=== PATIENT | male | born 1975 | race Caucasian/White ===

== ENCOUNTER 2019-03-17 20:02 | Inpatient (IN) | payer OTHER ==
[~2019-03-17] VITALS: Ht 175.3 cm; Wt 116.6 kg
[2019-03-17 20:02] VITALS: BP 116/61
--- NOTE | 2019-03-17 20:02 | NUR ---
PT TRACY ALS. TAKEN TO BED 9
--- NOTE | 2019-03-17 20:05 | NUR ---
PT BIBA FROM [facility] W/ ABNORMAL LABS. PT RESPONSIVE TO PAIN. PT APPEARS LETHARGIC AND DIAPHORETIC. PER [facility] PT WAS NOT RESPONSIVE HE USUALLY IS AT BASELINE. PT TRACHED, RR SET AT 16. O2 SAT 99%. RECTAL TEMP 99.1. VSS AT THIS TIME. MEDHX: RESPIRATORY FAILURE, TRACHIOSTOMY, GASTRONOMY, DYSPHAGIA, GI HEMMORHAGE, LT SUBDURAL HEMATOMA, DM, EPILEPSY, CRANIOTOMY.
[2019-03-17] MEDS ORDERED: NACL 0.9% 500 ML IV SCH (20:07)
--- NOTE | 2019-03-17 20:07 | NUR ---
RT AT BEDSIDE
[2019-03-17 20:10] VITALS: BP 106/56
--- NOTE | 2019-03-17 20:16 | NUR ---
Dr. Laureano examining patient.
--- NOTE | 2019-03-17 21:00 | NUR ---
GENOVEVA CHU AT BEDSIDE FOR US-GUIDED IV PLACEMENT
[2019-03-17 21:20] LABS: HEMATOCRIT 29.3 % (36-52); HEMOGLOBIN 9.7 g/dL (12.0-18.0); MEAN CORPUSCULAR HEMOGLOBIN 28 pg (27-31); MEAN CORPUSCULAR HGB CONC 33 g/dL (33-37); MEAN CORPUSCULAR VOLUME 86.3 fL (80-94); PLATELET COUNT (AUTO) 592 K/uL (140-450); RED CELL DISTRIBUTION WIDTH 15.7 % (11.6-13.7); WHITE BLOOD COUNT (AUTO) 23.5 K/uL (4.8-10.8)
--- NOTE | 2019-03-17 21:25 | NUR ---
PT POSITIONED COMFORTABLE IN BED, BED LOCKED AND IN LOW POSITION. VSS AT THIS TIME. PT APPEARS TO BE DIAPHORETIC. MD MADE AWARE. WILL CONTINUE TO MONITOR.
[2019-03-17 21:28] LABS: APPEARANCE,URINE SL CLOUDY (CLEAR); BILIRUBIN,URINE NEGATIVE (NEGATIVE); BLOOD, URINE NEGATIVE (NEGATIVE); COLOR,URINE YELLOW (YELLOW); LEUKOCYTE ESTERASE ,URINE NEGATIVE (NEGATIVE); NITRITE, URINE NEGATIVE (NEGATIVE); PH,URINE 5.5 (5.0-9.0); UGLUCOSE NEGATIVE (NEGATIVE)
[2019-03-17] MEDS ORDERED: PIPERACILLIN/TAZOBACTAM 3.375 GM in DEXTROSE 5% 50 ML IV ONE (21:35)
[2019-03-17] MEDS ORDERED: CLINDAMYCIN 900 MG in DEXTROSE 5% 100 ML IV ONE (21:35)
[2019-03-17 21:38] LABS: ANION GAP 13.6 (8-16); CARBON DIOXIDE 27.2 mmol/L (21-32); CREATININE 0.8 mg/dL (0.7-1.3); POTASSIUM 3.8 mmol/L (3.5-5.1)
[2019-03-17 21:41] LABS: PROTHROMBIN TIME 10.5 secs (10.8-13.4)
[2019-03-17 21:43] LABS: EOSINOPHILS % (MANUAL) 2 % (0-4); LYMPHOCYTES % (MANUAL) 7 % (20-46); MONOCYTES % (MANUAL) 6 % (5-12)
[2019-03-17 21:49] LABS: RBC,URINE NONE SEEN /HPF (0-5); WBC,URINE 0-5 /HPF (0-5)
[2019-03-17 21:50] LABS: URINE AMORPHOUS URATE 2+ /HPF (None Seen)
--- NOTE | 2019-03-17 21:52 | NUR ---
EMT AT BED SIDE GETTING EKG
[2019-03-17 21:57] LABS: TOTAL BILIRUBIN 0.6 mg/dL (0.0-1.0)
--- NOTE | 2019-03-17 21:58 | NUR ---
XRAY AT BEDSIDE
[2019-03-17] MEDS ORDERED: PIPERACILLIN/TAZOBACTAM 3.375 GM VIAL IV ONE (22:20)
--- NOTE | 2019-03-17 22:38 | NUR ---
PT RECEVING MEDICATIONS AT THIS TIME, ARM POSITIONED FOR IV. VSS. WILL CONTINUE TO MONITOR.
--- NOTE | 2019-03-17 22:50 | NUR ---
PT CALM AND RELAXED, VSS WILL CONTINUE TO MONITOR
[2019-03-17] MEDS ORDERED: ZOLPIDEM 5 MG TAB PO PRN (22:55)
[2019-03-17] MEDS ORDERED: ONDANSETRON 4 MG/2 ML VIAL IVP PRN (22:55)
[2019-03-17] MEDS ORDERED: POTASSIUM CHLORIDE 10 MEQ TABER PO PRN (22:55)
[2019-03-17] MEDS ORDERED: LORazepam 2 MG/ML VIAL IVP PRN (22:55)
[2019-03-17] MEDS ORDERED: SODIUM PHOSPHATE 118 ML ENEM RC PRN (22:55)
[2019-03-17] MEDS ORDERED: guaiFENesin DM 200/20 MG-10 ML 10 ML UDC PO PRN (22:55)
[2019-03-17] MEDS ORDERED: BISACODYL 10 MG SUPP RC PRN (22:55)
[2019-03-17] MEDS ORDERED: ALUMINUM HYD/MAG/SIMETHICONE 30 ML UDC PO PRN (22:55)
[2019-03-17] MEDS ORDERED: MAGNESIUM OXIDE 400 MG TAB PO PRN (22:55)
[2019-03-17] MEDS ORDERED: MORPHINE SULFATE 2 MG/ML SYR IVP PRN (22:55)
[2019-03-17] MEDS ORDERED: ACETAMINOPHEN 650 MG SUPP RC PRN (22:55)
[2019-03-17] MEDS ORDERED: VANCOMYCIN PER PHARMACY MC PRN (22:55)
[2019-03-17] MEDS ORDERED: ACETAMINOPHEN 325 MG TAB PO PRN (22:55)
[2019-03-17] MEDS ORDERED: HYDROcodone/APAP 5/325 MG 1 TAB TAB PO PRN ×2 (22:55)
[2019-03-17] MEDS ORDERED: DOCUSATE SODIUM 250 MG GELCAP PO PRN (22:55)
[2019-03-17] MEDS ORDERED: MAG SULF 2000 MG/WATER PREMIX 50 ML IV PRN (22:55)
[2019-03-17] MEDS ORDERED: NACL 0.9% 1,000 ML IV ONE (22:55)
[2019-03-17] MEDS ORDERED: diphenhydrAMINE 50 MG/ML VIAL IVP PRN (22:55)
[2019-03-17] MEDS ORDERED: cloNIDine 0.1 MG TAB PO PRN (22:55)
--- NOTE | 2019-03-17 23:05 | NUR ---
VENT CHANGES MADE PER ORDER BY DR. LINDSEY. TOLERATING WELL. NO RESPIRATORY DISTRESS NOTED. WILL CONTINUE TO MONITOR.
[2019-03-17] MEDS ORDERED: CLINDAMYCIN 900 MG/6 ML VIAL IV ONE (23:07)
--- NOTE | 2019-03-17 23:30 | NUR ---
PATIENT TRANSFERRED TO [facility] WITHOUT INCIDENT; BAGGED WITH 100% OXYGEN. VENT SETUP COMPLETE. VENT INTO CORRECT RED OUTLET. VENT ALARMS ON AND AUDIBLE. AIRWAY SECURE AND PATENT. AMBU BAG AT [facility].PATIENT PLACED ON CONT. PULSE OX MONITOR; PULSE OX FUNCTIONING PROPERLY WITH ALARMS ON AND AUDIBLE. NO RESPIRATORY DISTRESS NOTED AT THIS TIME. WILL CONTINUE TO MONITOR.
--- NOTE | 2019-03-17 23:35 | NUR ---
Patient will be admitted to care of DR MEJIA. Admited to TELE. Will go to room 122B. Belongings list completed. Report to MIKE LOPEZ.
[2019-03-17 23:45] VITALS: BP 93/46
--- NOTE | 2019-03-17 23:45 | NUR ---
REPORT RECEIVED FROM ED NURSE AT BEDSIDE. PT IN STABLE CONDITION. AAOX0. INTRODUCED SELF TO PT. BOARD UPDATED. FLACC 0. NO SOB ON TRACH TO VENT. AFEBRILE@97.2. PT IS BEDBOUND. PT HAS GTUBE. MRSA COLLECTED. VS STABLE. IV SITE L AC 20G RUNNING CLEOCIN@100ML/HR PATENT AND INTACT. R HAND 22G SL PATENT AND INTACT. SKIN WARM, DRY, AND NOT INTACT DUE TO BILATERAL SHOULDER CELLULITIS WOUNDS AND L FOOT DIABETIC FOOT ULCER. BED LOCKED IN LOW POSITION. CALL SINGH WITHIN REACH. SAFETY PRECAUTION IN PLACE. ALL NEEDS MET AT THIS TIME.
[2019-03-18] VITALS: BP 97/45
[2019-03-18] MEDS ORDERED: VANCOMYCIN 1,000 MG VIAL ONE ×2 (00:01→03:23)
[2019-03-18] MEDS ORDERED: LIP80 PO (00:37)
[2019-03-18] MEDS ORDERED: PHEN100C3 GT (00:37)
[2019-03-18] MEDS ORDERED: LACT1CAP59 GT (00:37)
[2019-03-18] MEDS ORDERED: INSU100S5 SQ (00:37)
[2019-03-18] MEDS ORDERED: LISI10TA11 GT (00:37)
[2019-03-18] MEDS ORDERED: ARGI4.5P3 GT (00:37)
[2019-03-18] MEDS ORDERED: GABA100C GT (00:37)
[2019-03-18] MEDS ORDERED: DOCU-300 GT (00:37)
[2019-03-18] MEDS ORDERED: HYDR100T79 GT (00:37)
[2019-03-18] MEDS ORDERED: AMOX-1000 PO (00:37)
[2019-03-18] MEDS ORDERED: DEXL30EC PO (00:37)
[2019-03-18] MEDS ORDERED: MULT-153 GT (00:37)
[2019-03-18] MEDS ORDERED: KEP500L GT (00:37)
[2019-03-18] MEDS ORDERED: LANTUS SUBQ (00:37)
[2019-03-18] MEDS ORDERED: ACET-2619 PO (00:37)
[2019-03-18] MEDS ORDERED: NA P135N RC (00:37)
--- NOTE | 2019-03-18 00:50 | NUR ---
PICTURES OF BILATERAL SHOULDER CELLULITIS WOUNDS TAKEN AND IN CHART.
[2019-03-18] MEDS: VANCOMYCIN 1,000 MG in DEXTROSE 5% 250 ML IV SCH ×4 (01:01→19:48)
--- NOTE | 2019-03-18 01:01 | NUR ---
CHAMP ISAACS AND RUNNING. PT TOLERATING WELL.
--- NOTE | 2019-03-18 03:30 | NUR ---
CHAMP ISAACS AND RUNNING. PT TOLERATING WELL.
[2019-03-18 04:00] VITALS: BP 100/50
[2019-03-18] MEDS ORDERED: cefTRIAXone 1,000 MG VIAL ONE (05:17)
--- NOTE | 2019-03-18 05:37 | NUR ---
TAWANDA ISAACS AND CHRISS. PT TOLERATING WELL. Addendum: 03/18/19 at 0547 by Honorio Valderrama RN ORAL CARE DONE.
--- NOTE | 2019-03-18 06:23 | NUR ---
REC' D PT ON CARESCAPE VENT SETTINGS AC 14 VT50 PEEP 5 FIO2 28% ALARMS ON AND AUDIBLE AND AMBU BAG IS AT HOB AND VENT IS PLUGGED INTO RED OUTLET, NO HHN NEEDED NO SOB SXN PT MODERATED AMT OF THICK BLOODY SECRETIONS, PT IS TRACH WITH SHILEY 7 XLT AND PT IS RESTING
--- NOTE | 2019-03-18 06:33 | NUR ---
PT OFF BIPAP PLACED ON 3LNC Addendum: 03/18/19 at 0641 by Marly Bee RT WRONG PT, THIS PT IS ON VENT
--- NOTE | 2019-03-18 06:40 | NUR ---
PT SLEEPING COMFORTABLY BUT AROUSABLE. PT IN STABLE CONDITION.
--- NOTE | 2019-03-18 07:20 | NUR ---
RECEIVED REPORT FROM NIGHT RN. PATIENT IS SLEEPING BUT EASILY AROUSABLE. PT IS FULL CODE, NKA. CAME [place] [facility] [place] PT HAS TWO IV LINES, LEFT AC 20G, RIGHT AC 20G WITH NORMAL SALINE INFUSING TO RIGHT LINE. PT HAS A G-TUBE, AAOX0, APHASIC. WILL CONTINUE WITH THE PLAN OF CARE FOR THE DAY.
[2019-03-18 08:00] VITALS: BP 95/53
--- NOTE | 2019-03-18 09:00 | NUR ---
OBTAINED AEROBIC SWAB OF WOUNDS TO LEFT FOOT, RIGHT AND LEFT SHOULDER WOUNDS. SENT OVER TO LAB
--- NOTE | 2019-03-18 09:18 | NUR ---
PATIENT HAS BEEN SCREENED AND CATEGORIZED HIGH NUTRITION RISK. PATIENT WILL BE SEEN WITHIN 1-2 DAYS OF ADMISSION. 03/18/19-03/19/[address]
--- NOTE | 2019-03-18 09:27 | NUR ---
BEGAN NEXT INFUSION OF VANCOMYCIN. PT SLEEPING IN BED, VISIBLE CHEST RISE AND FALL.
--- NOTE | 2019-03-18 11:44 | NUR ---
[facility] Celluloid Trimmer Assessment/Discharge Plan: Name: Payal Bonilla Home Relationship: sister in law Pre-Admission Living Arrangements: Other Other: sub-acute Prior ADL Total/Dependent Advance Directive No Tentative Discharge Plan Summary: Patient was admitted for shoulder abscess. Per Vanita from [facility] , patient is on a 7 day bed hold and is one of their chcf patients in their sub-acute unit. Vanita stated they patient does not have an Advance Directive and his sister in law Payal Bonilla is his health care decision maker. I called Payal, no answer, left message. Celluloid Trimmer and/or Petrophysical Engineer will follow up as needed. Signature: JOSHUA Mcmillan Date: Mar 18, 2019
[2019-03-18 12:00] VITALS: BP 152/73
[2019-03-18] MEDS ORDERED: MORPHINE SULFATE 4 MG/ML SYR IVP PRN (12:50)
[2019-03-18] MEDS ORDERED: SODIUM PHOSPHATE 118 ML ENEM RC PRN (12:55)
--- NOTE | 2019-03-18 13:00 | NUR ---
PATIENT IS EXTREMELY AGITATED WITH HIGH HR OF 140s. ADMINISTERED ATIVAN & MORPHINE.
[2019-03-18] MEDS: LORazepam 2 MG/ML VIAL IVP PRN ×3 (13:19→16:29)
--- NOTE | 2019-03-18 13:41 | NUR ---
PATIENT SKIN WARM TO TOUCH AND TEMP OF 104 TEMPORAL READING. ADMINISTERED TYLENOL SUPPOSITORY. WILL RE ASSESS TEMP
[2019-03-18] MEDS ORDERED: INSULIN LISPRO SLIDING SCALE 100 UNITS/ML VIAL SUBQ PRN (13:45)
[2019-03-18] MEDS ORDERED: DEXTROSE 50% 50 ML SYR IVP PRN (13:45)
[2019-03-18] MEDS: MEROPENEM 500 MG in NACL 0.9% 50 ML IV SCH ×2 (13:54→21:09)
--- NOTE | 2019-03-18 14:08 | NUR ---
03/18/19 RD INITIAL ASSESSMENT COMPLETED PLEASE REFER TO NUTRITION ASSESSMENT UNDER CARE ACTIVITY FOR ESTIMATED NUTRITIONAL NEEDS. 1. RECOMMEND GLUCERNA @ 80ML/HR WITH PROSOURCE DAILY. -THIS WILL PROVIDE 2364KCAL AND 130GM OF PROTEIN WHICH WILL MEET 100% OF ESTIMATEDS NEEDS 2. RECOMMED FWF OF 200ML Q6H 3. RD TO FOLLOW-UP 2-3 DAYS, HIGH RISK NICK JOVEL RD
--- NOTE | 2019-03-18 15:15 | NUR ---
TEMP CAME DOWN TO 102.2, UTILIZED COOLING MEASURES. PATIENT IS STILL EXTREMELY AGITATED AFTER X2 DOSES OF ATIVAN AND X1 MORPHINE.
--- NOTE | 2019-03-18 15:16 | NUR ---
DISCHARGE PLANNIN YRS OLD MALE AD[place] [facility] [place] DX OF RT SHOULDER ABSCESS. PT IS CHRONIC VENT DEPENDENT , REMAINS COMATOSE AT BASELINE, SEIZURE DM AND SEPSIS UNCLEAR ETIOLOGY. ADMINISTERED VANCO AND MEROPENEM IVPB FOR CELLULITIS, AND WBC 23.4 , RT PROTOCOL FOR VENT SETTING. SURGICAL CONSULT WITH DR HAYNES FOR SHOULDER ABSCESS ,DC PLAN TO GO BACK TO [facility] . CM TO FOLLOW Addendum: 03/19/19 at 1206 by Ana Tong CM DC PLANNING: I&D DONE ON R&L SHOULDER ABSCESS , WOUND CULTURE SENT TO LAB , CONTINUE IV VANCOMYCIN AND MEROPENEM , ABDOMINAL US FINDING FOR CHOLELITHIASIS NEW ORDER HIDA SCAN TO R/O ACUTE CHOLECYSTITIS. DC PLAN POSSIBLE SURGERY CM TO FOLLOW. Addendum: 03/24/19 at 1511 by Ana Tong CM DC PLANNING PATIENT HAS A DC ORDER GOING BACK [place] [facility] FA[place]ED ALL THE PAPER WORK , NO ISO NEEDED PT IS COLONIZED. SPOKE WITH SOLA AT [facility] ACCEPTED PT CAN GO TO ROOM 34 A . ARRANGED TRANSPORT WITH [facility] FILM SOUND ENGINEER TIME 5PM . NOTIFED CHELSEY MCKEON
[2019-03-18 16:00] VITALS: BP 127/67
--- NOTE | 2019-03-18 16:03 | NUR ---
PATIENTS TEMP DOWN TO 100. PATIENT IS RECEIVING SUCTIONING TO MOUTH Q20MIN FOR EXCESS SECRETIONS.
[2019-03-18] MEDS ORDERED: LORazepam 2 MG/ML VIAL IVP PRN (16:15)
--- NOTE | 2019-03-18 16:31 | NUR ---
ADMINISTERED ONE TIME DOSE OF ATIVAN 2MG PER DR MEJIA. WILL GIVE PATIENT 2L BOLUS NS PER ORDER.
[2019-03-18] MEDS: BLOOD GLUCOSE MONITORING 1 DEV DEV FS SCH ×2 (16:48→20:42)
--- NOTE | 2019-03-18 18:40 | NUR ---
OBTAINED TELEPHONE CONSENT FOR INCISION AND DRAINAGE PER DR HAYNES. PATIENT WILL BE HAVING PROCEDURE DONE TONIGHT. WILL ENDORSE TO INTERVENTIONAL PAIN PHYSICIAN TO OBTAIN CONSENT FOR CT ABD W/O CONTRAST AND HIDA SCAN.
[2019-03-18] MEDS: ALBUTEROL 0.083% 2.5 MG/3 ML NEBU INH PRN (18:58)
[2019-03-18] MEDS: IPRATROPIUM 0.02% 0.5 MG/2.5 ML NEBU INH PRN (18:58)
--- NOTE | 2019-03-18 19:05 | NUR ---
REPORT RECEIVED FROM AM NURSE AT BEDSIDE. PT IN STABLE CONDITION. AAOX0. INTRODUCED SELF TO PT. BOARD UPDATED. FLACC 0. NO SOB TRACH TO VENT. FEBRILE@99.5. PT IS BEDBOUND. PT HAS GTUBE. PT TO GO TO OR FOR I AND D OF BILATERAL SHOULDER ABSCESS@2129. IV SITE L AC WAS D/C BY PATIENT PULLING OUT THE IV LINE. R WRIST 22G CURRENT IV RUNNING NS@70ML/HR PATENT AND INTACT. SKIN WARM, MOIST, AND NOT INTACT DUE TO ABSCESSES OF THE BILATERAL SHOULDERS AND L DIABETIC FOOT ULCER. BED LOCKED IN LOW POSITION. CALL SINGH WITHIN REACH. SAFETY PRECAUTION IN PLACE. ALL NEEDS MET AT THIS TIME.
--- NOTE | 2019-03-18 19:20 | NUR ---
Received pt stable on vent support at documented settings, suctioned moderated amounts of thick white blood tinged secretions, prn hhn tx given, tolerated well, no resp distress or SOB noted at this time, Shiley 7 XLT trach secured/midline/patent, alarms set and audible, ambu bag at bedside, vent plugged into red outlet, cont pulse ox on, will cont to monitor.
--- NOTE | 2019-03-18 19:48 | NUR ---
CHAMP ISAACS AND RUNNING. PT TOLERATING WELL.
[2019-03-18 20:00] VITALS: BP 111/56
[2019-03-18] MEDS: levETIRAcetam 100 MG/ML ORASYR GT SCH ×2 (20:33→22:30)
[2019-03-18] MEDS: GABAPENTIN 100 MG CAP PO SCH ×2 (20:33→22:30)
[2019-03-18] MEDS: DOCUSATE 100 MG/10 ML UDC GT SCH ×2 (20:33→22:30)
[2019-03-18] MEDS: PHENYTOIN 100 MG/4 ML UDC GT SCH ×2 (20:34→22:30)
[2019-03-18] MEDS ORDERED: LISINOPRIL 10 MG TAB PO SCH (21:00)
[2019-03-18] MEDS ORDERED: DOCUSATE SODIUM 100 MG GT SCH (21:00)
--- NOTE | 2019-03-18 21:09 | NUR ---
JARVIS HUNG AND RUNNING. PT TOLERATING WELL. BS 126. NO INSULIN COVERAGE NEEDED.
--- NOTE | 2019-03-18 21:35 | NUR ---
PT LEFT FOR SURGERY I&D OF BILATERAL SHOULDER ABSCESS.
[2019-03-18] MEDS: BUPIVACAINE-MPF/EPI 0.25% 30 ML VIAL INJ ONE ×2 (21:42→22:14)
[2019-03-18] MEDS ORDERED: fentaNYL 0.05 MG/ML VIAL ONE (22:00)
[2019-03-18] MEDS ORDERED: HYDROcodone/APAP 5/325 MG 1 TAB TAB PO PRN (22:20)
[2019-03-18] MEDS ORDERED: MORPHINE SULFATE 2 MG/ML SYR IVP PRN (22:20)
[2019-03-18] MEDS ORDERED: MORPHINE SULFATE 4 MG/ML SYR IV PRN (22:20)
[2019-03-18] MEDS ORDERED: HYDROmorphone 1 MG/ML AMP IVP PRN (22:20)
--- NOTE | 2019-03-18 22:20 | NUR ---
PT RETURNED FROM SURGERY. REPORT RECEIVED FROM OR NURSE AT BEDSIDE. PT IN STABLE CONDITION.
--- NOTE | 2019-03-18 22:30 | NUR ---
DILANTIN, KEPPRA, DOCUSATE, AND GABAPENTIN GIVEN THROUGH GTUBE. PT TOLERATED WELL.
--- NOTE | 2019-03-18 22:59 | NUR ---
TYL GIVEN THROUGH GTUBE FOR FEVER OF 100.2. PT TOLERATED WELL.
--- NOTE | 2019-03-18 23:15 | NUR ---
ATIVAN GIVEN FOR AGITATION. PT TOLERATED WELL.
[2019-03-19] VITALS: BP 126/63
[2019-03-19] MEDS: VANCOMYCIN 1,000 MG in DEXTROSE 5% 250 ML IV SCH (01:52)
--- NOTE | 2019-03-19 01:52 | NUR ---
CHAMP ISAACS AND RUNNING. PT TOLERATING WELL.
--- NOTE | 2019-03-19 03:40 | NUR ---
PT SLEEPING COMFORTABLY BUT AROUSABLE. NO S/S OF DISTRESS NOTED. NO COMPLAINTS OF PAIN. NO SOB. AFEBRILE. WILL CONTINUE TO MONITOR.
[2019-03-19 04:00] VITALS: BP 142/70
[2019-03-19] MEDS: MEROPENEM 500 MG in NACL 0.9% 50 ML IV SCH ×3 (04:00→21:41)
--- NOTE | 2019-03-19 04:00 | NUR ---
JARVIS HUNG AND RUNNING. PT TOLERATING WELL.
[2019-03-19] MEDS: BLOOD GLUCOSE MONITORING 1 DEV DEV FS SCH ×4 (06:02→21:52)
--- NOTE | 2019-03-19 06:02 | NUR ---
BS 85. NO INSULIN COVERAGE NEEDED.
--- NOTE | 2019-03-19 06:29 | NUR ---
PT SLEEPING COMFORTABLY BUT AROUSABLE. NO S/S OF DISTRESS NOTED. PT IN STABLE CONDITION.
--- NOTE | 2019-03-19 07:07 | NUR ---
RECEIVED PATIENT ON VENT. WITH SETTINGS CHARTED. BREATH SOUNDS WERE COARSE, PRESENT AND BILATERAL. SUCTIONED PATIENT WITH MINIMUM AMOUNT OF OFF WHITE SECRETIONS. TRACH SITE SECURE. AMBU BAG AT BEDSIDE. VENT PLUGGED INTO A RED OUTLET. WILL CONTINUE TO MONITOR PATIENT ON VENT.
--- NOTE | 2019-03-19 07:15 | NUR ---
RECEIVED BEDSIDE REPORT FROM CRISIS CLINICIAN NURSE FOR CONTINUITY OF CARE. PATIENT IS RESTING ON BED, PATIENT IS APHASIC WITH TRACH TO VENT, AAOX1. RESPIRATION EVEN AND UNLABORED ON TRACH TO VENT SETTING: FIO2 28%, VT 500 ML, RATE 14/MIN, FLOW 45/ MIN, PEEP 5, SPO2 AT 100% AT THIS TIME. FLACC 0. NO SIGNS OF DISTRESS NOTED. IV ON L FORE-WRIST 22G, CLEAN AND INTACT, RUNNING 5ML/HR. SHOULDER WOUNDS BILATERALLY NOTED, COVERED WITH DRESSING, S/P I&D, DRESSING CLEAN AND DRY. L FOOT ULCER NOTED, COVERED WITH DRESSING, DRESSING CLEAN AND DRY. G-TUBE IN PLACE AND NOT INFUSING AT THIS TIME. PATIENT IS INCONTINENT AND BEDREST. TELE MONITOR ATTACHED. SAFETY MEASURES IN PLACE. FALL RISK PROTOCOL IN PLACE AND BED ALARM ACTIVATED. BED IN LOW POSITION AND CALL LIGHT WITHIN REACH.
--- NOTE | 2019-03-19 07:47 | NUR ---
RECEIVED A CALL FROM [facility] AND WAS TOLD THAT THEY WILL ARRANGE A PORTABLE HIDA SCAN FOR PATIENT, AND PATIENT NEED TO BE NPO FOR 4-6 HOURS, NO MED NOR OPIOIDS. INFORMED GREGORIA THAT PATIENT HAS BEEN NPO AND NOT RUNNING ANY TUBE FEEDING. REQUESTED GREGORIA TO CALL BACK ONCE HE FINDS OUT WHEN IS HIDA SCAN TAKE PLACE, GREGORIA WAS AWARE AND SAID WILL CALL ME BACK FOR FURTHER INFORMATION.
[2019-03-19 08:00] VITALS: BP 138/62
--- NOTE | 2019-03-19 08:03 | NUR ---
RECEIVED A CALL FROM RADIOLOGY [facility] AND TOLD THAT PORTABLE HIDA SCAN SERVICE WILL BE ARRIVE AROUND 12-1 PM, HOLD ALL OPIOIDS AND ATIVAN, NPO FOR 4-6 HOURS. INFORMED [facility], PROTOCOL WILL BE FOLLOW FOR THE HIDA SCAN.
--- NOTE | 2019-03-19 08:45 | NUR ---
PATIENT WAS TRANSPORTED TO CT VIA AMBU BAG. CT DONE. PATIENT TRANSPORTED BACK TO ROOM AND PLACED BACK ON CARESCAPE WITH THE SETTINGS THAT WERE STARTED. NO ILL EFFECTS NOTED.
[2019-03-19] MEDS: GABAPENTIN 100 MG CAP PO SCH ×3 (09:00→17:23)
[2019-03-19] MEDS: INSULIN LANTUS 100 UNITS/ML 10 ML VIAL SUBQ SCH (09:00)
[2019-03-19] MEDS: PHENYTOIN 100 MG/4 ML UDC GT SCH ×3 (09:00→17:22)
--- NOTE | 2019-03-19 09:40 | NUR ---
ASSISTED ASPHALT PAVER OPERATOR TO CHANGE AND CLEAN PATIENT, PATIENT HAS ONE SOFT YELLOW BM. POSITIONED PATIENT TO HIS RIGHT SIDE WITH PILLOW OFF LOADED PRESSURE, PATIENT TOLERATED WELL. NO SIGNS OF DISTRESS NOTED. TELE MONITOR AND SPO2 MONITOR ATTACHED. SAFETY MEASURES IN PLACE. BED IN LOW POSITION AND WOUND BED ACTIVATED. FALL RISK PROTOCOL IN PLACE AND BED ALARM ACTIVATED.
[2019-03-19 09:41] LABS: BASOPHILS % (AUTO) 0.2 % (0.0-2.0); EOSINOPHILS # (AUTO) 0.5 K/uL (0-0.4); EOSINOPHILS % (AUTO) 1.9 % (0.0-4.0); HEMATOCRIT 25.2 % (36-52); HEMOGLOBIN 8.4 g/dL (12.0-18.0); LYMPHOCYTES # (AUTO) 2.3 K/uL (2.0-11.5); LYMPHOCYTES % (AUTO) 8.4 % (20.5-51.1); MEAN CORPUSCULAR HEMOGLOBIN 29 pg (27-31); MEAN CORPUSCULAR HGB CONC 33 g/dL (33-37); MEAN CORPUSCULAR VOLUME 86.6 fL (80-94); MONOCYTES % (AUTO) 7.3 % (1.7-9.3); NEUTROPHILS # (AUTO) 22.2 K/uL (1.8-7.7); NEUTROPHILS % (AUTO) 82.2 % (42.2-75.2); PLATELET COUNT (AUTO) 546 K/uL (140-450); RED BLOOD CELL COUNT(AUTO) 2.91 MIL/uL (4.20-6.10)
--- NOTE | 2019-03-19 09:53 | NUR ---
RECEIVED A CRITICAL LAB FOR WBC 27 AT 0949 FROM [facility], PAGED DR MEJIA AND AWAITING FOR DR MEJIA TO RETURN CALL.
[2019-03-19 10:05] LABS: ANION GAP 14.3 (8-16); CARBON DIOXIDE 25.4 mmol/L (21-32); POTASSIUM 3.7 mmol/L (3.5-5.1)
--- NOTE | 2019-03-19 10:05 | NUR ---
RECEIVED A CALL FROM DR MEJIA AND INFORMED DR MEJIA THAT PATIENT'S WBC IS 27 AND VANCOMYCIN TROUGH IS 39.2, DR MEJIA AWARE AND NO ORDER RECEIVED AT THIS TIME. ALSO INFORMED DR MEJIA DUE TO PATIENT IS GOING TO HIDA SCAN AT NOON, HOLD ALL AM GT MEDS, AND CHECK BLOOD GLUCOSE RECEIVED 109, HOLD INSULIN DUE TO NOT FEEDING AT THIS TIME. DR MEJIA WAS AWARE.
[2019-03-19 10:06] LABS: ALBUMIN 1.8 g/dL (3.4-5.0); CREATININE 1.7 mg/dL (0.7-1.3); TOTAL BILIRUBIN 1.2 mg/dL (0.0-1.0)
--- NOTE | 2019-03-19 10:13 | NUR ---
RECOMMEND TO CLEANSE LEFT AND RIGHT SHOULDER WITH NS. PAT DRY AND APPLY ADAPTIC DRESSING AND COVER WITH DRY DRESSING QD AND PRN. PENDING DR. HAYNES I&D PROCEDURES Addendum: 03/19/19 at 1026 by Dharmesh Ureña RN (Grace) DR. CALI NOTIFIED, WILL ASSESS PT. POST I&D
--- NOTE | 2019-03-19 10:17 | NUR ---
NOTIFIED PHARMACIST ON REGARD ON VANCOMYCIN TROUGH 39.2, PER PHARMACIST, VANCOMYCIN WILL BE DC AND VANCOMYCIN RANDOM WILL BE DRAW TOMORROW.
--- NOTE | 2019-03-19 10:45 | NUR ---
PROVIDED AM MORNING ORAL CARE, SUCTIONED PATIENT 2X AND RECEIVED MINIMAL MUCUS. PATIENT TOLERATED WELL. SPO2 AT 100, FLACC 0. NO SIGNS OF DISTRESS NOTED. SAFETY MEASURES IN PLACE. BED IN LOW POSITION AND CALL LIGHT WITHIN REACH. WOUND BED ACTIVATED.
--- NOTE | 2019-03-19 11:06 | NUR ---
DR MEJIA IS ASSESSING PATIENT AT BEDSIDE. NO SIGNS OF DISTRESS NOTED. TELE MONITOR ATTACHED. SAFETY MEASURES IN PLACE.
[2019-03-19 12:00] VITALS: BP 110/49
--- NOTE | 2019-03-19 12:54 | NUR ---
ADMINISTERED SCHEDULED IVPB MED PER MD ORDER, MED EDUCATION PROVIDED, REINFORCEMENT NEEDED. PATIENT IS RESTING ON BED AT THIS TIME. RESPIRATION EVEN AND UNLABORED ON TRACH TO VENT, SPO2 AT 100%. NUCLEAR MED SHOW OPERATIONS SUPERVISOR MAME ARRIVED AT BEDSIDE AND GETTING READY FOR HIDA SCAN. NO SIGNS OF DISTRESS NOTED. SAFETY MEASURES IN PLACE. BED IN LOW POSITION AND WOUND BED ACTIVATED.
--- NOTE | 2019-03-19 13:50 | NUR ---
PATIENT IS STILL IN HIDA SCAN. FALCC 0. SPO2 AT 100%. NO SIGNS OF DISTRESS NOTED. BROTHER RAYMOND IS BY BEDSIDE. SAFETY MEASURES IN PLACE.
[2019-03-19] MEDS: metroNIDAZOLE 500 MG/NS PREMIX 100 ML IV SCH ×2 (14:14→22:57)
--- NOTE | 2019-03-19 14:14 | NUR ---
ADMINISTERED METRONIDAZOLE VIA IVPB PER MD ORDER, MED EDUCATION PROVIDED TO PATIENT AND PATIENT'S BROTHER RAYMOND AT BEDSIDE. PATIENT IS RESTING ON BED. RESPIRATION EVEN AND UNLABORED ON TRACH TO VENT, SPO2 AT 100%, FLACC 0. NO SIGNS OF DISTRESS NOTED. SAFETY MEASURES IN PLACE. TELE MONITOR ATTACHED. WOUND BED ACTIVATED.
[2019-03-19] MEDS: GAUZE TP SCH (14:19)
[2019-03-19] MEDS: DOCUSATE 100 MG/10 ML UDC GT SCH ×2 (15:40→21:00)
[2019-03-19] MEDS: levETIRAcetam 100 MG/ML ORASYR GT SCH ×2 (15:41→21:00)
--- NOTE | 2019-03-19 15:42 | NUR ---
HIDA SCAN COMPLETED. ADMINISTERED MEDS VIA G-TUBE PER MD ORDER, MEDS EDUCATION PROVIDED TO PATIENT AND REINFORCEMENT NEEDED. STARTED G-TUBE FEEDING PER MD ORDER. PATIENT IS RESTING AT THIS TIME. FLACC 0. NO SIGNS OF DISTRESS NOTED. TELE MONITOR ATTACHED. SAFETY MEASURES IN PLACE.
[2019-03-19 16:00] VITALS: BP 129/58
--- NOTE | 2019-03-19 17:21 | NUR ---
CONTINUED TO MONITOR PATIENT WITH SETTINGS CHARTED. BREATH SOUNDS PRESENT AND BILATERAL. SUCTIONED PATIENT WITH MODERATE AMOUNT OF BROWN SECRETIONS. TRACH SITE SECURE. TRACH CARE DONE. AMBU BAG BEDSIDE. VENT PLUGGED INTO RED OUTLET.
--- NOTE | 2019-03-19 17:23 | NUR ---
CHECKED G-TUBE RESIDUAL AND RECEIVED < 5ML, FLUSHED BEFORE AND ADMINISTERED MEDS VIA G-TUBE, MEDS EDUCATION PROVIDED AND REINFORCEMENT NEEDED. PATIENT IS RESTING ON BED AT THIS TIME. FLACC 0 AND SPO2 AT 100%. NO SIGNS OF DISTRESS NOTED. TELE MONITOR ATTACHED. SAFETY MEASURES IN PLACE. BED IN LOW POSITION AND WOUND BED ACTIVATED.
--- NOTE | 2019-03-19 17:47 | NUR ---
PATIENT'S COUSIN BRAYAN IS BY BEDSIDE. NO SIGNS OF DISTRESS NOTED. TELE MONITOR ATTACHED. SAFETY MEASURES IN PLACE.
[2019-03-19] MEDS: IPRATROPIUM 0.02% 0.5 MG/2.5 ML NEBU INH PRN (19:06)
[2019-03-19] MEDS: ALBUTEROL 0.083% 2.5 MG/3 ML NEBU INH PRN (19:07)
--- NOTE | 2019-03-19 19:07 | NUR ---
RECEIVED PATIENT ON CURRENT SETTINGS AC/VC 500 RATE 14 PEEP 5 FIO2 28%. PATIENT IS TRACH'D WITH A SIZE 7 SHILEY XLT THAT IS SECURE WITH TRACH TIES AND PROTECTIVE GAUZE THAT IS CLEAN. B/S: COARSE BILATERALLY IN THE UPPER LOBES. SUCTIONED PATIENT 2X AND RECEIVED SMALL, CREAMY, WHITE, PALE YELLOW SECRETIONS. TREATMENT OF ALBUTEROL AND ATROVENT GIVEN INLINE WITH NO INCIDENT. CHANGED HME AND ADDED OMNIFLEX CONNECTOR TO TRACH. VENT AND ALARM SETTINGS VERIFIED. WILL CONTINUE TO MONITOR.
--- NOTE | 2019-03-19 19:22 | NUR ---
ENDORSED PATIENT AT BEDSIDE TO PAINTER ROUGH NURSE FOR CONTINUITY OF CARE. PATIENT IS RESTING ON BED AT THIS TIME. RESPIRATION EVEN AND UNLABORED ON TRACH TO VENT, SPO2 AT 100%. FALCC 0. GLUCERNA 1.2 IS RUNNING AT 80 ML/HR AT THIS TIME. NO SIGNS OF DISTRESS NOTED. PATIENT IS IN STABLE CONDITION. TELE MONITOR ATTACHED.SAFETY MEASURES IN PLACE.
--- NOTE | 2019-03-19 19:25 | NUR ---
RECEIVED FROM AM RN IN BED WITH RESPIRATORY THERAPIST IN HERE TAKING CARE OF PT. NONE VERBAL. TRACH TO VENT. DX. OF BILATERAL SHOULDER ABSCESS. GT FEEDING OF GLUCERNA 1.2 AT 80 ML/H. IVF SITE TO LEFT WRIST #22 . INCONTINENT. NEEDS WILL BE ANTICIPATED AND WILL BE MET. TOTAL CARE.
[2019-03-19 20:00] VITALS: BP 128/64
--- NOTE | 2019-03-19 20:52 | NUR ---
OH ,A/SURGEON IN HERE AND INFORMED RESIDENT MD TO INFORM CHARGE NURSE AND NURSE ASSIGNED THAT PT'S. G TUBE IS NOT IN PLACE. WITH ORDER TO STOP FEEDING FOR NOW. WILL HOLD ALL GT FEEDINGS AND MEDICATIONS.
--- NOTE | 2019-03-19 22:15 | NUR ---
PT. TURNED TO SIDES BY CNAS AND NURSE. NEEDS ARE ANTICIPATED AND WILL BE MET. TOTAL CARE. PT. BEDBOUND. DRESSINGS TO ABSCESS DRY AND INTACT. TELEMETRY MONITORING. NO RESTLESSNESS. IVF SITE IN TACT.
--- NOTE | 2019-03-19 23:03 | NUR ---
ROUTINE VENT CHECK. SUCTIONED PATIENT TWICE AND RECEIVED SMALL, CREAMY PALLE YELLOW AND WHITE SECRETIONS. B/S IMPROVED POST SUCTIONING. NO CHANGES TO VENT SETTINGS.
[2019-03-20] VITALS: BP 115/56
--- NOTE | 2019-03-20 02:20 | NUR ---
SLEEPING WELL,. NO RESTLESSNESS. PILLOW SUPPORT TO PRESSURE AREAS. HEELS PLACED ON PILLOW FOR SUPPORT. NO COUGHING NOTED. SUCTIONED WELL BY RESPIRATORY THERAPIST. TELEMETRY MONITORING. TURNED Q 2H.
--- NOTE | 2019-03-20 03:17 | NUR ---
PT. TURNED Q 2H. NO RESTLESSNESS NOTED. TRACH TO VENT. RESPIRATORY THERAPIST IN HERE TO TKAE CARE OF PT.
[2019-03-20 04:20] VITALS: BP 120/69
[2019-03-20] MEDS: MEROPENEM 500 MG in NACL 0.9% 50 ML IV SCH ×3 (04:59→22:19)
[2019-03-20] MEDS: metroNIDAZOLE 500 MG/NS PREMIX 100 ML IV SCH ×3 (05:00→21:13)
[2019-03-20 05:35] LABS: BASOPHILS # (AUTO) 0.1 K/uL (0.00-0.22); BASOPHILS % (AUTO) 0.4 % (0.0-2.0); EOSINOPHILS # (AUTO) 0.7 K/uL (0-0.4); EOSINOPHILS % (AUTO) 3.8 % (0.0-4.0); HEMOGLOBIN 8.1 g/dL (12.0-18.0); LYMPHOCYTES # (AUTO) 1.7 K/uL (2.0-11.5); LYMPHOCYTES % (AUTO) 9.5 % (20.5-51.1); MEAN CORPUSCULAR HEMOGLOBIN 29 pg (27-31); MEAN CORPUSCULAR HGB CONC 34 g/dL (33-37); MEAN CORPUSCULAR VOLUME 86.4 fL (80-94); MONOCYTES # (AUTO) 1.3 K/uL (0.8-1.0); MONOCYTES % (AUTO) 7.6 % (1.7-9.3); NEUTROPHILS # (AUTO) 13.7 K/uL (1.8-7.7); NEUTROPHILS % (AUTO) 78.7 % (42.2-75.2); PLATELET COUNT (AUTO) 510 K/uL (140-450); RED BLOOD CELL COUNT(AUTO) 2.78 MIL/uL (4.20-6.10); RED CELL DISTRIBUTION WIDTH 15.7 % (11.6-13.7); WHITE BLOOD COUNT (AUTO) 17.4 K/uL (4.8-10.8)
--- NOTE | 2019-03-20 05:55 | NUR ---
ROUTINE VENT CHECK. COMPLETED TRACH CARE WITH NO INCIDENT. SUCTIONED PATIENT AND RECEIVED MODERATE, THICK AND THIN PALE YELLOW SECRETIONS.
--- NOTE | 2019-03-20 06:34 | NUR ---
PT. TURNED Q 2H. KEPT DRY , CLEAN AND COMFORTABLE. NEEDS ANTICIPATED AND WERE MET. TOTAL CARE. TELEMETRY MONITORING.
--- NOTE | 2019-03-20 07:15 | NUR ---
RECEIVED REPORT FROM DOUBLE END TENON OPERATOR NURSE SHARON FOR CONTINUITY OF CARE. PT IN STABLE CONDITION. RESPIRATIONS EVEN AND UNLABORED. TRACH TO VENT PATENT AND INTACT. NO IV ACCESS. SAFETY MEASURES IN PLACE. BED IN LOW POSITION. CALL LIGHT AT BEDSIDE. BED ALARM ON. WILL CONTINUE TO MONITOR.
[2019-03-20 07:17] LABS: ANION GAP 14.6 (8-16); CARBON DIOXIDE 24.9 mmol/L (21-32); POTASSIUM 3.5 mmol/L (3.5-5.1)
[2019-03-20 07:18] LABS: CREATININE 2.2 mg/dL (0.7-1.3); TOTAL BILIRUBIN 1.2 mg/dL (0.0-1.0)
[2019-03-20 07:19] LABS: ALBUMIN 1.7 g/dL (3.4-5.0)
--- NOTE | 2019-03-20 07:22 | NUR ---
FOUND PT ON A SETTING OF AC 14, 500, +5,28%. VENTILATOR WAS PLUGGED INTO A RED OUTLET WITH BMV AT THE HEAD OF THE BED. PT HAS A [address] ALL ORDERS VERIFIED AND CHECK. PT IS IN NO DISTRESS SAT 100%
[2019-03-20] MEDS: BLOOD GLUCOSE MONITORING 1 DEV DEV FS SCH ×4 (07:30→22:24)
[2019-03-20 08:00] VITALS: BP 103/60
[2019-03-20] MEDS: INSULIN LANTUS 100 UNITS/ML 10 ML VIAL SUBQ SCH (09:00)
--- NOTE | 2019-03-20 10:30 | NUR ---
IV INSERTED 22G LEFT FOREARM AT THIS TIME. PT TOLERATED WELL.
--- NOTE | 2019-03-20 10:54 | NUR ---
TITRATE FI02 TO 24% DUE TO SATURATION AT 100%
[2019-03-20 12:00] VITALS: BP 136/80
--- NOTE | 2019-03-20 12:10 | NUR ---
FAMILY AT BEDSIDE. PT IN STABLE CONDITION. BED IN LOW POSITION. CALL LIGHT AT BEDSIDE. BED ALARM ON. WILL CONTINUE TO MONITOR.
[2019-03-20] MEDS: PHENYTOIN 100 MG/4 ML UDC GT SCH ×3 (12:14→16:57)
[2019-03-20] MEDS: GABAPENTIN 100 MG CAP PO SCH ×3 (12:14→16:58)
[2019-03-20] MEDS: DOCUSATE 100 MG/10 ML UDC GT SCH ×2 (12:14→21:13)
[2019-03-20] MEDS: levETIRAcetam 100 MG/ML ORASYR GT SCH ×2 (12:14→21:13)
[2019-03-20] MEDS: GAUZE TP SCH (12:37)
[2019-03-20] MEDS: LORazepam 2 MG/ML VIAL IVP PRN (12:43)
--- NOTE | 2019-03-20 12:47 | NUR ---
03/20/19 RD INITIAL ASSESSMENT COMPLETED PLEASE REFER TO NUTRITION ASSESSMENT UNDER CARE ACTIVITY FOR ESTIMATED NUTRITIONAL NEEDS. 1. CONTINUE GLUCERNA @ 80ML/HR WITH PROSOURCE DAILY. -THIS WILL PROVIDE 2364KCAL AND 130GM OF PROTEIN WHICH WILL MEET 100% OF ESTIMATEDS NEEDS 2. CONTINUE FWF OF 200ML Q6H 3. RD TO FOLLOW-UP 2-3 DAYS, HIGH RISK NICK JOVEL RD
--- NOTE | 2019-03-20 14:45 | NUR ---
CLEANED AND REPOSITIONED AFTER LARGE SOFT FORMED BOWEL MOVEMENT. PT TOLERATED WELL. BED IN LOW POSITION. CALL LIGHT AT BEDSIDE. BED ALARM ON. WILL CONTINUE TO MONITOR.
--- NOTE | 2019-03-20 15:10 | NUR ---
CAN CATHETER PLACED AT THIS TIME. PT TOLERATED WELL.
[2019-03-20 16:11] VITALS: BP 106/61
--- NOTE | 2019-03-20 17:06 | NUR ---
PT. LEFT ON AC 14,500,+5,24%. HME CHANGED. TRACHEOSTOMY IS INTACT AND CLEAN. PT APPEARS IN NO DISTRESS.
--- NOTE | 2019-03-20 17:15 | NUR ---
GAVE ORDERED DUE MEDICATIONS AT THIS TIME. PT TOLERATED WELL. BED IN LOW POSITION. BED ALARM ON. CALL LIGHT AT BEDSIDE. WILL CONTINUE TO MONITOR.
--- NOTE | 2019-03-20 18:13 | NUR ---
FAMILY AT BEDSIDE. PT IN STABLE CONDITION. BED IN LOW POSITION. BED ALARM ON. CALL LIGHT AT BEDSIDE. WILL CONTINUE TO MONITOR.
--- NOTE | 2019-03-20 19:10 | NUR ---
RCV'D PT ON MECHANICAL VENTILATION. PT IS TRACHED WITH SHILEY [address]LT[address] TRACH IS IN PLACE AND SECURED. VENT SETTINGS CHARTED. VENT CONNECTED TO RED OUTLET. ALARMS AUDIBLE. AMBU BAG AT BEDSIDE. PT ASLEEP COMFORTABLY. NO SOB OR DISTRESS NOTED. WILL CONTINUE TO MONITOR.
--- NOTE | 2019-03-20 19:20 | NUR ---
GAVE REPORT TO SALES ANALYTICS MANAGER NURSE SHERMAN FOR CONTINUITY OF CARE. PT IN STABLE CONDITION.
--- NOTE | 2019-03-20 19:30 | NUR ---
RECEIVED PATIENT REPORT AT BEDSIDE. PT IS APHASIC, TRACH TO VENT. PT ON CONTINUOS O2 MONITORING. O2 SAT 100% AT THIS TIME. NO S/S OF DISTRESS. CAN CATH IN PLACE, DRAINING CLOUDY LIGHT ALINA URINE. PIV NOTED ON THE RIGHT FOREARM. G-TUBE IN PLACE WITH FEEDING ON HOLD. PT ON TELE MONITORING. BED LOWERED WITH CALL LIGHT WITHIN REACH. WILL CONTINUE TO MONITOR
--- NOTE | 2019-03-20 19:50 | NUR ---
PAGED DR HAYNES TO CLARIFY TUBE FEEDING ORDERS. WAITING FOR CALL BACK
[2019-03-20 20:00] VITALS: BP 97/55
--- NOTE | 2019-03-20 23:00 | NUR ---
MADE DR MEJIA AWARE OF THE HIDA SCAN REPORT. PER DR CORNEJO TO RESUME TUBE FEEDING.
--- NOTE | 2019-03-20 23:19 | NUR ---
VENT CHECK. PT ASLEEP COMFORTABLY. NO SOB OR DISTRESS NOTED. WILL CONTINUE TO MONITOR.
[2019-03-21] VITALS (7 sets, daily range): BP systolic 97–123; BP diastolic 53–78
--- NOTE | 2019-03-21 03:00 | NUR ---
WOUND DRESSING ON THE SHOULDERS CHANGED. PT TOLERATED WELL. PT TURNED AND REPOSITIONED FOR COMFORT
[2019-03-21] MEDS: metroNIDAZOLE 500 MG/NS PREMIX 100 ML IV SCH ×3 (05:25→20:48)
[2019-03-21] MEDS: MEROPENEM 500 MG in NACL 0.9% 50 ML IV SCH ×3 (06:35→20:13)
[2019-03-21 06:36] LABS: BASOPHILS % (AUTO) 0.3 % (0.0-2.0); EOSINOPHILS # (AUTO) 0.6 K/uL (0-0.4); EOSINOPHILS % (AUTO) 4.3 % (0.0-4.0); HEMATOCRIT 23.6 % (36-52); HEMOGLOBIN 7.8 g/dL (12.0-18.0); LYMPHOCYTES # (AUTO) 1.3 K/uL (2.0-11.5); LYMPHOCYTES % (AUTO) 8.6 % (20.5-51.1); MEAN CORPUSCULAR HEMOGLOBIN 29 pg (27-31); MEAN CORPUSCULAR HGB CONC 33 g/dL (33-37); MEAN CORPUSCULAR VOLUME 86.3 fL (80-94); MONOCYTES # (AUTO) 1.1 K/uL (0.8-1.0); MONOCYTES % (AUTO) 7.2 % (1.7-9.3); NEUTROPHILS # (AUTO) 11.8 K/uL (1.8-7.7); NEUTROPHILS % (AUTO) 79.6 % (42.2-75.2); PLATELET COUNT (AUTO) 523 K/uL (140-450); RED BLOOD CELL COUNT(AUTO) 2.73 MIL/uL (4.20-6.10); RED CELL DISTRIBUTION WIDTH 15.5 % (11.6-13.7); WHITE BLOOD COUNT (AUTO) 14.8 K/uL (4.8-10.8)
[2019-03-21] MEDS: BLOOD GLUCOSE MONITORING 1 DEV DEV FS SCH ×4 (06:43→20:48)
[2019-03-21 07:20] LABS: ALBUMIN 1.8 g/dL (3.4-5.0); ANION GAP 17.3 (8-16); CARBON DIOXIDE 23.3 mmol/L (21-32); CREATININE 2.1 mg/dL (0.7-1.3); POTASSIUM 3.6 mmol/L (3.5-5.1); TOTAL BILIRUBIN 0.7 mg/dL (0.0-1.0)
--- NOTE | 2019-03-21 07:28 | NUR ---
RECEIVED HAND OFF REPORT FROM PM RN PT APPEARS STABLE AND IN NO APPARENT DISTRESS. ALL SAFETY MEASURES ARE IN PLACE. TRACH TO VENT, GTUBE INFUSING HEAD OF BED ELEVATED ABOVE 30 DEGREES ALL SAFETY MEASURES ARE IN PLACE WILL CONTINUE TO MONITOR
--- NOTE | 2019-03-21 08:15 | NUR ---
REPOSITIONED PT PROVIDED WOUND CARE WITH RUPA ALL SAFETY MEASURES ARE IN PLACE. WILL CONTINUE TO MONITOR.
--- NOTE | 2019-03-21 08:31 | NUR ---
WOUND CARE EVALUATION NOTE: REASON FOR EVALUATION: SURGICAL WOUNDS S/P I&D WOUND ASSESSMENT DONE WITH PRIMARY RN WITH TWO SURGICAL WOUNDS. PT IS NOT AWAKE, RESPONSE TO PHYSICAL STIMULATION , TRACH TO VENT. PT ON CONTINUOS O2 MONITORING. NO S/S OF DISTRESS. CAN CATH IN PLACE. G-TUBE IN PLACE, SKIN IS WARM AND DRY BLE, DRY WITH DARKER PIGMENTATIONS. POC DISCUSSED WITH PRIMARY RN. NANCY BACK WOUND BLEEDING SINCE YESTERDAY PER EMBALMER ASSISTANT RN REPORT. PRIMARY RN WILL CALL DR. HAYNES INTEGUMENTARY: -TRACK AND GT STOMA NADER-SKIN DRY AND CLEAN -LEFT FOOT/TOES MULTIPLE SCABS WITH LARGEST TO LEFT DORSAL FOOT. 0.5X0.5CM BROWN SCAB. -MID BACK SURGICAL WOUND [id number] WOUND BED 100% GRANULATION TISSUE, MODERATE AMOUNT SANGUINOUS DRAINAGE NO ODOR,NADER WOUND SKIN INTACT. -RIGHT POSTERIOR SHOULDER SURGICAL WOUND [id number] WOUND BED 100% GRANULATION TISSUE, SMALL AMOUNT SEROSANGUINEOUS DRAINAGE NO ODOR,NADER WOUND SKIN INTACT. RECOMMENDATION: -SURGEON TO FOLLOW UP TO MID BACK SURGICAL WOUND, APPLY PRESSURE TO AREA ,PACK WOUND WITH 4X4 GAUZES AND COVER WITH ABD PAD AND SECURE WITH TAPE CHANGE QD AND PRN IG SOILING -RIGHT POSTERIOR SHOULDER SURGICAL WOUND CLEANSE WITH NS,PACK WOUND WITH ADAPTIC DRESSING AND COVER WITH ABD PAD AND SECURE WITH TAPE ,CHANGE QM-W-F AND PRN IF SOILING -TURN AND REPOSITION Q 2H, OFFLOADING SACROCOCCYX AND BILATERAL HEELS -PRESSURE RE-DISTRIBUTION SURFACE THERAPY BY USING PILLOWS/POSITIONER
[2019-03-21] MEDS: INSULIN LANTUS 100 UNITS/ML 10 ML VIAL SUBQ SCH (09:00)
[2019-03-21] MEDS: GABAPENTIN 100 MG CAP PO SCH ×3 (09:42→17:58)
[2019-03-21] MEDS: PHENYTOIN 100 MG/4 ML UDC GT SCH ×3 (09:42→17:57)
[2019-03-21] MEDS: DOCUSATE 100 MG/10 ML UDC GT SCH ×2 (09:42→20:45)
[2019-03-21] MEDS: levETIRAcetam 100 MG/ML ORASYR GT SCH ×2 (09:42→20:45)
[2019-03-21] MEDS ORDERED: VANCOMYCIN 1,250 MG in DEXTROSE 5% 250 ML IV SCH (10:00)
--- NOTE | 2019-03-21 10:31 | NUR ---
FREQUENT ROUNDING ON PT PT APPEARS STABLE AND IN NO APPARENT DISTRESS. ALL SAFETY MEASURES ARE IN PLACE WILL CONTINUE TO MONITOR.
--- NOTE | 2019-03-21 12:40 | NUR ---
REPOSITIONED PT PROVIDED PERICARE AND CAN CATH CARE. ALL SAFETY MEASURES ARE IN PLACE REPOSITIONED TRACH TO VENT. GTUBE INFUSING HEAD OF BED ELEVATED ABOVE 30 DEGREES WILL CONTINUE TO MONITOR
[2019-03-21] MEDS: GAUZE TP SCH (13:00)
--- NOTE | 2019-03-21 15:30 | NUR ---
FREQUENT ROUNDING ON PT PT APPEARS STABLE AND IN NO APPARENT DISTRESS. ALL SAFETY MEASURES ARE IN PLACE
--- NOTE | 2019-03-21 15:54 | NUR ---
PT SUCTIONED OBTAINED SMALL AMOUNT OF THICK WHITE SECRETIONS, AIRWAY IS PATENT AND TRACH IS SECURE. PT NOT IN ANY DISTRESS AT THIS TIME. WILL CONTINUE TO MONITOR.
--- NOTE | 2019-03-21 17:23 | NUR ---
PT AWAKE IN BED PT APPEARS STABLE AND IN NO APPARENT DISTRESS.A LL SAFETY MEASURES ARE IN PLACE
--- NOTE | 2019-03-21 17:49 | NUR ---
VENT CHECK COMPLETED.PT NOT IN ANY DISTRESS AT THIS TIME. TRACH IS SECURE WITH A PATENT AIRWAY. VENT ALARMS REMAIN ON AND FUNCTIONING.
--- NOTE | 2019-03-21 19:18 | NUR ---
ENDORSED PT TO PM RN GTUBE INFUSING. ALL SAFETY MEASURES IN PLACE IV SHOWS NO SIGNS OF INFILTRATION OR INFLAMMATION. TRACH TO VENT PT APPEARS STABLE AND IN NO APPARENT DISTRESS. CAN IN PLACE.
--- NOTE | 2019-03-21 19:19 | NUR ---
RECEIVED BESIDE PATIENT REPORT FROM DAY SHIFT NURSE. PT IS APHASIC, TRACH TO VENT. PT ON CONTINUOS O2 MONITORING. O2 SAT 100% AT THIS TIME. NO S/S OF DISTRESS. CAN CATH IN PLACE, DRAINING CLOUDY LIGHT ALINA URINE. IV NOTED ON THE RAC 22G, PATENT, INTACT AND ASYMPTOMATIC. G-TUBE IN PLACE. PT ON TELE MONITORING. BED LOWERED WITH CALL LIGHT WITHIN REACH. WILL CONTINUE TO MONITOR.
--- NOTE | 2019-03-21 19:25 | NUR ---
RESTRAINT ORDER . REMOVE RESTRAINT FOR NOW. WILL CALL IF NEEDED AGAIN.
[2019-03-21] MEDS: IPRATROPIUM 0.02% 0.5 MG/2.5 ML NEBU INH PRN (19:48)
[2019-03-21] MEDS: ALBUTEROL 0.083% 2.5 MG/3 ML NEBU INH PRN (19:49)
[2019-03-21] MEDS ORDERED: ALBUTEROL SULFATE/IPRATROPIU 3 ML SOL IH PRN (19:55)
--- NOTE | 2019-03-21 20:13 | NUR ---
GIVEN MERREM MD ORDERED. PT TOLERATED WELL.
--- NOTE | 2019-03-21 20:48 | NUR ---
GIVEN ORION SUAREZ, AND JC MD ORDERED. PT TOLERATED WELL. BS CHECKED, 113, NO INSURANCE COVERAGE NEEDED.
--- NOTE | 2019-03-21 21:30 | NUR ---
PAGED SARA BENNETT RECEIVED RENEW ORDER OF RESTRAIN.
[2019-03-21] MEDS: LINEZOLID 600MG PREMIX 300 ML IV SCH (21:55)
--- NOTE | 2019-03-21 21:55 | NUR ---
GIVEN ZYVOX MD ORDERED. HANG NEW G-TUBE FORMULA. 0 RESIDUAL NOTED. PT TOLERATED WELL.
--- NOTE | 2019-03-21 22:20 | NUR ---
PAGED ON-CALL AGAIN TO RENEW RESTRAIN.
--- NOTE | 2019-03-21 22:30 | NUR ---
LAB CALLED AND INFORMED "CARBAPENEM NON SUSCEPTIBLE ORGANISM", NOTICED PT ALSO HAS MRSA IN WOUND BUT NO ISOLATED. WILL CALL AND REPORT.
--- NOTE | 2019-03-21 22:45 | NUR ---
DR. CASTELAN CALLED, REPORTED LAB RESULT. WANT TO HOLD JARVIS, PUT PT IN CONTACT ISOLATION, ORDER OF RESTRAIN RENEW
--- NOTE | 2019-03-21 23:01 | NUR ---
PUT SOFT WRIST RESTRAIN TO PT'S LEFT HAND D/T PT KEEPS TRYING TO PULL TRACH OUT.
[2019-03-22] VITALS: BP 125/49
--- NOTE | 2019-03-22 | NUR ---
VS CHECKED, WITHIN PT'S BASELINE. WILL CONTINUE TO MONITOR.
--- NOTE | 2019-03-22 02:45 | NUR ---
PT HAD BM. CHANGED PT. PT TOLERATED WELL.
[2019-03-22 04:00] VITALS: BP 120/63
[2019-03-22] MEDS: metroNIDAZOLE 500 MG/NS PREMIX 100 ML IV SCH ×3 (04:10→21:27)
[2019-03-22] MEDS: MEROPENEM 500 MG in NACL 0.9% 50 ML IV SCH (04:10)
--- NOTE | 2019-03-22 04:10 | NUR ---
GIVEN FLAGYL MD ORDERED. PT TOLERATED WELL. HELD MERREM PER DR. CASTELAN AND WILL ENDORSE DAY SHIFT NURSE TO CONTACT DR. LINDSEY. VS CHECKED, WITHIN PT'S BASELINE. WILL CONTINUE TO MONITOR.
[2019-03-22] MEDS: BLOOD GLUCOSE MONITORING 1 DEV DEV FS SCH ×4 (05:28→20:38)
--- NOTE | 2019-03-22 05:28 | NUR ---
BS CHECKED, 122. NO INSULIN COVERAGE NEEDED.
--- NOTE | 2019-03-22 07:03 | NUR ---
PT IN BED COMFORTABLY. NO ACUTE DISTRESS NOTED.
--- NOTE | 2019-03-22 07:05 | NUR ---
RECEIVED REPORT FROM PM NURSEPANCHO. PT IS IN BED RESTING, PT IS STABLE WITH OUT SIGNS OF DISTRESS. PT IS TRACH TO VENT.
--- NOTE | 2019-03-22 07:11 | NUR ---
RECEIVED TRACH PT ON VENT WITH A [employer] 7XLT TRACH. SETTINGS AC/VC 14, VT 500, PEEP 5 AND FIO2 24%. PT IS APHASIC BUT NOT IN ANY DISTRESS AT THIS TIME. VENT IS PLUGGED INTO A RED OUTLET WITH ALARMS ON AND FUNCTIONING. TRACH IS SECURE WITH A PATENT AIRWAY. WILL CONTINUE TO MONITOR.
[2019-03-22 08:00] VITALS: BP 130/67
[2019-03-22] MEDS: GABAPENTIN 100 MG CAP PO SCH ×3 (08:50→17:08)
[2019-03-22] MEDS: DOCUSATE 100 MG/10 ML UDC GT SCH ×2 (08:50→20:38)
[2019-03-22] MEDS: PHENYTOIN 100 MG/4 ML UDC GT SCH ×3 (08:50→17:08)
[2019-03-22] MEDS: LINEZOLID 600MG PREMIX 300 ML IV SCH ×2 (08:51→21:28)
[2019-03-22] MEDS: levETIRAcetam 100 MG/ML ORASYR GT SCH ×2 (08:51→20:38)
[2019-03-22] MEDS: INSULIN LANTUS 100 UNITS/ML 10 ML VIAL SUBQ SCH (08:59)
--- NOTE | 2019-03-22 09:00 | NUR ---
PT RESTING IN BED, TRACH TO VENT, NS @ 5ML/HR
[2019-03-22 09:41] LABS: BASOPHILS % (AUTO) 0.3 % (0.0-2.0); EOSINOPHILS # (AUTO) 0.5 K/uL (0-0.4); EOSINOPHILS % (AUTO) 3.8 % (0.0-4.0); HEMOGLOBIN 7.5 g/dL (12.0-18.0); LYMPHOCYTES # (AUTO) 1.5 K/uL (2.0-11.5); LYMPHOCYTES % (AUTO) 12.7 % (20.5-51.1); MEAN CORPUSCULAR HEMOGLOBIN 28 pg (27-31); MEAN CORPUSCULAR HGB CONC 33 g/dL (33-37); MEAN CORPUSCULAR VOLUME 86.3 fL (80-94); MONOCYTES % (AUTO) 8.3 % (1.7-9.3); NEUTROPHILS % (AUTO) 74.9 % (42.2-75.2); PLATELET COUNT (AUTO) 542 K/uL (140-450); RED BLOOD CELL COUNT(AUTO) 2.67 MIL/uL (4.20-6.10); RED CELL DISTRIBUTION WIDTH 15.8 % (11.6-13.7); WHITE BLOOD COUNT (AUTO) 12.1 K/uL (4.8-10.8)
[2019-03-22 10:33] LABS: ALBUMIN 1.8 g/dL (3.4-5.0); ANION GAP 14.1 (8-16); CARBON DIOXIDE 25.7 mmol/L (21-32); CREATININE 1.6 mg/dL (0.7-1.3); POTASSIUM 3.8 mmol/L (3.5-5.1); TOTAL BILIRUBIN 0.5 mg/dL (0.0-1.0)
[2019-03-22 12:00] VITALS: BP 130/76
--- NOTE | 2019-03-22 12:00 | NUR ---
PT IN BED, TRACH TO VENT, SO SIGNS OF DISTRESS, VENT FUNCTIONALLY WELL, IVF NS@5ML, TV ON FOOTBALL FOR PT.
[2019-03-22] MEDS: GAUZE TP SCH (12:53)
[2019-03-22] MEDS: PIPERACILLIN/TAZOBACTAM 3.375 GM in DEXTROSE 5% 50 ML IV SCH ×2 (13:01→20:30)
--- NOTE | 2019-03-22 14:30 | NUR ---
PT RESTING IN BED, NO SIGNS OF DISTRESS, TRACH TO VENT. NS @5ML, FAMILY VISITING PT
[2019-03-22 16:00] VITALS: BP 140/87
--- NOTE | 2019-03-22 17:00 | NUR ---
Changed GT feeding bottle and spike set at this time. GT in place with 0ml residual, abd soft with active bowel sounds on all quads. Pt resting, asleep, responsive to tactile stimuli, trach to vent in place, FLACC 0. Myers cath in place & draining clear rain urine. Left soft wrist restraint in place.
--- NOTE | 2019-03-22 17:40 | NUR ---
PT REMAINS ON DOCUMENTED VENT SETTINGS. PT NOT IN ANY DISTRESS AT THIS TIME. VENT ALARMS ON AND FUNCTIONING. TRACH IS SECURE WITH A PATENT AIRWAY.
--- NOTE | 2019-03-22 19:00 | NUR ---
Report given to pm nurse Azael. Pt resting in bed, no distress. Family at bedside.
--- NOTE | 2019-03-22 19:01 | NUR ---
RECEIVED REPORT FROM AM SHIFT NURSE. PATIENT APHASIC. FAMILY AT BEDSIDE. INTRODUCED SELF AND UPDATED BOARD. PATIENT ON TRACH TO VENT. NO RESPIRATORY DISTRESS NOTED. ON TUBE FEEDING RUNNING AT 60ML/HR. WITH IVF ON RIGHT AC. PATENT AND INTACT. NO INFILTRATION NOTED. WITH CAN CATHETER. PATENT AND INTACT. DRAINING DARK ALINA COLORED URINE. BED ON LOW POSITION. CALL LIGHT WITHIN REACH. WILL CONTINUE TO MONITOR.
--- NOTE | 2019-03-22 19:47 | NUR ---
PT RECEIVED ON VENT SETTINGS OF AC 14, 500, +5, 24%. ALARMS ARE ON AND AUDIBLE. VENTILATOR IS PLUGGED IN RED OUTLETS. BREAKS ARE ON FROM BED. AMBU BAG AT BEDSIDE. PT IS IN NO RESP DISTRESS AT THIS TIME.
[2019-03-22 20:00] VITALS: BP 111/57
--- NOTE | 2019-03-22 20:45 | NUR ---
DUE MEDICATIONS GIVEN ORDERED. NO APPARENT DISTRESS NOTED. BREATHING EVEN AND UNLABORED. BED ON LOW POSITION. CALL LIGHT WITHIN REACH. WILL CONTINUE TO MONITOR.
--- NOTE | 2019-03-22 22:40 | NUR ---
PATIENT ASLEEP IN BED. NO APPARENT DISTRESS NOTED. VISIBLE CHEST RISE AND FALL NOTED. BED ON LOW POSITION. WILL CONTINUE TO MONITOR.
[2019-03-23] VITALS: BP 107/51
--- NOTE | 2019-03-23 00:35 | NUR ---
PATIENT ASLEEP IN BED. NO RESPIRATORY DISTRESS NOTED. BED ON LOW POSITION. CALL LIGHT WITHIN REACH. VISIBLE CHEST RISE AND FALL NOTED. WILL CONTINUE TO MONITOR.
--- NOTE | 2019-03-23 02:20 | NUR ---
PATIENT ASLEEP IN BED. NO APPARENT DISTRESS NOTED. VISIBLE CHEST RISE AND FALL NOTED. BED ON LOW POSITION. CALL LIGHT WITHIN REACH. WILL CONTINUE TO MONITOR.
[2019-03-23 04:00] VITALS: BP 101/48
[2019-03-23] MEDS: PIPERACILLIN/TAZOBACTAM 3.375 GM in DEXTROSE 5% 50 ML IV SCH ×3 (04:01→19:45)
[2019-03-23] MEDS: metroNIDAZOLE 500 MG/NS PREMIX 100 ML IV SCH ×3 (04:10→21:39)
--- NOTE | 2019-03-23 04:10 | NUR ---
DUE MEDICATIONS GIVEN ORDERED. CLEANED PATIENT. TURNED AND REPOSITIONED FOR COMFORT. BED ON LOW POSITION. BED ALARM ON. WILL CONTINUE TO MONITOR.
[2019-03-23] MEDS: BLOOD GLUCOSE MONITORING 1 DEV DEV FS SCH ×4 (05:50→21:34)
--- NOTE | 2019-03-23 06:10 | NUR ---
ROUNDS DONE. PATIENT ASLEEP AT THIS TIME. VISIBLE CHEST RISE AND FALL NOTED. NO APPARENT DISTRESS. BREATHING EVEN AND UNLABORED. BED ON LOW POSITION. BED ALARM ON. CALL LIGHT WITHIN REACH. WILL CONTINUE TO MONITOR.
--- NOTE | 2019-03-23 07:05 | NUR ---
ENDORSED PATIENT TO AM NURSE IN STABLE CONDITION FOR CONTINUITY OF CARE.
--- NOTE | 2019-03-23 07:10 | NUR ---
RECEIVED REPORT FROM NURSE, RACHEL, FOR CONTINUATION OF CARE. PT IS STABLE WITH NO SIGNS OF DISTRESS.
--- NOTE | 2019-03-23 07:24 | NUR ---
RECEIVED TRACH PT ON VENT WITH A [employer] 7XLT TRACH. SETTINGS AC/VC 14, VT 500, PEEP 5 AND FIO2 24%. PT IS APHASIC BUT NOT IN ANY DISTRESS AT THIS TIME. VENT IS PLUGGED INTO A RED OUTLET WITH ALARMS ON AND FUNCTIONING. TRACH IS SECURE WITH A PATENT AIRWAY. WILL CONTINUE TO MONITOR.
[2019-03-23 08:00] VITALS: BP 132/78
--- NOTE | 2019-03-23 08:32 | NUR ---
(03/23/19) RD FOLLOW UP COMPLETED PLEASE REFER TO NUTRITION PROGRESS NOTE UNDER CARE ACTIVITY FOR ESTIMATED NUTRITION NEEDS. RD RECOMMENDATIONS: 1. RECOMMEND INCREASING TF TO GLUCERNA @ 70 ML/HR. -THIS WILL PROVIDE 2010 KCAL AND 101 GM OF PROTEIN WHICH WILL MEET 95% OF ESTIMATED KCAL NEEDS AND 80% ESTIMATED PROTEIN NEEDS. 2. RECOMMEND CONTINUING FWF OF [address] TO FOLLOW-UP 2-3 DAYS, HIGH RISK. PREM GRANT, MS, RDN
[2019-03-23] MEDS: DOCUSATE 100 MG/10 ML UDC GT SCH ×2 (09:22→21:37)
[2019-03-23] MEDS: GABAPENTIN 100 MG CAP PO SCH ×3 (09:23→17:24)
[2019-03-23] MEDS: PHENYTOIN 100 MG/4 ML UDC GT SCH ×3 (09:23→17:24)
--- NOTE | 2019-03-23 09:23 | NUR ---
PT IS RESTING IN BED. TRACH TO VENT. RESPIRATIONS ARE EVEN AND UNLABORED. G-TUBE FEEDING AT 60ML/HR
[2019-03-23] MEDS: levETIRAcetam 100 MG/ML ORASYR GT SCH ×2 (09:24→21:38)
[2019-03-23] MEDS: LINEZOLID 600MG PREMIX 300 ML IV SCH ×2 (09:26→22:00)
[2019-03-23] MEDS: INSULIN LANTUS 100 UNITS/ML 10 ML VIAL SUBQ SCH (09:27)
[2019-03-23 09:38] LABS: BASOPHILS % (AUTO) 0.5 % (0.0-2.0); EOSINOPHILS # (AUTO) 0.4 K/uL (0-0.4); HEMATOCRIT 23.1 % (36-52); HEMOGLOBIN 7.7 g/dL (12.0-18.0); LYMPHOCYTES # (AUTO) 1.5 K/uL (2.0-11.5); LYMPHOCYTES % (AUTO) 15.8 % (20.5-51.1); MEAN CORPUSCULAR HEMOGLOBIN 29 pg (27-31); MEAN CORPUSCULAR HGB CONC 33 g/dL (33-37); MEAN CORPUSCULAR VOLUME 85.3 fL (80-94); MONOCYTES # (AUTO) 0.8 K/uL (0.8-1.0); MONOCYTES % (AUTO) 8.7 % (1.7-9.3); NEUTROPHILS # (AUTO) 6.8 K/uL (1.8-7.7); PLATELET COUNT (AUTO) 505 K/uL (140-450); RED CELL DISTRIBUTION WIDTH 15.5 % (11.6-13.7); WHITE BLOOD COUNT (AUTO) 9.5 K/uL (4.8-10.8)
--- NOTE | 2019-03-23 09:50 | NUR ---
GT feeding rate increased to 70ml/h per RD recommendation. GT residual 0ml. Abd soft with active bowel sounds on all quads. HOB kept elevated @ 30. Pt asleep, respirations even & nonlabored with trach to vent in place, pt responsive to tactile stimuli. Myers cath in place & draining clear rain urine. Right AC IV intact & asymptomatic.
[2019-03-23 10:48] LABS: ANION GAP 14.4 (8-16); CARBON DIOXIDE 25.4 mmol/L (21-32); CREATININE 1.4 mg/dL (0.7-1.3); POTASSIUM 3.8 mmol/L (3.5-5.1)
[2019-03-23 10:54] LABS: ALBUMIN 1.9 g/dL (3.4-5.0); TOTAL BILIRUBIN 0.4 mg/dL (0.0-1.0)
--- NOTE | 2019-03-23 11:40 | NUR ---
PT RESTING IN BED. NO SIGNS OF DISTRESS. TRACH TO VENT. FEEDING PUMP RUNNING AT 70 ML/HR. TV IS ON FOR PT.
[2019-03-23 12:00] VITALS: BP 130/67
[2019-03-23] MEDS: GAUZE TP SCH (12:34)
--- NOTE | 2019-03-23 13:50 | NUR ---
PT IS ASLEEP IN BED. PT WILL MOVE HIS LEFT ARM AND LEFT LEG. PT DOES NOT APPEAR TO BE IN DISTRESS. STARTED FLAGYL AT 100 ML/HR. FEEDING PUMP RUNNING AT 70 ML/HR.
--- NOTE | 2019-03-23 15:17 | NUR ---
PT NOT IN ANY DISTRESS AT THIS TIME. WILL CONTINUE TO MONITOR.
[2019-03-23 16:00] VITALS: BP 132/75
--- NOTE | 2019-03-23 17:30 | NUR ---
PT IS STABLE WITH NO SIGNS OF DISTRESS, RT IN THE ROOM. FAMILY MEMBER IN THE ROOM WITH PATIENT.
--- NOTE | 2019-03-23 17:34 | NUR ---
PT REMAINS ON DOCUMENTED VENT SETTINGS. PT NOT IN ANY DISTRESS AT THIS TIME. VENT ALARMS REMAIN ON AND FUNCTIONING. TRACH REMAINS SECURE WITH A PATENT AIRWAY.
--- NOTE | 2019-03-23 19:05 | NUR ---
GAVE REPORT TO PM NURSE, FOR CONTINUATION OF CARE. PT IS STABLE AND WITH NO SIGNS OF DISTRESS. TRACH TO VENT. FAMILY AT BESIDE VISITING.
--- NOTE | 2019-03-23 19:06 | NUR ---
RECEIVED BESIDE PATIENT REPORT FROM AM SHIFT NURSE. PT ON TELE MONITORING.PT IS APHASIC, TRACH TO VENT. O2 SAT 100% AT THIS TIME. NO S/S OF RESPIRATORY DISTRESS. CAN CATH IN PLACE, DRAINING DARK ALINA URINE. IV NOTED ON THE LAC 22G, PATENT, INTACT AND ASYMPTOMATIC. G-TUBE IN PLACE, WITH RESIDUAL OF 5 ML, PT TOLERATING WELL. WITH WOUND ON THE LEFT SHOULDER, UPPER MID BACK, WOUND DRESSING IN PLACE . W/ DRY SCAB ON LEFT DORSAL ASPECT OF FOOT. W/ SCD'S ON. WITH SETTINGS AC/VC 14, VT 500, PEEP 5, FIO2 24%. RR- 14. FLOW 45. BED AT LOWEST POSITION, WITH CALL LIGHT WITHIN REACH. WILL CONTINUE TO MONITOR.
[2019-03-23 20:00] VITALS: BP 103/42
--- NOTE | 2019-03-23 22:15 | NUR ---
PATIENT TURNED AND REPOSITIONED, PT CALM AT THIS TIME, NOT PULLING ANY TUBES. NO S/S OF RESPIRATORY DISTRESS.
--- NOTE | 2019-03-23 22:30 | NUR ---
PHOTO TAKEN FOR SUNDAY,SADE FOR LULÚ Addendum: 03/24/19 at 0248 by Carey Monterroso RN WOUND PHOTOS TAKEN OF LEFT SHOULDER, UPPER MID BACK, AND THE LEFT DORSAL FOOT
--- NOTE | 2019-03-23 23:00 | NUR ---
RESTRAINTS ORDER OFF PT IS ASLEEP, AND NO SIGNS OF PULLING/REMOVING LINES AND EQUIPMENT OR dressing anymore
--- NOTE | 2019-03-23 23:00 | NUR ---
PT'S RETSRAINTS TAKEN OFF BECAUSE PT IS NOT TRYING TO PULL/ REMOVE TUBES DRESSING OR CAN CATHETER TUBES ANYMORE. WILL MONITOR AND WILL RENEW SOON NEEDED.
[2019-03-24] VITALS: BP 123/67
--- NOTE | 2019-03-24 02:51 | NUR ---
PT SLEEPING AT THIS TIME CALM, NOT PULLING TUBES OR MEDICAL EQUIPMENT. WILL CONTINUE TO MONITOR
[2019-03-24 04:00] VITALS: BP 136/76
--- NOTE | 2019-03-24 04:00 | NUR ---
PT AWAKENED, NOW PULLING OUT LINES DUE TO CONFUSION. WILL RE START AND CALL FOR ORDER OF RESTRAINTS FROM DR. MEJIA
--- NOTE | 2019-03-24 04:30 | NUR ---
CHANGED THE GTUBE FEEDING GLUCERNA 1. 2 70 ML/HR, PT TOLERATING WELL, WITH 5 ML RESIDUAL. WATER FLUSH OF 120 ML Q 4 HRS
[2019-03-24] MEDS: PIPERACILLIN/TAZOBACTAM 3.375 GM in DEXTROSE 5% 50 ML IV SCH ×2 (05:15→12:48)
[2019-03-24 06:19] LABS: BASOPHILS # (AUTO) 0.1 K/uL (0.00-0.22); BASOPHILS % (AUTO) 0.7 % (0.0-2.0); EOSINOPHILS # (AUTO) 0.6 K/uL (0-0.4); HEMATOCRIT 22.1 % (36-52); HEMOGLOBIN 7.4 g/dL (12.0-18.0); LYMPHOCYTES # (AUTO) 1.5 K/uL (2.0-11.5); LYMPHOCYTES % (AUTO) 14.6 % (20.5-51.1); MEAN CORPUSCULAR HEMOGLOBIN 29 pg (27-31); MEAN CORPUSCULAR HGB CONC 33 g/dL (33-37); MEAN CORPUSCULAR VOLUME 86.1 fL (80-94); MONOCYTES # (AUTO) 0.9 K/uL (0.8-1.0); MONOCYTES % (AUTO) 8.6 % (1.7-9.3); NEUTROPHILS # (AUTO) 7.2 K/uL (1.8-7.7); NEUTROPHILS % (AUTO) 70.1 % (42.2-75.2); PLATELET COUNT (AUTO) 493 K/uL (140-450); RED BLOOD CELL COUNT(AUTO) 2.56 MIL/uL (4.20-6.10); RED CELL DISTRIBUTION WIDTH 15.6 % (11.6-13.7); WHITE BLOOD COUNT (AUTO) 10.3 K/uL (4.8-10.8)
[2019-03-24] MEDS: BLOOD GLUCOSE MONITORING 1 DEV DEV FS SCH ×3 (06:30→16:39)
[2019-03-24 06:44] LABS: ALBUMIN 1.9 g/dL (3.4-5.0); ANION GAP 12.3 (8-16); CARBON DIOXIDE 27.6 mmol/L (21-32); CREATININE 1.1 mg/dL (0.7-1.3); POTASSIUM 3.9 mmol/L (3.5-5.1); TOTAL BILIRUBIN 0.3 mg/dL (0.0-1.0)
--- NOTE | 2019-03-24 07:08 | NUR ---
PT LETHARGIC,NON VERBAL FLACC O, ON RESTRAINTS ON LEFT WRIST. PT IN STABLE CONDITION AT THIS TIME. ENDORSED TO NEXT SHIFT
--- NOTE | 2019-03-24 07:09 | NUR ---
RECEIVED TRACH PT ON VENT WITH A [employer] 7XLT TRACH. SETTINGS AC/VC 14, VT 500, PEEP 5 AND FIO2 24%. PT IS APHASIC BUT NOT IN ANY DISTRESS AT THIS TIME. VENT IS PLUGGED INTO A RED OUTLET WITH ALARMS ON AND FUNCTIONING. PT SUCTIONED OBTAINED SMALL AMOUNT OF THICK WHITE SECRETIONS. TRACH IS SECURE WITH A PATENT AIRWAY. WILL CONTINUE TO MONITOR.
--- NOTE | 2019-03-24 07:37 | NUR ---
RECEIVED REPORT FROM SALES ORDER CLERK RN FRO CONTINUITY OF CARE. PT IS AAOX0, UNRESPONSIVE TO NAME AND ONLY TO PAINFUL STIMULI. PT IS TRACH TO VENT, NO SIGNS OF SOB OR DISTRESS. PT HAS G-TUBE WITH GLUCERNA INFUSING 70ML/HR. PT SKIN IS NON-INTACT. PT HAS WOUNDS TO THE MID UPPER BACK AND LEFT SHOULDER . DRESSINGS CHANGED THIS MORNING BY SALES ORDER CLERK RN DUE TO PICTURES NEEDING TO BE TAKEN BY THEIR SHIFT. BANDAGES INTACT AND DRY. PT SALINE LOCKED. PT HAS RESTRAINT TO THE LEFT EXTREMITY DUE TO PULLING AT TUBES AND IV. WILL ASSESS PT FREQUENTLY FOR NEED OF RESTRAINT. SAFETY CHECK DONE. WILL CONTINUE TO ROUND FREQUENTLY ON PT. BED IN LOW POSITION. WILL ROUND FREQUENTLY ON PT.
[2019-03-24 08:00] VITALS: BP 143/86
[2019-03-24] MEDS: INSULIN LANTUS 100 UNITS/ML 10 ML VIAL SUBQ SCH (08:58)
[2019-03-24] MEDS: LINEZOLID 600MG PREMIX 300 ML IV SCH (08:58)
[2019-03-24] MEDS: levETIRAcetam 100 MG/ML ORASYR GT SCH (08:58)
[2019-03-24] MEDS: GABAPENTIN 100 MG CAP PO SCH ×2 (08:59→12:49)
[2019-03-24] MEDS: DOCUSATE 100 MG/10 ML UDC GT SCH (08:59)
[2019-03-24] MEDS: PHENYTOIN 100 MG/4 ML UDC GT SCH ×2 (08:59→12:48)
--- NOTE | 2019-03-24 09:10 | NUR ---
ADMINISTERED MORNING MEDS TO PT. PT TOLERATED WELL. ALL OTHER NEEDS MET. WILL CONTINUE TO ROUND FREQUENTLY ON PT. BED IN LOW POSITION, ALARM ON. WILL ROUND FREQUENTLY ON PT.
--- NOTE | 2019-03-24 11:53 | NUR ---
PT RESTING IN BED. ALL NEEDS MET. WILL CONTINUE TO ROUND FREQUENTLY ON PT, BED IN LOW POSITION, ALARM ON.
[2019-03-24 12:00] VITALS: BP 166/89
[2019-03-24] MEDS: GAUZE TP SCH (12:50)
--- NOTE | 2019-03-24 13:42 | NUR ---
PT SLEEPING IN BED. ALL NEEDS MET. PT HAD LARGE BM. PT CHANGED AND REPOSITIONED. PT LOOKS COMFORTABLE AT THIS TIME. NO OTHER NEEDS. WILL CONTINUE TO ROUND FREQUENTLY ON PT.
--- NOTE | 2019-03-24 15:43 | NUR ---
PT RESTING IN BED. ALL NEEDS MET. NO SIGNS OF PAIN/DISTRESS. WILL CONTINUE TO ROUND ON PT.
[2019-03-24 16:00] VITALS: BP 134/83
--- NOTE | 2019-03-24 17:00 | NUR ---
PT DISCHARGED BACK TO [facility] [place] FOR CONTINUITY OF CARE. PT DISCHARGE PAPERWORK GIVEN TO [facility] FOR HANDOFF TO [facility] [place] STAFF. PT WOUND PICTURES TAKEN AND PLACED IN CHART. ALL OF PT BELONGINGS TAKEN BACK WITH [facility]. PT IV REMOVED WITH TIP INTACT. PT CAN REMOVED. PT LEFT IN STABLE CONDITION.
--- NOTE | 2019-03-24 17:19 | NUR ---
CALLED [facility] AT 1700 WHEN PT LEFT TO GIVE REPORT. I WAS PUT ON HOLD BY ACCEPTING NURSE MARIN FOR 20MINS SO I HUNG UP CALL. WILL CALL AGAIN.
--- NOTE | 2019-03-24 17:34 | NUR ---
CALLED [facility] AGAIN AND WAS TRANSFERRED TO MARIN, ACCEPTING NURSE. PER MARIN, SHE WAS NOT NOTIFIED OF PT GOING BACK TO [facility] [place]. PER REX [facility] [place] REP THAT ADMITS PTS FROM OUR , REX STATED THAT SHE DID KNOW PT WAS GOING BACK TO [facility] [place] AND HANDED PT INFORMATION TO THE [facility]ACUTE UNIT WHERE [facility]IN WORKS BUT THE UNIT LOST PAPERWORK AND WAS THEREFORE NOT AWARE OF PT GOING BACK. PER BENI FUNES NURSE, PT WILL BE SENT BACK TO [facility] ED DEPARTMENT WHILE A PROPER AND SAFE BED IS FOUND FOR PT.
== END 2019-03-24 17:05 | DRG 720 ==
LOC: MED 20:02 → MTU 22:49
PROVIDERS: ADMIT Internal Medicine Pulmonary Disease; ATTEND Internal Medicine Pulmonary Disease
PROC: 5A1955Z Respiratory Ventilation, Greater than 96 Consecutive Hours (ICD-10-PCS; principal; 2019-03-17)
PROC: 0JBF0ZZ Excision of Left Upper Arm Subcutaneous Tissue and Fascia, Open Approach (ICD-10-PCS; 2019-03-18)
PROC: 0JBD0ZZ Excision of Right Upper Arm Subcutaneous Tissue and Fascia, Open Approach (ICD-10-PCS; 2019-03-18)
DX: A41.9 Sepsis, unspecified organism (principal); N17.0 Acute kidney failure with tubular necrosis; G82.50 Quadriplegia, unspecified; Z99.11 Dependence on respirator [ventilator] status; J96.11 Chronic respiratory failure with hypoxia; J15.1 Pneumonia due to Pseudomonas; G93.1 Anoxic brain damage, not elsewhere classified; E44.0 Moderate protein-calorie malnutrition; I62.00 Nontraumatic subdural hemorrhage, unspecified; L02.212 Cutaneous abscess of back [any part, except buttock and flank]; E11.9 Type 2 diabetes mellitus without complications; G40.909 Epilepsy, unspecified, not intractable, without status epilepticus; K21.9 Gastro-esophageal reflux disease without esophagitis; R13.10 Dysphagia, unspecified; L03.114 Cellulitis of left upper limb; L03.113 Cellulitis of right upper limb; L02.414 Cutaneous abscess of left upper limb; L02.413 Cutaneous abscess of right upper limb; D64.9 Anemia, unspecified; T36.8X5A Adverse effect of other systemic antibiotics, initial encounter; Z68.38 Body mass index [BMI] 38.0-38.9, adult; Y92.89 Other specified places as the place of occurrence of the external cause; I72.9 Aneurysm of unspecified site
CPT/HCPCS: 36415; 36600; 71045; 74018; 76700; 78445; 80053; 80202; 81001; 82803; 82948; 83605; 83880; 84484; 85025; 85610; 85730; 87040; 87070; 87075; 87081; 87086; 87186; 87205; 93005; 94002; 94003; 94640; 96361; 96365; 96367; 99285; J0696; J1815; J2020; J2060; J2185; J2270; J2405; J2543; J3010; J3370; J3490; J7030; J7060; J7613; J7644; Q0092

== ENCOUNTER 2019-03-24 18:20 | Emergency (ER) | payer OTHER ==
[~2019-03-24] VITALS: Ht 177.8 cm; Wt 113.4 kg
[~2019-03-24 18:20] MED LIST: ACET-2619 PO; AMOX-1000 PO; ARGI4.5P3 GT; DEXL30EC PO; DOCU-300 GT; GABA100C GT; HYDR100T79 GT; INSU100S5 SQ; KEP500L GT; LACT1CAP59 GT; LANTUS SUBQ; LIP80 PO; LISI10TA11 GT; MULT-153 GT; NA P135N RC; PHEN100C3 GT
--- NOTE | 2019-03-24 18:20 | NUR ---
PT BIBA AND PLACED IN BED 10.
[2019-03-24 18:25] VITALS: BP 113/66
--- NOTE | 2019-03-24 18:53 | NUR ---
JENNIFER [place] [facility] [place] AND ADVISED [place] BED [place]. I CALLED AND SPOKE TO LAURA ON TELE AND ASKED IF DISCHARGING NURSE COULD CALL AND GIVE REPORT ON PATIENT PRIOR TO DISCHARGING. I ASKED HER TO HAVE THE NURSE CALL ME AND LET ME KNOW WHEN REPORT IS GIVEN SO TRANSFER CAN BE ARRANGED.
--- NOTE | 2019-03-24 18:54 | NUR ---
43 Y/O MALE PRESENTING WITH [facility] 7, PATIENT BIBA FROM INPATIENT SETTING [facility]. PATIENT UNRESPONSIVE TO PAIN, CURRENTLY ON TRACH VENTILATION. PER REPORT PT STABLE FOR D/C BUT NOT RECEIVED AT RECEIVING FACILITY DUE TO NO BERIATRIC BED AVAILABLE. PATIENT STABLE.
--- NOTE | 2019-03-24 19:16 | NUR ---
GAVE REPORT TO ANH MCKEON.
--- NOTE | 2019-03-24 19:18 | NUR ---
BEDSIDE REPORT RECEIVED FROM MIKE STRATTON.ASSUME CARE AT THIS TIME, PATIENT IS TRACH TO VENT, ANOx0.
--- NOTE | 2019-03-24 19:40 | NUR ---
1820 recieved patient from paramedics. patient is trach to vent. placed patient on carescape vent with setting of ac 16 vt 500 peep 5 and fio2 30%. sputum sample was uptained. pt has shiley 7 xlt.trach site is draining and trach tie is clean. no sob noted. pt sats are 100%
--- NOTE | 2019-03-24 20:17 | NUR ---
SPOKE TO STEEPLE JACK CHARGE NURSE REGARDIG REPORT GIVEN TO [facility]. DAY SHIFT GAVE REPORT. [facility] VENTILATION EQUIPMENT TENDER/MIKE GOODMAN STATED THAT BED IS READY AND ARE EXPECTING PT. WILL CALL FOR TRANSPORT.
--- NOTE | 2019-03-24 20:24 | NUR ---
PT WILL BE DISCHARGED AND TRANSFERED BY AMBULANCE TO [facility] [place]. PT WILL GO TO ROOM 3A.
--- NOTE | 2019-03-24 20:36 | NUR ---
TRANSPORT ETA [id number]
--- NOTE | 2019-03-24 20:45 | NUR ---
PATIENT SEEN WITH EYES CLOSED. VISIBLE CHEST RISE AND FALL NOTED. PATIENT SEEN MOVING UPPER AND LOWER EXTREMITIES. BEDRAILS x2 UP. BED IN LOCKED POSITION. WILL CONTINUE TO MONITOR.
[2019-03-24 22:15] VITALS: BP 128/78
--- NOTE | 2019-03-24 22:15 | NUR ---
PATIENT SEEN WITH EYES CLOSED. VISIBLE CHEST RISE AND FALL NOTED.BEDRAILS x2 UP. BED IN LOCKED POSITION. WILL CONTINUE TO MONITOR.
--- NOTE | 2019-03-24 23:20 | NUR ---
TRANSPORT AT BEDSIDE
--- NOTE | 2019-03-24 23:32 | NUR ---
Patient discharged with v/s stable. Ambulance Transport with administrative law judge and RT. [facility] called and informed patient was en route back to facility.
== END 2019-03-24 23:32 ==
LOC: MED 18:20
DX: L02.414 Cutaneous abscess of left upper limb (principal); E11.9 Type 2 diabetes mellitus without complications; Z86.73 Personal history of transient ischemic attack (TIA), and cerebral infarction without residual deficits; Z79.4 Long term (current) use of insulin; Z79.899 Other long term (current) drug therapy
CPT/HCPCS: 99283

== ENCOUNTER 2019-03-28 22:30 | Inpatient (IN) | payer OTHER ==
[~2019-03-28] VITALS: Ht 172.7 cm; Wt 108.9 kg
[~2019-03-28 22:30] MED LIST changes: -GABA100C GT; +GABA100C PO; -LACT1CAP59 GT; +LACT1CAP59 PO; -LISI10TA11 GT; +LISI10TA11 PO
--- NOTE | 2019-03-28 22:30 | NUR ---
PT BIBA ALS TO ER BED 10
[2019-03-28] MEDS ORDERED: cefTRIAXone 1,000 MG in DEXT 5% MINI-BAG PLUS 50 ML IV ONE (22:35)
[2019-03-28 22:40] VITALS: BP 114/88
[2019-03-28] MEDS ORDERED: ASCO-770 GT (22:50)
--- NOTE | 2019-03-28 23:00 | NUR ---
43 Y[place]O [place] [facility] [place] PT PRESENTS TO ED WITH CHIEF COMPLAINT OF FEVER. PER JOB CHECKER PT HAD 102.6 FEVER AT FACILITY; RECEIVED TYLENOL WITH NO RELIEF ALONG WITH PASSIVE COOLING MEASURES. RECTAL TEMP AT ED IS 102.5. PT ON VENTILATOR, TACHYPNEA. WHEEZING ON BILAT LUNGS. ERMD MADE AWARE. WILL CONTINUE TO MONITOR.
[2019-03-28] MEDS ORDERED: cefTRIAXone 1,000 MG VIAL ONE (23:19)
[2019-03-28 23:21] LABS: BASOPHILS % (AUTO) 0.3 % (0.0-2.0); EOSINOPHILS # (AUTO) 0.1 K/uL (0-0.4); EOSINOPHILS % (AUTO) 0.8 % (0.0-4.0); HEMATOCRIT 23.9 % (36-52); HEMOGLOBIN 7.8 g/dL (12.0-18.0); LYMPHOCYTES # (AUTO) 0.8 K/uL (2.0-11.5); LYMPHOCYTES % (AUTO) 5.1 % (20.5-51.1); MEAN CORPUSCULAR HEMOGLOBIN 28 pg (27-31); MEAN CORPUSCULAR HGB CONC 33 g/dL (33-37); MONOCYTES # (AUTO) 0.6 K/uL (0.8-1.0); MONOCYTES % (AUTO) 3.7 % (1.7-9.3); NEUTROPHILS # (AUTO) 14.3 K/uL (1.8-7.7); PLATELET COUNT (AUTO) 569 K/uL (140-450); RED BLOOD CELL COUNT(AUTO) 2.78 MIL/uL (4.20-6.10); RED CELL DISTRIBUTION WIDTH 15.6 % (11.6-13.7); WHITE BLOOD COUNT (AUTO) 15.9 K/uL (4.8-10.8)
[2019-03-28 23:32] LABS: APPEARANCE,URINE HAZY (CLEAR); BILIRUBIN,URINE NEGATIVE (NEGATIVE); BLOOD, URINE NEGATIVE (NEGATIVE); COLOR,URINE YELLOW (YELLOW); LEUKOCYTE ESTERASE ,URINE NEGATIVE (NEGATIVE); NITRITE, URINE NEGATIVE (NEGATIVE); UGLUCOSE NEGATIVE (NEGATIVE)
[2019-03-28 23:39] LABS: ALBUMIN 2.4 g/dL (3.4-5.0); ANION GAP 14.6 (8-16); CARBON DIOXIDE 27.9 mmol/L (21-32); POTASSIUM 4.5 mmol/L (3.5-5.1); TOTAL BILIRUBIN 0.3 mg/dL (0.0-1.0)
[2019-03-28 23:45] LABS: RBC,URINE 0-5 /HPF (0-5)
[2019-03-28 23:47] LABS: COARSE GRANULAR CASTS,URINE 0-1 /LPF (None Seen); URINE AMORPHOUS URATE 1+ /HPF (None Seen)
[2019-03-28 23:51] LABS: NEUTROPHILS % (AUTO) 90.1 % (42.2-75.2)
[2019-03-29] VITALS (9 sets, daily range): BP systolic 91–127; BP diastolic 51–93
[2019-03-29] MEDS ORDERED: NACL 0.9% 1,000 ML IV ONE (00:10)
[2019-03-29] MEDS ORDERED: IPRATROPIUM 0.02% 0.5 MG/2.5 ML NEBU INH PRN ×3 (00:30→00:45)
[2019-03-29] MEDS ORDERED: ALBUTEROL 0.083% 2.5 MG/3 ML NEBU INH PRN ×2 (00:30→00:45)
[2019-03-29] MEDS ORDERED: ONDANSETRON 4 MG/2 ML VIAL IVP PRN ×2 (00:30→00:45)
[2019-03-29] MEDS ORDERED: ACETAMINOPHEN 325 MG TAB PO PRN (00:40)
[2019-03-29] MEDS ORDERED: LORazepam 1 MG TAB PO PRN (00:40)
[2019-03-29] MEDS ORDERED: PROMETHAZINE 25 MG/ML VIAL IVP PRN (00:40)
[2019-03-29] MEDS ORDERED: MORPHINE SULFATE 2 MG/ML SYR IVP PRN (00:40)
[2019-03-29] MEDS ORDERED: INSULIN LISPRO SLIDING SCALE 100 UNITS/ML VIAL SUBQ PRN ×2 (00:45→21:50)
[2019-03-29] MEDS ORDERED: MAGNESIUM OXIDE 400 MG TAB PO PRN (00:45)
[2019-03-29] MEDS ORDERED: MAG SULF 2000 MG/WATER PREMIX 50 ML IV PRN (00:45)
[2019-03-29] MEDS ORDERED: POTASSIUM CHLORIDE 10 MEQ TABER PO PRN (00:45)
[2019-03-29] MEDS ORDERED: DEXTROSE 50% 50 ML SYR IVP PRN ×2 (00:45→21:50)
[2019-03-29] MEDS ORDERED: ALBUTEROL SULFATE/IPRATROPIU 3 ML SOL IH PRN (01:00)
[2019-03-29] MEDS: NACL 0.9% 1,000 ML IV SCH ×4 (02:09→22:01)
[2019-03-29] MEDS ORDERED: ALBUTEROL 0.083% 2.5 MG/3 ML NEBU INH SCH (03:00)
--- NOTE | 2019-03-29 03:00 | NUR ---
RECEIVED BEDSIDE REPORT FROM ED RN ADRIENNE, FOR PT'S CONTINUITY OF CARE. PT IS APHASIC, LOCALIZES TO PAIN, ON DIABETES CLINICAL MANAGER, HAS TRACH TO VENT, HAS BILATERAL SHOULDER WOUNDS DRESSINGS IN PLACE, PHOTOGRAPHS TAKEN IN ED AND PLACED IN CHART, HAS MID ABD G-TUBE, HAS RIGHT AC 20G IV SITE SALINE LOCK, NO SIGNS OF DISTRESS. WILL MONITOR PT THROUGHOUT SHIFT.
[2019-03-29] MEDS: ALBUTEROL SULFATE/IPRATROPIU 3 ML SOL IH SCH ×6 (03:33→23:14)
[2019-03-29] MEDS ORDERED: PIPERACILLIN/TAZOBACTAM 3.375 GM VIAL IV ONE (03:59)
[2019-03-29] MEDS: PIPERACILLIN/TAZOBACTAM 3.375 GM in DEXTROSE 5% 50 ML IV SCH ×3 (04:00→18:00)
--- NOTE | 2019-03-29 04:05 | NUR ---
VS CHECKED AND CHARTED. PT HAS ELEVATED TEMP OF 103.4, ADMINISTERED PRN PO ACETAMINOPHEN ORDERED, THROUGH G-TUBE. G TUBE PLACEMENT PATENT, NO RESIDUAL ASPIRATED. ADMINISTERED SCHEDULED IVF AND IV ABX ORDERED. COOLING MEASURES IN PLACE. WILL CONTINUE TO MONITOR.
[2019-03-29] MEDS: BLOOD GLUCOSE MONITORING 1 DEV DEV FS SCH ×4 (06:29→22:05)
--- NOTE | 2019-03-29 06:30 | NUR ---
BLOOD SUGAR CHECKED, NO COVERAGE NEEDED. VS REASSESSED T 100, BP 97/56, P 84, O2 SAT 95%, RR 17, NO SIGNS OF DISTRESS. PT ASLEEP.
--- NOTE | 2019-03-29 06:38 | NUR ---
RECEIVED PT ON CARESCAPE ON DOCUMENTED SETTINGS, ALARMS ARE ON AND AUDIBLE, PTS TRACH SHILEY 7 XLT IS SECURE, PT IN HF ASLEEP, HHN GIVEN I\L WITH 3 MG DUONEB, BMV HOB, VENT PLUGGED INTO RED OUTLET, CONT. POX IN PLACE
[2019-03-29 06:46] LABS: BASOPHILS % (AUTO) 0.3 % (0.0-2.0); EOSINOPHILS % (AUTO) 0.3 % (0.0-4.0); HEMATOCRIT 23.8 % (36-52); HEMOGLOBIN 7.7 g/dL (12.0-18.0); LYMPHOCYTES # (AUTO) 0.9 K/uL (2.0-11.5); MEAN CORPUSCULAR HEMOGLOBIN 28 pg (27-31); MEAN CORPUSCULAR HGB CONC 32 g/dL (33-37); MEAN CORPUSCULAR VOLUME 87.4 fL (80-94); MONOCYTES # (AUTO) 0.6 K/uL (0.8-1.0); MONOCYTES % (AUTO) 4.4 % (1.7-9.3); NEUTROPHILS # (AUTO) 11.4 K/uL (1.8-7.7); PLATELET COUNT (AUTO) 427 K/uL (140-450); RED BLOOD CELL COUNT(AUTO) 2.73 MIL/uL (4.20-6.10); RED CELL DISTRIBUTION WIDTH 16.1 % (11.6-13.7)
[2019-03-29 07:11] LABS: ANION GAP 14.9 (8-16); CARBON DIOXIDE 26.8 mmol/L (21-32); CREATININE 1.2 mg/dL (0.7-1.3); POTASSIUM 4.7 mmol/L (3.5-5.1)
--- NOTE | 2019-03-29 07:15 | NUR ---
RECEIVED BEDSIDE REPORT FROM JAVA LEAD NURSE FOR CONTINUITY OF CARE. PATIENT IS RESTING ON BED, APHASIC. RESPIRATION EVEN AND UNLABORED ON TRACH TO VENT, FIO2 28%, VT 500, RATE 14, FLOW 50 L/MIN, SPO2 AT 98% BY SPO2 MONITOR AT BEDSIDE. FLACC 0. NO SIGNS OF DISTRESS NOTED. IV ON RAC 20G, INTACT AND CLEAN, INFUSING PER MD ORDER. WOUNDS NOTED, COVERED WITH DRESSINGS, DRESSINGS DRY AND CLEAN. G-TUBE IN PLACE, AND NOT INFUSING THIS TIME. CAN CATHETER IN PLACE, DRAINING YELLOW URINE WITH GRAVITY. PATIENT IS BEDREST. FALL RISK PROTOCOL IN PLACE. CONTACT PRECAUTION IN PLACE AND SIGN POSTED BY DOOR. SAFETY MEASURES IN PLACE. BED IN LOW POSITION AND CALL LIGHT WITHIN REACH. BED ALARM ACTIVATED.
[2019-03-29 07:27] LABS: LYMPHOCYTES % (AUTO) 7.3 % (20.5-51.1); NEUTROPHILS % (AUTO) 87.7 % (42.2-75.2)
--- NOTE | 2019-03-29 08:20 | NUR ---
RECEIVED A CALL BACK FROM DR STEWARD. RECEIVED TORB ORDER FROM DR STEWARD TO CONTINUE G-TUBE FEEDING GLUCERNIA 1.2 AT 70ML/HR, WATER FLUSH Q4 AT 120 ML. REPEATED AND CONFIRMED ORDER WITH DR STEWARD.
--- NOTE | 2019-03-29 09:50 | NUR ---
ADMINISTERED MEDICATION PRESCRIBED BY MD ORDER. MEDICATION EDUCATION PERFORMED. PATIENT TOLERATED WELL. NO COMPLAINTS OR CONCERNS AT THIS TIME. PATIENT IS STABLE AND IS NOT SHOWING ANY SIGNS OF DISTRESS. BANKING SERVICES CLERK HELPED CHANGE AND REPOSITION PATIENT. ORAL CARE PERFORMED BY NURSE. PATIENT TOLERATED WELL. NO CONCERNS AT THIS TIME. SAFETY MEASURES: HOB ELEVATED, BED IN LOWEST POSITION, CALL LIGHT WITHIN REACH, AND BED ALARM ACTIVATED.
--- NOTE | 2019-03-29 11:34 | NUR ---
PATIENT RESTING IN BED WITH THE TV ON UPON ARRIVAL. NO SIGNS OF DISTRESS NOTED AT THIS TIME. SAFETY MEASURES: HOB ELEVATED, BED IN LOWEST POSITION, CALL LIGHT WITHIN REACH, AND BED ALARM ACTIVATED.
--- NOTE | 2019-03-29 13:36 | NUR ---
DC PLANNING 43 YRS OLD MALE WAS ADMITTED [place] [facility] [place] DX OF FEVER AND SEPSIS , PT TRACH TO VENT ,HX OF SEIZURE, AND DM. VANCOMYCIN, IVF AND ZOSYN ADMINISTERED , C XRAY SHOWS LEFT BASILAR ATELECTASIS ORDERED URINE, BLOOD AND SPUTUM CULTURE . DC PLAN TO GO BACK TO [facility] TO FOLLOW. Addendum: 03/31/19 at 1340 by Kristy Manzano CM RECEIVED A DC BACK TO [facility] ORDER. CLINICALS AND ORDER FAXED TO [facility] AND [facility]. CONTACTED ANALY OF [facility] AT [phone], NO ANSWER. LEFT MESSAGE. TO FOLLOW UP. Addendum: 03/31/19 at 1344 by Kristy Manzano CM CONTACTED [facility] AT [phone], ABLE TO SPEAK TO CARMEN REGARDING DC PLAN. SHE ASKED IF CLINICALS HAVE BEEN FAXED. TOLD HER THAT I JUST SENT IT. SHE SAID SHE WILL WAIT FOR THE CLINICALS AND WILL GIVE ME A CALL BACK. PROVIDED HER WITH MY CONTACT INFO. SHE ALSO CONFIRMED THAT THE PATIENT IS ON A 7 DAY BED HOLD. 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 INFORMED HER THAT FINAL RESULTS OF CULTURES WILL BE BACK 3-5 DAYS AND PATIENT HAVE DC ORDERS TODAY. SHE ALSO STATED THAT PATIENT IS WITH ROOM MATES AMINTA BECKFORD OF [facility], REGARDING THE SITUATION. SHE STATED SHE WILL CONTACT [facility]. SHE PROVIDED ME WITH TRANSPORT AUTH [id number] FOR ACLS WITH [facility]. CHARGE NURSE MADE AWARE. Addendum: 03/31/19 at 1658 by Kristy Manzano CM SPOKE TO SOWMYA MCKEON AT [facility], SHE STATED THEY ARE NOT ABLE TO TAKE THE PATIENT BACK OF TODAY DUE TO THE CULTURES PENDING AND THEY DO NOT HAVE AN AVAILABLE ISO ROOM. CONTACTED ANALY OF [facility], SHE STATED SHE WILL TALK TO DR. STEWARD. CHARGE NURSE MADE AWARE. Addendum: 03/31/19 at 1710 by Kristy Manzano CM SPOKE TO JANIA INFECTION NURSE AT [facility], SHE STATED THAT THEY DO NOT HAVE ANY ISO ROOMS AT THIS TIME. INFORMED HER THAT THE PATIENT CAME WITH THE WOUNDS AND IT IS OUR PROTOCOL TO GET WOUND CULTURES ON OPEN WOUND AND NOT NECESSARILY THAT THE WOUND IS INFECTED. I ALSO TOLD HER I CAN FAX OVER THE PENDING CULTURE RESULTS. CULTURES FAXED TO [facility].
--- NOTE | 2019-03-29 13:45 | NUR ---
PROVIDED WOUND CARE WITH ASSIST FROM KNOCKOUT WORKER. CLEANSED WOUND WITH ND AND PAT DRY. APPLIED ADAPTIC DRESSING AND SECURED WITH ABD DRESSING. PATIENT TOLERATED WELL. SKIN CARE EDUCATION PROVIDED AND REINFORCEMENT NEEDED. OFFLOADED PRESSURES WITH PILLOWS AND HEEL PROTECTORS. PATIENT IS RESTING ON BED AT THIS TIME. RESPIRATION EVEN AND UNLABORED ON TRACH TO VENT, SPO2 AT 99%. FLACC 0. CAN IN PLACE AND DRAINING YELLOW URINE WITH GRAVITY. NO SIGNS OF DISTRESS NOTED. HOB ELEVATED, BED IN LOW POSITION AND CALL LIGHT WITHIN REACH. WOUND BED ACTIVATED AND BED ALARM ACTIVATED.
--- NOTE | 2019-03-29 15:14 | NUR ---
PATIENT IS IN BED RESTING WITH THE TV ON. NO COMPLAINTS OR CONCERNS AT THIS TIME. NO SIGNS OF DISTRESS NOTED. RESPIRATIONS EVEN AND UNLABORED. SAFETY MEASURES: HOB ELEVATED, BED IN LOWEST POSITION, CALL LIGHT WITHIN REACH, AND BED ALARM ACTIVATED.
--- NOTE | 2019-03-29 15:18 | NUR ---
NO SCANNER AV
--- NOTE | 2019-03-29 16:25 | NUR ---
PATIENT HAS BEEN SCREENED AND CATEGORIZED HIGH NUTRITION RISK. PATIENT WILL BE SEEN WITHIN 1-2 DAYS OF ADMISSION. 03/29/19 - 03/30/19 ANNIA TEJADA MBA, RD
--- NOTE | 2019-03-29 16:49 | NUR ---
RECEIVED A CALL FROM LAB AND STATED SPUTUM COLLECTED AND WAS REJECTED BY LOUISA AND IT NEEDED TO BE RECOLLECTED AND RE-ORDER. NOTIFIED RT AND RT WAS AWARE. RT SAID SHE WILL COLLECT IT SHORTLY.
--- NOTE | 2019-03-29 17:15 | NUR ---
PAGED DR. STEWARD ON REGARDS TO MEDICATION RECONCILIATION. AWAITING DR. STEWARD TO CALL BACK
--- NOTE | 2019-03-29 17:40 | NUR ---
PATIENT IS RESTING IN BED. RESPIRATIONS EVEN AND UNLABORED. TRACH TO VENT. SPO2 99%. FLACC-0. NO SIGNS OF DISTRESS. G-TUBE FEEDING INFUSING AT 70ML/HR. CAN CATHETER IN PLACE. DRAINING YELLOW URINE VIA GRAVITY. SAFETY MEASURES IN PLACE. HOB ELEVATED, BED IN LOWEST POSITION, CALL LIGHT WITHIN REACH, BED ALARM ACTIVATED.
--- NOTE | 2019-03-29 18:06 | NUR ---
ADMINISTERED MEDICATION PRESCRIBED PER MD. PATIENT TOLERATED WELL. HEART. NORMAL SINUS RHYTHM WITH NO PVC'S OR PAC'S. RESPIRATIONS EVEN AND UNLABORED WITH NO SOB OR RESPIRATORY DISTRESS. SPO2 AT 99% WITH NO DESATURATIONS WHILE ON TRACH AND VENT. FLACC- 0. NO COMPLAINTS OR CONCERNS AT THIS TIME. CHECKED RESIDUAL IN FEEDING TUBE AND IT WAS LESS THAN 5ML. PATIENT TOLERATED WELL. HOB ELEVATED, BED IN LOWEST POSITION, CALL LIGHT WITHIN REACH, AND BED ALARM ACTIVATED. WILL CONTINUE TO MONITOR
--- NOTE | 2019-03-29 18:52 | NUR ---
PATIENT'S FAMILY CAME TO VISIT PT, FLORENCIA. INSTRUCTED FAMILY TO WEAR PPE GOWNS. EDUCATED FAMILY ON THE PURPOSE BEHIND WEARING PPE GOWNS. FAMILY WAS ABLE TO VERBALIZE UNDERSTANDING. FAMILY COMPLIED.
--- NOTE | 2019-03-29 19:05 | NUR ---
RECEIVED PT TRACH WITH SHILEY 7 XLT SECURED WITH TRACH TIE ON VENT SETTINGS ORDERED. PT HAS NO APPARENT RESPIRATORY DISTRESS. VENT PLUGGED IN RE OUTLET, VENT ALARMS FUNCTIONING AND AUDIBLE, BVM AT BEDSIDE, HOB>30, SP02 95%, AND RHONCHI BREATH SOUNDS. SUCTIONED SMALL GARG THICK SECRETIONS FROM THE TRACH. TX GIVEN ORDERED WITH NO ADVERSE REACTIONS. WILL CONTINUE TO MONITOR PT.
--- NOTE | 2019-03-29 19:15 | NUR ---
GAVE BEDSIDE REPORT TO NIGHTSHIFT NURSE. FAMILY IN THE ROOM VISITING. RT AT BEDSIDE DOING BREATHING TREATMENT. PT IS IN STABLE CONDITION.
--- NOTE | 2019-03-29 19:30 | NUR ---
RECEIVED PT FROM AM NURSE IN STABLE CONDITION FOR CONTINUITY OF CARE. ON TRACH TO VENT. WITH O2 SAT 99% .NO RESPIRATORY DISTRESS NOTED. FAMILY AT BEDSIDE AND RT IN ATTENDANCE AT THIS TIME. BED PADDED FOR SEIZURE PRECAUTION. HOB ELEVATED. HAS IVF INFUSING WELL ON THE RT AC G#20. GT FEEDING TOLERATING WELL. NO RESIDUAL NOTED. CAN CATH PRESENT DRAINING TO A CLEAR YELLOW URINE. ON CONTACT ISOLATION AND FAMILY INSIDE ROOM .AWARE ABOUT THE PRECAUTIONS. WILL CONTINUE TO MONITOR.
--- NOTE | 2019-03-29 20:50 | NUR ---
PAGED DR. STEWARD FOR VERIFICATION OF MEDICATIONS TO CONTINUE FROM [facility]. DR. SHAIKH CLIENT MANAGER [employer]. CALLED BACK.AND REVIEWED WITH HIM RECONCILED MEDICATIONS.
[2019-03-29] MEDS ORDERED: ACETAMINOPHEN 325 MG TAB GT PRN (21:50)
[2019-03-29] MEDS ORDERED: hydrALAZINE 10 MG TAB GT PRN (21:50)
[2019-03-29] MEDS ORDERED: SODIUM PHOSPHATE 118 ML ENEM RC PRN (21:55)
--- NOTE | 2019-03-29 22:05 | NUR ---
BS WAS CHECKED RESULT 104. WILL CHANGE FREQUENCY PER MD ORDER TO Q6H DUE TO GT FEEDING.
[2019-03-30] VITALS (9 sets, daily range): BP systolic 119–149; BP diastolic 70–93
--- NOTE | 2019-03-30 | NUR ---
VITAL SIGNS STABLE. NO RESPIRATORY DISTRESS NOTED. WILL CONTINUE TO MONITOR.
[2019-03-30] MEDS: BLOOD GLUCOSE MONITORING 1 DEV DEV FS SCH ×4 (00:44→18:36)
[2019-03-30] MEDS: PIPERACILLIN/TAZOBACTAM 3.375 GM in DEXTROSE 5% 50 ML IV SCH ×2 (01:29→17:31)
--- NOTE | 2019-03-30 02:00 | NUR ---
SUCTIONED PT .OBTAINED SMALL AMOUNT CREAMY SECRETIONS. THEN PT WAS TURNED TO SIDES. NO DISTRESS NOTED.
[2019-03-30] MEDS: ALBUTEROL SULFATE/IPRATROPIU 3 ML SOL IH SCH ×6 (03:18→22:57)
--- NOTE | 2019-03-30 03:50 | NUR ---
PT VERY CONFUSED,TRYING TO REACH THE TRACH WITH LEFT ARM.HAND. UNABLE TO KEEP PT OUT OF CONTROL .CHECKED PT VERY FREQUENT BUT STILL KEEP TRYING TO MOVE THE LEFT ARM VERY CLOSED TO THE TRACH AND MIGHT PULLED IT OUT .
--- NOTE | 2019-03-30 04:00 | NUR ---
DRESSING ON LT SHOULDER AND RT BACK OUT. DRESSING CHANGED PER ORDER.
--- NOTE | 2019-03-30 04:30 | NUR ---
PT IV ACCESS INFILTRATED AND SWOLLEN. DISCONTINUED. MIKE BURNETT CHARGE TRIED AND UNABLE TO GET A LINE. CALLED ER AND ALSO UNABLE TO GET A NEW IV ACCESS. WILL TRY AGAIN LATER.
--- NOTE | 2019-03-30 06:15 | NUR ---
TRIED X2 AGAIN TO GET A NEW IV ACCESS. STILL FAILED. WILL PAGE TO LET HIM KNOW.
--- NOTE | 2019-03-30 06:45 | NUR ---
PAGED DR. SHAIKH FOR UNABLE TO GET A NEW IV ACCESS. WILL WAIT FOR CALL BACK.
--- NOTE | 2019-03-30 06:56 | NUR ---
REC'D PT ON CARESCAPE VENT SETTINGS AC 14 VT 500 PEEP 5 FIO2 28% ALARMS ON AND AUDIBLE AND AMBU BAG AT HOB AND VENT IS PLUGGED INTO RED OUTLET I\L TX GIVEN WITH DUONEB 3ML WITH NO ADVERSE REACTION POST TX B\S ARE RHONCHI BILATERALLY SXN PT SMALL AMT OF THICK YELLOW SECRETIONS, PT IS TRACH WITH SHIELY XLT 7 PT IS RESTING
--- NOTE | 2019-03-30 07:10 | NUR ---
STILL AWAITING FOR MD TO CALL BACK. ENDORSED THIS TO AM NURSE. PT IN STABLE CONDITION .
--- NOTE | 2019-03-30 07:15 | NUR ---
RECEIVED BEDSIDE REPORT FROM NIGHTSHIFT NURSE. PATIENT IS RESTING IN BED UPON ARRIVAL. FLACC-0. RESPIRATIONS EVEN AND UNLABORED WITH NO SOB OR RESPIRATORY DISTRESS. PATIENT IS CONNECTED TO VENT VIA TRACH. NO RESPIRATORY DESATURATIONS AT THIS TIME. SKIN WARM AND DRY TO TOUCH. PATIENT TOLERATING G-TUBE FEEDS. NO NAUSEA, VOMITING, OR STOMACH CRAMPS NOTED AT THIS TIME. CAN CATHETER IS DRAINING CLEAR YELLOW URINE WITH NO SEDIMENTS OR BLOOD. SAFETY MEASURES: HOB ELEVATED, BED IN LOWEST POSITION, CALL LIGHT WITHIN REACH, AND BED ALARM ACTIVATED.
--- NOTE | 2019-03-30 07:47 | NUR ---
PAGED DR STEWARD ON REGARDS OF UNABLE TO ESTABLISH IV ACCESS, AWAITING FOR DR STEWARD TO RETURN CALL.
[2019-03-30 08:00] LABS: HEMATOCRIT 21.7 % (36-52); HEMOGLOBIN 7.3 g/dL (12.0-18.0); MEAN CORPUSCULAR HEMOGLOBIN 29 pg (27-31); MEAN CORPUSCULAR HGB CONC 34 g/dL (33-37); MEAN CORPUSCULAR VOLUME 87.3 fL (80-94); PLATELET COUNT (AUTO) 441 K/uL (140-450); RED BLOOD CELL COUNT(AUTO) 2.49 MIL/uL (4.20-6.10); RED CELL DISTRIBUTION WIDTH 16.1 % (11.6-13.7)
[2019-03-30 08:06] LABS: ALBUMIN 2.2 g/dL (3.4-5.0); ANION GAP 15.8 (8-16); CARBON DIOXIDE 24.4 mmol/L (21-32); MAGNESIUM 1.8 mg/dL (1.8-2.4); POTASSIUM 4.2 mmol/L (3.5-5.1); TOTAL BILIRUBIN 0.3 mg/dL (0.0-1.0)
--- NOTE | 2019-03-30 08:23 | NUR ---
RECEIVED CALL BACK FROM DR STEWARD AND INFORMED DR STEWARD ON REGARDS UNABLE TO DEVELOP IV ACCESS, DR STEWARD WAS AWARE AND GIVE TORB ORDER FOR PICC/MIDLINE. REPEATED AND CONFIRMED ORDER WITH DR STEWARD.
--- NOTE | 2019-03-30 08:41 | NUR ---
ATTEMPTED TO GET VERBAL CONSENT FROM PATIENT'S SISTER IN LAW HECTOR ALMANZA, CALLED 3X AND CALL WENT TO VOICE MESSAGE. LEFT A BRIEF MESSAGE FOR RETURNING CALL.
[2019-03-30] MEDS: INSULIN LANTUS 100 UNITS/ML 10 ML VIAL SUBQ SCH (09:00)
[2019-03-30 09:03] LABS: BASOPHILS % (MANUAL) 0 % (0-2); EOSINOPHILS % (MANUAL) 1 % (0-4); LYMPHOCYTES % (MANUAL) 15 % (20-46); MONOCYTES % (MANUAL) 4 % (5-12)
[2019-03-30] MEDS: levETIRAcetam 100 MG/ML ORASYR GT SCH ×2 (09:28→20:40)
[2019-03-30] MEDS: GABAPENTIN 100 MG CAP PO SCH ×3 (09:28→17:30)
[2019-03-30] MEDS: PHENYTOIN 100 MG CAPER PO SCH ×3 (09:29→17:31)
[2019-03-30] MEDS: DOCUSATE SODIUM 100 MG GELCAP PO SCH ×2 (09:29→20:39)
[2019-03-30] MEDS: MULTIVITAMIN 1 TAB PO SCH (09:29)
--- NOTE | 2019-03-30 09:47 | NUR ---
OBTAINED VERBAL CONSENT FROM PATIENT'S SISTER IN LAW HECTOR ALMANZA. VERIFIED BY TWO RNS. HECTOR WAS AWARE AND AGREED FOR THE PROCEDURE.
--- NOTE | 2019-03-30 09:51 | NUR ---
CHECKED G-TUBE RESIDUAL AND RECEIVED < 5 ML. PATIENT TOLERATED FEEDING WELL. CHECKED BLOOD GLUCOSE AND RECEIVED 115, HOLD LANTUS. ADMINISTERED MEDICATION PRESCRIBED BY THE MD VIA G-TUBE, FLUSHED BEFORE AND AFTER MEDS ADMINISTERED, PATIENT TOLERATED WELL. MEDS EDUCATION PROVIDED AND REINFORCEMENT NEEDED. PATIENT WAS RESTING IN BED, RESPIRATION EVEN AND UNLABORED ON TRACH TO VENT, SPO2 98%. FLACC 0. NO SIGNS OF DISTRESS NOTED. SAFETY MEASURES IN PLACE AND TELE MONITOR ATTACHED. BED IN LOW POSITION AND CALL LIGHT WITHIN REACH. WOUND BED AND BED ALARM ACTIVATED.
--- NOTE | 2019-03-30 10:00 | NUR ---
RECEIVED LAB RESULT FOR MRSA NARES POSITIVE FROM LAB. REPORTED TO DR STEWARD AND DR STEWARD WAS AWARE. RECEIVED MRSA NARES PROTOCOL TREATMENT.
--- NOTE | 2019-03-30 10:15 | NUR ---
CALLED [facility], SPOKE WITH BILLE. ALFONSO-PICC LINE RN WILL CALL FOR ETA. REYNOSO-RN ASSIGNED MADE AWARE.
--- NOTE | 2019-03-30 10:45 | NUR ---
PROVIDED ORAL HYGIENE AND SUCTIONED PATIENT 2X, RECEIVED MINIMAL MUCUS, PATIENT TOLERATED WELL. NO SIGNS OF DISTRESS NOTED. TELE MONITOR ATTACHED. SAFETY MEASURES IN PLACE. BED IN LOW POSITION AND CALL LIGHT WITHIN REACH. WOUND BED AND BED ALARM ACTIVATED.
--- NOTE | 2019-03-30 11:32 | NUR ---
PATIENT RESTING IN BED WITH FAMILY AT BEDSIDE. RESPIRATIONS EVEN AND UNLABORED WITH NO SOB OR RESPIRATORY DISTRESS. PT CONNECTED TO VENT AND TRACH. NO DESATURATION EVENTS. SPO2 REMAINED AT 99%. SKIN WARM AND DRY TO TOUCH. FLACC-0. SAFETY MEASURES: HOB ELEVATED, BED IN LOWEST POSITION, BED ALARM ON, CALL LIGHT WITHIN REACH. WILL CONTINUE TO MONITOR.
[2019-03-30] MEDS: MUPIROCIN CA NASAL 2% 1GM TUBE NS SCH (11:57)
[2019-03-30] MEDS: CHLORHEXADINE GLUC 2% CLOTH TP SCH (11:58)
--- NOTE | 2019-03-30 11:59 | NUR ---
PATIENT RESTING IN BED. ADMINISTERED MEDICATION PRESCRIBED BY MD. MEDICATION EDUCATION PERFORMED. PATIENT TOLERATED WELL. FLACC-0. RESPIRATIONS EVEN AND UNLABORED. NO SIGNS OF RESPIRATORY DISTRESS OR SOB. PT CONNECTED TO VENT VIA TRACH. CLEANED PATIENT WITH 2% CHLORHEXIDINE GLUCONATE CLOTHES. MANUALLY ENTERED THE 2% CHLORHEXIDINE GLUCONATE IN THE EMAR DUE TO IT NOT BEING ABLE TO SCAN. SAFETY MEASURES: HOB ELEVATED, BED IN LOWEST POSITION, CALL LIGHT WITHIN REACH, AND BED ALARM ACTIVATED. WILL CONTINUE TO MONITOR
--- NOTE | 2019-03-30 12:25 | NUR ---
RECEIVED SIGNED CONSENT FROM DR STEWARD VIA FAX AND CHARGE NURSE NOTIFIED PICC NURSE. AWAITING FOR PICC LINE NURS TO ARRIVE FOR PICC LINE INSERT.
--- NOTE | 2019-03-30 13:05 | NUR ---
PATIENT IS RESTING IN BED. ADMINISTERED MEDICATIONS VIA G-TUBE PRESCRIBED BY MD. PATIENT TOLERATED WELL. MEDICATION EDUCATION PERFORMED. FLACC- 0. NO RESPIRATORY DISTRESS OR SOB. PATIENT HAD NO DESATURATION EVENTS. SAFETY MEASURES IN PLACE: HOB ELEVATED, BED IN LOWEST POSITION, CALL LIGHT WITHIN REACH, BED ALARM ACTIVATED.
--- NOTE | 2019-03-30 15:15 | NUR ---
RECEIVED A CALL FROM PICC LINE RN KADEN THAT HE IS 30 MINS AWAY TO THE HOSPITAL.
--- NOTE | 2019-03-30 16:15 | NUR ---
UNABLE TO ADMINISTER AM ZOSYN DUE TO NO IV ACCESS, NOTIFIED PHARMACIST.
--- NOTE | 2019-03-30 16:30 | NUR ---
PICC NURSE KADEN ARRIVED TO PATIENTS ROOM TO INSERT MIDLINE PICC. CONSENT WAS SIGNED AND TIME OUT WAS PERFORMED PRIOR TO INSERTION. PATIENT TOLERATED WELL. NO DESATURATIONS OR RESPIRATORY DISTRESS NOTED. RESPIRATIONS EVEN AND UNLABORED. FLACC 0. SAFETY MEASURES: HOB ELEVATED, BED IN LOWEST POSITION, BED ALARM ACTIVATED, TELE MONITOR ATTACHED, CALL LIGHT WITHIN REACH. WILL CONTINUE TO MONITOR
[2019-03-30] MEDS: NACL 0.9% 1,000 ML IV SCH ×2 (16:45→17:31)
--- NOTE | 2019-03-30 17:01 | NUR ---
WITH ASSIST FROM CNAS, COLLECTED WOUND CULTURE FROM L AND R SHOULDERS. SENT TO LAB. CHANGED WOUND DRESSINGS, PATIENT TOLERATED WELL. NO SIGNS OF DISTRESS NOTED. CAR WASH ATTENDANT REPOSITION PATIENT AND OFF LOADED PRESSURE WITH PILLOWS. SAFETY MEASURES IN PLACE. BED IN LOW POSITION AND CALL LIGHT WITHIN REACH. TELE MONITOR ATTACHED.
--- NOTE | 2019-03-30 17:31 | NUR ---
CHECKED G-TUBE RESIDUAL AND RECEIVED < 5 ML. ADMINISTERED MEDS VIA G-TUBE, FLUSHED BEFORE AND AFTER, PATIENT TOLERATED WELL. MEDS ED PROVIDED AND REINFORCEMENT NEEDED. PATIENT IS RESTING ON BED, EVEN AND UNLABORED RESPIRATION ON TRACH TO VENT, SPO2 AT 100%. FLACC 0. NO SIGNS OF DISTRESS NOTED. G-TUBE FEEING IS RUNNING AT 70 ML/HR. CAN IN PLACE AND DRAINING YELLOW URINE WITH GRAVITY. SAFETY MEASURES IN PLACE. BED IN LOW POSITION AND CALL LIGHT WITHIN REACH. BED ALARM ACTIVATED. TELE MONITOR ATTACHED.
--- NOTE | 2019-03-30 19:00 | NUR ---
ENDORSED TO NIGHTSHIFT NURSE AT BEDSIDE. PATIENT IS RESTING IN BED WITH THE TV ON. RESPIRATIONS EVEN AND UNLABORED WITH NO SOB OR RESPIRATORY DISTRESS. NO DESATURATIONS AT THIS TIME. SAFETY MEASURES: HOB ELEVATED, BED ALARM ACTIVATED, BED IN LOWEST POSITION, CALL LIGHT WITHIN REACH, TELE MONITOR ATTACHED. PATIENT IS STABLE
--- NOTE | 2019-03-30 19:13 | NUR ---
FOUND PT ON AC 14,500,5,28%. VENTILATOR PLUGGED INTO RED OUTLET WITH BMV AT BEDSIDE. PT IS IN NO DISTRESS. VENT SHOWED A LEAK AND VT WAS IN THE 200S. GAVE WARPER CREELER FORREST A CALL AND DISCOVERED THAT CUFF JUST NEEDED MORE AIR. PT VT IS NOW IN THE 500S.
--- NOTE | 2019-03-30 19:30 | NUR ---
RECEIVED PT IN STABLE CONDITION FROM AM NURSE FOR CONTINUITY OF CARE. BEDBOUND. ASLEEP. ON TRACH TO VENT. WITH NO RESPIRATORY DISTRESS NOTED. O2 SAT 97%. WITH IVF INFUSING WELL ON THE LT UPPER ARM MIDLINE. CLEAR AND PATENT. GT FEEDING TOLERATING WELL WITH NO RESIDUAL NOTED. CAN CATH DRAINING TO CLEAR YELLOW URINE OUTPUT. DRESSING ON RT SHOULDER AND BACK IN PLACED. SWOLLEN ON RT ARM/HAND. BED ON LOWEST POSITION. HOB ELEVATED. FREQ ROUNDS NEEDED. SIDE RAILS UP X2 AND PADDED FOR SEIZURE PRECAUTIONS. CALL LIGHT WITHIN EASY REACH. WILL CONTINUE TO MONITOR.
--- NOTE | 2019-03-30 20:00 | NUR ---
REPOSITIONED FOR COMFORT. STILL WITH LEFT WRIST SOFT RESTRAINT DUE TO CONFUSION, TRYING TO PULL OUT TUBES/TRACH. WILL CONTINUE TO MONITOR.
--- NOTE | 2019-03-30 20:40 | NUR ---
NEW GLUCERNA BAD GT FEEDING STARTED. PT IS TOLERATING WELL. NO RESIDUAL NOTED.
--- NOTE | 2019-03-30 22:00 | NUR ---
PT POSITIONED ON HIS BACK THIS TIME. NO RESPIRATORY DISTRESS NOTED. WILL CONTINUE TO MONITOR.
[2019-03-31] VITALS: BP 126/71
[2019-03-31] MEDS: NACL 0.9% 1,000 ML IV SCH ×3 (00:45→12:57)
[2019-03-31] MEDS: BLOOD GLUCOSE MONITORING 1 DEV DEV FS SCH ×4 (01:00→18:12)
[2019-03-31] MEDS: PIPERACILLIN/TAZOBACTAM 3.375 GM in DEXTROSE 5% 50 ML IV SCH ×3 (01:00→17:26)
--- NOTE | 2019-03-31 01:30 | NUR ---
PATIENT BEING CLEANED BY RN AND TWO SEAMLESS TUBE MILL OPERATOR DURING VENTILATOR CHECK. PT IN NO DISTRESS. WILL CONT. TO MONITOR
--- NOTE | 2019-03-31 02:30 | NUR ---
PT IS AWAKE BUT RESTLESS. REPOSITIONED PT FOR COMFORT. NO RESPIRATORY DISTRESS NOTED.
[2019-03-31] MEDS: ALBUTEROL SULFATE/IPRATROPIU 3 ML SOL IH SCH (02:58)
[2019-03-31 04:00] VITALS: BP 123/77
--- NOTE | 2019-03-31 04:00 | NUR ---
PT DRESSING ON THE RT SCAPULA AND LEFT SCAPULA LOOSE AND REMOVED PT KEEP ON MOVING ON BED . DRESSING CHANGED AGAIN AFTER CLEANED WITH NS AND ADAPTIC DRESSING IS APPLIED. .
--- NOTE | 2019-03-31 05:16 | NUR ---
PT LEFT ON AC 14,500,+5, 28 PERCENT SAT 97-98%. PT CUFF PRESSURE IS IN NORMAL VALUE. TRACH IS INTACT AND CLEANED.
--- NOTE | 2019-03-31 06:15 | NUR ---
LATEST BS 102. WITH CONTINUOS GT FEEDING . TOLERATING WELL.
--- NOTE | 2019-03-31 06:34 | NUR ---
RECEIVED PT ON CARESCAPE ON DOCUMENTED SETTINGS, ALARMS ARE ON AND AUDIBLE, PTS TRACH SHILEY 7 XLT IS SECURE, PT IN HF ASLEEP, BS COARSE HHN GIVEN I\L WITH 3 ML DUONEB, BMV HOB, CONT. POX IN PLACE, VENT PLUGGED INTO RED OUTLET, WILL CONTINUE TO MONITOR
[2019-03-31 07:19] LABS: BASOPHILS % (AUTO) 0.4 % (0.0-2.0); EOSINOPHILS # (AUTO) 0.3 K/uL (0-0.4); EOSINOPHILS % (AUTO) 2.9 % (0.0-4.0); HEMATOCRIT 21.7 % (36-52); HEMOGLOBIN 7.4 g/dL (12.0-18.0); LYMPHOCYTES # (AUTO) 1.9 K/uL (2.0-11.5); LYMPHOCYTES % (AUTO) 20.9 % (20.5-51.1); MEAN CORPUSCULAR HEMOGLOBIN 30 pg (27-31); MEAN CORPUSCULAR HGB CONC 34 g/dL (33-37); MEAN CORPUSCULAR VOLUME 87.6 fL (80-94); MONOCYTES # (AUTO) 0.9 K/uL (0.8-1.0); MONOCYTES % (AUTO) 10.1 % (1.7-9.3); NEUTROPHILS % (AUTO) 65.7 % (42.2-75.2); PLATELET COUNT (AUTO) 421 K/uL (140-450); RED BLOOD CELL COUNT(AUTO) 2.48 MIL/uL (4.20-6.10); RED CELL DISTRIBUTION WIDTH 16.3 % (11.6-13.7); WHITE BLOOD COUNT (AUTO) 9.2 K/uL (4.8-10.8)
--- NOTE | 2019-03-31 07:20 | NUR ---
ENDORSED PT IN STABLE CONDITION TO AM NURSE FOR CONTINUITY OF CARE.
--- NOTE | 2019-03-31 07:25 | NUR ---
RECEIVED PT FROM NIGHTSHIFT NURSE AT BEDSIDE. PATIENT IS LAYING IN BED WITH THE TV ON. SKIN WARM AND DRY TO TOUCH. RESPIRATIONS EVEN AND UNLABORED WITH NO SOB OR RESPIRATORY DISTRESS. FLACC 0. SPO2 IS AT 99%, FI02 IS 27, PEEPe IS 5, AND PEAK PRESSURE IS 20. MIDLINE PICC 2 LUMEN IS CLEAN, DRY, AND INTACT. SAFETY MEASURES: HOB ELEVATED, BED IN LOWEST POSITION, CALL LIGHT WITHIN REACH REACH, BED ALARM ACTIVATED, TELE MONITOR ATTACHED TO PATIENT. WILL CONTINUE TO MONITOR
[2019-03-31 08:00] VITALS: BP 155/89
[2019-03-31 08:02] LABS: CARBON DIOXIDE 27.6 mmol/L (21-32); POTASSIUM 3.9 mmol/L (3.5-5.1)
[2019-03-31 08:03] LABS: ANION GAP 14.8 (8-16); CREATININE 0.8 mg/dL (0.7-1.3)
[2019-03-31] MEDS ORDERED: PIPERACILLIN/TAZOBACTAM 3.375 GM VIAL IV ONE (08:36)
[2019-03-31] MEDS: MULTIVITAMIN 1 TAB PO SCH (08:43)
[2019-03-31] MEDS: GABAPENTIN 100 MG CAP PO SCH ×3 (08:43→17:19)
[2019-03-31] MEDS: PHENYTOIN 100 MG CAPER PO SCH ×3 (08:43→17:19)
[2019-03-31] MEDS: DOCUSATE SODIUM 100 MG GELCAP PO SCH (08:43)
[2019-03-31] MEDS: levETIRAcetam 100 MG/ML ORASYR GT SCH (08:43)
--- NOTE | 2019-03-31 08:43 | NUR ---
ADMINISTERED MEDICATIONS VIA G-TUBE PRESCRIBED PER MD. PATIENT TOLERATED WELL. EDUCATED PATIENT ON MEDICATION REGIMEN. NO SIGNS OF DISTRESS NOTED AT THIS TIME. WOUND CARE NURSE RUPA PERFORMED WOUND CARE ON PATIENT.
[2019-03-31] MEDS: INSULIN LANTUS 100 UNITS/ML 10 ML VIAL SUBQ SCH (08:55)
[2019-03-31 09:09] LABS: MAGNESIUM 1.8 mg/dL (1.8-2.4); TOTAL BILIRUBIN 0.3 mg/dL (0.0-1.0)
[2019-03-31 09:10] LABS: THYROID STIMULATING HORMONE 4.3 uIU/mL (0.34-3.74)
--- NOTE | 2019-03-31 09:16 | NUR ---
NUTRITIONAL INITIAL ASSESSMENT NOTE COMPLETED ON 03/29/[address] NOTE WILL BE FOUND ON PATIENTS PHYSICAL CHART UNDER MISCELLANEOUS. PATIENT WILL BE FOLLOWED UP ON 04/01/19, HIGH RISK.
--- NOTE | 2019-03-31 09:50 | NUR ---
WOUND CARE EVALUATION NOTE: REASON FOR EVALUATION: SURGICAL WOUNDS WOUND ASSESSMENT DONE WITH PRIMARY RN WITH SURGICAL WOUNDS. TRACH TO VENT. PT ON CONTINUOS O2 MONITORING. NO S/S OF DISTRESS. CAN CATH IN PLACE. G-TUBE IN PLACE, SKIN IS WARM AND DRY BLE, HAIR GROWTH WITH DARKER PIGMENTATIONS. DORSAL PEDAL PULSES PRESENT AND NORMAL, CAPILLARY REFILLED <3 SEC. POC DISCUSSED WITH PRIMARY RN. INTEGUMENTARY: -TRACH AND GT STOMA NADER-SKIN DRY AND CLEAN -RIGHT THIGH 0.3X1CM BLOOD FILLED BLISTER WITH SKIN INTACT, TRANSPARENT DRESSING IN PLACE. -LEFT FOOT/TOES MULTIPLE SCABS WITH LARGEST TO LEFT DORSAL FOOT DRY BROWN SCAB. -MID BACK SURGICAL WOUND 5X1X0.8CM WOUND BED 100% GRANULATION TISSUE, MOIST, MO ODOR, NADER WOUND SKIN INTACT. -RIGHT POSTERIOR SHOULDER SURGICAL WOUND 5X2X0.5CM WOUND BED 100% GRANULATION TISSUE, MOIST, NO ODOR, NADER WOUND SKIN INTACT. RECOMMENDATION: -CONTINUE TO MONITOR BLISTER TO RIGHT THIGH AND CHANGE DRESSING PRN IF SOILING -RIGHT POSTERIOR SHOULDER AND MID BACK SURGICAL WOUND CLEANSE WITH NS, PACK WOUND WITH ADAPTIC DRESSING AND COVER WITH ABD PAD AND SECURE WITH TAPE , CHANGE Q M-W-F AND PRN IF SOILING -TURN AND REPOSITION PATIENT Q 2H -ASSESS AND MONITOR SKIN CONDITION DURING POSITION CHANGE -OFFLOAD BILATERAL HEELS BY PLACING PILLOWS UNDER CALVES AT ALL TIMES, UNLESS OTHERWISE CONTRAINDICATED -PRESSURE REDISTRIBUTION BY PLACING PILLOWS AND OFFLOADING SACRALCOCCYX -KEEP SKIN CLEAN AND DRY AT ALL TIMES. PLEASE CONTACT WOUND CARE NURSE FOR ANY QUESTION AND CHANGE OF WOUND CONDITION.
--- NOTE | 2019-03-31 10:30 | NUR ---
PATIENT IN BED RELAXING WITH THE TV ON. NO SIGNS OF DISTRESS AT THIS TIME. PATIENT GOT SPONGE BATHED AND REPOSITIONED WITH THE HELP OF PHOTOGRAPHER'S ASSISTANT. PATIENT TOLERATED WELL. NO DESATURATIONS AT THIS TIME. FLACC 0. SAFETY MEASURES: HOB ELEVATED, NON SKID SOCKS ON, BED IN LOWEST POSITION, CALL LIGHT WITHIN REACH, BED ALARM ACTIVATED, AND TELE MONITORS ATTACHED. WILL CONTINUE TO MONITOR WILL CONTINUE TO MONITOR
--- NOTE | 2019-03-31 11:15 | NUR ---
PATIENT APPEARS TO BE RESTLESS. REPOSITION PERFORMED WELL OBTAINING A BLANKET. PT TOLERATED WELL. PATIENT IS RESTING QUIETLY. NO SIGNS OF DISTRESS NOTED
[2019-03-31] MEDS: MUPIROCIN CA NASAL 2% 1GM TUBE NS SCH (11:50)
[2019-03-31] MEDS: CHLORHEXADINE GLUC 2% CLOTH TP SCH (11:51)
[2019-03-31 12:00] VITALS: BP 146/97
--- NOTE | 2019-03-31 12:00 | NUR ---
ADMINISTERED MEDICATION VIA G-TUBE PRESCRIBED PER MD. MEDICATION EDUCATION PERFORMED TO PATIENT. PATIENT TOLERATED WELL. PT CLEANED UP WITH CHG WIPES AND TOLERATED WELL. PATIENT ALSO HAD BLOOD SUGAR TESTED WHICH RESULTED IN 100. NO INSULIN NEEDED AT THIS TIME. PATIENT WAS LYING IN BED UPON ARRIVAL. PHYSICAL THERAPY CAME TO VISIT PATIENT. PT TOLERATED FAIRLY. NO CONCERNS AT THIS TIME. SAFETY MEASURES: HOB ELEVATED, NON SKID SOCKS ON, BED IN LOWEST POSITION, CALL LIGHT WITHIN REACH, BED ALARM ACTIVATED, AND TELE MONITORS ATTACHED. WILL CONTINUE TO MONITOR
[2019-03-31] MEDS ORDERED: GAUZE TP SCH (13:00)
--- NOTE | 2019-03-31 13:05 | NUR ---
PATIENT IN LYING IN BED, RESTING. RESPIRATIONS EVEN AND UNLABORED WITH NO RESPIRATORY DISTRESS OF SOB. FLACC 0. SAFETY MEASURES: HOB ELEVATED, NON SKID SOCKS ON, BED IN LOWEST POSITION, CALL LIGHT WITHIN REACH, BED ALARM ACTIVATED, AND TELE MONITORS ATTACHED. WILL CONTINUE TO MONITOR
--- NOTE | 2019-03-31 14:15 | NUR ---
ADMINISTERED MEDICATION VIA G-TUBE PRESCRIBED PER MD. PT TOLERATED WELL. NO COMPLICATIONS AT THIS TIME. MEDICATION EDUCATION PERFORMED TO PATIENT. RESPIRATIONS EVENE AND UNLABORED WITH NO SOB OR RESPIRATORY DISTRESS. RESPONSIVE TO VERBAL AND TACTILE STIMULI. SAFETY MEASURES: HOB ELEVATED, NON SKID SOCKS ON, BED IN LOWEST POSITION, CALL LIGHT WITHIN REACH, BED ALARM ACTIVATED, AND TELE MONITORS ATTACHED. WILL CONTINUE TO MONITOR
--- NOTE | 2019-03-31 15:08 | NUR ---
PATIENT IS PEACEFULLY ASLEEP IN BED. RESPONSIVE TO VERBAL AND TACTILE STIMULI. FLACC 0. NO RESPIRATORY DISTRESS. RESPIRATIONS EVEN AND UNLABORED. NO CONCERNS AT THIS TIME. WILL CONTINUE TO MONITOR. SAFETY MEASURES: HOB ELEVATED, NON SKID SOCKS ON, BED IN LOWEST POSITION, CALL LIGHT WITHIN REACH, BED ALARM ACTIVATED, AND TELE MONITORS ATTACHED. WILL CONTINUE TO MONITOR
[2019-03-31 16:00] VITALS: BP 158/111
--- NOTE | 2019-03-31 16:04 | NUR ---
PATIENT IS ASLEEP IN BED. RESPONSIVE TO VERBAL AND TACTILE STIMULI. FLACC 0. RESPIRATIONS EVEN AND UNLABORED. SKIN WARM AND DRY TO TOUCH. NO COMPLICATIONS AT THIS TIME. SAFETY MEASURES: HOB ELEVATED, NON SKID SOCKS ON, BED IN LOWEST POSITION, CALL LIGHT WITHIN REACH, BED ALARM ACTIVATED, AND TELE MONITORS ATTACHED. WILL CONTINUE TO MONITOR. WILL CONTINUE TO MONITOR
--- NOTE | 2019-03-31 17:15 | NUR ---
PATIENT IS LYING IN BED. FLACC 0. RESPIRATIONS EVEN AND UNLABORED. NO SOB OR RESPIRATORY DISTRESS NOTED AT THIS TIME. PATIENT IS IN STABLE CONDITION. SAFETY MEASURES: HOB ELEVATED, NON SKID SOCKS ON, BED IN LOWEST POSITION, CALL LIGHT WITHIN REACH, BED ALARM ACTIVATED, AND TELE MONITORS ATTACHED. WILL CONTINUE TO MONITOR
--- NOTE | 2019-03-31 18:25 | NUR ---
PATIENT IS IN BED RELAXING. RESPIRATIONS EVEN AND UNLABORED WITH NO SOB OR RESPIRATORY DISTRESS. SKIN WARM AND DRY TO TOUCH. NO CONCERNS OR COMPLICATIONS AT THIS TIME. SAFETY MEASURES: HOB ELEVATED, NON SKID SOCKS ON, BED IN LOWEST POSITION, CALL LIGHT WITHIN REACH, BED ALARM ACTIVATED, AND TELE MONITORS ATTACHED. WILL CONTINUE TO MONITOR
[2019-03-31] MEDS ORDERED: PIPE1PDS26 IV (19:29)
--- NOTE | 2019-03-31 20:15 | NUR ---
[facility] HERE, DISCHARGE TO [facility] GOING TO ROOM 3A IN STABLE CONDITION, REPORT GIVEN TO [facility] BY DAY MIKE CHING.
--- NOTE | 2019-03-31 21:19 | NUR ---
2118: Receive a call from [facility] regarding BC is positive for gram positive cocci in cluster 2126: Called [facility], and Dr Boston is the oncall 2135: Dr Boston called back and let Dr Boston know that pt was discharged today by Dann MCKEON [facility] to [facility] around [address] Calixto with Zosyn IV for [address] Boston was aware and stated: "OK". (pt has trach to vent, gt, in room 122B)
== END 2019-03-31 20:15 | DRG 720 ==
LOC: MED 22:30 → MTU 03-29 00:30
PROVIDERS: ADMIT Internal Medicine Pulmonary Disease; ATTEND Internal Medicine Pulmonary Disease
PROC: 5A1945Z Respiratory Ventilation, 24-96 Consecutive Hours (ICD-10-PCS; principal; 2019-03-29)
PROC: 05HY33Z Insertion of Infusion Device into Upper Vein, Percutaneous Approach (ICD-10-PCS; 2019-03-30)
PROC: B54NZZA Ultrasonography of Left Upper Extremity Veins, Guidance (ICD-10-PCS; 2019-03-30)
DX: A41.9 Sepsis, unspecified organism (principal); Z99.11 Dependence on respirator [ventilator] status; J96.10 Chronic respiratory failure, unspecified whether with hypoxia or hypercapnia; Z93.0 Tracheostomy status; R13.10 Dysphagia, unspecified; E11.9 Type 2 diabetes mellitus without complications; D63.8 Anemia in other chronic diseases classified elsewhere; E66.9 Obesity, unspecified; S00-T88 Injury, poisoning and certain other consequences of external causes; X58.XXXA Exposure to other specified factors, initial encounter; E78.5 Hyperlipidemia, unspecified; G40.909 Epilepsy, unspecified, not intractable, without status epilepticus; I10 Essential (primary) hypertension; Z93.1 Gastrostomy status; Z79.4 Long term (current) use of insulin; Z68.36 Body mass index [BMI] 36.0-36.9, adult; Y93.89 Activity, other specified; Y92.89 Other specified places as the place of occurrence of the external cause; Y99.8 Other external cause status
CPT/HCPCS: 36415; 71045; 80048; 80053; 81001; 82948; 83605; 83735; 83880; 84436; 84443; 84484; 85025; 87040; 87070; 87081; 87086; 87186; 87205; 89220; 93005; 94003; 94640; 96365; 99285; C1751; J0696; J1815; J2543; J7030; J7060; J7620; Q0092

== ENCOUNTER 2019-04-04 08:12 | Inpatient (IN) | payer OTHER ==
[~2019-04-04] VITALS: Ht 176.8 cm; Wt 104.8 kg
[2019-04-04] VITALS (17 sets, daily range): BP systolic 77–115; BP diastolic 37–82
[~2019-04-04 08:12] MED LIST changes: -AMOX-1000 PO; +ASCO-770 GT; +PIPE1PDS26 IV
--- NOTE | 2019-04-04 08:12 | NUR ---
PT BIBA ALS TO ER BED 10
[2019-04-04] MEDS ORDERED: NACL 0.9% 500 ML IV SCH (08:15)
--- NOTE | 2019-04-04 08:15 | NUR ---
43/M [place] [facility] [place] THIS MORN[place]. AT BASELINE PT IS AWAKE AND ABLE TO TRACK MOVEMENT. THIS AM, [facility] [place] FOUND PT LETHARGIC AND UNABLE TO TRACK. TEMP 101.3 PER RECTAL AT THIS TIME. HX- TRACH TO VENT, CHRONIC RESP FAILURE, HTN, DM2, QUADRAPLEGIA, GERD, DYSPHAGIA, G TUBE,CRANIOTOMY. PATIENT POSITIONED FOR COMFORT; HOB ELEVATED; BEDRAILS UP X2; BED DOWN. ER MADE AWARE OF PT STATUS. Addendum: 04/04/19 at 0858 by [email or web address] CONNECT G TUBE WITH SUCTION: SMALL BLOOD CLOT IN G TUBE. Addendum: 04/04/19 at 0859 by [email or web address] ABDOMEN DISTENED. Addendum: 04/04/19 at 1149 by [email or web address] Asia NGUYEN AT ABD, WOUND UPPER BACK X2 & BUTTOCK, BLISTER R THIGH & ADRIENNE
--- NOTE | 2019-04-04 08:15 | NUR ---
Note undone in ED - 04/04/19 at 0852 by [email or web address] 43/M [place] [facility] [place]. AT BASELINE PT IS AWAKE AND ABLE TO TRACK MOVEMENT. THIS AM, [facility] [place] PT LETHARGIC AND UNABLE TO TRACK. TEMP 101.3 PER RECTAL AT THIS TIME. HX- TRACH TO VENT, CHRONIC RESP FAILURE, HTN, DM2, QUADRAPLEGIA, GERD, DYSPHAGIA, CRANIOTOMY Addendum: 04/04/19 at 0847 by [email or web address] Amendment undone in ED - 04/04/19 at 0852 by [email or web address] CONNECT G TUBE WITH SUCTION
[2019-04-04] MEDS ORDERED: ACETAMINOPHEN 650 MG SUPP RC ONE (08:25)
--- NOTE | 2019-04-04 08:40 | NUR ---
LAB AT BEDSIDE
--- NOTE | 2019-04-04 08:50 | NUR ---
EKG AT BEDSIDE
--- NOTE | 2019-04-04 09:05 | NUR ---
X RAY AT BEDSIDE.
[2019-04-04 09:16] LABS: BASOPHILS % (AUTO) 0.2 % (0.0-2.0); EOSINOPHILS # (AUTO) 0.2 K/uL (0-0.4); EOSINOPHILS % (AUTO) 1.6 % (0.0-4.0); HEMATOCRIT 26.2 % (36-52); HEMOGLOBIN 8.4 g/dL (12.0-18.0); LYMPHOCYTES # (AUTO) 1.1 K/uL (2.0-11.5); LYMPHOCYTES % (AUTO) 9.9 % (20.5-51.1); MEAN CORPUSCULAR HEMOGLOBIN 28 pg (27-31); MEAN CORPUSCULAR HGB CONC 32 g/dL (33-37); MEAN CORPUSCULAR VOLUME 88.2 fL (80-94); MONOCYTES # (AUTO) 0.7 K/uL (0.8-1.0); MONOCYTES % (AUTO) 6.1 % (1.7-9.3); NEUTROPHILS # (AUTO) 9.4 K/uL (1.8-7.7); NEUTROPHILS % (AUTO) 82.2 % (42.2-75.2); PLATELET COUNT (AUTO) 668 K/uL (140-450); RED BLOOD CELL COUNT(AUTO) 2.97 MIL/uL (4.20-6.10); RED CELL DISTRIBUTION WIDTH 17.2 % (11.6-13.7); WHITE BLOOD COUNT (AUTO) 11.5 K/uL (4.8-10.8)
[2019-04-04 09:17] LABS: APPEARANCE,URINE SL CLOUDY (CLEAR); BILIRUBIN,URINE NEGATIVE (NEGATIVE); BLOOD, URINE NEGATIVE (NEGATIVE); COLOR,URINE YELLOW (YELLOW); LEUKOCYTE ESTERASE ,URINE NEGATIVE (NEGATIVE); NITRITE, URINE NEGATIVE (NEGATIVE); PH,URINE 5.5 (5.0-9.0); UGLUCOSE NEGATIVE (NEGATIVE)
[2019-04-04 09:25] LABS: ALBUMIN 2.5 g/dL (3.4-5.0); ANION GAP 13.8 (8-16); CARBON DIOXIDE 26.1 mmol/L (21-32); CREATININE 1.1 mg/dL (0.7-1.3); POTASSIUM 3.9 mmol/L (3.5-5.1); TOTAL BILIRUBIN 0.4 mg/dL (0.0-1.0)
[2019-04-04 09:32] LABS: RBC,URINE NONE SEEN /HPF (0-5); URINE AMORPHOUS URATE 2+ /HPF (None Seen); WBC,URINE NONE SEEN /HPF (0-5)
--- NOTE | 2019-04-04 09:45 | NUR ---
VOMITTED & SEIZURE . DILANTIN & ZOFRAN GIVEN PER ORDER.
[2019-04-04] MEDS ORDERED: PHENYTOIN 1,000 MG in NACL 0.9% 100 ML IV ONE (09:50)
[2019-04-04] MEDS ORDERED: metroNIDAZOLE 500 MG/NS PREMIX 100 ML IV ONE (09:55)
[2019-04-04] MEDS ORDERED: ONDANSETRON 4 MG/2 ML VIAL IVP ONE (10:30)
[2019-04-04] MEDS ORDERED: ONDANSETRON 4 MG/2 ML VIAL ONE ×2 (10:30→16:12)
[2019-04-04] MEDS ORDERED: PHENYTOIN 250 MG/5 ML VIAL IV ONE ×2 (10:39→10:47)
[2019-04-04] MEDS ORDERED: MEROPENEM 1,000 MG in NACL 0.9% 100 ML IV ONE (10:45)
[2019-04-04] MEDS ORDERED: MEROPENEM 1,000 MG VIAL IV ONE (11:04)
--- NOTE | 2019-04-04 11:28 | NUR ---
PT TRANSFERRED FROM ER TO ICU AND PLACED ON VENTILATOR . SETTINGS A/C VC 14, VT 500, PEEP 5 AND FIO2 32%. VENT IS PLUGGED INTO A RED OUTLET WITH ALARMS ON AND FUNCTIONING. PT TACHYCARDIC AT THIS TIME. WILL CONTINUE TO MONITOR.
[2019-04-04 11:34] LABS: PROTHROMBIN TIME 10.5 secs (10.8-13.4)
[2019-04-04] MEDS ORDERED: ONDANSETRON 4 MG/2 ML VIAL IVP PRN (11:35)
[2019-04-04] MEDS ORDERED: VANCOMYCIN PER PHARMACY MC PRN (11:35)
[2019-04-04] MEDS ORDERED: ALBUTEROL 0.083% 2.5 MG/3 ML NEBU INH PRN (11:35)
--- NOTE | 2019-04-04 11:43 | NUR ---
Patient will be admitted to care of DR STEWARD. Admited to ICU. Will go to room 5. Belongings list completed. Report to SYLVAIN MCKEON.
--- NOTE | 2019-04-04 11:45 | NUR ---
RECEIVED PT REPORT FROM ER NURSE. PT HAS CC ALOC AND TACHYCARDIA. PT DOES NOT OPEN EYES. HAS SPONTANEOUS EXTREMITIES MOVEMENT, ALSO MOVES TO NAME AND TOUGH. TRACH TO VENTILATOR, FIO2 32%, VT 500, RR14, PEEP5. PICC TO LEFT UPPER ARM RUNNING FLAGYL, PATENT, INTACT, AND ASYMPTOMATIC. LUNG SOUNDS CLEAR AND DIMINISHED. BOWEL SOUNDS HYPOACTIVE. G-TUBE TO LUQ, CLAMPED, CT SHOWS G TUBE NOT IN RIGHT PLACE. NPO. PT HAS SX WOUNDS ON LEFT AND RIGHT UPPER BACK, WILL DO WOUND ASSESSMENT. BED IN LOWEST POSITION, CALL LIGHT WITHIN REACH. ST ON MONITOR.
--- NOTE | 2019-04-04 12:30 | NUR ---
CAN INSERTED, STERIL TECHNIQUES APPLIED. CLOUDY YELLOW URINE.
[2019-04-04] MEDS: ACETAMINOPHEN 650 MG SUPP RC PRN (12:37)
[2019-04-04] MEDS ORDERED: Z-GUARD PASTE TP ONE (12:52)
--- NOTE | 2019-04-04 12:55 | NUR ---
ICE PACK PROVIDED. REMOVED COVER SHEET.
--- NOTE | 2019-04-04 13:00 | NUR ---
WOUND CARE TO THE BILATERAL UPPER BACK WAS DONE.
[2019-04-04] MEDS: VANCOMYCIN 1,500 MG in DEXTROSE 5% 500 ML IV SCH (13:08)
[2019-04-04] MEDS: ALBUTEROL 0.083% 2.5 MG/3 ML NEBU INH SCH ×3 (14:57→23:22)
--- NOTE | 2019-04-04 15:00 | NUR ---
CALLED DR HAYNES, MADE HIM AWARE PT CAME WITH FEVER. TEMP AT 1200 WAS 102.5 AND TYLENOL SUPPOSITORY WAS GIVEN, TEMP IS STILL 102.5 NOW, ASKED IF HE WANTS BLOOD TRANSFUSION NOW OR WAIT FOR TEMP TO GO DOWN. DR HAYNES SAID TO GIVE BLOOD NOW.
[2019-04-04] MEDS: MEROPENEM 1,000 MG in NACL 0.9% 100 ML IV SCH ×2 (15:20→23:21)
--- NOTE | 2019-04-04 15:30 | NUR ---
BLOOD TRANSFUSION STARTED.
--- NOTE | 2019-04-04 15:30 | NUR ---
[facility] CALLED SAID SX WOULD BE AT 1600.
[2019-04-04] MEDS ORDERED: SEVOFLURANE 250 ML BTL INH ONE (16:12)
[2019-04-04] MEDS ORDERED: PHENYLEPHRINE 10 MG/ML VIAL ONE (16:12)
[2019-04-04] MEDS ORDERED: DEXAMETHASONE 4 MG/ML VIAL ONE (16:12)
[2019-04-04] MEDS ORDERED: ROCURONIUM 50 MG/5 ML VIAL IV ONE (16:12)
[2019-04-04] MEDS ORDERED: PROPOFOL 200 MG/20 ML VIAL IV ONE (16:12)
[2019-04-04] MEDS ORDERED: fentaNYL 0.05 MG/ML VIAL ONE (16:18)
--- NOTE | 2019-04-04 16:20 | NUR ---
PT WENT TO OR WITH BLOOD TRANSFUSION RUNNING.
[2019-04-04] MEDS ORDERED: BUPIVACAINE-MPF/EPI 0.25% 30 ML VIAL INJ ONE (16:49)
--- NOTE | 2019-04-04 17:37 | NUR ---
PT BACK FROM OR. STAPLE AND BANDAID TO MID-LOWER ABD AND LEFT ABD. NO BLEEDING NOTED. RIGHT UPPER ARM IV PICC WAS LEAKING, CHUX WAS SOILED WITH BLOOD. BP IS LOW, DR HAYNES ORDERED 500ML NS BOLUS, IF BP DOES NOT IMPROVED CAN GIVE ANOTHER 500ML BOLUS, IF STILL NOT IMPROVING COULD START LEVOPHED. NGT WAS ORDERED BY DR HAYNES, NGT PLACED AND CONNECTED WITH LOW INTERMITTEN SUCTION. CHANGED PICC LINE DRESSING. STERIL TECHNIQUES APPLIED.
[2019-04-04] MEDS ORDERED: TPN PER PHARMACY MC PRN (17:50)
--- NOTE | 2019-04-04 17:57 | NUR ---
FIO2 TITRATED TO 30% PT NOT IN ANY DISTRESS. TRACH IS SECURE WITH A PATENT AIRWAY. VENT ALARMS ON AND FUNCTIONING.
[2019-04-04] MEDS ORDERED: NACL 0.9% 500 ML IV ONE ×2 (18:05→21:50)
[2019-04-04] MEDS: DEXT 5% / NACL 0.9% 500 ML IV SCH ×2 (18:30→22:45)
[2019-04-04] MEDS: IPRATROPIUM 0.02% 0.5 MG/2.5 ML NEBU INH PRN (18:57)
--- NOTE | 2019-04-04 19:20 | NUR ---
RECEIVED REPORT FROM DAYSHIFT NURSE AT PATIENTS BEDSIDE. PATIENT HAS TEMP OF 102.3, COOLING MEASURES ALREADY IN PLACE, WILL CALL HOUSE SUP FOR COOLING BLANKET.
--- NOTE | 2019-04-04 19:50 | NUR ---
MOVED PATIENT TO ICU BED 1 FOR CONTACT ISOLATION. RT AT BEDSIDE. COOLING BLANKET IN PLACE. ALL SAFETY ALARMS CHECKED.
[2019-04-04] MEDS ORDERED: DEXTROSE 10% 1,000 ML IV ONE (20:00)
--- NOTE | 2019-04-04 20:00 | NUR ---
PATIENT ANOx0, DOES NOT OPEN EYES, OR MAKE NEEDS KNOWN. PATIENT IS NONVERBAL. ABLE TO MOVE LEFT ARM AND LOWER EXTREMITIES. TRACH TO VENT, ACVC 14 FI02 30% TV 500 PEEP 5. LUNG SOUNDS CLEAR. S1S2, SINUS TACH ON MONITOR. LEFT UPPER ARM MIDLINE, DOUBLE LUMEN, IN PLACE INFUSING D5 NS @ 125ML/HR. IV FLUSHED AND PATENT. ABDOMEN IS LARGE, ROUND AND NONTENDER. S/P GTUBE REMOVAL. DRESSING DRY AND INTACT, RAFAEL IN PLACE. SKIN NOT INTACT, SURGICAL WOUNDS TO UPPER BACK, DRESSING DRY AND INTACT. INCONTINENT DERMATITIS NOTED. NG TUBE IN PLACE TO RIGHT NARE CONNECTED TO LOW INTERMITTENT SUCTION. CAN CATHETER IN PLACE, CLEAR DARK YELLOW URINE NOTED. BED IS LOCKED AND IN LOWEST POSITION, SIDERAILS UPx3, HOB 3O DEGREES. WILL CONTINUE TO MONITOR.
[2019-04-04] MEDS: PHENYTOIN 100 MG/2 ML VIAL IVP SCH (20:54)
[2019-04-04] MEDS: ACETAMINOPHEN 325 MG TAB PO PRN (20:54)
--- NOTE | 2019-04-04 21:00 | NUR ---
PATIENT PULLED ON NGT AND COMPLETELY REMOVED IT. REINSERTED GTUBE TO LEFT NARES. + LUNG SOUNDS HEARD. NGT CONNECTED TO LOW INTERMITTENT SUCTION. WILL CONTINUE TO MONITOR.
--- NOTE | 2019-04-04 23:05 | NUR ---
BLOOD PRESSURE KEEPS FLUCTUATING IN 80'S TO 90'S. 500 ML NS BOLUS STARTED INDICATED. WILL CONTINUE TO MONITOR. VAP ORAL CARE PROVIDED.
[2019-04-04] MEDS ORDERED: LORazepam 2 MG/ML VIAL IVP PRN (23:50)
[2019-04-05] VITALS (98 sets, daily range): BP systolic 81–140; BP diastolic 31–98
--- NOTE | 2019-04-05 00:05 | NUR ---
TEMPERATURE STILL ELEVATED AT 102.0, COOLING MEASURES IN PLACE. TURNED AND REPOSITIONED PATIENT AND PROVIDED ORAL CARE. WILL CONTINUE TO MONITOR.
[2019-04-05] MEDS: ACETAMINOPHEN 325 MG TAB PO PRN ×2 (01:29→19:54)
[2019-04-05] MEDS: VANCOMYCIN 1,500 MG in DEXTROSE 5% 500 ML IV SCH (01:35)
[2019-04-05] MEDS: Z-GUARD PASTE TP SCH ×2 (01:47→12:10)
[2019-04-05] MEDS: MORPHINE SULFATE 4 MG/ML SYR IVP PRN ×2 (01:48→21:25)
--- NOTE | 2019-04-05 01:55 | NUR ---
REMOVED PATIENTS SOFT WRIST RESTRAINT, NO SIGNS OF INJURY. PATIENT IS UNCOMFORTABLE AND AGITATED. PATIENT KEEPS SHAKING HEAD AND KICKING FEET AND ATTEMPTING TO GRAB LINES. HEART RATE IS ELEVATED AND TEMPERATURE STILL HIGH DESPITE COOLING BLANKET AND TYLENOL. ADMINISTER MORPHINE FOR PAIN. WILL CONTINUE TO MONITOR.
[2019-04-05] MEDS ORDERED: NOREPINEPHRINE 4 MG/4 ML VIAL IV ONE (02:11)
[2019-04-05] MEDS: NOREPINEPHRINE 4 MG in DEXTROSE 5% 250 ML IV PRN ×2 (02:30→08:52)
[2019-04-05] MEDS: DEXT 5% / NACL 0.9% 500 ML IV SCH ×3 (02:45→10:45)
[2019-04-05] MEDS: ALBUTEROL 0.083% 2.5 MG/3 ML NEBU INH SCH ×6 (04:13→23:38)
--- NOTE | 2019-04-05 04:20 | NUR ---
SPONGE BATH, VAP ORAL CARE, AND CAN CATHETER CARE PROVIDED. PATIENT TOLERATED WELL. CAN CATHETER HAS VERY LITTLE OUTPUT, 40ML, DARK ALINA IN COLOR. SCD'S IN PLACE. ZGUARD APPLIED FOR INCONTINENT DERMATITIS, LEFT OPEN TO AIR. TRACH TO VENT WITH SETTINGS THE SAME BEFORE. LEFT UPPER ARM MIDLINE IN PLACE, LEVOPHED INFUSING AT 10 MCG AND D10 @ 40ML/HR. SKIN AND CIRCULATION AT LEFT UPPER EXTREMITY IN GOOD CONDITION. HOB 30 DEGREES, BED LOCKED AND IN LOWEST POSITION.
[2019-04-05] MEDS: PHENYTOIN 100 MG/2 ML VIAL IVP SCH ×3 (05:50→21:26)
--- NOTE | 2019-04-05 06:34 | NUR ---
PATIENT HAS BEEN SCREENED AND CATEGORIZED HIGH NUTRITION RISK. PATIENT WILL BE SEEN WITHIN 1-2 DAYS OF ADMISSION. 04/05/19-04/06/19 PREM GRANT MS, RDN
--- NOTE | 2019-04-05 07:04 | NUR ---
RECEIVED TRACH PT WITH A SHILEY 7 XLT ON VENT. SETTINGS A/C VC 14, VT 500, PEEP 5 AND FIO2 30%. PT IN BED APHASIC BUT NOT IN ANY DISTRESS AT THIS TIME. TRACH IS SECURE WITH A PATENT AIRWAY. VENT IS PLUGGED INTO A RED OUTLET WITH ALARMS ON AND FUNCTIONING. AMBU BAG IS PRESENT NEAR BEDSIDE. WILL CONTINUE TO MONITOR.
--- NOTE | 2019-04-05 07:10 | NUR ---
RECEIVED PT REPORT FROM ECOLOGIST NURSE, DEYSI. PT IS TRACH TO VENT, ALOC AND ST ON MONITOR. PT DOES NOT OPEN EYES. PUPIL UNEQUAL, HX OF LEFT SUBDURAL HEMATOMA AND LEFT CRANIOTOMY. PT HAS SPONTANEOUS EXTREMITIES MOVEMENT, ALSO MOVES TO NAME AND TOUGH. VENT SETTING, FIO2 30%, VT 500, RR14, PEEP5. MIDLINE TO LEFT UPPER ARM RUNNING D10 AT 40ML/HR AND LEVOPHED AT 10MCG/HR, PATENT, INTACT, AND ASYMPTOMATIC. LUNG SOUNDS RHONCHI. BOWEL SOUNDS HYPOACTIVE. G-TUBE WAS TAKEN OUT YESTERDAY. DRESSING CLEAN AND DRY. CAN DRAINING CLOUDY URINE, LOW OUTPUT. LEFT NGT TO LOW INTERMITTENT SUCTION, GREEN SECRETION, VERY MINIMAL OUTPUT. BED IN LOWEST POSITION, CALL LIGHT WITHIN REACH.
[2019-04-05] MEDS: MEROPENEM 1,000 MG in NACL 0.9% 100 ML IV SCH ×3 (07:22→23:53)
[2019-04-05 08:10] LABS: HEMATOCRIT 30.2 % (36-52); HEMOGLOBIN 9.5 g/dL (12.0-18.0); MEAN CORPUSCULAR HEMOGLOBIN 28 pg (27-31); MEAN CORPUSCULAR HGB CONC 32 g/dL (33-37); MEAN CORPUSCULAR VOLUME 88.8 fL (80-94); PLATELET COUNT (AUTO) 579 K/uL (140-450); RED CELL DISTRIBUTION WIDTH 17.1 % (11.6-13.7); WHITE BLOOD COUNT (AUTO) 23.6 K/uL (4.8-10.8)
[2019-04-05] MEDS: PANTOPRAZOLE 40 MG INJ VIAL IVP SCH (08:19)
--- NOTE | 2019-04-05 09:00 | NUR ---
CAN FLUSHED WITH 10ML NS. NO RESISTANCE FELT. URINE FLOWS FINE.
[2019-04-05 09:04] LABS: LYMPHOCYTES % (MANUAL) 12 % (20-46); MONOCYTES % (MANUAL) 8 % (5-12)
[2019-04-05 09:11] LABS: ANION GAP 16.7 (8-16); CARBON DIOXIDE 22.8 mmol/L (21-32); CREATININE 2.3 mg/dL (0.7-1.3); POTASSIUM 3.5 mmol/L (3.5-5.1); TOTAL BILIRUBIN 0.8 mg/dL (0.0-1.0)
--- NOTE | 2019-04-05 09:25 | NUR ---
PAGED DR FAITH REGARDING WORSENING KIDNEY FUNCTION AND MG 1.6, WAITING FOR CALL BACK.
[2019-04-05 09:27] LABS: CHOL/HDL RATIO 2.9 (1-4.5); PHOSPHORUS 4.7 mg/dL (2.5-4.9)
--- NOTE | 2019-04-05 09:40 | NUR ---
SPOKE WITH DR FAITH, MADE HIM AWARE OF LOW URINE OUTPUT AND MG 1.6, ORDERS RECEIVED.
[2019-04-05] MEDS ORDERED: MAG SULF 2000 MG/WATER PREMIX 50 ML IV SCH (10:15)
--- NOTE | 2019-04-05 10:25 | NUR ---
CHARGE NURSE SPOKE WITH DR WEI HILLS, LEAVES THINGS IT IS TILL HE COMES.
--- NOTE | 2019-04-05 11:15 | NUR ---
(04/05/19) RD INITIAL ASSESSMENT COMPLETED PLEASE REFER TO NUTRITION ASSESSMENT UNDER CARE ACTIVITY FOR ESTIMATED NUTRITIONAL NEEDS. RD RECOMMENDATIONS: 1. IF/WHEN ABLE TO INITIATE ENTERAL FEEDINGS, CONSIDER JEVITY 1.2 AT 70 ML/HR AND FWF 165 ML Q4H TO PROVIDE 2016 KCAL AND 92 GM PROTEIN TO MEET 81% ESTIMATED KCAL NEEDS AND 92% ESTIMATED PROTEIN NEEDS. 2. IF UNABLE TO INITIATE ENTERAL FEEDING, CONSIDER ALTERNATIVE ROUTE OF NUTRITION SUCH TPN OR PPN PER PHARMACY RECOMMENDATIONS. 3. CONSULT RDN PRN. 4. RD WILL F/U 2-3 DAYS; HIGH RISK. PREM GRANT, , RDN
[2019-04-05] MEDS: ACETAMINOPHEN 650 MG SUPP RC PRN (12:10)
[2019-04-05] MEDS: INSULIN LISPRO SLIDING SCALE 100 UNITS/ML VIAL SUBQ PRN (13:03)
--- NOTE | 2019-04-05 13:10 | NUR ---
DR MICHAELS SEEN PT, RECOMMENDED GI CONSULT FOR LEAKING G TUBE. MADE DR FAITH AWARE, DR FAITH SAID WILL LET DR HAYNES LOOK AT IT.
[2019-04-05] MEDS: BLOOD GLUCOSE MONITORING 1 DEV DEV MC SCH ×3 (13:17→23:54)
[2019-04-05] MEDS ORDERED: DEXTROSE 10% 1,000 ML IV SCH (14:40)
[2019-04-05] MEDS ORDERED: NACL 0.9% 1,000 ML IV SCH ×2 (14:40→20:00)
--- NOTE | 2019-04-05 15:45 | NUR ---
DR HAYNES SEEN PT, WILL INSERT CVC LATER.
--- NOTE | 2019-04-05 15:54 | NUR ---
Hair Spinner Note: Basic Screen: Yes High Risk DC Screen Yes Name: HECTOR ALMANZA [place] Relationship: SISTER IN LAW Pre-Admission Living Arrangements: SNF Prior ADL Needs Assistance Advance Directive No Discipline: Case Mgt/Social Svcs Tentative Discharge Plan/Destination: No Needs Identified Tentative Discharge Plan Summary: Patient is a 43-year-old female admitted for fever and tachycardia. Patient has PMHX of chronic respiratory failure, ventilator dependent, subdural hemorrhage secondary to aneurysm, chronic encephalopathy, diabetes, seizure disorder, and GERD. Patient was admitted from [facility]. SW contacted [facility] and spoke to agencyQ [phone]. Per Juliet, patient is a penitentiary patient and is on a bed hold. Patient has no advanced directive on file and patient's healthcare decision maker is [id number] Hector Almanza [phone]. No further needs identified. Signature: JOSHUA Ledesma Date: Apr 05, 2019 Time: 15:54
--- NOTE | 2019-04-05 17:25 | NUR ---
PT TACHYPNEIC AT THIS TIME. HAVING PROCEDURE DONE. VENT ALARMS REMAIN ON AND FUNCTIONING. TRACH IS SECURE WITH A PATENT AIRWAY.
--- NOTE | 2019-04-05 17:30 | NUR ---
DR HAYNES INSERTED CVC ON RIGHT SIDE OF THE NECK
[2019-04-05] MEDS: HYDROCORTISONE NA SUCC 100 MG/2 ML VIAL IV SCH ×2 (18:18→23:53)
--- NOTE | 2019-04-05 18:35 | NUR ---
DR HILLS CAME AND ASSESSED PT.
--- NOTE | 2019-04-05 19:07 | NUR ---
RECEIVED TRACH PT WITH SHILEY SIZE 7 XLT SECURED WITH TRACH TIE. VENT PLUGGED INTO RED OUTLET; ALARMS FUNCTIONING AND AUDIBLE; BVM AT BEDSIDE; HOB>30; AND COARSE BREATH SOUNDS. NO RESPIRATORY DISTRESS NOTED. SPO2 98%. TX GIVEN WITH NO ADVERSE REACTION. WILL CONTINUE TO MONITOR PT.
--- NOTE | 2019-04-05 19:30 | NUR ---
RECEIVED REPORT FROM DAY SHIFT RN. PT HAS EYES CLOSED; AROUSABLE TO PAINFUL STIMULI; PT HAS RIGHT SIDED WEAKNESS NOTED. TRACH TO VENT @ 28% FIO2. LUNGS DIMINISHED THROUGHOUT; SCATTERED RHONCHI. THIN SECRETIONS VIA INLINE SUCTION. S1 S2 120-130S SINUS TACH ON MONITOR, +2 GENERALIZED EDEMA NOTED; PALPABLE PULSES BILATERAL RADIAL/PEDAL. ABD SOFT ROUND X2 PUNCTURE SITES WITH RAFAEL, ACTIVE BOWEL SOUNDS, NGT TO L NARES LOW INTERM SUCTION. CAN CATH IN PLACE, ALINA CONCENTRATED URINE. COOLING BLANKET IN PLACE CURRENT RECTAL TEMP 100.2. CVP MONITORING. RIJ TRIPLE LUMEN IN PLACE; PATENT. LEVOPHED DRIP INFUSING @ 6 MCG/MIN. SEIZURE PRECAUTIONS IN PLACE. BED LOCKED IN LOWEST POSITION. HOB>30 DEGREES.
--- NOTE | 2019-04-05 19:45 | NUR ---
CALLED DR HILLS TO CLARIFY IVF ORDERS. STATED TO RUN0.9 NS @ 125 ML/HR D/C PREVIOUS ORDERS OF IVF, RUN TPN @ 80 ML/HR. WILL CONTINUE TO OBSERVE
[2019-04-05] MEDS: NACL 0.9% 1,000 ML IV SCH (19:55)
[2019-04-05] MEDS ORDERED: [UNRECOGNIZED DRUG - OTHER] IV SCH ×4 (20:00)
[2019-04-05] MEDS ORDERED: MULTIVITAMIN IV SCH ×4 (20:00)
[2019-04-05] MEDS ORDERED: AMINO ACIDS 8.5% IV SCH ×4 (20:00)
[2019-04-05] MEDS ORDERED: DEXTROSE IV SCH ×4 (20:00)
--- NOTE | 2019-04-05 20:00 | NUR ---
dr gaston in the unit; ok to use central line
--- NOTE | 2019-04-05 21:48 | NUR ---
spoke with dr coffey; cancel ct of abdomen; md aware procedure done yesterday
--- NOTE | 2019-04-05 22:30 | NUR ---
PT TURNED AND REPOSITIONED. VSS. WILL CONTINUE TO OBSERVE
[2019-04-06] VITALS (104 sets, daily range): BP systolic 49–202; BP diastolic 23–144
--- NOTE | 2019-04-06 00:25 | NUR ---
VAP ORAL CARE DONE. VSS. PT TURNED AND REPOSITIONED.
[2019-04-06] MEDS: Z-GUARD PASTE TP SCH ×2 (01:00→12:35)
[2019-04-06] MEDS: ALBUTEROL 0.083% 2.5 MG/3 ML NEBU INH SCH ×5 (03:03→19:00)
[2019-04-06] MEDS: NACL 0.9% 1,000 ML IV SCH ×2 (03:15→12:33)
--- NOTE | 2019-04-06 03:30 | NUR ---
AM CARE DONE. LINEN CHANGE. BM X1 NOTED.
[2019-04-06] MEDS: BLOOD GLUCOSE MONITORING 1 DEV DEV MC SCH ×3 (05:09→19:53)
[2019-04-06] MEDS: HYDROCORTISONE NA SUCC 100 MG/2 ML VIAL IV SCH ×3 (05:25→19:50)
[2019-04-06] MEDS: PHENYTOIN 100 MG/2 ML VIAL IVP SCH ×3 (05:25→21:18)
[2019-04-06] MEDS: INSULIN LISPRO SLIDING SCALE 100 UNITS/ML VIAL SUBQ PRN (05:25)
[2019-04-06] MEDS: NOREPINEPHRINE 4 MG in DEXTROSE 5% 250 ML IV PRN ×2 (05:35→17:43)
[2019-04-06 06:39] LABS: ANION GAP 17.8 (8-16); CREATININE 3.1 mg/dL (0.7-1.3); POTASSIUM 3.8 mmol/L (3.5-5.1)
[2019-04-06 06:47] LABS: PHOSPHORUS 4.5 mg/dL (2.5-4.9)
[2019-04-06] MEDS: MEROPENEM 1,000 MG in NACL 0.9% 100 ML IV SCH ×2 (06:58→21:18)
--- NOTE | 2019-04-06 07:31 | NUR ---
REPORT GIVEN TO DAY SHIFT FOR CONTINUITY OF CARE. NO ACUTE DISTRESS NOTED.
--- NOTE | 2019-04-06 07:35 | NUR ---
RECEIVED REPORT FROM IMPROVEMENT NURSE RN. PT FARRAHG IN BED. HAS SPONTANEOUS EYES OPENING, NON-VERBAL, MOVES LEFT U/L EXTREMITIES. WITHDRAWS TO PAIN. NG TUBE IN PLACE ATTACHED TO HIGH INTERMITTENT SUCTION. ON TRACH TO VENT AC FIO2 28% TC 500 RR 14 PEEP 5. LUNGS CLEAR ON AUSCULTATION. RIJ TRIPLE LUMEN IN PLACE. TPN INFUSING AT 80 ML/HR, LEVOPHED INFUSING AT 6 MCG/MIN AND NS INFUSING AT 125 ML/HR. ON CVP MONITORING 20 CM NOTED. ZERO CVP AND OBTAINED 7 CM. ABDOMEN DISTENDED. HYPOACTIVE BOWEL SOUND. MULTIPLE INCISION SITE NOTED COVERED WITH DRESSING ON ABDOMEN. OPEN WOUND NOTED ON B/L UPPER BACK COVERED WITH DRESSING. INTACT DRESSING. F/C IN PLACE. GENERALIZED EDEMA NOTED. HOB ELEVATED BED IN LOW POSITION LOCKED. WILL CONTINUE TO MONITOR.
[2019-04-06 07:51] LABS: ALBUMIN 1.5 g/dL (3.4-5.0); BILIRUBIN,DIRECT 0.6 mg/dL (0.0-0.3); TOTAL BILIRUBIN 0.9 mg/dL (0.0-1.0)
--- NOTE | 2019-04-06 08:30 | NUR ---
MORNING CARE PROVIDED. SUCTIONED NEEDED. KEPT PT ON COMFORTABLE POSITION.
[2019-04-06 08:45] LABS: HEMATOCRIT 23.1 % (36-52); HEMOGLOBIN 7.5 g/dL (12.0-18.0); MEAN CORPUSCULAR HEMOGLOBIN 28 pg (27-31); MEAN CORPUSCULAR HGB CONC 33 g/dL (33-37); MEAN CORPUSCULAR VOLUME 86.4 fL (80-94); PLATELET COUNT (AUTO) 442 K/uL (140-450); RED BLOOD CELL COUNT(AUTO) 2.67 MIL/uL (4.20-6.10); RED CELL DISTRIBUTION WIDTH 16.6 % (11.6-13.7)
--- NOTE | 2019-04-06 09:13 | NUR ---
DR. SAUNDERS EVALUATED PT. UPDATED PT STATUS. ORDER TO KEEP PT NPO FOR POSSIBLE G-TUBE PLACEMENT TOMORROW. DOCTOR CALLED SISTER IN-LAW AND LEFT MESSAGE TO CALL BACK.
--- NOTE | 2019-04-06 09:13 | NUR ---
DR. SAUNDERS MADE AWARE OF DISTENDED ABDOMEN.
[2019-04-06 09:27] LABS: WHITE BLOOD COUNT (AUTO) 28.1 K/uL (4.8-10.8)
[2019-04-06 09:38] LABS: LYMPHOCYTES % (MANUAL) 2 % (20-46); MONOCYTES % (MANUAL) 2 % (5-12)
[2019-04-06] MEDS: PANTOPRAZOLE 40 MG INJ VIAL IVP SCH (09:52)
[2019-04-06] MEDS: MORPHINE SULFATE 4 MG/ML SYR IVP PRN ×2 (09:53→15:22)
--- NOTE | 2019-04-06 11:12 | NUR ---
BROTHER BECKY ALMANZA IN TO SEE PATIENT. RECEIVED CALL FROM DAUGHTER IN LAW AT THE SAME TIME. BOTH SAID SON BECKY ALMANZA IS POA. OKAY TO GET CONSENT FROM BECKY. BECKY MADE AWARE OF THE POSSIBLE G-TUBE PLACEMENT AND BLOOD TRANSFUSION. GOT CONSENT. PLACED IN THE CHART.
[2019-04-06] MEDS ORDERED: CLINICAL MONITORING MC PRN (13:45)
--- NOTE | 2019-04-06 14:18 | NUR ---
PT NOTED WITH GASPING, INCREASED HR AND INCREASED BP. RT CALLED. SUCTIONED, REPOSITIONED. PAGED DR. FAITH. WAITING FOR CALL BACK. RT AT THE BEDSIDE.
--- NOTE | 2019-04-06 14:19 | NUR ---
DR. HAYNES MADE AWARE OF NOT ABLE TO DO STAT CT ABDOMEN DUE TO PT CONDITION. SAID OK. ORDERED KUB FOR NOW.
--- NOTE | 2019-04-06 14:23 | NUR ---
PT NOTED WITH BLOODY DISCHARGE ON NG-TUBE. DR. HAYNES MADE AWARE.
--- NOTE | 2019-04-06 14:32 | NUR ---
PAGED DR. FAITH. WAITING FOR CALL BACK.
--- NOTE | 2019-04-06 15:00 | NUR ---
DR. LIAO CALLED BACK. MADE AWARE OF LOW URINE OUTPUT i.e. 95 ml SINCE THIS MORNING. NO NEW ORDER AT THIS TIME. SAID WILL SEE PT LATER.
--- NOTE | 2019-04-06 15:09 | NUR ---
DR. FAITH CALLED BACK. MADE AWARE OF PT STATUS AND INCREASING HR, BP. ALSO MADE AWARE OF RECENT ABG RESULTS AND HOLDING LEVOPHED FOR NOW. SAID OK. NO NEW ORDER AT THIS TIME. WILL FOLLOW UP THE ORDER.
--- NOTE | 2019-04-06 15:41 | NUR ---
PT EVALUATED BY DR. FAITH. UPDATED PT STATUS. ORDERED TO INCREASE TV 600 AND RR 20. RT MADE AWARE. CALLED BROTHER BECKY ALMANZA # [phone] FAITH SPOKE TO HIM. PT PROGNOSIS EXPLAINED BY DR. FAITH TO BROTHER.
--- NOTE | 2019-04-06 15:44 | NUR ---
PER NEW VENT SETTINGS: A/C VC 20, VT 600, PEEP 5 AND FIO2 28%. NURSE AWARE. WILL CONTINUE TO MONITOR.
--- NOTE | 2019-04-06 15:48 | NUR ---
PT NOTED WITH FEVER 101.1 DEGREE F. UNABLE TO PERFORM BLOOD TRANSFUSION AT THIS TIME. DR. FAITH MADE AWARE OF FEVER 101.1.
--- NOTE | 2019-04-06 15:50 | NUR ---
PT CONTINUE AGONAL BREATHING, PHYSICIAN AND NURSE AWARE OF PT STATUS. WILL CONTINUE TO MONITOR.
[2019-04-06] MEDS ORDERED: diphenhydrAMINE 50 MG/ML VIAL IVP PRN (16:00)
--- NOTE | 2019-04-06 16:00 | NUR ---
REPOSITIONED. KEPT PT CLEAN AND DRY. TOLERATED WELL. VAP ORAL CARE PROVIDED. FC PROVIDED. OFFLOADED PRESSURE AREAS.
[2019-04-06] MEDS: ACETAMINOPHEN 650 MG SUPP RC PRN (16:04)
--- NOTE | 2019-04-06 16:30 | NUR ---
RIJ CENTRAL LINE DRESSING CHANGED. INTACT IV SITE, INTACT DRESSING.
--- NOTE | 2019-04-06 17:00 | NUR ---
PER CLEMENTE MAN TO DO BLOOD TRANSFUSION WITH FEVER AFTER TYLENOL ADMINISTRATION AND BENADRYL IVP. COOLING MEASURES CONTINUE IN PLACE. TEMPERATURE NOW IS 99 DEGREE F. WILL START BT PER DR. FAITH.
--- NOTE | 2019-04-06 17:10 | NUR ---
T 98.9, HR 108, RR 20 BP 94/51. NO LABORED BREATHING AT THIS TIME. BT STARTED. FAMILY AWARE OF THE BT.
--- NOTE | 2019-04-06 17:25 | NUR ---
NO BT REACTION NOTED. PT TOLERATED BT WELL. FEVER DECREASING.
--- NOTE | 2019-04-06 18:00 | NUR ---
PT APPEARED RELAXED, RESTING IN BED. NO SOB OR RESPIRATORY DISTRESS NOTED. SPO2 99%. BP 94/51.
--- NOTE | 2019-04-06 19:00 | NUR ---
ENDORSED TO INVENTORY ASSOCIATE RN FOR CONTINUITY OF CARE. PT ON STABLE CONDITION.
--- NOTE | 2019-04-06 19:20 | NUR ---
RECEIVED REPORT FROM AM NURSE. PT AT BED EYES CLOSED. BREATHING REGULARLY, PERRL 3MM, RETRACTS TO PAIN. HEART RATE REGULAR SR ON MONITOR, PEAKED T WAVES, S1S2 PRESENT, CAP REFILL <3S, PULSES 2+ BILATERAL UPPER AND LOWER EXTREMITIES, PT ETT TO VENT AT AC/VC FIO2 28% TV 600 R 20 PEEP 5. ABDOMEN, DISTENDED, NONTENDER, BOWEL SOUNDS ACTIVE IN ALL QUADRANTS, BLADDER, SOFT, ROUND, NONTENDER, FC IN PLACE DRAINING CLEAR YELLOW URINE, PT HAS GENERALIZED WEAKNESS. PT HAS RIGHT IJ INFUSING, TPN AT 80 ML/HR, PRBC RUNNING AT 100 ML/HR, SKIN NON INTACT, BILATERAL UPPER BACK ABSCESS NOTED, DRESSING IN PLACE. HOB 30 DEGREES, SIDE RAILS UP X2, BED AT LOWEST POSITION, Addendum: 04/07/19 at 0312 by Chris Jara RN CORRECTION: PT TRACH TO VENT.
[2019-04-06] MEDS ORDERED: FUROSEMIDE 100 MG/10 ML VIAL IV SCH (19:30)
[2019-04-06] MEDS: AMINO ACIDS 8.5% IV SCH ×3 (20:00)
[2019-04-06] MEDS: DEXTROSE 50% IV SCH ×3 (20:00)
[2019-04-06] MEDS: FAT EMULSION 20% IV SCH ×3 (20:00)
--- NOTE | 2019-04-06 21:15 | NUR ---
MEDICATIONS GIVEN. REPOSITIONED PT. SUCTIONED PT WITH MODERATE AMOUNT OF WHITE MUCOUS. PT TOLERATED WELL
--- NOTE | 2019-04-06 22:00 | NUR ---
TRANSFERRED PATIENT TO CT SCAN WITH RN AND MEDICAL STAFF. PATIENT STABLE AND ALERT NO RESP DISTRESS OCCURRED DURING THE TRANSPORTATION. PATIENT TAKEN BACK TO THE ICU ROOM WITHOUT ANY INCIDENTS.
[2019-04-06] MEDS: ALBUMIN HUMAN 25% 100 ML IV SCH (22:16)
--- NOTE | 2019-04-06 23:30 | NUR ---
PT AT BED EYES CLOSED BREATHING REGULARLY. TRACH TO VENT. WILL CONTINUE TO MONITOR
[2019-04-07] VITALS (54 sets, daily range): BP systolic 113–163; BP diastolic 59–115
[2019-04-07] MEDS: HYDROCORTISONE NA SUCC 100 MG/2 ML VIAL IV SCH ×3 (00:11→12:59)
[2019-04-07] MEDS: ALBUTEROL 0.083% 2.5 MG/3 ML NEBU INH SCH ×7 (01:37→23:00)
[2019-04-07] MEDS: Z-GUARD PASTE TP SCH ×2 (01:48→14:00)
--- NOTE | 2019-04-07 02:00 | NUR ---
REPOSITIONED PT. PT TOLERATED PROCEDURE WELL.
--- NOTE | 2019-04-07 04:15 | NUR ---
REPOSITIONED PT. PT TOLERATED PROCEDURE WELL.
[2019-04-07] MEDS: PHENYTOIN 100 MG/2 ML VIAL IVP SCH ×3 (05:27→21:10)
--- NOTE | 2019-04-07 06:00 | NUR ---
MEDICATIONS GIVEN. PT AT BED TRACH TO VENT. BREATHING REGULARLY. WILL CONTINUE TO MONITOR.
[2019-04-07] MEDS: MEROPENEM 1,000 MG in NACL 0.9% 100 ML IV SCH ×2 (06:35→18:40)
[2019-04-07] MEDS: BLOOD GLUCOSE MONITORING 1 DEV DEV MC SCH ×4 (06:45→17:37)
[2019-04-07 06:53] LABS: ANION GAP 20.3 (8-16); CARBON DIOXIDE 16.6 mmol/L (21-32); CREATININE 3.7 mg/dL (0.7-1.3); MAGNESIUM 2.1 mg/dL (1.8-2.4); PHOSPHORUS 3.7 mg/dL (2.5-4.9); POTASSIUM 3.9 mmol/L (3.5-5.1); TOTAL BILIRUBIN 0.7 mg/dL (0.0-1.0)
--- NOTE | 2019-04-07 07:15 | NUR ---
RECEIVED PT REPORT FROM TECHNICAL ILLUSTRATOR NURSE, BREONNA. PT IS TRACH TO VENT, FIO2 28%, VT 600, RR20, PEEP 5. SR ON MONITOR WITH ELEVATED T. PT NOT OPEN EYES SPONTANEOUS, DOES NOT FOLLOW COMMANDS. PUPILS UNEQUAL. HX OF LEFT SUBDURAL HEMATOMA AND LEFT CRANIOTOMY. PT HAS SPONTANEOUS EXTREMITIES MOVEMENT. CVC TO RIGHT NECK, RUNNING TPN AT 80ML/HR AND LEVOPHED AT 4MCG/HR, PATENT, INTACT, AND ASYMPTOMATIC. LUNG SOUNDS CLEAR BOWEL SOUNDS HYPOACTIVE. LAPAROSCOPIC PROCEDURE WAS DONE TWO DAYS AGO, ABD HAS RAFAEL INTACT, NO DRAINAGE NOTED. LEFT NGT TO HIGH INTERMITTENT SUCTION. NGT ASSESSED FOR POSITIVE AUSCULTATION. CAN DRAINING CLOUDY URINE. BED IN LOWEST POSITION, FALL AND SZ PRECAUTION IN PLACE. CALL LIGHT WITHIN REACH.
[2019-04-07 07:28] LABS: HEMOGLOBIN 7.2 g/dL (12.0-18.0); LYMPHOCYTES # (AUTO) 0.5 K/uL (2.0-11.5); LYMPHOCYTES % (AUTO) 2.2 % (20.5-51.1); MEAN CORPUSCULAR HEMOGLOBIN 28 pg (27-31); MEAN CORPUSCULAR HGB CONC 33 g/dL (33-37); MEAN CORPUSCULAR VOLUME 85.2 fL (80-94); MONOCYTES # (AUTO) 1.1 K/uL (0.8-1.0); MONOCYTES % (AUTO) 4.9 % (1.7-9.3); NEUTROPHILS # (AUTO) 21.6 K/uL (1.8-7.7); NEUTROPHILS % (AUTO) 92.9 % (42.2-75.2); PLATELET COUNT (AUTO) 354 K/uL (140-450); RED BLOOD CELL COUNT(AUTO) 2.58 MIL/uL (4.20-6.10); RED CELL DISTRIBUTION WIDTH 17.1 % (11.6-13.7); WHITE BLOOD COUNT (AUTO) 23.2 K/uL (4.8-10.8)
--- NOTE | 2019-04-07 07:30 | NUR ---
CHANGE OF SHIFT REPORT GIVEN TO AM NURSE. PT AT STABLE CONDITION AT THIS TIME.
[2019-04-07] MEDS: PANTOPRAZOLE 40 MG INJ VIAL IVP SCH (08:46)
[2019-04-07] MEDS: FOAM DRESSING TP SCH (08:47)
[2019-04-07] MEDS: ALBUMIN HUMAN 25% 100 ML IV SCH (08:47)
[2019-04-07] MEDS ORDERED: FUROSEMIDE 100 MG/10 ML VIAL IV SCH (10:30)
--- NOTE | 2019-04-07 10:35 | NUR ---
DR CARDONA SEEN AND ASSESSED PT. MADE DR CARDONA AWARE OF ELEVATED T WAVE. DR CARDONA WANTS TO CONTINUE TPN.
[2019-04-07] MEDS ORDERED: SODIUM BICARBONATE 8.4% PFS 50 MEQ/50 ML SYR IVP SCH (11:00)
--- NOTE | 2019-04-07 11:12 | NUR ---
DISCHARGE PLANNIN43 YEAR OLD MALE FROM [facility], ADMITTED DUE TO FEVER AND TACHYCARDIA. PAST MEDICAL HISTORY OF SUBDURAL HEMATOMA, INTRACRANIAL BLEED DUE TO LEFT INTERNAL CAROTID ARTERY TERMINUS ANEURYSM, CHRONIC ENCEPHALOPATHY, CHRONIC RESPIRATORY FAILURE, VENTILATOR DEPENDENT, SEIZURE DISORDER AND RECENT SHOULDER ABSCESS S/P I&D. INITIAL DIAGNOSIS OF SEPSIS. LACTIC ACID ON ADMISSION 1.6. CXR SHOWED DECREASED AERATION OF THE LUNG MEDINA BILATERALLY. 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 WBC 11.5 ON ADMISSION AND TODAY 23.2. H/H TODAY 7.2/22.0. S/P EXLAP WITH DR. HAYNES 04/04/19. ON TPN AT 80 MLS/H. ON MEROPENEM, SOLU CORTEF AND VANCOMYCIN. ON CHRONIC TRACH TO VENT, FIO2 28%. LEFT NGT TO HIGH INTERMITTENT SUCTION. TENTATIVE DC PLANNING BACK TO [facility]. PATIENT IS SENIOR CARE AND ON A BED HOLD. Addendum: 04/08/19 at 1349 by Kristy Manzano PATIENT STILL ON TRACH TO VENT FIO2 28%. ID ADDED AMIKACIN 400MG AT 1500 AND PHARMACY TO DOSE. STILL ON TPN 80 ML/H. GI, SURGERY AND NEPHRO IN BOARD. LATEST LABS FOR TODAY WBC 16.6, H/H 8.0/24.3, BUN/CREA 59/4.1. URINE OUTPUT HAD IMPROVED. NGT STILL ON SUCTION. ON NPO. CM TO FOLLOW UP WITH DC PLAN PENDING PATIENT'S RESPONSE TO TREATMENT. Addendum: 04/09/19 at 0833 by Kristy Manzano CM ON TRACH TO VENT FIO2 28%. LEFT NARES NGT TO INTERMITTENT SUCTION. RIGHT IJ. STILL ON MERREM, AMIKACIN AND TPN. ON LEFT SOFT WRIST RESTRAINT FOR SAFETY. CURRENT LABS INCLUDE WBC 16.6, H/H 7.9/24.2, BUN/CREA 64/3.8. Addendum: 04/14/19 at 1517 by Ana Tong CM DC PLANNING: PEG PLACEMENT DONE BY DR HAYNES TOLERATED WELL THE PROCEDURE , CONTINUE VENT CARE FIO2 24% AND SKIN CARE CONTINUE IVF AND TPN ORDERED AND IV MEROPENEM AND AMIKACIN. DC PLAN TO GO BACK TO [facility] WHEN STABLE. CM TO FOLLOW Addendum: 04/16/19 at 1629 by Ana Tong CM DC PLANNING: [facility] ACCEPTED PATIENT CAN GO TO ROOM 3C PROVIDED THE AUTHORIZATION [id number] ARRANGED TRANSPORT WITH [facility] [id number] SCANNING SUPERVISOR TIME 5PM NOTIFIED LAURA NOVAK RN
--- NOTE | 2019-04-07 11:15 | NUR ---
DR DIGGS CALLED AND PLANNING ON G TUBE PLACEMENT A FEW DAYS LATER, MADE HIM AWARE OF THE WBC, DR CELESTE SAID POSSIBLY ON SUNDAY OR LATER.
--- NOTE | 2019-04-07 11:43 | NUR ---
PT SUCTIONED OBTAINED SMALL AMOUNT OF CLEAR THICK SECRETIONS, AIRWAY IS PATENT AND TRACH IS SECURE.
--- NOTE | 2019-04-07 12:20 | NUR ---
WOUND CARE EVALUATION NOTE: REASON FOR EVALUATION: SURGICAL WOUNDS WOUND ASSESSMENT DONE WITH SURGICAL WOUNDS. TRACH TO VENT. S/P REMOVAL OF G-TUBE, LAPAROSCOPIC LYSIS OF PERIGASTRIC ADHESIONS AND DRAINAGE OF INTRAABDOMINAL PERIGASTRIC ABSCESS. PT HAS NO S/S OF DISTRESS DURING ASSESSMENT. CAN CATH IN PLACE. SKIN IS WARM AND DRY BLE, HAIR GROWTH WITH DARKER PIGMENTATIONS. DORSAL PEDAL PULSES PRESENT AND NORMAL, CAPILLARY REFILLED <3 SEC. POC DISCUSSED WITH PRIMARY RN. INTEGUMENTARY: -TRACH AND GT STOMA NADER-SKIN DRY AND CLEAN -MID ABDOMEN SURGICAL SITE FROM OLD G-TUBE, 1X1CM DRY BROWN SCAB -LEFT AND LOWER ABDOMINAL LOPEZ MULTIPLE RAFAEL, DRY AND CLEAN, NO S/S OF WOUND DEHISCENCE -RIGHT THIGH 0.3X1CM PREVIOUS ADMISSION BLOOD FILLED BLISTER IS FLAT TODAY WITH SKIN INTACT, TRANSPARENT DRESSING IN PLACE. -LEFT FOOT/TOES MULTIPLE SCABS WITH LARGEST TO LEFT DORSAL FOOT DRY BROWN SCAB. -MID BACK SURGICAL WOUND 5X1.5X1CM WOUND BED 100% GRANULATION TISSUE, MOIST, MO ODOR, NADER WOUND SKIN INTACT. -RIGHT POSTERIOR SHOULDER SURGICAL WOUND 2X0.5X1CM WOUND BED 100% GRANULATION TISSUE, MOIST, NO ODOR, NADER WOUND SKIN INTACT. RECOMMENDATION: -CONTINUE TO MONITOR BLISTER TO RIGHT THIGH AND CHANGE DRESSING PRN IF SOILING - CONTINUE TO MONITOR STAPLED WOUNDS KEEP AREA DRY AND CLEAN -RIGHT POSTERIOR SHOULDER AND MID BACK SURGICAL WOUND CLEANSE WITH NS, PACK WOUND WITH ADAPTIC DRESSING AND COVER WITH ABD PAD AND SECURE WITH TAPE, CHANGE Q M-W-F AND PRN IF SOILING -TURN AND REPOSITION PATIENT Q 2H -ASSESS AND MONITOR SKIN CONDITION DURING POSITION CHANGE -OFFLOAD BILATERAL HEELS BY PLACING PILLOWS UNDER CALVES AT ALL TIMES, UNLESS OTHERWISE CONTRAINDICATED -PRESSURE REDISTRIBUTION BY PLACING PILLOWS AND OFFLOADING SACRALCOCCYX -KEEP SKIN CLEAN AND DRY AT ALL TIMES. PLEASE CONTACT WOUND CARE NURSE FOR ANY QUESTION AND CHANGE OF WOUND CONDITION.
--- NOTE | 2019-04-07 15:29 | NUR ---
SPOKE WITH DR LINDSEY, NOTIFIED SPUTUM CULTURE RESULT AND HGB 7.2. NO NEW ORDERS.
[2019-04-07] MEDS: MORPHINE SULFATE 4 MG/ML SYR IVP PRN (16:09)
--- NOTE | 2019-04-07 18:12 | NUR ---
PT REMAINS ON DOCUMENTED VENT SETTINGS. PT BROTHER BEDSIDE. TRACH IS SECURE WITH A PATENT AIRWAY. VENT ALARMS ON AND FUNCTIONING.
--- NOTE | 2019-04-07 19:10 | NUR ---
RECEIVED PT FROM AM NURSE. PT AT BED EYES CLOSED, PERRL 3 MM, BRISK, OPEN EYES SPONTANEOUSLY, BREATHING REGULARLY TRACH TO VENT, AC/VC FIO2 28% TV 600 RR 20 FLOW 45 PEEP 5, LUNG SOUNDS CLEAR THROUGHOUT, DIMINISHED AT BASES, HEART RATE REGULAR, S1S2 PRESENT, SINUS TACHYCARDIA ON MONITOR, ELEVATED T WAVES, PULSES 2+ BILATERAL UPPER AND LOWER EXTREMITIES, CAP REFILL <3S, ABDOMEN, DISTENDED, NONTENDER, HYPOACTIVE BOWEL SOUNDS ON ALL QUADRANTS, BLADDER, SOFT, ROUND, NONDISTENDED, NONTENDER, CAN CATHETER IN PLACE, DRAINING CLEAR, YELLOW URINE. PT HAS RIGHT SIDED WEAKNESS, BILATERAL SCD IN PLACE, SKIN NON INTACT, BILATERAL POSTERIOR UPPER BACK DRESSINGS NOTED, DRESSING, DRY AND INTACT, PT HAS RIGHT IJ CENTRAL LINE TRIPLE LUMEN INFUSING TPN AT 80 ML/HR, CVP MONITORING IN PLACE, HOB 30 DEGREES, SIDE RAILS UP X2, BED AT LOWEST POSITION. Addendum: 04/08/19 at 0313 by Chris Jara RN PT NGT IN PLACE
[2019-04-07] MEDS: DEXTROSE 50% IV SCH ×3 (20:00)
[2019-04-07] MEDS: AMINO ACIDS 8.5% IV SCH ×3 (20:00)
[2019-04-07] MEDS: FAT EMULSION 20% IV SCH ×3 (20:00)
[2019-04-07] MEDS: FUROSEMIDE 100 MG/10 ML VIAL IV SCH (21:11)
--- NOTE | 2019-04-07 21:15 | NUR ---
MEDICATIONS GIVEN. PT REPOSITIONED, VAP ORAL CARE PERFORMED, SUCTIONED SCANT, CLEAR MUCOUS. PT TOLERATED PROCEDURE WELL.
--- NOTE | 2019-04-07 23:17 | NUR ---
PT AT BED EYES CLOSED. BREATHING REGULARLY, TRACH TO VENT. WILL CONTINUE TO MONITOR.
[2019-04-08] VITALS (28 sets, daily range): BP systolic 115–174; BP diastolic 65–113
[2019-04-08] MEDS: Z-GUARD PASTE TP SCH ×2 (01:03→13:21)
--- NOTE | 2019-04-08 01:07 | NUR ---
TRACH CARE DONE ON PATIENT. TRACH TIE AND TRACH SUPPLIES CHANGED
--- NOTE | 2019-04-08 01:14 | NUR ---
VAP ORAL CARE PROVIDED, SUCTIONED SCANT, THICK MUCOUS. PT TOLERATED PROCEDURE WELL,
[2019-04-08] MEDS: ALBUTEROL 0.083% 2.5 MG/3 ML NEBU INH SCH ×6 (03:07→23:06)
--- NOTE | 2019-04-08 03:45 | NUR ---
VAP ORAL CARE PROVIDED, SCANT THICK YELLOW MUCOUS, PT TOLERATED PROCEDURE WELL.
[2019-04-08] MEDS: PHENYTOIN 100 MG/2 ML VIAL IVP SCH ×3 (04:16→20:19)
[2019-04-08] MEDS: BLOOD GLUCOSE MONITORING 1 DEV DEV MC SCH ×4 (06:00→18:12)
[2019-04-08 06:31] LABS: BASOPHILS % (AUTO) 0.1 % (0.0-2.0); EOSINOPHILS % (AUTO) 0.1 % (0.0-4.0); HEMATOCRIT 24.3 % (36-52); LYMPHOCYTES # (AUTO) 0.8 K/uL (2.0-11.5); LYMPHOCYTES % (AUTO) 4.8 % (20.5-51.1); MEAN CORPUSCULAR HEMOGLOBIN 28 pg (27-31); MEAN CORPUSCULAR HGB CONC 33 g/dL (33-37); MEAN CORPUSCULAR VOLUME 84.9 fL (80-94); MONOCYTES % (AUTO) 5.9 % (1.7-9.3); NEUTROPHILS # (AUTO) 14.8 K/uL (1.8-7.7); NEUTROPHILS % (AUTO) 89.1 % (42.2-75.2); PLATELET COUNT (AUTO) 353 K/uL (140-450); RED BLOOD CELL COUNT(AUTO) 2.87 MIL/uL (4.20-6.10); RED CELL DISTRIBUTION WIDTH 17.3 % (11.6-13.7); WHITE BLOOD COUNT (AUTO) 16.6 K/uL (4.8-10.8)
--- NOTE | 2019-04-08 06:48 | NUR ---
RECEIVED PT ON CARESCAPE ON DOCUMENTED SETTINGS, ALARMS ARE ON AND AUDIBLE, PTS TRACH SHILEY 7 XLT IS SECURE, SONIA DAWSON, PT IN HF QUIET, HHN GIVEN I\L WITH 2.5 MG ALBUTEROL , BMV HOB, VENT PLUGGED INTO RED OUTLET, WILL CONTINUE TO MONITOR
--- NOTE | 2019-04-08 07:00 | NUR ---
CHANGE OF SHIFT REPORT GIVEN TO AM NURSE. PT BP ELEVATED STILL.
--- NOTE | 2019-04-08 07:05 | NUR ---
PT TEMPERATURE ELEVATED. 101.2 F GAVE SUPPOSITORY OF TYLENOL. COLD MEASURES PROVIDED. ENDORSED TO AM NURSE.
[2019-04-08] MEDS: MEROPENEM 1,000 MG in NACL 0.9% 100 ML IV SCH (07:17)
--- NOTE | 2019-04-08 08:00 | NUR ---
INITIAL SHIFT ASSESSMENT DONE (SEE ASSESSMENT PART). SLEEPING BUT AROUSABLE TO NAME CALLING. NO SIGNS OF PAIN OR AGITATION NOTED. TRACH TO VENT, TOLERATING CURRENT SETTINGS WELL. O2 SAT 100%. ST ON MONITOR. SBP IN 130'S-140'S. NO ECTOPY NOTED. HOB ELEVATED. LEFT NGT TO LIWS. ON COOLING BLANKET, TOLERATING WELL. HOB ELEVATED. UPDATED OF PLAN OF CARE. WILL CONTINUE TO MONITOR.
[2019-04-08 08:24] LABS: MAGNESIUM 2.1 mg/dL (1.8-2.4); PHOSPHORUS 2.5 mg/dL (2.5-4.9)
[2019-04-08 08:33] LABS: ANION GAP 23.8 (8-16); CARBON DIOXIDE 15.8 mmol/L (21-32); POTASSIUM 3.6 mmol/L (3.5-5.1)
[2019-04-08 08:38] LABS: CREATININE 4.1 mg/dL (0.7-1.3)
[2019-04-08] MEDS: ACETAMINOPHEN 650 MG SUPP RC PRN (08:39)
[2019-04-08] MEDS: FUROSEMIDE 100 MG/10 ML VIAL IV SCH ×2 (09:52→20:19)
[2019-04-08] MEDS: PANTOPRAZOLE 40 MG INJ VIAL IVP SCH (09:52)
--- NOTE | 2019-04-08 10:00 | NUR ---
RESTING IN BED. NO SIGNS OF PAIN OR AGITATION NOTED. TOLERATING VENTILATOR WELL. O2 SAT 100%. ST ON MONITOR. SBP IN 140'S-150'S. NO ECTOPY NOTED. HOB ELEVATED. WILL CONTINUE TO MONITOR.
[2019-04-08] MEDS ORDERED: LABETALOL 100 MG/20 ML VIAL IV PRN (11:05)
[2019-04-08] MEDS ORDERED: SODIUM BICARBONATE 8.4% 50 MEQ in DEXTROSE 5% 1,000 ML IV ONE (11:10)
--- NOTE | 2019-04-08 12:00 | NUR ---
REASSESSMENT DONE. NEURO STATUS UNCHANGED. NO SIGNS OF PAIN OR AGITATION NOTED. TOLERATING CURRENT VENTILATOR SETTINGS WELL. O2 SAT 100%. ST ON MONITOR. SBP IN 140'S. NO ECTOPY NOTED. HOB ELEVATED. UPDATED OF PLAN OF CARE. WILL CONTINUE TO MONITOR.
[2019-04-08] MEDS ORDERED: SODIUM BICARBONATE 8.4% PFS 50 MEQ/50 ML SYR IVP SCH (12:15)
[2019-04-08] MEDS ORDERED: AMIKACIN PER PHARMACY MC PRN (12:50)
--- NOTE | 2019-04-08 14:00 | NUR ---
RESTING IN BED. NO SIGNS OF PAIN OR AGITATION NOTED. TOLERATING VENTILATOR WELL. O2 SAT 100%. ST ON MONITOR. SBP IN 130'S-140'S. NO ECTOPY NOTED. HOB ELEVATED. BROTHER IS IN THE ROOM. UPDATED OF STATUS AND PLAN OF CARE. WILL CONTINUE TO MONITOR.
--- NOTE | 2019-04-08 14:26 | NUR ---
04/08/19 RD FOLLOW UP COMPLETED PLEASE REFER TO NUTRITION ASSESSMENT UNDER CARE ACTIVITY FOR ESTIMATED NUTRITIONAL NEEDS. 1. RECOMMEND TO GRADUALLY INCREASE TPN TO MEET 75% OF ESTIMATED NEEDS (1445 KCAL AND 98 GM OF PROTEIN) 2. IF/WHEN PT IS MEDICALLY STABLE TO ADVANCE TO G-TUBE FEEDINGS, CONSIDER JEVITY 1.2 AT 70 ML/HR AND FWF 165 MLQ4H -THIS WILL PROVIDE 2016 KCAL AND 92 GM PROTEIN TO MEET 81% ESTIMATED KCAL NEEDS AND 92% ESTIMATED PROTEIN NEEDS. 3. RD TO FOLLOW-UP 2-3 DAYS, HIGH RISK NICK JOVEL, RD
[2019-04-08] MEDS ORDERED: AMIKACIN 400 MG in DEXTROSE 5% 100 ML IV SCH (15:00)
--- NOTE | 2019-04-08 16:00 | NUR ---
REASSESSMENT DONE. NEURO STATUS STILL THE SAME. NO SIGNS OF PAIN OR AGITATION NOTED. TOLERATING CURRENT VENTILATOR SETTINGS WELL. O2 SAT 100%. ST ON MONITOR. SBP IN 140'S-150'S. NO ECTOPY NOTED. HOB ELEVATED. UPDATED OF PLAN OF CARE. WILL CONTINUE TO MONITOR.
--- NOTE | 2019-04-08 18:00 | NUR ---
RESTING IN BED. NO SIGNS OF PAIN OR AGITATION NOTED. TOLERATING VENTILATOR WELL. O2 SAT 97-100%. ST ON MONITOR. SBP IN 120'S-140'S. NO ECTOPY NOTED. HOB ELEVATED. WILL CONTINUE TO MONITOR.
--- NOTE | 2019-04-08 19:07 | NUR ---
PT RECEIVED FROM DAY SHIFT ON AC 600,20,+5,28%. VENT IS PLUGGED INTO RED OUTLET AND BMV IS AT BEDSIDE. WILL CONT. TO MONITOR
--- NOTE | 2019-04-08 19:15 | NUR ---
RECEIVED BEDSIDE REPORT FROM MORNING NURSE. PATIENT RESPOND TO LIGHT TOUCH, UNABLE TO FOLLOW COMMANDS, SPONTANEOUSLY OPEN HIS EYES. TRACT TO VENT WITH SETTING AC MODE FIO2 28%, VT 600, RATE 20, PEEP 5. TOLERATED WELL WITH VENT. NGT TO LEFT NARES TO LOW INTERMITTENT SUCTION DRAINING YELLOWISH CLEAR SECRETION NOTED. RIGHT IJ TRIPLE LUMENS, RUNNING WITH TPN 80ML/HR. HYPOACTIVE BOWEL SOUND FROM ALL 4QUADS, SMALL INCISION WITH RAFAEL IN LOWER ABDOMEN S/P IVC FILTER PLACEMENT. CAN CATH IN PLACE. LEFT SOFT WRIST RESTRAINT FOR SAFETY. GENERALIZED NON- FITTING EDEMA NOTED. HOB ELEVATED, BILATERAL SIDE RAILS UP WITH PADS FOR SEIZURE PRECAUTION. CALL LIGHT WITHIN REACH. WILL CONTINUE TO MONITOR.
[2019-04-08] MEDS ORDERED: [UNRECOGNIZED DRUG - OTHER] IV SCH ×4 (20:00)
[2019-04-08] MEDS ORDERED: AMINO ACIDS 8.5% IV SCH ×4 (20:00)
[2019-04-08] MEDS ORDERED: MULTIVITAMIN IV SCH ×4 (20:00)
[2019-04-08] MEDS ORDERED: DEXTROSE IV SCH ×4 (20:00)
[2019-04-08] MEDS: FAT EMULSION 20% IV SCH ×3 (20:18)
[2019-04-08] MEDS: MEROPENEM 500 MG in NACL 0.9% 50 ML IV SCH (20:18)
[2019-04-08] MEDS: AMINO ACIDS 8.5% IV SCH ×3 (20:18)
[2019-04-08] MEDS: DEXTROSE 50% IV SCH ×3 (20:18)
--- NOTE | 2019-04-08 21:00 | NUR ---
ADMINISTERED SCHEDULED MEDICATIONS. NO FEVER. TOLERATED WELL WITH VENT. CIRCULATION CHECKED FOR RESTRAINT. WILL CONTINUE TO MONITOR.
[2019-04-09] VITALS (30 sets, daily range): BP systolic 94–143; BP diastolic 63–94
[2019-04-09] MEDS: BLOOD GLUCOSE MONITORING 1 DEV DEV MC SCH ×4 (00:13→17:54)
--- NOTE | 2019-04-09 00:30 | NUR ---
BS CHECKED 128 NOTED. NO ACUTE DISTRESS NOTED. TOLERATED WELL WITH VENT. WILL CONTINUE TO MONITOR.
[2019-04-09] MEDS: Z-GUARD PASTE TP SCH ×2 (00:58→13:06)
[2019-04-09] MEDS: ALBUTEROL 0.083% 2.5 MG/3 ML NEBU INH SCH ×6 (03:14→23:05)
--- NOTE | 2019-04-09 03:45 | NUR ---
NO ACUTE DISTRESS NOTED. FLACC 0. CIRCULATION CHECKED FOR RESTRAINT. WILL CONTINUE TO MONITOR.
[2019-04-09] MEDS: PHENYTOIN 100 MG/2 ML VIAL IVP SCH ×3 (05:19→20:21)
--- NOTE | 2019-04-09 06:00 | NUR ---
NO ACUTE DISTRESS NOTED. TOLERATED WELL WITH TPN AND VENT. FLACC 0. BS CHECKED NO COVERAGE NEEDED.
[2019-04-09 06:20] LABS: MAGNESIUM 1.9 mg/dL (1.8-2.4); PHOSPHORUS 3.8 mg/dL (2.5-4.9)
[2019-04-09 06:25] LABS: HEMATOCRIT 24.2 % (36-52); HEMOGLOBIN 7.9 g/dL (12.0-18.0); MEAN CORPUSCULAR HEMOGLOBIN 28 pg (27-31); MEAN CORPUSCULAR HGB CONC 33 g/dL (33-37); MEAN CORPUSCULAR VOLUME 85.5 fL (80-94); PLATELET COUNT (AUTO) 371 K/uL (140-450); RED BLOOD CELL COUNT(AUTO) 2.83 MIL/uL (4.20-6.10); WHITE BLOOD COUNT (AUTO) 16.6 K/uL (4.8-10.8)
[2019-04-09 06:26] LABS: CREATININE 3.8 mg/dL (0.7-1.3)
[2019-04-09 06:32] LABS: CARBON DIOXIDE 17.9 mmol/L (21-32); POTASSIUM 3.8 mmol/L (3.5-5.1)
[2019-04-09 06:33] LABS: ANION GAP 23.9 (8-16)
--- NOTE | 2019-04-09 06:49 | NUR ---
REC'D PT ON CARESCAPE VENT SETTINGS AC 20 VT 600 PEEP 5 FIO2 28% ALARMS ON AND AUDIBLE AND AMBU BAG IS AT HOB VENT IS PLUGGED INTO RED OUTLET, I\L TX GIVEN WITH ALBUTEROL 2.5MG WITH NO ADVERSE REACTION POST TX ,B\S ARE RHONCHI BILATERALLY, SXN PT SMALL AMT OF WHITE SECRETIONS, PT IS TRACH WITH SHILEY XLT 7 PT IS SLEEPING
[2019-04-09 07:45] LABS: LYMPHOCYTES % (MANUAL) 13 % (20-46); MONOCYTES % (MANUAL) 8 % (5-12)
--- NOTE | 2019-04-09 08:00 | NUR ---
INITIAL SHIFT ASSESSMENT DONE (SEE ASSESSMENT PART). SLEEPING BUT AROUSABLE TO NAME CALLING. NO SIGNS OF PAIN OR AGITATION NOTED. TRACH TO VENT, TOLERATING CURRENT SETTINGS WELL. O2 SAT 100%. ST ON MONITOR. SBP IN 110'S-120'S. NO ECTOPY NOTED. HOB ELEVATED. LEFT NGT TO LIWS. HOB ELEVATED. UPDATED OF PLAN OF CARE. WILL CONTINUE TO MONITOR.
[2019-04-09] MEDS: FUROSEMIDE 100 MG/10 ML VIAL IV SCH (09:13)
[2019-04-09] MEDS: FOAM DRESSING TP SCH (09:13)
[2019-04-09] MEDS: PANTOPRAZOLE 40 MG INJ VIAL IVP SCH (09:13)
[2019-04-09] MEDS: MEROPENEM 500 MG in NACL 0.9% 50 ML IV SCH ×2 (09:13→20:22)
--- NOTE | 2019-04-09 10:00 | NUR ---
RESTING IN BED. NO SIGNS OF PAIN OR AGITATION NOTED. TOLERATING VENTILATOR WELL. O2 SAT 99-100%. ST ON MONITOR. SBP IN 120'S-140'S. NO ECTOPY NOTED. HOB ELEVATED. WILL CONTINUE TO MONITOR.
--- NOTE | 2019-04-09 11:10 | NUR ---
DR SHAIKH IS IN THE ROOM. UPDATED OF STATUS. NEW ORDERS RECEIVE.
[2019-04-09] MEDS: INSULIN LISPRO SLIDING SCALE 100 UNITS/ML VIAL SUBQ PRN (11:58)
--- NOTE | 2019-04-09 12:00 | NUR ---
REASSESSMENT DONE. NEURO STATUS UNCHANGED. NO SIGNS OF PAIN OR AGITATION NOTED. TOLERATING CURRENT VENTILATOR SETTINGS WELL. O2 SAT 99-100%. ST ON MONITOR. SBP IN 140'S. NO ECTOPY NOTED. HOB ELEVATED. UPDATED OF PLAN OF CARE. WILL CONTINUE TO MONITOR.
--- NOTE | 2019-04-09 14:00 | NUR ---
RESTING IN BED. NO SIGNS OF PAIN OR AGITATION NOTED. TOLERATING VENTILATOR WELL. O2 SAT 100%. ST ON MONITOR. SBP IN 120'S-130'S. NO ECTOPY NOTED. HOB ELEVATED. WILL CONTINUE TO MONITOR.
--- NOTE | 2019-04-09 16:00 | NUR ---
REASSESSMENT DONE. NEURO STATUS STILL THE SAME. NO SIGNS OF PAIN OR AGITATION NOTED. TOLERATING CURRENT VENTILATOR SETTINGS WELL. O2 SAT 99-100%. ST ON MONITOR. SBP IN 100'S-120'S. NO ECTOPY NOTED. HOB ELEVATED. UPDATED OF PLAN OF CARE. WILL CONTINUE TO MONITOR.
--- NOTE | 2019-04-09 17:00 | NUR ---
BROTHER OF THE PATIENT IS IN THE ROOM. UPDATED OF STATUS AND PLAN OF CARE.
--- NOTE | 2019-04-09 18:00 | NUR ---
RESTING IN BED. NO SIGNS OF PAIN OR AGITATION NOTED. TOLERATING VENTILATOR WELL. O2 SAT 99-100%. ST ON MONITOR. SBP IN 120'S. NO ECTOPY NOTED. HOB ELEVATED. WILL CONTINUE TO MONITOR.
--- NOTE | 2019-04-09 19:05 | NUR ---
PT RECEIVED FROM DAY SHIFT ON AC 600,20,+5,28%. VENT PLUGGED INTO RED OUTLET. BMV AT HEAD OF BED. SX SMALL AMOUNT OF THICH WHITE SECRETIONS. WILL CONT. TO MONITOR
--- NOTE | 2019-04-09 19:15 | NUR ---
RECEIVED BEDSIDE REPORT FROM MORNING NURSE. PATIENT RESPOND TO LIGHT TOUCH, UNABLE TO FOLLOW COMMANDS, SPONTANEOUSLY OPEN HIS EYES BUT NOT TRACK. TRACT TO VENT WITH SETTING AC MODE FIO2 28%, VT 600, RATE 20, PEEP 5. TOLERATED WELL WITH VENT. NGT TO LEFT NARES TO LOW INTERMITTENT SUCTION DRAINING YELLOWISH CLEAR SECRETION NOTED. ST ON MONITOR WITH HR 100'S. FLACC 0. RIGHT IJ TRIPLE LUMENS, RUNNING WITH TPN 80ML/HR. HYPOACTIVE BOWEL SOUND FROM ALL 4QUADS, SMALL INCISION WITH RAFAEL IN LOWER ABDOMEN S/P IVC FILTER PLACEMENT. RIGHT AND LEFT UPPER BACK INCISION S/P I&D, DRESSING C/D/I. CAN CATH IN PLACE. LEFT SOFT WRIST RESTRAINT FOR SAFETY. GENERALIZED NON- FITTING EDEMA NOTED. HOB ELEVATED, BILATERAL SIDE RAILS UP WITH PADS FOR SEIZURE PRECAUTION. CALL LIGHT WITHIN REACH. BED IN LOW POSITION. WILL CONTINUE TO MONITOR.
[2019-04-09] MEDS: FAT EMULSION 20% IV SCH ×3 (20:21)
[2019-04-09] MEDS: AMINO ACIDS 8.5% IV SCH ×3 (20:21)
[2019-04-09] MEDS: DEXTROSE 50% IV SCH ×3 (20:21)
--- NOTE | 2019-04-09 21:30 | NUR ---
ADMINISTERED SCHEDULED MEDICATIONS ORDERED. PATIENT TOLERATED WELL WITH VENT. CIRCULATION CHECKED TO RESTRAINT ON LEFT WRIST. FLACC 0. NO ACUTE RESPIRATORY DISTRESS NOTED.
[2019-04-09] MEDS ORDERED: VANCOMYCIN PER PHARMACY MC PRN (23:15)
[2019-04-10] VITALS: BP 119/75
--- NOTE | 2019-04-10 | NUR ---
NO ACUTE DISTRESS NOTED. VSS. FLACC 0. TOLERATED WELL WITH VENT. WILL CONTINUE TO MONITOR.
[2019-04-10] MEDS ORDERED: VANCOMYCIN 1,000 MG VIAL ONE (00:08)
[2019-04-10] MEDS: BLOOD GLUCOSE MONITORING 1 DEV DEV MC SCH (00:21)
[2019-04-10] MEDS ORDERED: VANCOMYCIN 1,500 MG in DEXTROSE 5% 500 ML IV SCH (00:30)
[2019-04-10] MEDS: Z-GUARD PASTE TP SCH (01:00)
--- NOTE | 2019-04-10 01:00 | NUR ---
BS CHECKED 120, NO COVERAGE NOTED.
[2019-04-10 01:33] VITALS: BP 114/79
[2019-04-10 02:00] VITALS: BP 111/77
--- NOTE | 2019-04-10 03:00 | NUR ---
TOLERATED WELL WITH VENT. SMALL AMOUNT OF SECRETION FROM TRACH. FLACC 0. VSS. WILL CONTINUE TO MONITOR.
[2019-04-10] MEDS: ALBUTEROL 0.083% 2.5 MG/3 ML NEBU INH SCH (03:13)
[2019-04-10 03:14] VITALS: BP 121/76
[2019-04-10 04:00] VITALS: BP 127/75
[2019-04-10 06:00] VITALS: BP 118/83
[2019-04-10] MEDS ORDERED: KCL 20 MEQ/WATER INJ PREMIX 200 ML IV ONE (12:44)
[2019-04-11] MEDS: Z-GUARD PASTE TP SCH ×2 (01:00→13:00)
[2019-04-11] MEDS: PHENYTOIN 100 MG/2 ML VIAL IVP SCH ×3 (05:00→21:00)
[2019-04-11] MEDS: BLOOD GLUCOSE MONITORING 1 DEV DEV MC SCH ×4 (06:00→18:00)
[2019-04-11 07:19] VITALS: BP 124/72
[2019-04-11] MEDS: ACETAMINOPHEN 650 MG SUPP RC PRN (08:07)
[2019-04-11] MEDS: PANTOPRAZOLE 40 MG INJ VIAL IVP SCH ×2 (08:27→09:00)
[2019-04-11] MEDS: MEROPENEM 500 MG in NACL 0.9% 50 ML IV SCH ×3 (08:37→21:00)
[2019-04-11] MEDS: FOAM DRESSING TP SCH (09:00)
[2019-04-11] MEDS: FUROSEMIDE 100 MG/10 ML VIAL IV SCH (09:00)
--- NOTE | 2019-04-11 19:30 | NUR ---
RECEIVED BEDSIDE REPORT FROM MORNING NURSE. PATIENT RESPOND TO LIGHT TOUCH, UNABLE TO FOLLOW COMMANDS, SPONTANEOUSLY OPEN HIS EYES BUT NOT TRACK. TRACT TO VENT WITH SETTING AC MODE FIO2 24%, VT 600, RATE 18, PEEP 5. TOLERATED WELL WITH VENT. NGT TO LEFT NARES TO LOW INTERMITTENT SUCTION DRAINING YELLOWISH BROWN SECRETION NOTED. SR ON MONITOR WITH HR 90'S. FLACC 0. RIGHT IJ TRIPLE LUMENS, RUNNING WITH TPN 80ML/HR AND 1/2 NS 50ML/HR. HYPOACTIVE BOWEL SOUND FROM ALL 4QUADS, SMALL INCISION WITH RAFAEL IN LOWER ABDOMEN S/P IVC FILTER PLACEMENT. RIGHT AND LEFT UPPER BACK INCISION S/P I&D, DRESSING C/D/I. CAN CATH IN PLACE. LEFT SOFT WRIST RESTRAINT FOR SAFETY. CAN CATH IN PLACE DRAINING YELLOW CLEAR URINE NOTED. GENERALIZED NON- FITTING EDEMA NOTED. HOB ELEVATED, BILATERAL SIDE RAILS UP WITH PADS FOR SEIZURE PRECAUTION. CALL LIGHT WITHIN REACH. BED IN LOW POSITION. WILL CONTINUE TO MONITOR.
[2019-04-11 20:00] VITALS: BP 127/78
[2019-04-11] MEDS: FAT EMULSION 20% IV SCH ×3 (20:00)
[2019-04-11] MEDS: AMINO ACIDS 8.5% IV SCH ×3 (20:00)
[2019-04-11] MEDS: DEXTROSE 50% IV SCH ×3 (20:00)
[2019-04-11 20:11] LABS: ANION GAP 26.7 (8-16); CARBON DIOXIDE 13.5 mmol/L (21-32); CREATININE 3.5 mg/dL (0.7-1.3); MAGNESIUM 1.9 mg/dL (1.8-2.4); PHOSPHORUS 5.3 mg/dL (2.5-4.9); POTASSIUM 3.2 mmol/L (3.5-5.1)
--- NOTE | 2019-04-11 21:00 | NUR ---
ADMINISTERED SCHEDULED MEDICATIONS ORDERED. NO ACUTE RESPIRATORY DISTRESS NOTED. TOLERATED WELL WITH VENT. FLACC 0. VSS WITH SR ON THE MONITOR. CVP 8 NOTED. WILL CONTINUE TO MONITOR.
[2019-04-11 22:00] VITALS: BP 135/75
[2019-04-11 23:30] VITALS: BP 140/79
--- NOTE | 2019-04-11 23:40 | NUR ---
VENT CHECK DONE. SCHEDULED BREATHING TREATMENT ADMINISTERED. TOLERATED WELL WITHOUT ADVERSE SIDE EFFECTS. SUCTIONED SCANT AMOUNT OF THICK, WHITE SECRETIONS. NO ACUTE RESPIRATORY DISTRESS NOTED AT THIS TIME. WILL CONTINUE TO MONITOR.
[2019-04-12] VITALS (21 sets, daily range): BP systolic 115–140; BP diastolic 72–96
[2019-04-12] MEDS: BLOOD GLUCOSE MONITORING 1 DEV DEV MC SCH ×4 (00:18→17:51)
--- NOTE | 2019-04-12 00:30 | NUR ---
BS CHECKED 104 NOTED. NO COVERAGE NEEDED. FLACC 0. NO ACUTE DISTRESS NOTED. WILL CONTINUE TO MONITOR.
[2019-04-12] MEDS: Z-GUARD PASTE TP SCH ×2 (01:53→12:31)
--- NOTE | 2019-04-12 02:00 | NUR ---
PT TOLERATED WELL WITH VENT. FLACC 0. NO ACUTE DISTRESS NOTED. INTERMITTENT PRODUCTIVE COUGH NOTED. WHITE AND CLEAR SPUTUM NOTED. ORAL CARE RENDERED. FLACC 0. RESTRAINT IN SECURED WITH NO S/S OF INJURY. WILL CONTINUE TO MONITOR.
[2019-04-12] MEDS: ALBUTEROL 0.083% 2.5 MG/3 ML NEBU INH SCH ×6 (03:39→22:38)
[2019-04-12] MEDS: PHENYTOIN 100 MG/2 ML VIAL IVP SCH ×3 (05:19→20:27)
--- NOTE | 2019-04-12 06:00 | NUR ---
FLACC 0, NO ACUTE DISTRESS NOTED. TOLERATED WELL VENT. WILL CONTINUE TO MONITOR.
[2019-04-12 06:25] LABS: CARBON DIOXIDE 12.5 mmol/L (21-32); POTASSIUM 3.5 mmol/L (3.5-5.1)
[2019-04-12 06:44] LABS: BASOPHILS % (AUTO) 0.1 % (0.0-2.0); EOSINOPHILS # (AUTO) 0.2 K/uL (0-0.4); EOSINOPHILS % (AUTO) 1.8 % (0.0-4.0); HEMATOCRIT 23.3 % (36-52); HEMOGLOBIN 7.6 g/dL (12.0-18.0); LYMPHOCYTES # (AUTO) 1.1 K/uL (2.0-11.5); LYMPHOCYTES % (AUTO) 9.2 % (20.5-51.1); MEAN CORPUSCULAR HEMOGLOBIN 28 pg (27-31); MEAN CORPUSCULAR HGB CONC 33 g/dL (33-37); MONOCYTES % (AUTO) 8.4 % (1.7-9.3); NEUTROPHILS # (AUTO) 9.8 K/uL (1.8-7.7); NEUTROPHILS % (AUTO) 80.5 % (42.2-75.2); PLATELET COUNT (AUTO) 436 K/uL (140-450); RED BLOOD CELL COUNT(AUTO) 2.71 MIL/uL (4.20-6.10); RED CELL DISTRIBUTION WIDTH 17.4 % (11.6-13.7); WHITE BLOOD COUNT (AUTO) 12.2 K/uL (4.8-10.8)
--- NOTE | 2019-04-12 07:23 | NUR ---
rec'd pt on carescape vent settings ac 18 vt 600 peep 5 fio2 24% alarms on and audible and ambu bag at side of vent i\e tx given with albuterol 2.5mg with no adverse reaction post tx b\s are rhonchi bilaterally sxn pt small amt of yellow secretions pt is trach with shiley xlt 7 and pt is sleeping
--- NOTE | 2019-04-12 07:30 | NUR ---
RECEIVED BEDSIDE REPORT FROM EDITOR AT [employer]AR[employer] RN. PATIENT OPENS EYES SPONTANEOUSLY, UNABLE TO FOLLOW COMMANDS OR MAKE NEEDS KNOWN. AFEBRILE, FLACC 0. NSR ON MONITOR. TRACH TO VENT WITH SETTING AC/VC FIO2 24%, VT 600, RATE 18, PEEP 5. LUNGS SOUND CLEAR BILATERALLY. NO SOB NOTED. NGT TO LEFT NARES IN PLACE, PLACEMENT CONFIRMED, CONNECTED TO LOW INTERMITTENT SUCTION, DRAINING CLEAR YELLOW SECRETION. CENTRAL LINE TO RIGHT IJ TLC IN PLACE, RUNNING TPN AT 80ML/HR AND 1/2NS AT 50 ML/HR. ABDOMEN SOFT, ROUND, DISTENDED W/ HYPOACTIVE BOWEL SOUNDS. SKIN IS DRY AND WARM TO TOUCH. SMALL INCISION WITH RAFAEL NOTED TO LOWER ABDOMEN. BILATERAL UPPER BACK INCISION NOTED S/P I&D, DRESSING CLEAN, DRY AND INTACT. CAN CATH IN PLACE DRAINING LIGHT ALINA URINE TO GRAVITY. HOB ELEVATED 30 DEGREES, BED IN LOW POSITION LOCKED. BILATERAL SIDE RAILS UP WITH PADS FOR SEIZURE PRECAUTION. CALL LIGHT WITHIN REACH. NO SIGNS OF DISTRESS NOTED. WILL CONTINUE TO MONITOR.
--- NOTE | 2019-04-12 09:50 | NUR ---
DR. STEWARD IN TO SEE PT. WILL FOLLOW UP ON ORDERS.
[2019-04-12] MEDS: MEROPENEM 500 MG in NACL 0.9% 50 ML IV SCH ×2 (10:09→20:26)
[2019-04-12] MEDS: PANTOPRAZOLE 40 MG INJ VIAL IVP SCH (10:10)
[2019-04-12] MEDS: FUROSEMIDE 100 MG/10 ML VIAL IV SCH (10:10)
[2019-04-12] MEDS ORDERED: MAG SULF 2000 MG/WATER PREMIX 50 ML IV SCH (11:00)
--- NOTE | 2019-04-12 11:45 | NUR ---
PT SEEN AND EXAMINED BY DR. CHACKO. NO NEW ORDER RECEIVED AT THIS TIME.
--- NOTE | 2019-04-12 13:54 | NUR ---
REPOSITIONED FOR COMFORT AND PRESSURE OFF LOADING. PT TOLERATED WELL. VSS. SAFETY PRECAUTIONS IN PLACE.
--- NOTE | 2019-04-12 16:00 | NUR ---
VAP ORAL CARE GIVEN. TURNED AND REPOSITIONED. TOLERATED WELL. VSS. FLACC 0. AFEBRILE. SAFETY PRECAUTIONS IN PLACE. WILL CONTINUE TO MONITOR.
--- NOTE | 2019-04-12 17:39 | NUR ---
DR. HAYNES IN TO SEE PT. WILL FOLLOW UP ON ORDERS.
--- NOTE | 2019-04-12 17:50 | NUR ---
PT SEEN BY DR. REAL. NEW IVF ORDER RECEIVED.
--- NOTE | 2019-04-12 18:00 | NUR ---
COUNSELOR/ART THERAPIST MADE AWARE OF NEW IVF ORDER AND THAT PHARMACY IS NOT AVAILABLE AT THIS TIME. PER JACQUE SUP, SHE WILL TRY TO FIND AT OTHER DEPARTMENTS AND WILL LET US KNOW.
--- NOTE | 2019-04-12 18:47 | NUR ---
Received pt stable on vent support at documented settings, suctioned moderated amounts of thick white yellow secretions, hhn tx given, tolerated well, no resp distress or SOB noted at this time, Shiley 7 XLT trach secured/patent/midline, alarms set and audible, ambu bag at bedside, vent plugged into red outlet, vent wiped down, cont pulse ox on, will cont to monitor.
--- NOTE | 2019-04-12 19:27 | NUR ---
REPORT GIVEN ON NANNY CAREGIVER RN FOR CONTINUITY OF CARE. NO SIGNS OF DISTRESS NOTED AT THIS TIME.
--- NOTE | 2019-04-12 19:45 | NUR ---
RECEIVED REPORT FROM AM SHIFT RN. PATIENT OPENS EYES SPONTANEOUSLY, FOLLOW COMMANDS WHEN FAMILY GIVE SIMPLE COMMANDS. TRACH TO VENT WITH SETTING AC/VC FIO2 24%, VT 600, RATE 18, PEEP 5. LUNGS SOUND RHONCHI BILATERALLY. HOB UP 30-45 DEGREES. NO SOB NOTED. NO S/S OF PAIN OR DISCOMFORT. SR ON MONITOR .NGT TO LEFT NARES IN PLACE, PLACEMENT CONFIRMED, CONNECTED TO LOW INTERMITTENT SUCTION, DRAINING CLEAR YELLOW SECRETION. CENTRAL LINE TO RIGHT IJ TLC IN PLACE, RUNNING TPN AT 80ML/HR AND 1/2NS AT 50 ML/HR. ABDOMEN SOFT, ROUND, DISTENDED W/ HYPOACTIVE BOWEL SOUNDS. SKIN IS DRY AND WARM TO TOUCH. SMALL INCISION WITH 5 RAFAEL NOTED TO MID LOWER ABDOMEN AND 2 RAFAEL TO LEFT LOWER ABD. BILATERAL UPPER BACK INCISION NOTED S/P I&D, DRESSING CLEAN, DRY AND INTACT. CAN CATH IN PLACE DRAINING LIGHT ALINA URINE TO GRAVITY. BED IN LOW POSITION LOCKED.LEFT SOFT WRIST RESTRAIN D/T PT PULLING TUBING AND LINES,SKIN INTACT ON THE AREA. BILATERAL SIDE RAILS UP WITH PADS FOR SEIZURE PRECAUTION. CALL LIGHT WITHIN REACH. WILL CONTINUE TO MONITOR.
--- NOTE | 2019-04-12 20:15 | NUR ---
THE BROTHER TANVI CAMI AT BED SIDE AND GIVE SIMPLE COMMANDS AND PT FOLLOWS THE COMMANDS. CHANGE IVF TO D5 IN 0.2 NS WITH SODIUM BICARB 3 AMP AT 60 CC/HR.
[2019-04-12] MEDS ORDERED: SODIUM BICARBONATE 8.4% PFS 50 MEQ/50 ML SYR IVP ONE (20:16)
--- NOTE | 2019-04-12 20:26 | NUR ---
PAGED DR. STEWARD TO ASK IF HE DOWNGRADE THIS PATIENT TO TELEMETRY.
[2019-04-12] MEDS: AMINO ACIDS 8.5% IV SCH ×3 (20:27)
[2019-04-12] MEDS: DEXTROSE 50% IV SCH ×3 (20:27)
[2019-04-12] MEDS: FAT EMULSION 20% IV SCH ×3 (20:27)
[2019-04-12] MEDS: NACL 0.2% IV SCH (20:28)
[2019-04-12] MEDS: DEXT 5% IV SCH (20:28)
[2019-04-12] MEDS: SODIUM BICARBONATE IV SCH (20:28)
--- NOTE | 2019-04-12 21:00 | NUR ---
NIGHT MEDS GIVEN AND NEW TPN URSULA BAKER.
--- NOTE | 2019-04-12 21:02 | NUR ---
PAGED AGAIN DR. STEWARD BECAUSE HE DIDN'T RETURN MY CALL YET.
--- NOTE | 2019-04-12 21:11 | NUR ---
DR. STEWARD RETURN MY PAGE AND HE ORDERED THAT PATIENT CAN BE DOWNGRADE OR TRANSFER TO TELEMETRY.
--- NOTE | 2019-04-12 22:10 | NUR ---
CVP D/C .PER . PT MAY TRANSFER TO TELEMETRY UNITS. PT TRANSFER TO TELEMETRY UNIT ROOM 124 -B, PT TRANSFERRED BY HOSPITAL BED. WITH 2 RTS AND 2 NURSES.PT LOOK CALM NO S/S OF DISTRESS, NO SOB. REPORT GIVEN TO SHARON MCKEON. MADE AWARE THAT PT CONT ON TPN AND IV FLUIDS D5 IN 0.2 % NS AND 3 AMPULE OF SODIUM BICARB AT 60 CC/HR, ALSO ON NGT TO INTERMITTEN SUCTION. PT POSSIBLE HAVE SURGERY ON SUNDAY AND TO FOLLOW UP WITH THE MD FOR THE SURGEON WHO WILL DO THE PROCEDURE.
--- NOTE | 2019-04-12 23:00 | NUR ---
PT. NEEDS WILL BE ANTICIPATED TRACH TO VENT. NGT ON INTERMITTENT SUCTION. TOTAL CARE. DX. OF SEPSIS RT PERITONITIS. TELEMETRY MONITORING. CAN CATHETER IN PLACE WITH YELLOW URINE DRAINING WELL. WILL BE TURNED Q 2H.
[2019-04-13] VITALS: BP 119/78
[2019-04-13] MEDS: Z-GUARD PASTE TP SCH ×2 (01:00→13:13)
--- NOTE | 2019-04-13 01:50 | NUR ---
PT. TURNED Q 2H . TOTAL CARE. ON INTERMITTENT SUCTION. TELEMETRY MONITORING. AFEBRILE.
[2019-04-13] MEDS: ALBUTEROL 0.083% 2.5 MG/3 ML NEBU INH SCH ×6 (03:02→23:06)
--- NOTE | 2019-04-13 03:25 | NUR ---
NEEDS ANTICIPATED AND MET. TOTAL CARE. NO NOTED N/V. ON TPN. AFEBRILE. TRACH TO VENT PT. RESPIRATORY THERAPIST IN HERE TO CHECK ON PT. FREQUENTLY AND SUCTIONING PT. PRN. TURNED TO SIDES BY 3 CNAS WITH PILLOW SUPPORT.
[2019-04-13 04:00] VITALS: BP 130/72
[2019-04-13] MEDS: PHENYTOIN 100 MG/2 ML VIAL IVP SCH ×3 (05:12→21:02)
[2019-04-13] MEDS: BLOOD GLUCOSE MONITORING 1 DEV DEV MC SCH ×4 (05:17→18:09)
--- NOTE | 2019-04-13 06:41 | NUR ---
PT. TURNED Q 2H WITH PILLOW SUPPORT TO PRESSURE AREAS. NEEDS ANTICIPATED AND MET. TOTAL CARE.
--- NOTE | 2019-04-13 06:53 | NUR ---
REC'D PT ON CARESCAPE VENT SETTINGS AC 18 VT 600 PEEP 5 FIO2 24% ALARMS AND AUDIBLE AMBU BAG AT HOB AND VENT IS PLUGGED INTO RED OUTLET, I\L TX GIVEN WITH ALBUTEROL 2.5MG WITH NO ADVERSE REACTION POST TX, B\S ARE RHONCHI BILATERALLY SXN PT MODERATE AMT OF THICK YELLOW SECRETIONS, PT IS TRACH WITH SHILEY XLT 7 AND PT IS RESTING
--- NOTE | 2019-04-13 07:09 | NUR ---
RECEIVED BED SIDE REPORT FROM COMMAND POST SUPERINTENDENT NURSE. PATIENT IS LYING IN BED, TRACH TO VENT, NO RESPIRATORY DISTRESS NOTED, PATIENT IS STABLE AT THIS TIME. WILL CONTINUE TO MONITOR.
--- NOTE | 2019-04-13 07:27 | NUR ---
ENDORSED TO THE AM RN FOR CONTINUITY OF CARE.
[2019-04-13 08:00] VITALS: BP 136/86
[2019-04-13] MEDS: MEROPENEM 500 MG in NACL 0.9% 50 ML IV SCH ×2 (08:38→21:02)
[2019-04-13] MEDS: FUROSEMIDE 100 MG/10 ML VIAL IV SCH (08:41)
--- NOTE | 2019-04-13 08:41 | NUR ---
BEDSIDE WITH PATIENT, PATIENT IN STABLE CONDITION, SCHEDULED MEDICATIONS GIVEN AT THIS TIME, PATIENT WAS EDUCATED ON MEDICATIONS GIVEN, AND VERBALIZED UNDERSTANDING. WILL CONTINUE TO MONITOR.
[2019-04-13] MEDS: PANTOPRAZOLE 40 MG INJ VIAL IVP SCH (08:42)
--- NOTE | 2019-04-13 09:30 | NUR ---
AT THE BEDSIDE WITH PATIENT, PATIENT MOVING CONSTANTLY PREOXYGENATED BEFORE, DEEP SUCTION PROVIDED.
--- NOTE | 2019-04-13 10:10 | NUR ---
AT THE BEDSIDE WITH PATIENT, PATIENT MOVING CONSTANTLY PREOXYGENATED BEFORE, DEEP SUCTION PROVIDED. NO DISTRESS NOTED POST SUCTION. WILL CONTINUE TO MONITOR.
[2019-04-13 10:12] LABS: MAGNESIUM 1.9 mg/dL (1.8-2.4); PHOSPHORUS 4.5 mg/dL (2.5-4.9)
[2019-04-13 10:29] LABS: ANION GAP 22.7 (8-16); CARBON DIOXIDE 15.7 mmol/L (21-32); CREATININE 2.5 mg/dL (0.7-1.3); POTASSIUM 3.4 mmol/L (3.5-5.1)
[2019-04-13] MEDS ORDERED: AMIKACIN PER PHARMACY MC PRN (11:50)
[2019-04-13 12:00] VITALS: BP 129/81
[2019-04-13] MEDS ORDERED: VANCOMYCIN 1,000 MG in DEXTROSE 5% 250 ML IV SCH (12:00)
--- NOTE | 2019-04-13 12:16 | NUR ---
AT THE BEDSIDE WITH PATIENT, PATIENT MOVING CONSTANTLY PREOXYGENATED PATIENT BEFORE, DEEP SUCTION PROVIDED. NO RESP DISTRESS NOTED POST SUCTION. WOUNDS WERE CLEANED AT THIS TIME AND PATIENT REPOSITIONED . WILL CONTINUE TO MONITOR.
[2019-04-13] MEDS: SODIUM BICARBONATE IV SCH ×2 (13:10→23:55)
[2019-04-13] MEDS: DEXT 5% IV SCH ×2 (13:10→23:55)
[2019-04-13] MEDS: NACL 0.2% IV SCH ×2 (13:10→23:55)
--- NOTE | 2019-04-13 15:09 | NUR ---
AT THE BEDSIDE WITH PATIENT, PATIENT MOVING CONSTANTLY PREOXYGENATED PATIENT BEFORE, DEEP SUCTION PROVIDED. NO RESP DISTRESS NOTED POST SUCTION. PATIENT REPOSITIONED . WILL CONTINUE TO MONITOR.
[2019-04-13 16:00] VITALS: BP 145/74
[2019-04-13] MEDS ORDERED: AMIKACIN 400 MG in DEXTROSE 5% 100 ML IV SCH (16:00)
--- NOTE | 2019-04-13 16:00 | NUR ---
IV ABX STARTED AT THIS TIME, AT THE BEDSIDE WITH PATIENT. NO RESP DISTRESS NOTED POST SUCTION. WOUNDS WERE CLEANED AT THIS TIME AND PATIENT REPOSITIONED . WILL CONTINUE TO MONITOR.
[2019-04-13 18:06] LABS: HEMOGLOBIN 7.2 g/dL (12.0-18.0); MEAN CORPUSCULAR HEMOGLOBIN 27 pg (27-31); MEAN CORPUSCULAR HGB CONC 33 g/dL (33-37); MEAN CORPUSCULAR VOLUME 84.1 fL (80-94); PLATELET COUNT (AUTO) 424 K/uL (140-450); RED BLOOD CELL COUNT(AUTO) 2.61 MIL/uL (4.20-6.10); RED CELL DISTRIBUTION WIDTH 17.7 % (11.6-13.7)
[2019-04-13 18:07] LABS: EOSINOPHILS % (MANUAL) 2 % (0-4); LYMPHOCYTES % (MANUAL) 8 % (20-46); MONOCYTES % (MANUAL) 9 % (5-12)
[2019-04-13 18:09] LABS: WHITE BLOOD COUNT (AUTO) 18.6 K/uL (4.8-10.8)
[2019-04-13 18:41] LABS: ANION GAP 24.2 (8-16); CARBON DIOXIDE 15.3 mmol/L (21-32); POTASSIUM 3.5 mmol/L (3.5-5.1)
[2019-04-13 18:42] LABS: CREATININE 3.4 mg/dL (0.7-1.3)
--- NOTE | 2019-04-13 19:09 | NUR ---
ENDORSED CARE TO BUSINESS DEVELOPMENT NURSE, QUESTIONS WERE ANSWERED, PATIENT IN STABLE CONDITION
--- NOTE | 2019-04-13 19:10 | NUR ---
RECEIVED FROM AM RN IN BED. TOTAL CARE. RESPIRATORY THERAPIST IN HERE TAKING CARE OF PT. WILL CONTINUE WITH CARE FOR THE NIGHT. WILL BE TURNED Q 2H AND NEEDS WILL BE ATTENDED TO. F/C DRAINING WELL WITH YELLOW URINE. NGT IN PLACE TO INTERMITTENT SUCTION, TPN INFUSING WELL. TELEMETRY MONITORING.
[2019-04-13] MEDS: IPRATROPIUM 0.02% 0.5 MG/2.5 ML NEBU INH PRN (19:40)
--- NOTE | 2019-04-13 19:51 | NUR ---
RECEIVED PATIENT TRACH TO MECHANICAL VENTILATOR AT DOCUMENTED SETTINGS. VENT CHECK DONE. VENT PLUGGED INTO RED OUTLET WITH WHEELS LOCKED. VENT ALARMS ON AND AUDIBLE. AMBU BAG AT [facility]. CONTINUOUS PULSE OX ON AND FUNCTIONING; ALARMS ON AND AUDIBLE. AIRWAY SECURE AND PATENT. SUCTIONED MODERATE AMOUNT OF THICK, YELLOW SECRETIONS. SCHEDULED BREATHING TREATMENTS ADMINISTERED. TOLERATED TREATMENTS WELL WITHOUT ADVERSE SIDE EFFECTS. NO ACUTE RESPIRATORY DISTRESS NOTED AT THIS TIME. WILL CONTINUE TO MONITOR. Addendum: 04/14/19 at 0344 by Inessa Morillo RT ORAL VAP CARE DONE.
--- NOTE | 2019-04-13 20:00 | NUR ---
PT. TURNED TO SIDES AND PILLOW SUPPORT TO PRESSURE AREAS IN PLACE. KEPT CLEAN AND DRY. HOB UP 25 DEGREES FOR COMFORT. TRACH TO VENT. NEEDS ANTICIPATED AND MET. TOTAL CARE. TELEMETRY MONITORING. SIDERAILS IN BED PADDED FOR SEIZURE PRECAUTIONS.
[2019-04-13 20:44] VITALS: BP 133/83
[2019-04-13] MEDS: FAT EMULSION 20% IV SCH ×3 (21:01)
[2019-04-13] MEDS: AMINO ACIDS 8.5% IV SCH ×3 (21:01)
[2019-04-13] MEDS: DEXTROSE 50% IV SCH ×3 (21:01)
--- NOTE | 2019-04-13 23:20 | NUR ---
VENT CHECK DONE. SCHEDULED BREATHING TREATMENT ADMINISTERED. TOLERATED TX WELL WITHOUT ADVERSE SIDE EFFECTS. SUCTIONED SMALL AMOUNT OF THICK, YELLOW SECRETIONS. ORAL VAP CARE DONE. NO ACUTE RESPIRATORY DISTRESS NOTED AT THIS TIME. WILL CONTINUE TO MONITOR.
[2019-04-14] MEDS: BLOOD GLUCOSE MONITORING 1 DEV DEV MC SCH ×5 (00:08→23:31)
[2019-04-14 00:09] VITALS: BP 130/76
[2019-04-14] MEDS: Z-GUARD PASTE TP SCH ×2 (01:00→13:05)
--- NOTE | 2019-04-14 01:44 | NUR ---
PT. ORDERED PRBC 2 UNITS ORDERED BY Diane BERRY RESERVED IN LAB READY FOR USE INFORMED BY STEREO EQUIPMENT INSTALLER TO ME. INFORMED CHARGE NURSE.
[2019-04-14] MEDS: ALBUTEROL 0.083% 2.5 MG/3 ML NEBU INH SCH ×6 (03:27→23:43)
--- NOTE | 2019-04-14 03:41 | NUR ---
VENT CHECK DONE. SCHEDULED BREATHING TREATMENT ADMINISTERED. TOLERATED TX WELL WITHOUT ADVERSE SIDE EFFECTS. SUCTIONED MODERATE AMOUNT OF THICK, YELLOW SECRETIONS. ORAL VAP CARE DONE. NO ACUTE RESPIRATORY DISTRESS NOTED AT THIS TIME. WILL CONTINUE TO MONITOR.
[2019-04-14 04:00] VITALS: BP 140/86
--- NOTE | 2019-04-14 05:15 | NUR ---
PAGED FOR [employer] [facility] [employer] FOR BLOOD SUGAR CHECK AT THIS TIME 516. GAVE 10 UNITS OF HUMALOG.
[2019-04-14] MEDS: PHENYTOIN 100 MG/2 ML VIAL IVP SCH ×3 (05:18→20:57)
[2019-04-14] MEDS: INSULIN LISPRO SLIDING SCALE 100 UNITS/ML VIAL SUBQ PRN (05:54)
--- NOTE | 2019-04-14 05:59 | NUR ---
RE-CHECKED BLOOD SUGAR FROM 516 WITH COVERAGE OF HUMALOG 10 UNITS IS NOW 124 . INFORMED CHARGE NURSE.
[2019-04-14 06:34] LABS: PROTHROMBIN TIME 11.8 secs (10.8-13.4)
[2019-04-14 06:37] LABS: BASOPHILS % (AUTO) 0.2 % (0.0-2.0); EOSINOPHILS # (AUTO) 0.2 K/uL (0-0.4); EOSINOPHILS % (AUTO) 1.3 % (0.0-4.0); HEMATOCRIT 22.3 % (36-52); HEMOGLOBIN 7.3 g/dL (12.0-18.0); LYMPHOCYTES # (AUTO) 0.9 K/uL (2.0-11.5); MEAN CORPUSCULAR HEMOGLOBIN 28 pg (27-31); MEAN CORPUSCULAR HGB CONC 33 g/dL (33-37); MONOCYTES # (AUTO) 0.7 K/uL (0.8-1.0); MONOCYTES % (AUTO) 5.7 % (1.7-9.3); NEUTROPHILS # (AUTO) 10.6 K/uL (1.8-7.7); NEUTROPHILS % (AUTO) 85.8 % (42.2-75.2); PLATELET COUNT (AUTO) 439 K/uL (140-450); RED BLOOD CELL COUNT(AUTO) 2.63 MIL/uL (4.20-6.10); RED CELL DISTRIBUTION WIDTH 16.9 % (11.6-13.7); WHITE BLOOD COUNT (AUTO) 12.3 K/uL (4.8-10.8)
[2019-04-14 06:38] LABS: CARBON DIOXIDE 19.2 mmol/L (21-32); CREATININE 2.4 mg/dL (0.7-1.3); POTASSIUM 3.2 mmol/L (3.5-5.1)
[2019-04-14 06:46] LABS: MAGNESIUM 1.6 mg/dL (1.8-2.4); PHOSPHORUS 4.1 mg/dL (2.5-4.9)
--- NOTE | 2019-04-14 06:50 | NUR ---
MORNING PERSONAL HYGIENE RENDERED. SUCTIONED PRN BY RESPIRATORY THERAPIST FREQUENTLY. NEEDS ANTICIPATED AND MET. TOTAL CARE. WILL ENDORSE TO AM RN FOR CONTINUITY OF CARE.
--- NOTE | 2019-04-14 07:05 | NUR ---
REECIVED PT ON CARESCAPE ON DOCUMENTED SETTINGS, ALARMS ARE ON AND AUDIBLE, PTS TRACH SHILEY 7 XLT IS SECRE PT IN HF QUIET BS RHONCHI HHN GIVEN WITH 3 MG DUONEB, BMV HOB, VENT PLUGGED INTO RED OUTLET, WILL CONTINUE TO MONITOR Addendum: 04/14/19 at 0749 by Fozia Allison RT RECEIVED
--- NOTE | 2019-04-14 07:25 | NUR ---
RECEIVED REPORT FROM FRONT END SOFTWARE ENGINEER NURSE. PATIENT LYING DOWN IN BED, NO DISTRESS NOTED. FLACC 0. APHASIC, TRACH TO VENT WITH VENT SETTINGS:FIO2:24, VT:600, RATE:18, FLOW:50, PEEP:5, PMAX:60. O2 SAT IS 99%. NGTUBE TO GRAVITY DRAINAGE NOTED. CAN CATHETER IN PLACE. RIGHT UPPER IJ INTACT, PATENT, AND INFUSING IVF PER MD ORDERS. HAS OLD GTUBE SITE WOUND ON UPPER ABD, DRESSING DRY AND INTACT. HAS LEFT AND RIGHT UPPER SHOULDER WOUNDS NOTED, DRESSING DRY AND INTACT. REVIEWED PLAN OF CARE WITH PATIENT. UNABLE TO COMPREHEND. SAFETY MEASURES IN PLACE, CALL LIGHT WITHIN REACH. WILL CONTINUE TO MONITOR.
[2019-04-14 08:00] VITALS: BP 129/79
[2019-04-14] MEDS ORDERED: KCL 20 MEQ/WATER INJ PREMIX 100 ML IV SCH ×2 (08:00→10:00)
[2019-04-14] MEDS: FUROSEMIDE 100 MG/10 ML VIAL IV SCH (09:09)
[2019-04-14] MEDS: MEROPENEM 500 MG in NACL 0.9% 50 ML IV SCH ×2 (09:09→20:55)
[2019-04-14] MEDS: PANTOPRAZOLE 40 MG INJ VIAL IVP SCH (09:09)
[2019-04-14] MEDS: FOAM DRESSING TP SCH (09:19)
--- NOTE | 2019-04-14 09:20 | NUR ---
PATIENT LYING DOWN IN BED, NO DISTRESS NOTED, FLACC 0. SCHEDULED MEDICATIONS DUE GIVEN. CONDITION UNCHANGED. WILL CONTINUE TO MONITOR.
--- NOTE | 2019-04-14 10:45 | NUR ---
ASSISTED BONE CRUSHER IN CLEANING AND REPOSITIONING PATIENT. WOUND DRESSINGS INTACT. WILL CONTINUE TO MONITOR.
--- NOTE | 2019-04-14 11:00 | NUR ---
HEMODIALYSIS NURSE AT BEDSIDE TO START HD. WILL CONTINUE TO MONITOR. Addendum: 04/14/19 at 1207 by Humberto Bonilla RN WRONG PATIENT. PLEASE DISREGARD NOTE ABOVE.
[2019-04-14 12:00] VITALS: BP 142/80
[2019-04-14] MEDS ORDERED: MAG SULF 2000 MG/WATER PREMIX 50 ML IV SCH (12:00)
--- NOTE | 2019-04-14 12:07 | NUR ---
PATIENT LYING DOWN IN BED SLEEPING, NO DISTRESS NOTED. CONDITION UNCHANGED. SCHEDULED MEDICATIONS DUE GIVEN. WILL CONTINUE TO MONITOR.
--- NOTE | 2019-04-14 12:30 | NUR ---
OR NURSES ON UNIT TO TAKE PATIENT FOR PEG PLACEMENT. RT AT BEDSIDE. WILL CONTINUE TO MONITOR.
[2019-04-14] MEDS ORDERED: fentaNYL 0.05 MG/ML VIAL ONE (12:52)
--- NOTE | 2019-04-14 13:48 | NUR ---
PATIENT BACK FROM OR. NEW GTUBE INSERTED. PATIENT IN STABLE CONDITION. SCHEDULED MEDICATIONS DUE GIVEN. WILL CONTINUE TO MONITOR.
--- NOTE | 2019-04-14 15:30 | NUR ---
PATIENT LYING DOWN IN BED. CONDITION UNCHANGED. WILL CONTINUE TO MONITOR.
[2019-04-14 16:00] VITALS: BP 128/80
--- NOTE | 2019-04-14 16:15 | NUR ---
04/14/19 RD FOLLOW UP COMPLETED PLEASE REFER TO NUTRITION ASSESSMENT UNDER CARE ACTIVITY FOR ESTIMATED NUTRITIONAL NEEDS. 1. RECOMMEND TO GRADUALLY INCREASE TPN TO MEET 75% OF ESTIMATED NEEDS (1445 KCAL AND 98 GM OF PROTEIN)(ONGOING) 2. IF/WHEN PT IS MEDICALLY STABLE TO ADVANCE TO G-TUBE FEEDINGS, CONSIDER JEVITY 1.2 AT 70 ML/HR AND FWF 165 ML Q4H -THIS WILL PROVIDE 2016 KCAL AND 92 GM PROTEIN TO MEET 81% ESTIMATED KCAL NEEDS AND 92% ESTIMATED PROTEIN NEEDS. 3. RD TO FOLLOW-UP 2-3 DAYS, HIGH RISK ISELA GARCIA RD REVIEWED BY NICK JOVEL RD
--- NOTE | 2019-04-14 19:29 | NUR ---
GAVE REPORT TO BILLING SPECIALIST NURSE FOR CONTINUITY OF CARE. PATIENT IN STABLE CONDITION.
--- NOTE | 2019-04-14 19:30 | NUR ---
RECEIVED PT ON BED, EASILY AROUSABLE, APHASIC, VITAL SIGNS STABLE, FLACC-0, ON TRACH TO VENT WITH SETTING:FI02-24%, TV-600, RATE-18, PEEP-5, SAT-98%, WIT RT IJ CVP LINE, DRESSING REINFORCE WITH TAPE, TPN AND IVF INFUSING WELL, LEFT HAND WITH SOFT RESTRAINT, PROTOCOL IN PLACE, CAN CATH TO GRAVITY WITH YELLOW OUTPUT, NEW G-TUBE INTACT, CLAMPED AT THIS TIME, MAINTAINED ON CONTACT ISOLATION, SAFETY MEASURES IN PLACE, WILL REPOSITIONED Q2H AND OFFLOAD PRESSURE AREAS.
--- NOTE | 2019-04-14 19:54 | NUR ---
RECEIVED PATIENT TRACH TO MECHANICAL VENTILATOR AT DOCUMENTED SETTINGS. VENT CHECK DONE. VENT PLUGGED INTO RED OUTLET WITH WHEELS LOCKED. VENT ALARMS ON AND AUDIBLE. AMBU BAG AT BEDSIDE. PATIENT ON CONTINUOUS PULSE OX MONITOR; ALARMS ON AND AUDIBLE. AIRWAY SECURE AND PATENT. SUCTIONED SMALL AMOUNT OF THICK, YELLOW SECRETIONS. SCHEDULED BREATHING TREATMENT ADMINISTERED. TOLERATED TX WELL WITHOUT ADVERSE SIDE EFFECTS. NO ACUTE RESPIRATORY DISTRESS NOTED AT THIS TIME. WILL CONTINUE TO MONITOR.
[2019-04-14 20:00] VITALS: BP 147/79
[2019-04-14] MEDS: AMINO ACIDS 8.5% IV SCH ×3 (20:54)
[2019-04-14] MEDS: DEXTROSE 50% IV SCH ×3 (20:54)
[2019-04-14] MEDS: FAT EMULSION 20% IV SCH ×3 (20:54)
--- NOTE | 2019-04-14 20:55 | NUR ---
SUCTION SECRETION PRN, WITH MODERATE AMOUNT OF WHITISH SECRETION NOTED, DUE IV MEDICATIONS ADMINISTERED, NEW TPN BAG HANGED WITH RATE OF 80ML/H, ORAL CARE DONE USING VAP KIT, ALL NEEDS ANTICIPATED.
[2019-04-14] MEDS: DEXT 5% IV SCH (22:30)
[2019-04-14] MEDS: NACL 0.2% IV SCH (22:30)
[2019-04-14] MEDS: SODIUM BICARBONATE IV SCH (22:30)
--- NOTE | 2019-04-14 23:30 | NUR ---
PT ASLEEP, NO SIGNS OF RESPIRATORY DISTRESS, VITAL SIGNS STABLE, FLACC-0, ORAL CARE DONE, SUCTION SECRETION PRN, CONTINUE TO REPOSITION Q2H AND OFFLOAD PRESSURE AREAS, MONITORED CLOSELY.
[2019-04-15] VITALS: BP 143/79
[2019-04-15] MEDS: Z-GUARD PASTE TP SCH ×2 (00:09→12:43)
[2019-04-15] MEDS: ALBUTEROL 0.083% 2.5 MG/3 ML NEBU INH SCH ×6 (03:00→23:09)
--- NOTE | 2019-04-15 03:40 | NUR ---
PT SLEEPING, PARTIALLY OPENS EYES TO TOUCH, VITAL SIGNS TAKE, BP SLIGHTLY ELEVATED, ASYMPTOMATIC, FLACC-0 AND NO RESPIRATORY DISTRESS NOTED, MONITORED CLOSELY.
[2019-04-15 04:00] VITALS: BP 154/65
[2019-04-15] MEDS: PHENYTOIN 100 MG/2 ML VIAL IVP SCH ×3 (04:43→20:42)
--- NOTE | 2019-04-15 05:35 | NUR ---
BLOOD SUGAR CHECKED WITH 136 RESULT, TPN INFUSING WELL, NO SEIZURE EPISODE THE WHOLE SHIFT, MONITORED CLOSELY.
[2019-04-15 06:12] LABS: BASOPHILS % (AUTO) 0.2 % (0.0-2.0); EOSINOPHILS # (AUTO) 0.1 K/uL (0-0.4); EOSINOPHILS % (AUTO) 0.7 % (0.0-4.0); HEMATOCRIT 23.5 % (36-52); HEMOGLOBIN 7.7 g/dL (12.0-18.0); LYMPHOCYTES # (AUTO) 0.8 K/uL (2.0-11.5); LYMPHOCYTES % (AUTO) 5.7 % (20.5-51.1); MEAN CORPUSCULAR HEMOGLOBIN 28 pg (27-31); MEAN CORPUSCULAR HGB CONC 33 g/dL (33-37); MEAN CORPUSCULAR VOLUME 85.1 fL (80-94); MONOCYTES # (AUTO) 0.7 K/uL (0.8-1.0); MONOCYTES % (AUTO) 5.1 % (1.7-9.3); NEUTROPHILS # (AUTO) 12.8 K/uL (1.8-7.7); NEUTROPHILS % (AUTO) 88.3 % (42.2-75.2); PLATELET COUNT (AUTO) 449 K/uL (140-450); RED BLOOD CELL COUNT(AUTO) 2.76 MIL/uL (4.20-6.10); RED CELL DISTRIBUTION WIDTH 16.9 % (11.6-13.7); WHITE BLOOD COUNT (AUTO) 14.5 K/uL (4.8-10.8)
[2019-04-15] MEDS: BLOOD GLUCOSE MONITORING 1 DEV DEV MC SCH ×3 (06:25→18:14)
--- NOTE | 2019-04-15 06:27 | NUR ---
rec'd pt on carescape vent settings ac 18 vt 600 peep 5 fio2 35% alarms on and audible and ambu bag is at hob and vent is plugged into red outlet and no hhn given due to albuterol 2.5mg not available b\s are coarse bilaterally sxn pt moderate amt of yellow secretions, pt is trach with shiley 7xlt and pt is sleeping
[2019-04-15 06:29] LABS: ANION GAP 15.7 (8-16); CARBON DIOXIDE 25.6 mmol/L (21-32); CREATININE 2.1 mg/dL (0.7-1.3); POTASSIUM 3.3 mmol/L (3.5-5.1)
[2019-04-15 06:32] LABS: MAGNESIUM 1.8 mg/dL (1.8-2.4); PHOSPHORUS 3.1 mg/dL (2.5-4.9)
--- NOTE | 2019-04-15 07:15 | NUR ---
PT SLEEPING, NO DISTRESS NOTED, BEDSIDE REPORT GIVEN TO MIKE LIPSCOMB FOR CONTINUITY OF CARE.
--- NOTE | 2019-04-15 07:38 | NUR ---
RECEIVED BEDSIDE REPORT FROM PM RN PT APPEARS STABLE AND IN NO APPARENT DISTRESS. ALL SAFETY MEASURES ARE IN PLACE. PT TRACH TO VENT. SEIZURE PRECAUTIONS IN PLACE. WILL CONTINUE TO MONITOR
[2019-04-15] MEDS: NACL 0.45% 1,000 ML IV SCH ×2 (08:00→18:14)
[2019-04-15] MEDS ORDERED: hydrALAZINE 20 MG/ML VIAL IVP PRN (08:00)
[2019-04-15] MEDS ORDERED: KCL 20 MEQ/WATER INJ PREMIX 200 ML IV SCH (08:00)
[2019-04-15 08:30] VITALS: BP 141/82
[2019-04-15] MEDS: PANTOPRAZOLE 40 MG INJ VIAL IVP SCH (09:25)
[2019-04-15] MEDS: MEROPENEM 500 MG in NACL 0.9% 50 ML IV SCH ×2 (09:26→20:43)
--- NOTE | 2019-04-15 09:30 | NUR ---
FREQUENT ROUNDING ON PT PT APPEARS STABLE AND IN NO APPARENT DISTRESS. ALL SAFETY MEASURES ARE IN PLACE WILL CONTINUE TO MONITOR
--- NOTE | 2019-04-15 11:50 | NUR ---
FREQUENT ROUNDING ON PT PT APPEARS STABLE AND IN NO APPARENT DISTRESS. ALL SAFETY MEASURES ARE IN PLACE WILL CONTINUE TO MONITOR.
[2019-04-15] MEDS ORDERED: VANCOMYCIN 1,000 MG in DEXTROSE 5% 250 ML IV SCH (12:00)
[2019-04-15 12:13] VITALS: BP 147/76
--- NOTE | 2019-04-15 13:46 | NUR ---
FREQUENT ROUNDING ON PT PT APPEARS STABLE AND IN NO APPARENT DISTRESS. ALL SAFETY MEASURES ARE IN PLACE WILL CONTINUE TO MONITOR
--- NOTE | 2019-04-15 15:45 | NUR ---
STARTED GTUBE FEEDING AT 20ML/HR TO MONITOR HOW PT IS TOLERATING FEEDING STOPPED TPN PER DR ORDERS. PT HEAD OF THE BED ELEVATED ABOVE 30 DEGREES ALL SAFETY MEASURES ARE IN PLACE WILL CONTINUE TO MONITOR.
[2019-04-15] MEDS ORDERED: AMIKACIN 400 MG in DEXTROSE 5% 100 ML IV SCH (16:00)
[2019-04-15 16:30] VITALS: BP 154/75
--- NOTE | 2019-04-15 17:05 | NUR ---
FREQUENT ROUNDING ON PT PT APPEARS STABLE AND IN NO APPARENT DISTRESS. ALL SAFETY MEASURES ARE IN PLACE WILL CONTINUE TO MONITOR.
--- NOTE | 2019-04-15 19:22 | NUR ---
ENDORSED PT TO PM RN PT APPEARS STABLE AND IN NO APPARENT DISTRESS. ALL SAFETY MEASURES ARE IN PLACE TRACH TO VENT. RIGHT CENTRAL LINE IJ IN PLACE. CAN CATH IN LEFT SOFT WRIST RESTRAINT IN PLACE. GTUBE FEEDING INFUSING HEAD OF BED ELEVATED ABOVE 30 DEGREES. ALL SAFETY MEASURES ARE IN PLACE.
--- NOTE | 2019-04-15 19:23 | NUR ---
RECEIVED PT ON BED, EASILY AROUSABLE, APHASIC, VITAL SIGNS TAKEN, TEMP-101.2, FLACC-2, ON TRACH TO VENT WITH SETTING:FI02-24%, TV-600, RATE-18, PEEP-5, SAT-98%, PT RESTLESS AND SQUIRMING, COOLING MEASURES INITIATED, WITH RT IJ CVP LINE, DRESSING PEELING OFF, REINFORCE FOR NOW, IVF INFUSING WELL, LEFT HAND WITH SOFT RESTRAINT, PROTOCOL IN PLACE, CAN CATH TO GRAVITY WITH STRAW COLORED URINE, G-TUBE FEEDING ON-GOING AT 20ML/H WITH WATER FLUSH 120ML Q4H, HOB ELEVATED AT ALL TIMES, MAINTAINED ON CONTACT ISOLATION, SAFETY MEASURES IN PLACE, WILL REPOSITIONED Q2H AND OFFLOAD PRESSURE AREAS.
[2019-04-15 19:48] LABS: WHITE BLOOD COUNT (AUTO) 15.4 K/uL (4.8-10.8)
[2019-04-15 19:50] LABS: BASOPHILS % (AUTO) 0.1 % (0.0-2.0); EOSINOPHILS % (AUTO) 1.4 % (0.0-4.0); HEMATOCRIT 21.2 % (36-52); HEMOGLOBIN 6.9 g/dL (12.0-18.0); LYMPHOCYTES % (AUTO) 7.9 % (20.5-51.1); MEAN CORPUSCULAR HEMOGLOBIN 28 pg (27-31); MEAN CORPUSCULAR HGB CONC 33 g/dL (33-37); MONOCYTES % (AUTO) 8.1 % (1.7-9.3); NEUTROPHILS % (AUTO) 82.5 % (42.2-75.2); PLATELET COUNT (AUTO) 426 K/uL (140-450); RED CELL DISTRIBUTION WIDTH 17.7 % (11.6-13.7)
[2019-04-15 19:51] LABS: EOSINOPHILS # (AUTO) 0.2 K/uL (0-0.4); LYMPHOCYTES # (AUTO) 1.2 K/uL (2.0-11.5); MONOCYTES # (AUTO) 1.2 K/uL (0.8-1.0); NEUTROPHILS # (AUTO) 12.7 K/uL (1.8-7.7)
--- NOTE | 2019-04-15 19:58 | NUR ---
RECEIVED PT FROM DAY ON AC 18,600,+5,24%. VENT PLUGGED INTO RED OUTLET. BMV AT BEDSIDE. ALARMS AUDIBLE AND WORKING. SX SMALL AMOUNT OF THICK YELLOW-WHITE SECRETIONS. WILL CONT. TO MONITOR
[2019-04-15 20:00] VITALS: BP 120/68
[2019-04-15] MEDS ORDERED: ACETAMINOPHEN 650 MG/20.3 ML UDC PO PRN (20:10)
[2019-04-15] MEDS ORDERED: MORPHINE SULFATE 2 MG/ML SYR IVP PRN (20:10)
[2019-04-15] MEDS: LORazepam 2 MG/ML VIAL IVP PRN (20:42)
--- NOTE | 2019-04-15 20:50 | NUR ---
PAGED CHANGE AND RECEIVED WITH NEW ORDERS, 10ML G-TUBE RESIDUAL NOTED, TYLENOL GIVEN FOR FEVER, MEDICATED PRN FOR RESTLESSNESS WITH ATIVAN IVP, ALL DUE MEDS ADMINISTERED, SUCTION SECRETIONS WITH MODERATE AMOUNT NOTED, REPOSITIONED Q2H AND OFFLOAD PRESSURE AREAS, ALL NEEDS ANTICIPATED.
--- NOTE | 2019-04-15 22:00 | NUR ---
PT SLEEPING, NO DISTRESS NOTED, DRESSING CHANGE DONE TO RT IJ CVP LINE, TOLERATED WELL, MONITORED CLOSELY.
[2019-04-16] VITALS: BP 113/71
--- NOTE | 2019-04-16 | NUR ---
PT SLEEPING, VITAL SIGNS STABLE, NO RESP DISTRESS NOTED, FLACC-0, ORAL CARE DONE USING VAP KIT, IVF INFUSING WELL, REPOSITIONED AND OFFLOAD PRESSURE AREAS, CONTINUE TO MONITOR CLOSELY.
[2019-04-16] MEDS: BLOOD GLUCOSE MONITORING 1 DEV DEV MC SCH ×3 (00:21→12:31)
[2019-04-16] MEDS: Z-GUARD PASTE TP SCH ×2 (01:06→13:01)
--- NOTE | 2019-04-16 01:30 | NUR ---
PT FREQUENTLY SUCTIONED TRACHEALLY AND ORALLY, MODERATE SECRETIONS NOTED, MONITORED CLOSELY.
[2019-04-16] MEDS: ALBUTEROL 0.083% 2.5 MG/3 ML NEBU INH SCH ×4 (03:18→15:38)
--- NOTE | 2019-04-16 03:50 | NUR ---
PT SLEEPING, OPEN EYES TO TOUCH, VITAL SIGNS STABLE, NO RESP DISTRESS NOTED, FLACC-0, 5ML GT RESIDUAL NOTED, ORAL CARE DONE, MONITORED CLOSELY.
[2019-04-16 04:00] VITALS: BP 130/84
[2019-04-16] MEDS: PHENYTOIN 100 MG/2 ML VIAL IVP SCH ×2 (04:15→12:50)
[2019-04-16] MEDS: NACL 0.45% 1,000 ML IV SCH ×2 (04:15→14:00)
--- NOTE | 2019-04-16 05:20 | NUR ---
PT REPOSITIONED AND OFFLOAD PRESSURE AREAS, BOTH BACK DRESSING DRY AND INTACT, NO BM BUT PASSING GAS DURING REPOSITIONING, NO SEIZURE EPISODE DURING SHIFT, MONITORED CLOSELY.
[2019-04-16 06:46] LABS: BASOPHILS % (AUTO) 0.2 % (0.0-2.0); EOSINOPHILS # (AUTO) 0.1 K/uL (0-0.4); EOSINOPHILS % (AUTO) 0.8 % (0.0-4.0); HEMATOCRIT 22.5 % (36-52); HEMOGLOBIN 7.4 g/dL (12.0-18.0); LYMPHOCYTES # (AUTO) 1.2 K/uL (2.0-11.5); LYMPHOCYTES % (AUTO) 8.5 % (20.5-51.1); MEAN CORPUSCULAR HEMOGLOBIN 28 pg (27-31); MEAN CORPUSCULAR HGB CONC 33 g/dL (33-37); MEAN CORPUSCULAR VOLUME 85.7 fL (80-94); MONOCYTES # (AUTO) 0.8 K/uL (0.8-1.0); MONOCYTES % (AUTO) 5.9 % (1.7-9.3); NEUTROPHILS # (AUTO) 11.6 K/uL (1.8-7.7); NEUTROPHILS % (AUTO) 84.6 % (42.2-75.2); PLATELET COUNT (AUTO) 439 K/uL (140-450); RED BLOOD CELL COUNT(AUTO) 2.62 MIL/uL (4.20-6.10); RED CELL DISTRIBUTION WIDTH 16.5 % (11.6-13.7); WHITE BLOOD COUNT (AUTO) 13.8 K/uL (4.8-10.8)
--- NOTE | 2019-04-16 07:29 | NUR ---
RECEIVED BEDSIDE REPORT FROM NIGHTSHIFT NURSE. PATIENT RESTING IN BED. FLACC 0. CONNECTED TO TRACH AND VENT. RESPIRATIONS EVEN AND UNLABORED WITH NO SOB OR RESPIRATORY DISTRESS. SKIN WARM AND DRY TO TOUCH. RIGHT IJ IN PLACE, CLEAN, DRY AND INTACT. G-TUBE SITE CLEAN AND DRY RUNNING AT 20ML/HR OF GLUCERNA 1.2. SAFETY MEASURES IN PLACE: HOB ELEVATED, BED IN LOWEST POSITION, SEIZURE PRECAUTIONS, AND CALL LIGHT WITHIN REACH. WILL CONTINUE TO MONITOR
--- NOTE | 2019-04-16 07:29 | NUR ---
PT SLEEPING, NO DISTRESS NOTED, BEDSIDE REPORT GIVEN TO MIKE DENNISON FOR CONTINUITY OF CARE.
[2019-04-16 07:44] LABS: ANION GAP 18.5 (8-16); CARBON DIOXIDE 21.9 mmol/L (21-32); MAGNESIUM 1.6 mg/dL (1.8-2.4); POTASSIUM 3.4 mmol/L (3.5-5.1); TOTAL BILIRUBIN 1.1 mg/dL (0.0-1.0)
--- NOTE | 2019-04-16 07:55 | NUR ---
RECEIVED ON A what3wordsSCAPE R860 PLUGGED INTO RED OUTLET WITH COMPRESSOR ON AND FUNCTIONING WELL TO THOMAS XLT #7 AIRWAY SECURED WITH A CLARISSA TRAC TIE CUFF PRESSURE CHECKED NOTED AMBU BAG AT BEDSIDE RESTING WELL GOOD CHEST RISE DEEP TRACHEAL SUCTION FOR LARGE THICK YELLOW SECRETIONS AIRWAY PATENT
[2019-04-16 08:00] VITALS: BP 113/65
[2019-04-16] MEDS ORDERED: MEROPENEM 500 MG VIAL IV ONE (08:42)
[2019-04-16] MEDS: PANTOPRAZOLE 40 MG INJ VIAL IVP SCH (08:44)
[2019-04-16] MEDS ORDERED: MAG SULF 2000 MG/WATER PREMIX 50 ML IV SCH (09:00)
[2019-04-16] MEDS: LORazepam 2 MG/ML VIAL IVP PRN (09:06)
[2019-04-16] MEDS: MEROPENEM 500 MG in NACL 0.9% 50 ML IV SCH (09:09)
--- NOTE | 2019-04-16 09:13 | NUR ---
ADMINISTERED MEDICATION PRESCRIBED PER MD ORDER. PT TOLERATED WELL. NO COMPLICATIONS AT THIS TIME. RESPIRATIONS EVEN AND UNLABORED WITH NO SOB OR RESPIRATORY DISTRESS. CONNECTED TO TRACH AND VENT. NO DESATURATIONS PRESENT. PT APPEARED RESTLESS SO PRN ATIVAN WAS ADMINISTRATED PER MD ORDER. SAFETY MEASURES IN PLACE. WILL CONTINUE TO MONITOR
[2019-04-16] MEDS: FOAM DRESSING TP SCH (09:22)
--- NOTE | 2019-04-16 10:22 | NUR ---
PATIENTS RAFAEL TO ABDOMINAL WOUND ARE CLEAN, DRY AND INTACT. NO DRAINAGE NOTED FROM RAFAEL SITE. PATIENT IS LESS AGITATED, RESTING IN BED, NO DISTRESS OR AGITATION NOTED AT THIS TIME.
--- NOTE | 2019-04-16 11:18 | NUR ---
04/16/19 RD FOLLOW UP COMPLETED PLEASE REFER TO NUTRITION ASSESSMENT UNDER CARE ACTIVITY FOR ESTIMATED NUTRITIONAL NEEDS. 1. RECOMMEND GRADUALLY INCREASE TUBE FEEDING RATE TO 65 ML/HR TOLERATED -THIS WILL PROVIDE A VOLUME OF 1560 ML, 1872 KCAL, AND 93.6 GM PROTEIN. IT WILL MEET 100% OF THE ESTIMATED ENERGY NEEDS AND 92% OF THE PROTEIN NEEDS. 2. RECOMMEND FREE WATER FLUSH OF [address] TO FOLLOW-UP 2-3 DAYS, HIGH RISK ISELA GARCIA RD REVIEWED BY NICK JOVEL RD
--- NOTE | 2019-04-16 11:32 | NUR ---
PT LYING IN BED UPON ARRIVAL. FLACC 0. RESPIRATIONS EVEN AND UNLABORED WITH NO SOB OR RESPIRATORY DISTRESS. NO DESATURATIONS NOTED. CONNECTED TO TRACH AND VENT. CNAS HELPED TURN AND CHANGE THE PATIENT. PT HAD A SMALL BROWN BOWEL MOVEMENT. NO COMPLICATIONS OR CONCERNS AT THIS TIME. SAFETY MEASURES IN PLACE. WILL CONTINUE TO MONITOR.
[2019-04-16] MEDS ORDERED: ALBUTEROL SULFATE/IPRATROPIU 3 ML SOL IH ONE (11:40)
[2019-04-16 12:00] VITALS: BP 115/74
[2019-04-16] MEDS ORDERED: KCL 20 MEQ/WATER INJ PREMIX 200 ML IV SCH (12:00)
[2019-04-16] MEDS ORDERED: PHENYTOIN 100 MG/2 ML VIAL IVP ONE (12:21)
--- NOTE | 2019-04-16 14:10 | NUR ---
WOUND CARE RE-EVALUATION NOTE: WOUND CARE AND WOUNDS ASSESSMENT DONE WITH PRIMARY RN, POC DISCUSSED, GT RE INSERTION DONE, GT IN PLACE AND FUNCTIONING, SURGICAL WOUNDS RESPONDING TO TREATMENT AND WILL CONTINUE SAME TREATMENT. INTEGUMENTARY: -TRACH AND GT STOMA NADER-SKIN DRY AND CLEAN -LEFT AND LOWER ABDOMINAL LOPEZ MULTIPLE RAFAEL, DRY AND CLEAN, NO S/S OF WOUND DEHISCENCE -RIGHT THIGH BLISTER RESOLVED -LEFT FOOT/TOES MULTIPLE SCABS SKIN DRY AND SCALY, INTACT -LEFT SCAPULAR TOWARD MID BACK SURGICAL WOUND 4X0.5X0.3CM WOUND BED 100% GRANULATION TISSUE, MOIST, MO ODOR, NADER WOUND SKIN INTACT. -RIGHT SCAPULAR SURGICAL WOUND 2X0.3X0.8 CM WOUND BED 100% GRANULATION TISSUE, MOIST, NO ODOR, NADER WOUND SKIN INTACT. -MAD TO SCROTAL AREA, REDNESS AND SKIN INTACT RECOMMENDATION: -MAY REMOVE RAFAEL TO ABDOMINAL WALL -CONTINUE TO MONITOR ABDOMINAL RAFAEL WOUNDS KEEP AREA DRY AND CLEAN -RIGHT SCAPULAR AND LEFT SCAPULAR TOWARD MID BACK SURGICAL WOUND CLEANSE WITH NS, PACK WOUND WITH ADAPTIC DRESSING AND COVER WITH COMPOSITE DRESSING AND CHANGE Q M-W-F AND PRN IF SOILING -TURN AND REPOSITION PATIENT Q 2H -ASSESS AND MONITOR SKIN CONDITION DURING POSITION CHANGE -OFFLOAD BILATERAL HEELS BY PLACING PILLOWS UNDER CALVES AT ALL TIMES, UNLESS OTHERWISE CONTRAINDICATED -PRESSURE REDISTRIBUTION BY PLACING PILLOWS AND OFFLOADING SACRALCOCCYX -KEEP SKIN CLEAN AND DRY AT ALL TIMES. PLEASE CONTACT WOUND CARE NURSE FOR ANY QUESTION AND CHANGE OF WOUND CONDITION. Addendum: 04/16/19 at 1513 by Dharmesh Ureña RN (Grace) CORRECTION: -LEFT SCAPULAR TOWARD MID BACK SURGICAL WOUND 4X1.5X0.3CM WOUND BED 100% GRANULATION TISSUE, MOIST, MO ODOR, NADER WOUND SKIN INTACT.
--- NOTE | 2019-04-16 15:07 | NUR ---
PT RESTING IN BED. FLACC 0. RESPIRATIONS EVEN AND UNLABORED WITH NO SOB OR RESPIRATORY DISTRESS. SKIN WARM AND DRY TO TOUCH. CAN DRAINING CLEAR YELLOW URINE. [employer] DEVELOPMENT TEAM LEAD ASSISTED IN CHANGING AND REPOSITIONING PATIENT. SAFETY MEASURES IN PLACE. WILL CONTINUE TO MONITOR
[2019-04-16] MEDS ORDERED: AMIK500I IV (16:00)
[2019-04-16 16:46] VITALS: BP 115/74
--- NOTE | 2019-04-16 16:47 | NUR ---
CALLED [facility] TO GIVE REPORT TO NURSE ACCEPTING PATIENT. GAVE REPORT TO LULA. SHE VERBALIZED THE INFORMATION BACK. NO CONCERNS AT THIS TIME.
--- NOTE | 2019-04-16 16:49 | NUR ---
CALLED SPOUSE MAYKEL AMBROSE TO INFORM OF PATIENTS TRANSFER TO [facility] [place]. DID NOT ANSWER, LEFT MESSAGE WITH CALLBACK NUMBER
--- NOTE | 2019-04-16 17:24 | NUR ---
PT TO BE DISCHARGED. DISCHARGE PAPER WORK PREPARED AND SIGNED. TRANSPORT ARRIVED TO TAKE PT TO [facility]. PATIENT RESTING IN BED. FLACC 0. RESPIRATIONS EVEN AND UNLABORED WITH NO SOB OR RESPIRATORY DISTRESS. TRACH CONNECTED TO VENT. NO DESATURATION EVENTS NOTED. RIGHT IJ TRIPLE LUMEN AND G-TUBE SITE ARE CLEAN, DRY AND IN TACT. NO COMPLICATIONS OR CONCERNS. SKIN IS WARM AND DRY TO TOUCH. ID BANDS REMOVED. PT DISCONNECTED FROM G-TUBE, PULSE OX, AND TELE MONITOR. BELONGS GATHERED. NOTHING LEFT IN THE ROOM. PT BEING ESCORTED VIA GURNEY WITH MEDICS AT BEDSIDE. PT IS IN STABLE CONDITION.
[2019-04-17] MEDS ORDERED: DEXL60EC PO (23:39)
== END 2019-04-16 17:25 | DRG 220 ==
LOC: MED 08:12 → MIC 10:42 → MTU 04-12 22:15
PROVIDERS: ADMIT Internal Medicine Pulmonary Disease; ATTEND Internal Medicine Pulmonary Disease
PROC: 0DN64ZZ Release Stomach, Percutaneous Endoscopic Approach (ICD-10-PCS; 2019-04-04)
PROC: 30233N1 Transfusion of Nonautologous Red Blood Cells into Peripheral Vein, Percutaneous Approach (ICD-10-PCS; 2019-04-04)
PROC: 0W9G4ZZ Drainage of Peritoneal Cavity, Percutaneous Endoscopic Approach (ICD-10-PCS; 2019-04-04)
PROC: 0DP6XUZ Removal of Feeding Device from Stomach, External Approach (ICD-10-PCS; 2019-04-04)
PROC: 5A1955Z Respiratory Ventilation, Greater than 96 Consecutive Hours (ICD-10-PCS; principal; 2019-04-04 16:00)
PROC: 05HM33Z Insertion of Infusion Device into Right Internal Jugular Vein, Percutaneous Approach (ICD-10-PCS; 2019-04-05)
PROC: B543ZZA Ultrasonography of Right Jugular Veins, Guidance (ICD-10-PCS; 2019-04-05)
PROC: 0DH63UZ Insertion of Feeding Device into Stomach, Percutaneous Approach (ICD-10-PCS; 2019-04-14)
DX: K94.23 Gastrostomy malfunction (principal); N17.0 Acute kidney failure with tubular necrosis; R65.21 Severe sepsis with septic shock; J96.22 Acute and chronic respiratory failure with hypercapnia; K65.1 Peritoneal abscess; A41.9 Sepsis, unspecified organism; G82.50 Quadriplegia, unspecified; J18.9 Pneumonia, unspecified organism; E46 Unspecified protein-calorie malnutrition; K94.22 Gastrostomy infection; Z99.11 Dependence on respirator [ventilator] status; G93.41 Metabolic encephalopathy; K65.9 Peritonitis, unspecified; G40.909 Epilepsy, unspecified, not intractable, without status epilepticus; E66.01 Morbid (severe) obesity due to excess calories; E78.5 Hyperlipidemia, unspecified; G93.1 Anoxic brain damage, not elsewhere classified; F32.9 Major depressive disorder, single episode, unspecified; J45.909 Unspecified asthma, uncomplicated; K56.7 Ileus, unspecified; R13.10 Dysphagia, unspecified; K21.9 Gastro-esophageal reflux disease without esophagitis; I10 Essential (primary) hypertension; E11.9 Type 2 diabetes mellitus without complications; K66.0 Peritoneal adhesions (postprocedural) (postinfection); Z79.4 Long term (current) use of insulin; Z86.73 Personal history of transient ischemic attack (TIA), and cerebral infarction without residual deficits; Z68.33 Body mass index [BMI] 33.0-33.9, adult; Z86.79 Personal history of other diseases of the circulatory system; Z87.891 Personal history of nicotine dependence; D63.8 Anemia in other chronic diseases classified elsewhere; Z95.828 Presence of other vascular implants and grafts; Z78.1 Physical restraint status
CPT/HCPCS: 36415; 36600; 70450; 71045; 74018; 80048; 80053; 80076; 80150; 80185; 80202; 81001; 82009; 82140; 82803; 82948; 83605; 83735; 83880; 84100; 84484; 85025; 85610; 85730; 86886; 86900; 86901; 86920; 87040; 87070; 87075; 87081; 87086; 87186; 87205; 93005; 94002; 94003; 94640; 96365; 96368; 96375; 99285; A9153; C1758; C9113; J0278; J1100; J1165; J1200; J1720; J1815; J1940; J2060; J2185; J2270; J2370; J2405; J2704; J3010; J3370; J3475; J3480; J3490; J7030; J7060; J7613; J7620; J7644; P9016; P9046; Q0092

== ENCOUNTER 2019-04-17 19:13 | Inpatient (IN) | payer OTHER ==
[~2019-04-17] VITALS: Ht 172.7 cm; Wt 107.0 kg
[2019-04-17 19:13] VITALS: BP 117/71
[~2019-04-17 19:13] MED LIST changes: -ACET-2619 PO; +AMIK500I IV; -INSU100S5 SQ; -KEP500L GT; -NA P135N RC; -PIPE1PDS26 IV
--- NOTE | 2019-04-17 19:20 | NUR ---
PT RECIEVED FROM EMR BEING BAGGED. PLACED PT ON VENTILATOR AC 600 VT, 18 RATE, +5, 50%. PT APPEARS STABLE ON CURRENT VENT SETTINGS SPO2 100%, WILL CONT. TO MONITOR.
[2019-04-17] MEDS ORDERED: NACL 0.9% 1,000 ML IV ONE (19:23)
--- NOTE | 2019-04-17 19:25 | NUR ---
43 YEAR OLD MALE BIBA FOR VOMITTING BLOOD. PATIENT ON TRACH, TRACH MIDLINE. BREATHING EVEN AND LABORED. PATIENT ON MECHANICAL VENTILATOR WITH RESPIRATORY THERAPY AT BEDSIDE. RR35, SPO2 100%, FIO2 50%. LUNG SOUNDS RHONCHI BILATERALLY. BP 117/71, HR 131. PATIENT SKIN WARM AND DIAPHORETIC. PATIENT AOX0, GCS 4 (E2, V,1, M1). CENTRAL LINE ON INTERNAL JUGULAR, BROWN 10ML/SEC LINE IS ONLY FLUSHABLE LINE. BED IN LOWEST POSITION, LOCKED, BED RAIL UPX1.
[2019-04-17 19:36] VITALS: BP 117/71
[2019-04-17 20:03] LABS: PROTHROMBIN TIME 11.4 secs (10.8-13.4)
[2019-04-17] MEDS ORDERED: NACL 0.9% 2,500 ML IV ONE (20:05)
[2019-04-17] MEDS ORDERED: VANCOMYCIN 1,000 MG in DEXTROSE 5% 250 ML IV ONE (20:05)
[2019-04-17] MEDS ORDERED: MEROPENEM 1,000 MG in NACL 0.9% 100 ML IV ONE (20:05)
[2019-04-17] MEDS ORDERED: LORazepam 2 MG/ML VIAL IVP PRN (20:10)
[2019-04-17] MEDS ORDERED: DOCUSATE SODIUM 250 MG GELCAP PO PRN (20:10)
[2019-04-17] MEDS ORDERED: POTASSIUM CHLORIDE 10 MEQ TABER PO PRN (20:10)
[2019-04-17] MEDS ORDERED: MAGNESIUM OXIDE 400 MG TAB PO PRN (20:10)
[2019-04-17] MEDS ORDERED: ONDANSETRON 4 MG/2 ML VIAL IVP PRN ×2 (20:10)
[2019-04-17] MEDS ORDERED: MAG SULF 2000 MG/WATER PREMIX 50 ML IV PRN (20:10)
[2019-04-17] MEDS ORDERED: cloNIDine 0.1 MG TAB PO PRN (20:10)
[2019-04-17] MEDS ORDERED: AMIKACIN PER PHARMACY MC PRN (20:10)
[2019-04-17] MEDS ORDERED: ACETAMINOPHEN 650 MG SUPP RC PRN (20:10)
[2019-04-17] MEDS ORDERED: MORPHINE SULFATE 2 MG/ML SYR IVP PRN (20:10)
[2019-04-17] MEDS ORDERED: VANCOMYCIN PER PHARMACY MC PRN (20:10)
[2019-04-17] MEDS ORDERED: ACETAMINOPHEN 325 MG TAB PO PRN ×2 (20:10)
[2019-04-17] MEDS ORDERED: BISACODYL 10 MG SUPP RC PRN (20:10)
[2019-04-17 20:11] LABS: ANION GAP 15.3 (8-16); CARBON DIOXIDE 24.1 mmol/L (21-32); CREATININE 1.9 mg/dL (0.7-1.3); POTASSIUM 4.4 mmol/L (3.5-5.1); TOTAL BILIRUBIN 0.7 mg/dL (0.0-1.0)
[2019-04-17] MEDS ORDERED: MEROPENEM 500 MG VIAL IV ONE (20:37)
[2019-04-17] MEDS ORDERED: VANCOMYCIN 1,000 MG VIAL ONE (20:45)
[2019-04-17 21:08] LABS: BASOPHILS % (AUTO) 0.2 % (0.0-2.0); EOSINOPHILS # (AUTO) 0.1 K/uL (0-0.4); LYMPHOCYTES # (AUTO) 1.1 K/uL (2.0-11.5); LYMPHOCYTES % (AUTO) 8.2 % (20.5-51.1); MEAN CORPUSCULAR HEMOGLOBIN 28 pg (27-31); MEAN CORPUSCULAR HGB CONC 32 g/dL (33-37); MEAN CORPUSCULAR VOLUME 86.4 fL (80-94); MONOCYTES # (AUTO) 0.8 K/uL (0.8-1.0); NEUTROPHILS # (AUTO) 11.4 K/uL (1.8-7.7); NEUTROPHILS % (AUTO) 84.6 % (42.2-75.2); PLATELET COUNT (AUTO) 509 K/uL (140-450); RED BLOOD CELL COUNT(AUTO) 2.03 MIL/uL (4.20-6.10); RED CELL DISTRIBUTION WIDTH 16.6 % (11.6-13.7); WHITE BLOOD COUNT (AUTO) 13.5 K/uL (4.8-10.8)
--- NOTE | 2019-04-17 21:10 | NUR ---
PATIENT TAKEN TO CT
--- NOTE | 2019-04-17 21:15 | NUR ---
WHILE LAYING FLAT PREPARING FOR CT SCAN, PT VOMITING DARK RED BLOOD WITH CLOTS, PT HEAD TURNED TO SIDE, TRACH AIRWAY SECURE, SPO2 100% THROUGHOUT.
--- NOTE | 2019-04-17 21:17 | NUR ---
2116-- pt returned from ct
[2019-04-17 21:26] LABS: HEMATOCRIT 17.5 % (36-52); HEMOGLOBIN 5.6 g/dL (12.0-18.0)
--- NOTE | 2019-04-17 21:29 | NUR ---
PT BACK FROM CT. PT LAYING IN BED, SPO2 100% ON VENT A/C 50% FIO2, RR 32 EVEN AND MILDLY LABORED. NO ACTIVE VOMITING AT THIS TIME. PT WITH SOME SECRETIONS, SUCTIONED BY RT.
[2019-04-17] MEDS: NACL 0.9% 500 ML IV SCH (21:34)
--- NOTE | 2019-04-17 22:10 | NUR ---
DR. NOLAN MADE AWARE THAT PT REQUIRES ADDITIONAL IV ACCESS DUE TO ONLY ONE FUNCTIONING LUMEN IN CENTRAL LINE. MULTIPLE PIV ATTEMPTS BY NURSES UNSUCCESSFUL. DR. NOLAN AT BEDSIDE ATTEMPTING US GUIDED IV.
--- NOTE | 2019-04-17 22:11 | NUR ---
RECEIVED VERBAL CONSENT FROM HECTOR ALMANZA, SISTER IN LAW FOR BLOOD TRANSFUSION. DR. NOLAN MADE AWARE.
--- NOTE | 2019-04-17 22:20 | NUR ---
BLOOD PICKED UP FROM LAB. CONSENT FORM SIGNED AND WITNESSED BY RN X 2, DR. NOLAN.
--- NOTE | 2019-04-17 22:23 | NUR ---
2ND LUMEN FLUSHED SUCCESSFULLY. PIV NO LONGER NEEDED.
--- NOTE | 2019-04-17 22:26 | NUR ---
TIME OUT FOR BLOOD ADMINISTRATION COMPLETED BY MIKE BUTLER AND MIKE CHACON.
--- NOTE | 2019-04-17 22:32 | NUR ---
Consent signed per PATIENT'S FAMILY agreeing to administration of blood. Blood has been type and crossmatched. Blood sent from blood bank. Information on unit of blood checked against patient wristband at bedside by two nurses. All information matches. Patient or responsible constitution party informed of potential complications associated with blood transfusion. Informed of possible transfusion reaction symptoms. Aware of need to notify nurse at once of itching, shortness of breath, flushing, feeling of impending doom, or other symptoms not previously present. Vital signs taken within 5 minutes prior to initiation of transfusion. RN will remain with patient for first 15 minutes of transfusion at which time vital signs will be re-assessed.
--- NOTE | 2019-04-17 22:32 | NUR ---
1 UNIT PRBC TRANSFUSION STARTED AT THIS TIME AT 50ML/HR, WILL MONITOR FOR SIGNS OF ALLERGIC OR ADVERSE REACTION.
--- NOTE | 2019-04-17 22:47 | NUR ---
NO ALLERGIC OR ADVERSE REACTION NOTED WITHIN 15 MINS OF 1 UNIT PRBC TRANSFUSION, INCREASED RATE TO 150ML/HR AT THIS TIME. VSS THROUGHOUT.
[2019-04-17 22:53] LABS: APPEARANCE,URINE CLOUDY (CLEAR); BILIRUBIN,URINE 1+ (NEGATIVE); BLOOD, URINE 3+ (NEGATIVE); COLOR,URINE YELLOW (YELLOW); LEUKOCYTE ESTERASE ,URINE TRACE (NEGATIVE); NITRITE, URINE NEGATIVE (NEGATIVE); UGLUCOSE NEGATIVE (NEGATIVE)
[2019-04-17] MEDS ORDERED: AMIKACIN IV SCH (23:00)
[2019-04-17] MEDS ORDERED: NACL 0.9% IV SCH (23:00)
[2019-04-17 23:06] LABS: RBC,URINE TOO NUMEROUS TO COUN /HPF (0-5); URINE AMORPHOUS URATE 4+ /HPF (None Seen)
--- NOTE | 2019-04-17 23:30 | NUR ---
PT TRANSFERRED FROM ER BED 10 TO ICU BED 8 WITH NO COMPLICATIONS. PT PLACED ON SAME VENTILATOR SETTINGS OF AC 18, 600 VT, +5, 35% WEANED FROM 50% FIO2. AMBU BAG BEDSIDE. ALARMS ON AND FUNCTIONING. WILL CONT. TO MONITOR.
[2019-04-17] MEDS ORDERED: DEXL60EC PO (23:39)
[2019-04-17 23:45] VITALS: BP 96/71
--- NOTE | 2019-04-17 23:45 | NUR ---
PT RECEIVED FROM OSWALDO MCKEON AND LUKE MCKEON. PT IS LETHARGIC. WITHDRAWS TO PAIN. SINUS RHYTHM ON MONITOR. PT TRACH TO VENT FIO2 30, TV 600, RATE 18, PEEP 5. RIGHT PUPPIL SIZE 5MM, SLUGGISH. LEFT PUPPIL SIZE 3MM. SLUGGISH. NO SOB NOTED. ABDOMEN IS SOFT AND ROUND. 4 RAFAEL NOTED ON LOWER ABDOMEN, 2 RAFAEL NOTED ON UPPER ABDOMEN. GTUBE NOTED IN PLACE. SKIN IS WARM AND DRY, NON INTACT, MULTIPLE WOUNDS NOTED. SEE WOUND ASSESSMENT. CENTRAL LINE RIJ, TRIPLE LUMEN. WHITE CAP NOT PATENT. 1 UNIT OF BLOOD CURRENTLY TRANSFUSING. 1 L FLUID BOLUS CURRENTLY INFUSING. CAN CATHETER IN PLACE. HOB 30 DEGREES. BED LOCKED IN LOWEST POSITION.
--- NOTE | 2019-04-17 23:50 | NUR ---
Patient will be admitted to care of DR STEWARD. Admited to ICU. Will go to room 8. Belongings list completed. Report to DELMER MCKEON.
[2019-04-18] VITALS (44 sets, daily range): BP systolic 47–155; BP diastolic 36–78
[2019-04-18] MEDS ORDERED: AMIKACIN 500 MG/2 ML VIAL IV ONE (01:01)
--- NOTE | 2019-04-18 01:54 | NUR ---
2ND UNIT OF BLOOD BEING ADMINISTERED. V/S STABLE.
[2019-04-18] MEDS: NACL 0.9% 500 ML IV SCH (02:50)
--- NOTE | 2019-04-18 04:00 | NUR ---
REPOSITIONED PATIENT FOR COMFORT, WILL CONTINUE TO MONITOR.
[2019-04-18] MEDS ORDERED: NACL 0.9% 1,000 ML IV ONE (04:45)
[2019-04-18] MEDS ORDERED: NOREPINEPHRINE 4 MG in DEXTROSE 5% 250 ML IV PRN (04:45)
[2019-04-18] MEDS ORDERED: MEROPENEM 1,000 MG in NACL 0.9% 100 ML IV SCH (05:00)
--- NOTE | 2019-04-18 05:00 | NUR ---
BLOOD COMPLETED WILL DRAW LABS AT 0700
[2019-04-18] MEDS ORDERED: MEROPENEM 500 MG VIAL IV ONE (05:16)
--- NOTE | 2019-04-18 06:00 | NUR ---
[place] INFUSING WILL CONTINUE TO MONITOR.
[2019-04-18] MEDS ORDERED: HYDRAGUARD CREAM TP PRN (07:10)
[2019-04-18] MEDS ORDERED: COMPOSITE DRESSING TP PRN (07:10)
--- NOTE | 2019-04-18 07:15 | NUR ---
RECEIVED BEDSIDE REPORT FROM GUEST SERVICES ASSISTANT RN, SUMMER. PT IS TRACH TO VENT, AC/VC FIO2 28%, TV 600, RATE 18, PEEP 5. PULSES PALPABLE, CAP REFILL LESS THAN 2 SECONDS. PT HAS HX OF CVA, LEFT CRANIOTOMY. RIGHT SIDED WEAKNESS. SKIN WARM AND DRY. CENTRAL LINE TRIPLE LUMEN RUNNING NS AT 75ML/HR. CAN CATHETER IN PLACE, DRAINING CLOUDY YELLOW URINE. G TUBE CLAMPED, BOWEL SOUNDS ACTIVE. LUNG SOUNDS COARSE, SUCTIONED, OBTAINED YELLOW SPUTUM. PT HAS LIQUID DARK RED AND BLACK STOOL. WILL CLEAN PT LATER. BED LOCKED IN LOWEST POSITION. BED ALARM ON. CALL LIGHT WITHIN REACH.
[2019-04-18] MEDS ORDERED: NACL 0.9% IRR 250 ML BOTTLE IR SCH (07:30)
[2019-04-18] MEDS ORDERED: MILD SOAP AND WATER TP SCH (07:30)
[2019-04-18 07:51] LABS: ALBUMIN 1.7 g/dL (3.4-5.0); ANION GAP 17.5 (8-16); CARBON DIOXIDE 21.4 mmol/L (21-32); CREATININE 2.2 mg/dL (0.7-1.3); POTASSIUM 3.9 mmol/L (3.5-5.1); TOTAL BILIRUBIN 0.6 mg/dL (0.0-1.0)
[2019-04-18 08:07] LABS: RED BLOOD CELL COUNT(AUTO) 2.07 MIL/uL (4.20-6.10); WHITE BLOOD COUNT (AUTO) 10.9 K/uL (4.8-10.8)
[2019-04-18 08:08] LABS: HEMATOCRIT 18.2 % (36-52); MEAN CORPUSCULAR HEMOGLOBIN 29 pg (27-31); MEAN CORPUSCULAR HGB CONC 33 g/dL (33-37); RED CELL DISTRIBUTION WIDTH 15.9 % (11.6-13.7)
[2019-04-18 08:09] LABS: BASOPHILS % (AUTO) 0.4 % (0.0-2.0); EOSINOPHILS # (AUTO) 0.2 K/uL (0-0.4); EOSINOPHILS % (AUTO) 1.4 % (0.0-4.0); LYMPHOCYTES # (AUTO) 1.1 K/uL (2.0-11.5); LYMPHOCYTES % (AUTO) 10.2 % (20.5-51.1); MONOCYTES # (AUTO) 0.7 K/uL (0.8-1.0); MONOCYTES % (AUTO) 6.1 % (1.7-9.3); NEUTROPHILS % (AUTO) 81.9 % (42.2-75.2); PLATELET COUNT (AUTO) 359 K/uL (140-450)
--- NOTE | 2019-04-18 08:12 | NUR ---
PAGED DR STEWARD FOR CRITICAL VALUES
[2019-04-18] MEDS ORDERED: NACL 0.9% 1,000 ML IV SCH (08:20)
--- NOTE | 2019-04-18 08:21 | NUR ---
SPOKE WITH DR STEWARD OVER THE PHONE. REPORT CRITICAL VALUES H&H POST BLOOD TRANSFUSION, MADE DR STEWARD AWARE OF POOR URINE OUTPUT AND PT HAS A LOT DARK RED BLOOD IN STOOL. DR STEWARD ORDERED 2 MORE PRBC. 1L NS BOLUS AND CHANGE MAINTENANCE IVF TO 150ML/HR.
--- NOTE | 2019-04-18 08:32 | NUR ---
PAGED DR HAYNES
[2019-04-18] MEDS: NACL 0.9% 1,000 ML IV SCH ×3 (08:39→23:47)
--- NOTE | 2019-04-18 09:15 | NUR ---
SPOKE WITH DR HAYNES OVER THE PHONE, MADE HIM AWARE PT'S HGB IS 6.0 AFTER 2 PRBC TRANSFUSED AND PT HAS DARK RED BLOOD IN STOOL. NO BLEEDING FROM G TUBE SITE. DR HAYNES SAID JUST TRANSFUSE HIM WITH 2MORE BAGS
--- NOTE | 2019-04-18 10:06 | NUR ---
PATIENT HAS BEEN SCREENED AND CATEGORIZED MODERATE NUTRITION RISK. PATIENT WILL BE SEEN WITHIN 1-2 DAYS OF ADMISSION. 04/19/19-04/20/[address]
--- NOTE | 2019-04-18 11:31 | NUR ---
WOUND CARE CONSULTTAEE, PT. READMITTED TO [facility] FOR BLOODY EMESIS AND PRIMARY RN REPORT THAT PT. HAS BLOODY STOOL THIS REBECCA, POC DISCUSSED WITH PRIMARY RN POC DISCUSSED. SURGICAL WOUNDS RESPONDING TO TREATMENT NO MAJOR CHANGE FROM LAST VISIT AND WILL CONTINUE TREATMENT. INTEGUMENTARY -TRACH AND GT STOMA NADER-SKIN DRY AND CLEAN -MID, LEFT AND LOWER ABDOMINAL LOPEZ MULTIPLE HEALED SCARS FROM PREVIOUS SURGICAL WOUNDS, 7 RAFAEL REMOVED, DRY AND CLEAN, NO S/S OF WOUND DEHISCENCE -LEFT FOOT/TOES MULTIPLE SCABS SKIN DRY AND SCALY, INTACT, -LEFT DORSAL FOOT PREVIOUS SCAB TODAY SCAB OFF WITH PARTIAL THICKNESS SKIN LOSS , 1X1CM SUPERFICIAL DEPTH WOUND BED 100% GRANULATION, MOIST NO ODOR, NADER WOUND SKIN INTACT -LEFT SCAPULAR TOWARD MID BACK SURGICAL WOUND 3.5X1.5X0.3CM WOUND BED 100% GRANULATION TISSUE, MOIST, MO ODOR, NADER WOUND SKIN INTACT. -RIGHT SCAPULAR SURGICAL WOUND 2X0.5X0.8 CM WOUND BED 100% GRANULATION TISSUE, MOIST, NO ODOR, NADER WOUND SKIN INTACT. -MAD TO SCROTAL AREA, REDNESS AND SKIN INTACT RECOMMENDATION: -REMOVED 7 RAFAEL TO ABDOMINAL WALL -PAINT MID, LEFT AND LOWER ABDOMINAL LOPEZ MULTIPLE SCARS AND LEFT DORSAL FOOT OPENJ WOUND WITH BETADINE SOLUTION BID AND GUILLERMO -RIGHT SCAPULAR AND LEFT SCAPULAR TOWARD MID BACK SURGICAL WOUNDS CLEANSE WITH NS, PACK WOUND WITH ADAPTIC DRESSING AND COVER WITH COMPOSITE DRESSING AND CHANGE Q DAY AND PRN IF SOILING -APPLY HYDRAGUARD TO SCROTAL AREAS BID AND BANK OFFICER -TURN AND REPOSITION PATIENT Q 2H -ASSESS AND MONITOR SKIN CONDITION DURING POSITION CHANGE -OFFLOAD BILATERAL HEELS BY PLACING PILLOWS UNDER CALVES AT ALL TIMES, UNLESS OTHERWISE CONTRAINDICATED -PRESSURE REDISTRIBUTION BY PLACING PILLOWS AND OFFLOADING SACRALCOCCYX -KEEP SKIN CLEAN AND DRY AT ALL TIMES. PLEASE CONTACT WOUND CARE NURSE FOR ANY QUESTION AND CHANGE OF WOUND CONDITION.
--- NOTE | 2019-04-18 12:15 | NUR ---
FIRST BAG OF PRBC FINISHED. NO ALLERGIC RXN.
--- NOTE | 2019-04-18 12:20 | NUR ---
CALLED DR STEWARD OVER THE PHONE, RECOMMENDED GI CONSULT.
--- NOTE | 2019-04-18 12:35 | NUR ---
DR DARRIUS MUNGUIA CAME AND ASSESSED PT. BLOOD NOTED AROUND THE PILLOW. NOTICED CVC CAME OUT, TIP INTACT. STOPPED IV. GAUZE PLACED ON THE CVC SITE. NO ACTIVE BLEEDING AT THIS TIME.
[2019-04-18] MEDS ORDERED: Z-GUARD PASTE TP SCH (13:00)
[2019-04-18] MEDS ORDERED: THERAHONEY GEL 42.5 GM TP SCH (13:00)
[2019-04-18] MEDS ORDERED: HYDRAGUARD CREAM TP SCH (13:00)
[2019-04-18] MEDS ORDERED: DRY DRESSING TP SCH (13:00)
[2019-04-18] MEDS ORDERED: GAUZE TP SCH ×2 (13:00)
--- NOTE | 2019-04-18 13:40 | NUR ---
TRIED TO INSERT PERIPHERAL IV, HOWEVER, WAS NOT SUCCESSFUL. DR HAYNES CAME AND SAID HE WILL PUT IN A CVC.
--- NOTE | 2019-04-18 14:00 | NUR ---
DR DARRIUS MUNGUIA CAME SAID TO DO GASTRIC LAVAGE BY PUTTING 250ML STERILE WATER VIA G TUBE, LET IT SIT FOR SEVERAL MINUTES AND CONNECT TO LOW SUCTION TO SEE IF THERE IS ANY BLOODY OUTPUT.
--- NOTE | 2019-04-18 14:20 | NUR ---
GASTRIC LAVAGE DONE. NO BLOOD NOTED IN THE SUCTION CANISTER. G TUBE TO LOW INTERMITTENT SUCTION.
--- NOTE | 2019-04-18 14:45 | NUR ---
CALLED DR DALAL ON THE PHONE. DR DALAL SAID WILL TALK TO FAMILY ABOUT EGD AND HE MAY COME TO DO IT TODAY OR TOMORROW.
--- NOTE | 2019-04-18 15:00 | NUR ---
CALLED DR HAYNES WHO SAID IS COMING TO DO THE CVC INSERTION. CVC TRAY SET UP ALREADY, MADE US TECH AWARE ALREADY.
--- NOTE | 2019-04-18 15:47 | NUR ---
Optical Element Coater Note: Basic Screen: Yes High Risk DC Screen Yes Name: PAYAL Charles Relationship: [id number] Pre-Admission Living Arrangements: SNF Healthcare Decision Maker: Other Other: [id number] - PAYAL ALMANZA Advance Directive No Discipline: Case Mgt/Social Svcs Tentative Discharge Plan/Destination: No Needs Identified Will require assistance post discharge: No Referred to Manager Auto: No Tentative Discharge Plan Summary: Patient is a 43-year-old female admitted for fever, sepsis, and GI bleed. Patient has PMHX of Chronic respiratory failure, ventilator dependent, History of intracranial hemorrhage, Chronic encephalopathy, comatose state, Recent G-tube dysfunction, Recent sepsis, peritonitis due to above, new G-tube was reinserted on 04/14/2019, Diabetes, Hypertension, Hyperlipidemia, and Seizure disorder. Patient was admitted from [facility] [phone]. SW contacted Beth from admissions. Per Beth, patient is a [facility] patient and is currently on a bed hold. Beth stated that patient has no advanced directive and that patient's healthcare decision maker is Payal Almanza, patient's [id number]. Tentative plan for patient is to return to [facility]. No further needs identified. Signature: JOSHUA Ledesma Date: Apr 18, 2019 Time: 15:46
--- NOTE | 2019-04-18 16:00 | NUR ---
DR HAYNES INSERTED CVC ON RIGHT IJ. CHEST X RAY TAKEN AT BEDSIDE. DR HAYNES SAID OK TO USE.
[2019-04-18] MEDS: HYDRAGUARD CREAM TP SCH (16:11)
[2019-04-18] MEDS: GAUZE TP SCH (16:11)
[2019-04-18] MEDS: THERAHONEY GEL 42.5 GM TP SCH (16:11)
--- NOTE | 2019-04-18 16:27 | NUR ---
04/18/19 RD INITIAL ASSESSMENT COMPLETED PLEASE REFER TO NUTRITION ASSESSMENT UNDER CARE ACTIVITY FOR ESTIMATED NUTRITIONAL NEEDS. 1. CONTINUE NPO NECESSARY 2. WHEN PT IS MEDICALLY STABLE TO RECEIVE NUTRITION, RECOMMEND GLUCERNA 1.2 AT 65 ML/HR AND H20 FLUSH 160 ML Q6H -THIS PROVIDES 1560 ML VOLUME, 1872 KCAL AND 93.6 GM PROTEIN. IT MEETS 100% OF ESTIMATED ENERGY NEEDS AND 79% OF ESTIMATED PROTEIN NEEDS. 3. GI TRACT IS NOT ACCESSIBLE, RECOMMEND TPN TO MEET >75% OF PTS ESTIMATED ENERGY AND PROTEIN NEEDS. 4. RD TO FOLLOW-UP 2-3 DAYS, HIGH RISK ISELA GARCIA, RD
--- NOTE | 2019-04-18 17:25 | NUR ---
PT REMAINS ON DOCUMENTED VENT SETTINGS TOLERATING WELL. TRACH IS SECURE WITH A PATENT AIRWAY. VENT ALARMS ON AND FUNCTIONING. PT IS NOT IN ANY DISTRESS AT THIS TIME.
[2019-04-18] MEDS ORDERED: hydrALAZINE 20 MG/ML VIAL IVP PRN (18:40)
--- NOTE | 2019-04-18 20:00 | NUR ---
PT HAS EYES CLOSED; AROUSABLE. PT RESPONDS TO PAINFUL STIMULI. TRACH TO VENT, MIN SECRETIONS THIN WHITE. LUNGS RHONCHI BILATERAL LUNGS. ABD SOFT NON DISTENDED. GTUBE IN PLACE. POSITIVE PLACEMENT. DARK STOOLS NOTED, MD AWARE. CAN CATH IN PLACE. CLEAR YELLOW URINE. SKIN NON INTACT. RIJ TRIPLE LUMEN IN PLACE. SEIZURE PRECAUTIONS. BED LOCKED IN LOWEST POSITION.
[2019-04-18] MEDS: PANTOPRAZOLE 40 MG INJ VIAL IVP SCH (23:46)
[2019-04-18] MEDS: MEROPENEM 1,000 MG in NACL 0.9% 100 ML IV SCH (23:46)
[2019-04-19] VITALS (24 sets, daily range): BP systolic 102–151; BP diastolic 35–117
--- NOTE | 2019-04-19 00:15 | NUR ---
PT TURNED AND REPOSITIONED. ORAL CARE DONE. VSS. WILL CONTINUE TO OBSERVE
--- NOTE | 2019-04-19 04:00 | NUR ---
AM CARE DONE. LINEN CHANGED. DARK STOOL X1 NOTED. WILL CONTINUE TO OBSERVE.
[2019-04-19] MEDS: HYDRAGUARD CREAM TP SCH ×2 (05:12→13:22)
[2019-04-19] MEDS: NACL 0.9% 1,000 ML IV SCH ×4 (05:13→20:00)
[2019-04-19 05:54] LABS: ALBUMIN 1.9 g/dL (3.4-5.0); ANION GAP 18.8 (8-16); CARBON DIOXIDE 19.8 mmol/L (21-32); CREATININE 1.6 mg/dL (0.7-1.3); POTASSIUM 3.6 mmol/L (3.5-5.1); TOTAL BILIRUBIN 0.6 mg/dL (0.0-1.0)
[2019-04-19 06:03] LABS: BASOPHILS % (AUTO) 0.3 % (0.0-2.0); EOSINOPHILS # (AUTO) 0.1 K/uL (0-0.4); EOSINOPHILS % (AUTO) 0.9 % (0.0-4.0); HEMATOCRIT 20.8 % (36-52); LYMPHOCYTES # (AUTO) 0.8 K/uL (2.0-11.5); LYMPHOCYTES % (AUTO) 8.3 % (20.5-51.1); MEAN CORPUSCULAR HEMOGLOBIN 29 pg (27-31); MEAN CORPUSCULAR HGB CONC 33 g/dL (33-37); MONOCYTES # (AUTO) 0.7 K/uL (0.8-1.0); MONOCYTES % (AUTO) 7.7 % (1.7-9.3); NEUTROPHILS # (AUTO) 7.6 K/uL (1.8-7.7); NEUTROPHILS % (AUTO) 82.8 % (42.2-75.2); PLATELET COUNT (AUTO) 353 K/uL (140-450); RED BLOOD CELL COUNT(AUTO) 2.39 MIL/uL (4.20-6.10); RED CELL DISTRIBUTION WIDTH 16.3 % (11.6-13.7); WHITE BLOOD COUNT (AUTO) 9.1 K/uL (4.8-10.8)
[2019-04-19 06:21] LABS: HEMOGLOBIN 6.9 g/dL (12.0-18.0)
--- NOTE | 2019-04-19 07:38 | NUR ---
report given to day shift rn for continuity of care. vss.
--- NOTE | 2019-04-19 08:00 | NUR ---
Report received at bed side. Pt is sleeping and awakes to tactile stimuli but non purposeful. Trach to vent AC18, fio2 28%, TV 600, Peep 5. G-tube in place and NPO at this time in preparation of EGD. RIJ central line with triple lumen all patent and asymptomatic. Able to move extremities and noted reaching for the tube while released during assessment. On bilateral soft wrist restraints. Cap refill within 3 sec. Myers cath draining clear yellow urine. call light in reach and all safety precautions in place. Will continue to monitor.
[2019-04-19] MEDS: MEROPENEM 1,000 MG in NACL 0.9% 100 ML IV SCH ×2 (09:42→20:11)
[2019-04-19] MEDS: PANTOPRAZOLE 40 MG INJ VIAL IVP SCH ×2 (09:48→20:11)
--- NOTE | 2019-04-19 10:00 | NUR ---
1st unit of PRBC started infusing. Consent verified and blood verified with second nurse.
[2019-04-19] MEDS ORDERED: fentaNYL 0.05 MG/ML VIAL ONE (10:54)
[2019-04-19] MEDS ORDERED: MIDAZOLAM 2 MG/2 ML VIAL ONE (10:54)
--- NOTE | 2019-04-19 11:15 | NUR ---
1ST BAG OF PRBC COMPLETED.
--- NOTE | 2019-04-19 11:16 | NUR ---
Pre-op checklist done for EGD. consent verified. Dr. Pham made aware and is on the way. Bed side prep for EGD is being performed. No acute distress noted.
[2019-04-19] MEDS ORDERED: VANCOMYCIN 1,000 MG in DEXTROSE 5% 250 ML IV SCH (11:30)
--- NOTE | 2019-04-19 11:37 | NUR ---
Dr. Pham at bed side for EGD with 2 OR staff.
--- NOTE | 2019-04-19 11:57 | NUR ---
PT SUCTIONED OBTAINED SMALL AMOUNT OF THICK YELLOW SECRETIONS, AIRWAY IS PATENT TRACH IS SECURE. PT NOT IN ANY DISTRESS. WILL CONTINUE TO MONITOR.
--- NOTE | 2019-04-19 12:00 | NUR ---
EGD COMPLETED. PT TOLERATED WELL.
--- NOTE | 2019-04-19 12:10 | NUR ---
2ND BAG OF PRBC STARTED. CONSENT VERIFIED. BLOOD VERIFIED WITH 2ND NURSE PRIOR TO ADMINISTERING.
[2019-04-19] MEDS ORDERED: fentaNYL 0.05 MG/ML VIAL IVP ONE (12:20)
[2019-04-19] MEDS ORDERED: MIDAZOLAM 2 MG/2 ML VIAL IVP ONE (12:20)
[2019-04-19] MEDS: GAUZE TP SCH (13:22)
[2019-04-19] MEDS: THERAHONEY GEL 42.5 GM TP SCH (13:22)
--- NOTE | 2019-04-19 13:30 | NUR ---
WOUND CARES PROVIDED. PT TOLERATED WELL.
--- NOTE | 2019-04-19 14:10 | NUR ---
2ND BAG OF PRBC COMPLETED WITHOUT ANY ADVERSE REACTION. REPOSITIONED FOR COMFORT AND ORAL CARE PROVIDED.
[2019-04-19] MEDS ORDERED: AMIKACIN 500 MG in DEXTROSE 5% 100 ML IV SCH (16:00)
[2019-04-19] MEDS ORDERED: MAG SULF 2000 MG/WATER PREMIX 50 ML IV ONE (16:15)
--- NOTE | 2019-04-19 16:15 | NUR ---
NOTED WITH SOFT LIQUID BLACK TARRY STOOL. ASSISTED WITH BED BATH AND HYGIENE. TOLERATED WELL.
--- NOTE | 2019-04-19 16:16 | NUR ---
RECEIVED NEW ORDER FROM DR. CASTELAN FOR DIETARY CONSULT FOR TUBE FEEDING AND MAG RIDER. NOTED AND WILL CARRY OUT.
--- NOTE | 2019-04-19 17:35 | NUR ---
VENT CHECK COMPLETED. PT NOT IN ANY DISTRESS AT THIS TIME. TRACH IS SECURE WITH A PATENT AIRWAY. VENT ALARMS REMAIN ON AND FUNCTIONING.
--- NOTE | 2019-04-19 18:22 | NUR ---
PT ASSISTED WITH REPOSITIONING FOR COMFORT AND VS WITHOUT ACUTE DISTRESS. WILL CONTINUE TO MONITOR.
--- NOTE | 2019-04-19 19:21 | NUR ---
BED SIDE REPORT GIVE TO NIGHT NURSE. PT VS WITHOUT ACUTE DISTRESS AND ALL SAFETY PRECAUTIONS ARE IN PLACE.
--- NOTE | 2019-04-19 19:30 | NUR ---
RECEIVED REPORT FROM MORNING RN KT FOR CONTINUITY OF CARE. VS STABLE. AFEBRILE. FLACC 0. PT UNABLE TO MAKE NEEDS KNOWN NOR FOLLOW COMMANDS. PUPILS REACTIVE TO LIGHT BUT UNEQUAL. LUNG SOUNDS COARSE. RESPIRATIONS EVEN AND UNLABORED. CHEST RISE SYMMETRIC. TRACH TO VENT WITH SETTINGS FIO2 24%, TV 600, RATE 18 AND PEEP 5. OXYGEN SATURATION WNL. S1+S2 HEARD. SB TO SR ON MONITOR. BP WNL. PULSES PALPABLE IN ALL EXTREMITIES. ABDOMEN ROUND, SOFT AND NONDISTENDED. GTUBE IN PLACE. BS ACTIVE IN ALL QUADRANTS. PT HAS CAN CATHETER IN PLACE. DRAINING CLEAR AND YELLOW URINE. NO BM AT THIS TIME. PT HAS RIGHT IJ CENTRAL LINE THAT IS PATENT, INTACT, AND ASYMPTOMATIC. SKIN IS WARM AND DRY. HOB 30 DEGREES. ALL SAFETY PRECAUTIONS REMAINS IN PLACE. WILL CONTINUE TO MONITOR PT
--- NOTE | 2019-04-19 19:39 | NUR ---
RECEIVED PATIENT FROM DAY ON AC 18,600,+5,24%. ALARMS AUDIBLE AND WORKING. VENT PLUGGED INTO RED OUTLET. PT REMAINS STABLE ON CURRENT SETTINGS. WILL CONT. TO MONITOR.
[2019-04-19 20:28] LABS: BASOPHILS % (AUTO) 0.3 % (0.0-2.0); EOSINOPHILS # (AUTO) 0.1 K/uL (0-0.4); EOSINOPHILS % (AUTO) 1.2 % (0.0-4.0); HEMATOCRIT 25.5 % (36-52); HEMOGLOBIN 8.5 g/dL (12.0-18.0); LYMPHOCYTES # (AUTO) 0.9 K/uL (2.0-11.5); LYMPHOCYTES % (AUTO) 9.2 % (20.5-51.1); MEAN CORPUSCULAR HEMOGLOBIN 28 pg (27-31); MEAN CORPUSCULAR HGB CONC 33 g/dL (33-37); MEAN CORPUSCULAR VOLUME 85.4 fL (80-94); MONOCYTES # (AUTO) 0.7 K/uL (0.8-1.0); MONOCYTES % (AUTO) 7.4 % (1.7-9.3); NEUTROPHILS # (AUTO) 7.9 K/uL (1.8-7.7); NEUTROPHILS % (AUTO) 81.9 % (42.2-75.2); PLATELET COUNT (AUTO) 370 K/uL (140-450); RED BLOOD CELL COUNT(AUTO) 2.98 MIL/uL (4.20-6.10); WHITE BLOOD COUNT (AUTO) 9.6 K/uL (4.8-10.8)
--- NOTE | 2019-04-19 21:45 | NUR ---
DR. FREIRE AT BEDSIDE TO SEE PT. RECEIVED NEW ORDER. CARRIED OUT.
[2019-04-19] MEDS: NACL 0.45% 1,000 ML IV SCH (22:13)
--- NOTE | 2019-04-19 22:48 | NUR ---
VS REMAINS STABLE. NO CHANGE IN PT'S CONDITION. NO BM AT THIS TIME. PT NOW HAS 0.45% NS RUNNING AT 75ML/HR PER NEW ORDER FROM DR. FREIRE. WILL CONTINUE TO MONITOR PT.
[2019-04-20] VITALS (23 sets, daily range): BP systolic 121–154; BP diastolic 65–96
--- NOTE | 2019-04-20 00:02 | NUR ---
PT TURNED AND REPOSITIONED. NO BM NOTED AT THIS TIME. VSS. RESPIRATIONS EVEN AND UNLABORED. PT HAS INTERMITTENT COUGH AND IS PRODUCTIVE. OXYGEN SATURATION WNL. ALL SAFETY PRECAUTIONS ARE IN PLACE
--- NOTE | 2019-04-20 01:40 | NUR ---
DR. MARTIN AT BEDSIDE TO SEE PT. UPDATED HIM REGARDING THE PT'S CONDITION AND ALSO THE NEW MICROBIOLOGY RESULTS. RECEIVED NEW ORDERS. DR. MARTIN WANTS PT TO HAVE A PICC LINE TO REPLACE THE RIGHT IJ CENTRAL LINE. TIP OF CATHETER IS TO BE SENT IN THE LAB FOR CULTURE. NOTED AND CARRIED OUT.
[2019-04-20] MEDS: HYDRAGUARD CREAM TP SCH ×2 (01:46→12:49)
--- NOTE | 2019-04-20 02:25 | NUR ---
MICAFUNGIN NOT AVAILABLE AT THIS TIME. FIRST DOSE CANNOT BE GIVEN. FIRST DOSE TO BE GIVEN IN THE MORNING WHEN PHARMACY GETS HERE.
--- NOTE | 2019-04-20 03:41 | NUR ---
MORNING CARE PROVIDED TO PT. TOLERATED BEING TURNED AND REPOSITIONED FAIRLY. PT HAD ONE BM THAT IS TARRY AND LIQUID. CAN CATHETER CARE PROVIDED. PADS AND GOWN WERE CHANGED. KEPT HOB AT 30 DEGREES. ALL SAFETY PRECAUTIONS ARE IN PLACE. WILL CONTINUE TO MONITOR PT.
--- NOTE | 2019-04-20 05:20 | NUR ---
VS STABLE. NO CHANGE IN PT'S CONDITION. OXYGEN SATURATION WNL. RESPIRATIONS EVEN AND UNLABORED. KEPT HOB 30 DEGREES. ALL SAFETY PRECAUTIONS ARE IN PLACE.
[2019-04-20 05:41] LABS: BASOPHILS # (AUTO) 0.1 K/uL (0.00-0.22); BASOPHILS % (AUTO) 0.5 % (0.0-2.0); EOSINOPHILS # (AUTO) 0.2 K/uL (0-0.4); EOSINOPHILS % (AUTO) 1.5 % (0.0-4.0); HEMATOCRIT 25.8 % (36-52); HEMOGLOBIN 8.7 g/dL (12.0-18.0); LYMPHOCYTES % (AUTO) 10.1 % (20.5-51.1); MEAN CORPUSCULAR HEMOGLOBIN 29 pg (27-31); MEAN CORPUSCULAR HGB CONC 34 g/dL (33-37); MEAN CORPUSCULAR VOLUME 85.3 fL (80-94); MONOCYTES # (AUTO) 0.8 K/uL (0.8-1.0); MONOCYTES % (AUTO) 7.9 % (1.7-9.3); NEUTROPHILS # (AUTO) 8.2 K/uL (1.8-7.7); PLATELET COUNT (AUTO) 393 K/uL (140-450); RED BLOOD CELL COUNT(AUTO) 3.03 MIL/uL (4.20-6.10); RED CELL DISTRIBUTION WIDTH 15.9 % (11.6-13.7); WHITE BLOOD COUNT (AUTO) 10.3 K/uL (4.8-10.8)
--- NOTE | 2019-04-20 07:06 | NUR ---
RECEIVED TRACH PT WITH A SHILEY 7XLT TRACH ON VENT. SETTINGS AC/VC 18, VT 600, PEEP 5 AND FIO2 30%. FIO2 TITRATED TO 24%. PT IS NOT IN ANY DISTRESS AT THIS TIME. PT SUCTIONED OBTAINED SMALL AMOUNT OF THICK YELLOW SECRETIONS, AIRWAY IS PATENT AND TRACH IS SECURE. VENT ALARMS ON AND FUNCTIONING. WILL CONTINUE TO MONITOR.
--- NOTE | 2019-04-20 07:25 | NUR ---
BEDSIDE REPORT RECEIVED FROM COMPRESSOR ASSEMBLER NURSE, PT RESTING QUIETLY WITH EYES CLOSED, MOVES AROUND WHEN AROUSED, TRACH TO VENT 24% 600,18,5, RESP EVEN UNLABORED, BILAT BREATH SOUNDS CLEAR, VITALS STABLE, SR ON MONITOR RIJ TRIPLE LUMEN SITE WNL, 1/2 AT 75ML/HR, ABD SOFT, ROUND, +BS X4Q, GT IN PLACE, CLAMPED, <5ML RESIDUAL, CAN IN PLACE, DRAINING CLEAR YELLOW TO GRAVITY, POC REVIEWD, ALL SAFETY MEASURES IN PLACE, SOFT RESTRAINTS TO BILAT WRIST, REMOVED INSPECTED, NO S/S OF INJURY, WILL CONTINUE TO MONTOR.
[2019-04-20 07:26] LABS: ALBUMIN 2.1 g/dL (3.4-5.0); ANION GAP 19.7 (8-16); CARBON DIOXIDE 18.7 mmol/L (21-32); CREATININE 1.4 mg/dL (0.7-1.3); POTASSIUM 3.4 mmol/L (3.5-5.1); TOTAL BILIRUBIN 0.7 mg/dL (0.0-1.0)
[2019-04-20] MEDS: PANTOPRAZOLE 40 MG INJ VIAL IVP SCH ×2 (09:03→20:13)
[2019-04-20] MEDS: MEROPENEM 1,000 MG in NACL 0.9% 100 ML IV SCH ×2 (09:03→20:12)
--- NOTE | 2019-04-20 09:38 | NUR ---
RESTING WELL NO PULMONARY DISTRESS NOTED DEEP TRACHEAL SUCTION FOR MODERATE THICK YELLOW SECRETIONS AIRWAY PATENT
--- NOTE | 2019-04-20 09:45 | NUR ---
PT REPOSITIONED, RESTING QUIETLY, RT PETER TO BEDSIDE.
--- NOTE | 2019-04-20 10:50 | NUR ---
DR CASTELAN PAGED AND CALLED BACK, K=3.4, 40 MEQ KCL IV ORDERED.
--- NOTE | 2019-04-20 11:30 | NUR ---
DR MARTIN, N PAGED AND CALLED BACK, NOTIFIED THAT CENTRAL LINE WAS REPLACED ON TUESDAY 04/17 BECAUSE THE OLD LINE WAS ACCIDENTALLY PULLED OUT, PER DR MARTIN, NO NEED TO START PICC LINE AND REMOVE RIJ CENTRAL LINE.
[2019-04-20] MEDS ORDERED: VANCOMYCIN 1,000 MG in DEXTROSE 5% 250 ML IV SCH (12:00)
--- NOTE | 2019-04-20 12:00 | NUR ---
VITAL STABLE, SR ON MONITOR, REPOSITIONED, PT RESTING QUIETLY WITH EYES CLOSED.
[2019-04-20] MEDS: NACL 0.45% 1,000 ML IV SCH (12:01)
[2019-04-20] MEDS: GAUZE TP SCH (12:49)
[2019-04-20] MEDS: THERAHONEY GEL 42.5 GM TP SCH (12:50)
[2019-04-20] MEDS ORDERED: KCL 20 MEQ/WATER INJ PREMIX 200 ML IV ONE (12:55)
--- NOTE | 2019-04-20 14:00 | NUR ---
DARK LOOSE STOOL X1, SMALL, PERICARE DONE, CAN CARE DONE, PADS CHANGED, GOWN CHANGED, WOUND CARE DONE, PT REPOSITIONED, PT REMAINS STABLE SR ON TR
[2019-04-20] MEDS: MICAFUNGIN SODIUM 100 MG in NACL 0.9% 100 ML IV SCH (14:19)
[2019-04-20] MEDS ORDERED: AMIKACIN 500 MG in DEXTROSE 5% 100 ML IV SCH (16:00)
--- NOTE | 2019-04-20 16:20 | NUR ---
PT'S AUNT HERE TO VISIT.
--- NOTE | 2019-04-20 17:00 | NUR ---
PT RESTING QUIETLY, RESP EVEN UNLABORED, SKIN WARM DRY COLOR WNL, SR ON MONITOR, ALL SAFETY MEASURES IN PLACE, BTOTHER AT BEDSIDE FOR VISIT
--- NOTE | 2019-04-20 17:30 | NUR ---
VENT CHECK COMPLETED. PT NOT IN ANY DISTRESS. TRACH IS SECURE WITH A PATENT AIRWAY. VENT ALARMS REMAIN ON AND FUNCTIONING.
--- NOTE | 2019-04-20 19:00 | NUR ---
FEEDING STARTED AT 10ML/HR, NO RESIDUAL AT THIS TIME.
--- NOTE | 2019-04-20 19:05 | NUR ---
AMIKACIN PEAK DRAWN FROM CENTRAL LINE IJ.
--- NOTE | 2019-04-20 19:30 | NUR ---
RECEIVED REPORT FROM MORNING RN CHEYENNE FOR CONTINUITY OF CARE. VS STABLE. AFEBRILE. FLACC 0. PT UNABLE TO MAKE NEEDS KNOWN NOR FOLLOW COMMANDS. PUPILS REACTIVE TO LIGHT BUT UNEQUAL. LUNG SOUNDS COARSE. RESPIRATIONS EVEN AND UNLABORED. CHEST RISE SYMMETRIC. TRACH TO VENT WITH SETTINGS FIO2 24%, TV 600, RATE 18 AND PEEP 5. OXYGEN SATURATION WNL. S1+S2 HEARD. SB TO SR ON MONITOR. BP WNL. PULSES PALPABLE IN ALL EXTREMITIES. ABDOMEN ROUND, SOFT AND NONDISTENDED. GTUBE IN PLACE. BS ACTIVE IN ALL QUADRANTS. PT ON GLUCERNA AT 10ML/HR. NO RESIDUAL ASPIRATED. PT HAS CAN CATHETER IN PLACE. DRAINING CLEAR AND YELLOW URINE. NO BM AT THIS TIME. PT HAS RIGHT IJ CENTRAL LINE THAT IS PATENT, INTACT, AND ASYMPTOMATIC. SKIN IS WARM AND DRY. HOB 30 DEGREES. ALL SAFETY PRECAUTIONS REMAINS IN PLACE. WILL CONTINUE TO MONITOR PT
[2019-04-20] MEDS ORDERED: MAG SULF 2000 MG/WATER PREMIX 50 ML IV SCH (21:05)
--- NOTE | 2019-04-20 22:02 | NUR ---
DR. FREIRE IN THE UNIT TO SEE PT. UPDATED HIM REGARDING PT'S CONDITION INCLUDING LABS. RECEIVED AN ORDER TO CHANGE WATER FLUSH ORDER. NOTED AND CARRIED OUT
[2019-04-21] VITALS (21 sets, daily range): BP systolic 112–168; BP diastolic 75–100
--- NOTE | 2019-04-21 00:18 | NUR ---
VS REMAINS STABLE. NO CHANGE IN PT'S CONDITION. TOLERATING TUBE FEEDING WELL. INCREASED RATE TO 20ML/HR. WILL RECHECK AGAIN IN 4 HOURS AND INCREASE TOLERATED. PT TURNED AND REPOSITIONED. ORAL CARE PROVIDED. HOB 30 DEGREES. ALL SAFETY PRECAUTIONS ARE IN PLACE. WILL CONTINUE TO MONITOR PT.
[2019-04-21] MEDS: NACL 0.45% 1,000 ML IV SCH ×2 (00:30→13:50)
[2019-04-21] MEDS: HYDRAGUARD CREAM TP SCH ×2 (01:16→13:38)
--- NOTE | 2019-04-21 02:28 | NUR ---
PT TURNED AND REPOSITIONED. VS STABLE. RESPIRATIONS EVEN AND UNLABORED. CHEST RISE SYMMETRIC. NO DESATURATION NOTED. FLACC 0. PT OPENS EYES SPONTANEOUSLY. ALL SAFETY PRECAUTIONS ARE IN PLACE. HO B AT 30 DEGREES. WILL CONTINUE TO MONITOR PT.
[2019-04-21] MEDS ORDERED: MICAFUNGIN SODIUM 100 MG in NACL 0.9% 100 ML IV SCH (03:00)
--- NOTE | 2019-04-21 04:00 | NUR ---
FEEDING RATE INCREASED TO 30ML/HR. PT TOLERATING WELL. RESIDUAL ASPIRATED WAS ONLY 15ML. ORAL CARE PROVIDED. KEPT HOB AT 30 DEGREES. BED AT LOW POSITION. ALL SAFETY PRECAUTIONS ARE IN PLACE. WILL CONTINUE TO MONITOR PT.
--- NOTE | 2019-04-21 05:10 | NUR ---
MORNING CARE PROVIDED TO PT. TOLERATED BEING TURNED AND REPOSITIONED FAIRLY. CAN CATHETER PROVIDED. ALL LINENS AND PADS WERE CHANGED. KEPT HOB AT 30 DEGREES. ALL SAFETY PRECAUTIONS ARE IN PLACE. WILL CONTINUE TO MONITOR.
[2019-04-21 07:03] LABS: BASOPHILS % (AUTO) 0.4 % (0.0-2.0); EOSINOPHILS # (AUTO) 0.2 K/uL (0-0.4); EOSINOPHILS % (AUTO) 1.8 % (0.0-4.0); HEMATOCRIT 25.6 % (36-52); HEMOGLOBIN 8.4 g/dL (12.0-18.0); LYMPHOCYTES # (AUTO) 0.9 K/uL (2.0-11.5); LYMPHOCYTES % (AUTO) 10.8 % (20.5-51.1); MEAN CORPUSCULAR HEMOGLOBIN 28 pg (27-31); MEAN CORPUSCULAR HGB CONC 33 g/dL (33-37); MEAN CORPUSCULAR VOLUME 85.5 fL (80-94); MONOCYTES # (AUTO) 0.7 K/uL (0.8-1.0); MONOCYTES % (AUTO) 7.7 % (1.7-9.3); NEUTROPHILS # (AUTO) 6.9 K/uL (1.8-7.7); NEUTROPHILS % (AUTO) 79.3 % (42.2-75.2); PLATELET COUNT (AUTO) 418 K/uL (140-450); RED BLOOD CELL COUNT(AUTO) 2.99 MIL/uL (4.20-6.10); RED CELL DISTRIBUTION WIDTH 16.1 % (11.6-13.7); WHITE BLOOD COUNT (AUTO) 8.7 K/uL (4.8-10.8)
[2019-04-21 07:22] LABS: ALBUMIN 2.1 g/dL (3.4-5.0); ANION GAP 17.4 (8-16); CARBON DIOXIDE 20.8 mmol/L (21-32); CREATININE 1.2 mg/dL (0.7-1.3); POTASSIUM 3.2 mmol/L (3.5-5.1); TOTAL BILIRUBIN 0.6 mg/dL (0.0-1.0)
--- NOTE | 2019-04-21 07:38 | NUR ---
RECEIVED TRACH PT WITH A SHILEY 7XLT TRACH ON VENT. SETTINGS AC/VC 18, VT 600, PEEP 5 AND FIO2 24%. PT IS NOT IN ANY DISTRESS AT THIS TIME. PT SUCTIONED OBTAINED MODERATE AMOUNT OF THICK YELLOW SECRETIONS, AIRWAY IS PATENT AND TRACH IS SECURE. VENT ALARMS ON AND FUNCTIONING. WILL CONTINUE TO MONITOR.
--- NOTE | 2019-04-21 08:00 | NUR ---
Patient received on isolation status related to diagnosis of GI bleed. Trach to vent status. Frequent suctioning related to large amount of copious secretions. Postioned for comfort as well as maintaining safety measures related to restraints for pulling equipment. Will continue to follow order of care as given.
[2019-04-21] MEDS: MEROPENEM 1,000 MG in NACL 0.9% 100 ML IV SCH ×2 (10:52→21:38)
[2019-04-21] MEDS: PANTOPRAZOLE 40 MG INJ VIAL IVP SCH ×2 (10:53→21:38)
--- NOTE | 2019-04-21 13:20 | NUR ---
PT SUCTIONED OBTAINED SMALL AMOUNT OF THICK YELLOW SECRETIONS,AIRWAY IS PATENT AND TRACH IS SECURE. PT NOT IN RESPIRATORY DISTRESS/SOB AT THIS TIME.
[2019-04-21] MEDS: GAUZE TP SCH (13:37)
[2019-04-21] MEDS: MICAFUNGIN SODIUM 100 MG in NACL 0.9% 100 ML IV SCH (13:38)
[2019-04-21] MEDS: THERAHONEY GEL 42.5 GM TP SCH (13:39)
--- NOTE | 2019-04-21 13:54 | NUR ---
04/21/19 RD FOLLOW UP COMPLETED PLEASE REFER TO NUTRITION ASSESSMENT UNDER CARE ACTIVITY FOR ESTIMATED NUTRITIONAL NEEDS. 1.CONTINUE GLUCERNA 1.2 AT 65ML/HR -THIS PROVIDES 1560ML VOLUME, 1872 KCAL AND 93.6GM PROTEIN. IT MEETS 100% OF ESTIMATED KCAL AND PROTEIN NEEDS 2.CONTINUE FWF 200ML Q4H ESTIMATED ENERGY AND PROTEIN NEEDS. 3. RD TO FOLLOW UP 2-3 DAYS, HIGH RISK ISELA GARCIA, RD
--- NOTE | 2019-04-21 14:52 | NUR ---
DISCHARGE PLANNIN43 Y/O MALE PATIENT FROM [facility], WHO CAME IN DUE TO VOMITING BLOOD AND FEVER OF 101. PAST MEDICAL HISTORY INCLUDE CHRONIC RESPIRATORY FAILURE, VENT DEPENDENT, INTRACRANIAL HEMORRHAGE, CHRONIC ENCEPHALOPATHY, DIABETES, HTN AND SEIZURE DISORDER. CURRENT LABS INCLUDE WBC 8.7, H/H 8.4/25.6, BUN/CREA 30/1.2. ON AMIKACIN, MICAFUNGIN AND MERREM. CHRONIC TRACH TO VENT, FIO2 24%. ON G TUBE FEEDING WITH GLUCERNA 1.2 AT 65 ML/H. DC PLANNING BACK TO [facility] PENDING PATIENT RESPONSE TO TREATMENT. Addendum: 04/22/19 at 1608 by Ana Tong DC PLANNING: CONTINUE VENT SUPPORT, MONITOR H/H TRANSFUSE PRN , CONTINUE IV ABX VANCO, MEROPENEM AND AMIKACIN , SURGERY CONSULT WITH DR HAYNES I&D OF THE ABDOMINAL WALL ABSCESS DONE AND IMPROVED CLEAR FROM SURGICAL STAND POINT. K+ 2.9 REPLACED KEY DC PLAN TO GO BACK TO [facility]
[2019-04-21] MEDS ORDERED: AMIKACIN 500 MG in DEXTROSE 5% 100 ML IV SCH (16:00)
--- NOTE | 2019-04-21 17:38 | NUR ---
STABLE NO PULMONARY DISTRESS NOTED GOOD EQUAL CHEST RISE DEEP TRACHEAL SUCTION FOR MODERATE THICK YELLOW SECRETIONS AIRWAY PATENT
[2019-04-21] MEDS ORDERED: VANCOMYCIN 1,000 MG in DEXTROSE 5% 250 ML IV SCH (18:00)
--- NOTE | 2019-04-21 21:15 | NUR ---
RECEIVED REPORT FROM AM NURSE, PT AT BED EYES CLOSED, LETHARGIC, PERRL 3MM, BRISK, HEART RATE REGULAR, S1S2 PRESENT, SINUS RHYTHM ON MONITOR, CAP REFILL <3S, PULSES 2+ BILATERAL UPPER AND LOWER EXTREMITIES, PT TRACH TO VENT AT VENT SETTINGS, AC/VC FIO2 24% TV 600 RR 18 PEEP 5 FLOW 45, LUNG SOUNDS RONCHI ON RIGHT UPPER LOBE, CLEAR ON RIGHT MIDDLE LOBE, DIMINISHED AT RIGHT LOWER LOBE, CLEAR ON LEFT UPPER LOBE AND DIMINISHED AT LEFT LOWER LOBE, ABDOMEN, SOFT, ROUND, NONDISTENDED, NONTENDER, GTUBE IN PLACE, RUNNING GLUCERNA AT 65 ML/HR AT 200 ML AT Q4H. RESIDUAL 0 ML, BOWEL SOUNDS ACTIVE IN ALL QUADRANTS, PT HAS GENERALIZED WEAKNESS, PT SKIN, WARM, DRY, NONINTACT, LEFT SHOULDER HAS OPEN WOUND, DRESSING IN PLACE, DRY AND INTACT, PT HAS RIGHT UPPER BACK OPEN WOUND, DRESSING IN PLACE, DRY AND INTACT, PT HAS LEFT FOOT OPEN WOUND, DRESSING IN PLACE, DRY AND INTACT. PT HAS RIGHT INTERNAL JUGULAR CENTRAL LINE, TRIPLE LUMEN, RUNNING 1/2 NS AT 75 ML/HR. HOB 30 DEGREES, SIDE RAILS UP X2, BED AT LOWEST POSITION.
--- NOTE | 2019-04-21 21:30 | NUR ---
AMIKACIN TROUGH RESULT AT 13, INFORMED PHARMACIST OF RESULTS. RECOMMENDED TO ENDORSE RESULT AT AM PHARMACIST.
[2019-04-22] VITALS (10 sets, daily range): BP systolic 118–146; BP diastolic 62–84
[2019-04-22] MEDS: HYDRAGUARD CREAM TP SCH ×2 (01:00→13:33)
--- NOTE | 2019-04-22 01:10 | NUR ---
DR MARTIN AT BEDSIDE. RECEIVED ORDERS FOR CBC AT AM.
[2019-04-22] MEDS: NACL 0.45% 1,000 ML IV SCH ×2 (03:10→16:30)
[2019-04-22 06:33] LABS: BASOPHILS % (AUTO) 0.5 % (0.0-2.0); EOSINOPHILS # (AUTO) 0.1 K/uL (0-0.4); EOSINOPHILS % (AUTO) 1.7 % (0.0-4.0); HEMATOCRIT 24.2 % (36-52); HEMOGLOBIN 8.3 g/dL (12.0-18.0); LYMPHOCYTES # (AUTO) 0.8 K/uL (2.0-11.5); LYMPHOCYTES % (AUTO) 11.2 % (20.5-51.1); MEAN CORPUSCULAR HEMOGLOBIN 29 pg (27-31); MEAN CORPUSCULAR HGB CONC 34 g/dL (33-37); MEAN CORPUSCULAR VOLUME 84.6 fL (80-94); MONOCYTES # (AUTO) 0.6 K/uL (0.8-1.0); MONOCYTES % (AUTO) 8.5 % (1.7-9.3); NEUTROPHILS # (AUTO) 5.9 K/uL (1.8-7.7); NEUTROPHILS % (AUTO) 78.1 % (42.2-75.2); PLATELET COUNT (AUTO) 420 K/uL (140-450); RED BLOOD CELL COUNT(AUTO) 2.86 MIL/uL (4.20-6.10); RED CELL DISTRIBUTION WIDTH 15.7 % (11.6-13.7); WHITE BLOOD COUNT (AUTO) 7.5 K/uL (4.8-10.8)
[2019-04-22 06:53] LABS: MAGNESIUM 1.4 mg/dL (1.8-2.4); PHOSPHORUS 3.8 mg/dL (2.5-4.9)
--- NOTE | 2019-04-22 07:00 | NUR ---
RECEIVED REPORT FROM ICU NURSE BREONNA. PATIENT IN STABLE CONDITION. TRACH TO VENT INTACT. RESPIRATIONS EVEN,UNLABORED. IV INTACT AND PATENT. GT PATENT, CONTINUING ON ENTERAL FEEDING. CAN CATHETER PATENT WITH YELLOW URINE DRAINING TO GRAVITY. BED ALARM ON. SAFETY MEASURES IN PLACE. BED IN LOWEST POSITION CALL LIGHT AT BEDSIDE. WILL CONTINUE TO MONITOR.
[2019-04-22 07:19] LABS: ANION GAP 15.5 (8-16); CARBON DIOXIDE 23.4 mmol/L (21-32); CREATININE 1.1 mg/dL (0.7-1.3)
[2019-04-22] MEDS: IPRATROPIUM 0.02% 0.5 MG/2.5 ML NEBU INH PRN ×2 (08:00→11:33)
[2019-04-22] MEDS: ALBUTEROL 0.083% 2.5 MG/3 ML NEBU INH PRN ×2 (08:00→11:33)
--- NOTE | 2019-04-22 08:00 | NUR ---
RECEIVED ON A AdvizzerSCAPE R860 VENTILATOR PLUGGED INTO RED OUTLET TOLERATING WELL WITHOUT ADVERSE REACTIONS NOTED TO A SHILEY XLT #7 AIRWAY SECURED WITH A CLARISSA TRACH TIE CUFF PRESSURE CHECKED NOTED AMBU BAG AT BEDSIDE LOC IRRITABLE GOOD EQUAL CHEST RISE DEEP TRACHEAL SUCTION FOR LARGE THICK YELLOW SECRETIONS AIRWAY PATENT
--- NOTE | 2019-04-22 08:12 | NUR ---
CRITICAL POTASSIUM LAB 2.9 DR CASTELAN N. MAYURI.
[2019-04-22 08:13] LABS: POTASSIUM 2.9 mmol/L (3.5-5.1)
--- NOTE | 2019-04-22 08:18 | NUR ---
Miguel A NORMAN POTASSIUM 60 MEQ AND MAGNESIUM SULFATE TWO BAGS IV.
--- NOTE | 2019-04-22 09:00 | NUR ---
RESIDENT RESTING IN BED. TRACH TO VENT INTACT. RESPIRATIONS EVEN, UNLABORED. SKIN WARM, DRY TO TOUCH. IV SITE PATENT. NO S/SX PAIN. NO S/SX ACUTE DISTRESS NOTED. ABDOMEN SOFT, NONTENDER. CONTINUES ON ENTERAL FEEDING, TOLERATING WELL. F/C PATENT WITH YELLOW URINE DRAINING TO GRAVITY. ALL OTHER NEEDS ATTENDED TO. KEPT CLEAN, DRY. CALL LIGHT WITHIN REACH. WILL CONTINUE TO MONITOR.
[2019-04-22] MEDS: PANTOPRAZOLE 40 MG INJ VIAL IVP SCH (09:25)
[2019-04-22] MEDS: MEROPENEM 1,000 MG in NACL 0.9% 100 ML IV SCH (09:26)
--- NOTE | 2019-04-22 09:33 | NUR ---
STABLE NO PULMONARY DISTRESS NOTED GOOD CHEST RISE DEEP TRACHEAL SUCTION FOR SMALL THIN YELLOW SECRETIONS AIRWAY PATENT
[2019-04-22] MEDS ORDERED: POTASSIUM CHL IV SCH (10:05)
[2019-04-22] MEDS ORDERED: 1/2 NS IV SCH (10:05)
[2019-04-22] MEDS ORDERED: POTASSIUM CHL 20 MEQ/ 1/2 NS 1,000 ML IV SCH (10:15)
[2019-04-22] MEDS ORDERED: MAG SULF 2000 MG/WATER PREMIX 50 ML IV SCH (11:00)
[2019-04-22] MEDS: KCL 20 MEQ/WATER INJ PREMIX 100 ML IV SCH ×2 (11:32→13:29)
--- NOTE | 2019-04-22 11:33 | NUR ---
PRESENTING WITH PERSISTENT COUGHING GOOD CHEST RISE DEEP TRACHEAL SUCTION FOR SMALL THICK YELLOW SECRETIONS AIRWAY PATENT
[2019-04-22] MEDS: THERAHONEY GEL 42.5 GM TP SCH (13:33)
[2019-04-22] MEDS: GAUZE TP SCH (13:33)
[2019-04-22] MEDS: MICAFUNGIN SODIUM 100 MG in NACL 0.9% 100 ML IV SCH (13:35)
--- NOTE | 2019-04-22 13:38 | NUR ---
RESTING COMFORTABLY WITHOUT PULMONARY DISTRESS NOTED EQUAL CHEST RISE GOOD AERATION THROUGHOUT BILATERAL LUNG MEDINA AIRWAY PATENT
--- NOTE | 2019-04-22 14:18 | NUR ---
Miguel A MCCABE VANCOMYCIN AND AMIKACIN CONTINUE X5 DAYS.
[2019-04-22] MEDS ORDERED: VANCOMYCIN PER PHARMACY MC PRN (14:25)
[2019-04-22] MEDS ORDERED: AMIKACIN PER PHARMACY MC PRN (14:25)
--- NOTE | 2019-04-22 15:48 | NUR ---
STABLE NO SOB NOTED GOOD CHEST RISE AIRWAY PATENT
[2019-04-22] MEDS ORDERED: KCL 20 MEQ/WATER INJ PREMIX 100 ML IV SCH (16:00)
[2019-04-22] MEDS ORDERED: AMIK500I IJ (16:31)
--- NOTE | 2019-04-22 16:31 | NUR ---
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
--- NOTE | 2019-04-22 16:45 | NUR ---
PT CHANGED AND CLEANED FOR UPCOMING DISCHARGE. PT TOLERATED WELL.
[2019-04-22] MEDS: MAG SULF 2000 MG/WATER PREMIX 100 ML IV SCH ×2 (17:36→19:38)
--- NOTE | 2019-04-22 17:42 | NUR ---
NO SOB NOTED GOOD CHEST RISE DEEP TRACHEAL SUCTION FOR SMALL THIN YELLOW SECRETIONS AIRWAY PATENT
[2019-04-22] MEDS ORDERED: VANC1PLA7 IV (19:11)
--- NOTE | 2019-04-22 19:15 | NUR ---
GAVE REPORT TO SATURATION EQUIPMENT OPERATOR NURSE FOR CONTINUITY OF CARE. PT IN STABLE CONDITION.
--- NOTE | 2019-04-22 19:45 | NUR ---
PATIENT PICKED UP BY [facility] TO BE DISCHARG[place] [facility] PT LEFT WITH ALL HIS DISCHARGE PAPERS AND BELONGINGS. PT LEFT IN STABLE CONDITION
== END 2019-04-22 19:45 | DRG 720 ==
LOC: MED 19:13 → MIC 23:10 → MTU 04-22 06:55
PROVIDERS: ADMIT Internal Medicine Pulmonary Disease; ATTEND Internal Medicine Pulmonary Disease
PROC: 30233N1 Transfusion of Nonautologous Red Blood Cells into Peripheral Vein, Percutaneous Approach (ICD-10-PCS; principal; 2019-04-17)
PROC: 5A1955Z Respiratory Ventilation, Greater than 96 Consecutive Hours (ICD-10-PCS; 2019-04-17)
PROC: 02HV33Z Insertion of Infusion Device into Superior Vena Cava, Percutaneous Approach (ICD-10-PCS; 2019-04-18)
PROC: B548ZZA Ultrasonography of Superior Vena Cava, Guidance (ICD-10-PCS; 2019-04-18)
PROC: 0DJ08ZZ Inspection of Upper Intestinal Tract, Via Natural or Artificial Opening Endoscopic (ICD-10-PCS; 2019-04-19)
DX: A41.9 Sepsis, unspecified organism (principal); R65.21 Severe sepsis with septic shock; G93.40 Encephalopathy, unspecified; Z99.11 Dependence on respirator [ventilator] status; J96.10 Chronic respiratory failure, unspecified whether with hypoxia or hypercapnia; K92.0 Hematemesis; E11.22 Type 2 diabetes mellitus with diabetic chronic kidney disease; N17.9 Acute kidney failure, unspecified; N18.3 Chronic kidney disease, stage 3 (moderate); E66.01 Morbid (severe) obesity due to excess calories; G40.909 Epilepsy, unspecified, not intractable, without status epilepticus; D63.8 Anemia in other chronic diseases classified elsewhere; E78.5 Hyperlipidemia, unspecified; N39.0 Urinary tract infection, site not specified; E87.0 Hyperosmolality and hypernatremia; I12.9 Hypertensive chronic kidney disease with stage 1 through stage 4 chronic kidney disease, or unspecified chronic kidney disease; Z68.35 Body mass index [BMI] 35.0-35.9, adult; Z86.718 Personal history of other venous thrombosis and embolism; Z86.73 Personal history of transient ischemic attack (TIA), and cerebral infarction without residual deficits; Z93.0 Tracheostomy status; Z93.1 Gastrostomy status; Z99.2 Dependence on renal dialysis; Z79.899 Other long term (current) drug therapy; Z79.4 Long term (current) use of insulin
CPT/HCPCS: 36415; 71045; 80048; 80053; 80150; 80185; 80202; 81001; 82140; 83605; 83690; 83735; 83880; 84100; 84484; 85025; 85610; 85730; 86886; 86900; 86901; 86920; 87040; 87081; 87086; 87186; 93005; 94003; 94640; 96361; 96365; 99291; C9113; J0278; J2185; J2248; J2250; J3010; J3370; J3475; J3480; J3490; J7030; J7060; J7613; J7644; P9016; Q0092

== ENCOUNTER 2019-05-23 15:47 | Inpatient (IN) | payer OTHER ==
[2019-05-23] VITALS (23 sets, daily range): BP systolic 71–114; BP diastolic 31–100
[~2019-05-23] VITALS: Ht 172.7 cm; Wt 107.0 kg
[~2019-05-23 15:47] MED LIST changes: +AMIK500I IJ; -AMIK500I IV; -ASCO-770 GT; -DEXL30EC PO; +DEXL60EC PO; -DOCU-300 GT; +GABA100C GT; -GABA100C PO; +LACT1CAP59 GT; -LACT1CAP59 PO; -LANTUS SUBQ; -LIP80 PO; +LISI10TA11 GT; -LISI10TA11 PO; +VANC1PLA7 IV
--- NOTE | 2019-05-23 15:48 | NUR ---
PT BIBA TO BED 10.
--- NOTE | 2019-05-23 15:50 | NUR ---
Note undone in EDM - 05/23/19 at 1800 by JORDI 44 Y/O M TRACY FROM [facility] C/C FEVER X 1 DAY. PER PARAMEDICS PT CURRENTLY ON ABX VANCOMYCIN, AND PER FACILITY [facility] DOCTOR TO BE SENT TO HOSPITAL FOR FURTHER EVALUATION, PER ROLL CLEANER POSSIBLE SEPSIS. PT ON CONTACT ISOLATION DUE TO C-DIFF CONTINOUS LOOSE STOOLS PER ROLL CLEANER. BS ON FIELD 139. HX,RX: SEE PAPERWORK FROM FACILITY.
--- NOTE | 2019-05-23 15:50 | NUR ---
RECEIVED PT VIA TRANSPORT TEAM VIA AMBU BAG PLACED ON VENT CARESCAPE WITH SETTINGS CHARTED BREATH SOUNDS PRESENT BILAT RHONCHI SXN PT WITH MIN TO MOD AMT THICK YELLOW SECSPT QUIET NO RESP DISTRESS AT THJIS TIME VENT PLUGGED INTO RED OUTLET WILL CONTINUE TO MONITOR PT ON VENT
--- NOTE | 2019-05-23 15:50 | NUR ---
44 Y/O M TRACY FROM [facility] C/C FEVER X 1 DAY. PER PARAMEDICS PT CURRENTLY ON ABX VANCOMYCIN, AND PER FACILITY [facility] DOCTOR TO BE SENT TO HOSPITAL FOR FURTHER EVALUATION, PER INDUSTRIAL MAINTENANCE TECHNICIAN POSSIBLE SEPSIS. PT ON CONTACT ISOLATION DUE TO C-DIFF CONTINOUS LOOSE STOOLS PER INDUSTRIAL MAINTENANCE TECHNICIAN. BS ON FIELD 139. HX,RX: SEE PAPERWORK FROM FACILITY.
[2019-05-23] MEDS ORDERED: NACL 0.9% 500 ML IV SCH (15:51)
[2019-05-23] MEDS ORDERED: VANC125C11 GT (16:21)
[2019-05-23] MEDS ORDERED: PHEN125S GT (16:21)
[2019-05-23] MEDS ORDERED: LANTUS SUBQ (16:21)
[2019-05-23] MEDS ORDERED: OMEP20EC11 GT (16:21)
[2019-05-23] MEDS ORDERED: MULT-1328 GT (16:21)
[2019-05-23] MEDS ORDERED: ASCO500T45 GT (16:21)
[2019-05-23] MEDS ORDERED: HYDR100T79 GT (16:21)
[2019-05-23] MEDS ORDERED: LIP80 GT (16:21)
--- NOTE | 2019-05-23 16:25 | NUR ---
PER RT BILL, SPUTUM CULTURE SAMPLE HAS BEEN COLLECTED.
--- NOTE | 2019-05-23 16:26 | NUR ---
BEER MERCHANT AT BEDSIDE
[2019-05-23 16:30] LABS: HEMATOCRIT 25.4 % (36-52); HEMOGLOBIN 8.4 g/dL (12.0-18.0); MEAN CORPUSCULAR HEMOGLOBIN 27 pg (27-31); MEAN CORPUSCULAR HGB CONC 33 g/dL (33-37); MEAN CORPUSCULAR VOLUME 83.4 fL (80-94); PLATELET COUNT (AUTO) 622 K/uL (140-450); RED BLOOD CELL COUNT(AUTO) 3.05 MIL/uL (4.20-6.10); RED CELL DISTRIBUTION WIDTH 15.1 % (11.6-13.7); WHITE BLOOD COUNT (AUTO) 23.7 K/uL (4.8-10.8)
--- NOTE | 2019-05-23 16:30 | NUR ---
CLEANED PATIENT WITH EMT'S ; PT HAVING CONTINUOUS LOOSE BOWEL MOVEMENTS
[2019-05-23] MEDS ORDERED: NACL 0.9% 500 ML IV ONE (16:40)
[2019-05-23 16:55] LABS: EOSINOPHILS % (MANUAL) 1 % (0-4); LYMPHOCYTES % (MANUAL) 7 % (20-46); MONOCYTES % (MANUAL) 4 % (5-12)
[2019-05-23 16:56] LABS: BASOPHILS % (MANUAL) 0 % (0-2)
--- NOTE | 2019-05-23 17:04 | NUR ---
PICTURE TAKEN AND FILED; SKIN BREAKDOWN NOTED; CHARGE NURSE NOTIFIED
[2019-05-23 17:05] LABS: ALBUMIN 1.9 g/dL (3.4-5.0); ANION GAP 19.2 (8-16); POTASSIUM 4.2 mmol/L (3.5-5.1); TOTAL BILIRUBIN 0.3 mg/dL (0.0-1.0)
--- NOTE | 2019-05-23 17:14 | NUR ---
DECREASED VT TO [address] TRIPLETT
[2019-05-23] MEDS ORDERED: PIPERACILLIN/TAZOBACTAM 3.375 GM in DEXTROSE 5% 50 ML IV ONE (17:20)
[2019-05-23] MEDS ORDERED: PIPERACILLIN/TAZOBACTAM 3.375 GM VIAL IV ONE (17:27)
[2019-05-23 18:00] LABS: APPEARANCE,URINE CLOUDY (CLEAR); BILIRUBIN,URINE NEGATIVE (NEGATIVE); BLOOD, URINE 1+ (NEGATIVE); COLOR,URINE YELLOW (YELLOW); LEUKOCYTE ESTERASE ,URINE 2+ (NEGATIVE); NITRITE, URINE NEGATIVE (NEGATIVE); PH,URINE 5.5 (5.0-9.0); UGLUCOSE NEGATIVE (NEGATIVE)
--- NOTE | 2019-05-23 18:01 | NUR ---
DR TRIPLETT AT BEDSIDE
[2019-05-23 18:10] LABS: RBC,URINE 11-20 (MOD) /HPF (0-5); WBC,URINE 20-60 /HPF (0-5)
[2019-05-23 18:11] LABS: YEAST,URINE Many /HPF (None Seen)
--- NOTE | 2019-05-23 18:18 | NUR ---
XRAY AT BEDSIDE
--- NOTE | 2019-05-23 18:18 | NUR ---
DR TRIPLETT PLACED RIGHT SUBCLAVIAN TRIPLE LUMEN
[2019-05-23] MEDS ORDERED: hydrALAZINE 20 MG/ML VIAL IVP ONE (18:35)
[2019-05-23] MEDS ORDERED: cloNIDine 0.1 MG TAB PO PRN (18:45)
[2019-05-23] MEDS ORDERED: MORPHINE SULFATE 2 MG/ML SYR IVP PRN (18:45)
[2019-05-23] MEDS ORDERED: LORazepam 2 MG/ML VIAL IVP PRN (18:45)
[2019-05-23] MEDS ORDERED: HYDROcodone/APAP 5/325 MG 1 TAB TAB PO PRN ×2 (18:45)
[2019-05-23] MEDS ORDERED: SODIUM PHOSPHATE 118 ML ENEM RC PRN (18:45)
[2019-05-23] MEDS ORDERED: INSULIN LISPRO SLIDING SCALE 100 UNITS/ML VIAL SUBQ PRN (18:45)
[2019-05-23] MEDS ORDERED: BISACODYL 10 MG SUPP RC PRN (18:45)
[2019-05-23] MEDS ORDERED: ONDANSETRON 4 MG/2 ML VIAL IVP PRN (18:45)
[2019-05-23] MEDS ORDERED: IPRATROPIUM 0.02% 0.5 MG/2.5 ML NEBU INH PRN (18:45)
[2019-05-23] MEDS ORDERED: ALUMINUM HYD/MAG/SIMETHICONE 30 ML UDC PO PRN (18:45)
[2019-05-23] MEDS ORDERED: diphenhydrAMINE 50 MG/ML VIAL IVP PRN (18:45)
[2019-05-23] MEDS ORDERED: POTASSIUM CHLORIDE 10 MEQ TABER PO PRN (18:45)
[2019-05-23] MEDS ORDERED: DOCUSATE SODIUM 250 MG GELCAP PO PRN (18:45)
[2019-05-23] MEDS ORDERED: MAG SULF 2000 MG/WATER PREMIX 50 ML IV PRN (18:45)
[2019-05-23] MEDS ORDERED: ALBUTEROL 0.083% 2.5 MG/3 ML NEBU INH PRN (18:45)
[2019-05-23] MEDS ORDERED: guaiFENesin DM 200/20 MG-10 ML 10 ML UDC PO PRN (18:45)
[2019-05-23] MEDS ORDERED: ACETAMINOPHEN 325 MG TAB PO PRN (18:45)
[2019-05-23] MEDS ORDERED: MAGNESIUM OXIDE 400 MG TAB PO PRN (18:45)
[2019-05-23] MEDS ORDERED: DEXTROSE 50% 50 ML SYR IVP PRN (18:45)
[2019-05-23] MEDS ORDERED: ACETAMINOPHEN 650 MG SUPP RC PRN (18:45)
--- NOTE | 2019-05-23 18:49 | NUR ---
RECEIVED PATIENT FROM ER VIA GURNEY, PT IS LETHARGIC, UNABLE TO FOLLOW COMMANDS AND MAKE NEEDS KNOWN, AFEBRILE, VSS, FLACC 0, TRACH TO VENT, NO S/S OF DISTRESS, CLEAR LUNG SOUNDS FANNIE. SR ON PICKLE PUMPER, CAP REFILL <2 SEC, LARGE ROUND DISTENDED ABDOMEN WITH ACTIVE BOWEL SOUNDS, GT IN PLACE, CLAMPED, INCONTINENT, GENERALIZED WEAKNESS TO ALL EXTREMITIES. SKIN IS WARM AND DRY TO TOUCH, OPEN WOUND TO SACRAL AREA, PICTURE TAKEN, HOB ELEVATED TO 30 DEGREES, SAFETY MEASURES AND SEIZURE PRECAUTION IN PLACE, POSITION CHANGED FOR OFF LOAD PRESSURE, WILL CONTINUE TO MONITOR.
--- NOTE | 2019-05-23 18:51 | NUR ---
PHONE CALL FROM DR LINDSEY; UPDATED ON PTS PRESENT CONDITION.BP 104/47 AT THIS TIME.PT NOT ON VASOPRESSOR, AWARE.
--- NOTE | 2019-05-23 18:56 | NUR ---
Patient will be admitted to care of DR. BIN Admited to ICU. Will go to room 8. Belongings list completed. Report to MIKE GOODE.
--- NOTE | 2019-05-23 19:22 | NUR ---
ENDORSED PATIENT CARE TO TURFGRASS MANAGEMENT PROFESSOR NURSE AT THIS TIME.
--- NOTE | 2019-05-23 19:30 | NUR ---
ASSUMED CARE OF PT.INITIAL ASSESSMENT COMPLETED.PT LETHARGIC.WITHDRAWS TO PAIN.SR ON MONITOR.TRACH TO VENT FIO2 30% TV550 AC 18 PEEP 5.SECRETIONS SUCTIONED.YELLOWISH THICK SECRETIONS NOTED.CENTRAL LINE TO RT SUBCLAVIAN ALSO NOTED.AWAITING CXR RESULT.WITH PERIPHERAL IV TO RT HAND G20 INTACT AND LT THUMB G22 INTACT.W/GTUBE CLAMPED.PT INCONTINENT OF URINE AND STOOL.CLEANED.WITH PRESSURE ULCERS TO SACROCOCCYGEAL AREA ALSO NOTED.WITH ABRASION TO RT LOWER LIP ALSO NOTED.PHOTO TAKEN.FLACC 0
[2019-05-23] MEDS: NACL 0.9% 1,000 ML IV SCH (19:51)
[2019-05-23] MEDS ORDERED: NOREPINEPHRINE 4 MG/4 ML VIAL IV ONE (20:27)
[2019-05-23] MEDS: ASCORBIC ACID 500 MG/5 ML ORASYR GT SCH (20:34)
[2019-05-23] MEDS: NOREPINEPHRINE 4 MG in DEXTROSE 5% 250 ML IV PRN (20:39)
[2019-05-23] MEDS: BLOOD GLUCOSE MONITORING 1 DEV DEV FS SCH (20:47)
--- NOTE | 2019-05-23 21:16 | NUR ---
trach care done. trach tie changed and gauze. site is clean
--- NOTE | 2019-05-23 22:00 | NUR ---
ER MD DR GRIMALDO IN THE UNIT AND READJUSTED CENTRAL LINE PLACEMENT AFTER CXR RESULT. ORDERED ANOTHER CXR
[2019-05-23] MEDS ORDERED: PIPERACILLIN/TAZOBACTAM 2.25 GM VIAL IV ONE (22:47)
[2019-05-23] MEDS: PIPERACILLIN/TAZOBACTAM 2.25 GM in DEXTROSE 5% 50 ML IV SCH (22:50)
[2019-05-24] VITALS (107 sets, daily range): BP systolic 78–143; BP diastolic 37–73
[2019-05-24] MEDS ORDERED: VANCOMYCIN HCL 125 MG GT SCH
--- NOTE | 2019-05-24 | NUR ---
ORAL CARE USING VAP KIT RENDERED.PT REPOSITIONED.STILL ON LEVOPHED DRIP AT 12MCG/MIN.FLACC 0/REPOSITIONED
[2019-05-24] MEDS: VANCOMYCIN 500 MG VIAL PO SCH ×5 (01:00→23:19)
--- NOTE | 2019-05-24 01:15 | NUR ---
PHONE CALL FROM DR LINDSEY; UPDATED ON PTS PRESENT CONDITION.MADE AWARE PT ON LEVOPHED DRIP AT 12MCG/MIN.NO NEW ORDERS
[2019-05-24] MEDS: NACL 0.9% 1,000 ML IV SCH ×6 (01:25→23:18)
--- NOTE | 2019-05-24 02:30 | NUR ---
pts eyes close; still on levophed drip.trach to vent; secretions suctioned.jim catheter intact draining adequate amt of yellow urine with sediments.flacc 0
[2019-05-24] MEDS ORDERED: NOREPINEPHRINE 4 MG/4 ML VIAL IV ONE (03:15)
[2019-05-24] MEDS: NOREPINEPHRINE 4 MG in DEXTROSE 5% 250 ML IV PRN ×2 (03:19→12:26)
--- NOTE | 2019-05-24 04:00 | NUR ---
bm noted; pt washed; c diff specimen sent to lab
[2019-05-24] MEDS ORDERED: PIPERACILLIN/TAZOBACTAM 2.25 GM VIAL IV ONE (05:05)
[2019-05-24] MEDS: PIPERACILLIN/TAZOBACTAM 2.25 GM in DEXTROSE 5% 50 ML IV SCH ×3 (05:24→20:58)
--- NOTE | 2019-05-24 06:00 | NUR ---
pt appears agitated; ativan administered as ordered
[2019-05-24] MEDS: LANSOPRAZOLE 30 MG CAPDR GT SCH (06:03)
[2019-05-24 07:01] LABS: CREATININE 3.4 mg/dL (0.7-1.3)
[2019-05-24] MEDS: BLOOD GLUCOSE MONITORING 1 DEV DEV FS SCH ×4 (07:21→21:00)
--- NOTE | 2019-05-24 07:22 | NUR ---
report given to brionna delgado for continuity of care. pts bs 128; no insulin coverage required
[2019-05-24 07:29] LABS: POTASSIUM 3.9 mmol/L (3.5-5.1)
--- NOTE | 2019-05-24 07:30 | NUR ---
RECEIVED BEDSIDE REPORT FROM RESIDENT ASSOCIATE RN. FLACC 0. TEMP 99.8. PERRL. NORMAL SINUS RHYTHM ON MONITOR. S1 S2 HEARD. PT IS TRACH TO VENT W/ SETTINGS: A/C VC FIO2 30%, VT 350, RR 18, PEEP 5. LUNGS SOUND DIMINISHED. BREATHING EVEN AND UNLABORED. ABDOMEN ROUND, SLIGHTLY DISTENDED W/ ACTIVE BOWEL SOUNDS. G-TUBE IN PLACE. CENTRAL LINE TLC TO RIGHT SUBCLAVIAN PATENT AND INTACT. PT IS ON LEVOPHED DRIP AT 6 MCG/MIN AND IVF NS AT 150 ML/HR. CAN CATH IN PLACE DRAINING CLEAR YELLOW URINE TO GRAVITY. SKIN IS DRY AND WARM TO TOUCH. PRESSURE ULCER TO SACROCOCCYX AREA NOTED. PULSES PALPABLE TO ALL EXTREMITIES. CAP REFILL < 2 SEC. HOB AT 30 DEGREES. BED IN LOWEST POSITION LOCKED. CALL LIGHT WITHIN REACH. NO SIGNS OF ACUTE DISTRESS NOTED AT THIS TIME. WILL CONTINUE TO MONITOR.
[2019-05-24 07:32] LABS: CARBON DIOXIDE 17.9 mmol/L (21-32)
[2019-05-24 07:44] LABS: BASOPHILS % (AUTO) 0.1 % (0.0-2.0); EOSINOPHILS # (AUTO) 0.2 K/uL (0-0.4); EOSINOPHILS % (AUTO) 0.9 % (0.0-4.0); HEMATOCRIT 24.7 % (36-52); HEMOGLOBIN 8.1 g/dL (12.0-18.0); LYMPHOCYTES # (AUTO) 1.5 K/uL (2.0-11.5); LYMPHOCYTES % (AUTO) 6.5 % (20.5-51.1); MEAN CORPUSCULAR HEMOGLOBIN 27 pg (27-31); MEAN CORPUSCULAR HGB CONC 33 g/dL (33-37); MEAN CORPUSCULAR VOLUME 83.3 fL (80-94); MONOCYTES # (AUTO) 1.2 K/uL (0.8-1.0); MONOCYTES % (AUTO) 4.8 % (1.7-9.3); NEUTROPHILS # (AUTO) 20.9 K/uL (1.8-7.7); NEUTROPHILS % (AUTO) 87.7 % (42.2-75.2); PLATELET COUNT (AUTO) 669 K/uL (140-450); RED BLOOD CELL COUNT(AUTO) 2.96 MIL/uL (4.20-6.10); RED CELL DISTRIBUTION WIDTH 15.6 % (11.6-13.7); WHITE BLOOD COUNT (AUTO) 23.8 K/uL (4.8-10.8)
[2019-05-24] MEDS: ASCORBIC ACID 500 MG/5 ML ORASYR GT SCH ×2 (08:17→20:58)
[2019-05-24] MEDS: PHARMACY COMMENTS MC SCH (08:17)
[2019-05-24] MEDS ORDERED: PHENYTOIN 125 MG GT SCH (09:00)
--- NOTE | 2019-05-24 09:08 | NUR ---
DR. STEWARD IN TO SEE PT. WILL FOLLOW UP ON ORDERS.
--- NOTE | 2019-05-24 12:00 | NUR ---
VAP ORAL CARE GIVEN. TURNED AND REPOSITIONED FOR COMFORT AND PRESSURE OFF LOADING. SCDS IN PLACE. PT TOLERATED WELL.
--- NOTE | 2019-05-24 12:03 | NUR ---
PATIENT HAS BEEN SCREENED AND CATEGORIZED HIGH NUTRITION RISK. PATIENT WILL BE SEEN WITHIN 1-2 DAYS OF ADMISSION. 05/25/2019 ANNIA TEJADA MBA, RD
[2019-05-24] MEDS: GABAPENTIN 100 MG CAP GT SCH ×2 (12:15→20:59)
[2019-05-24] MEDS: Z-GUARD PASTE TP SCH (12:16)
[2019-05-24] MEDS: PHENYTOIN 100 MG/4 ML UDC GT SCH ×2 (12:16→20:58)
--- NOTE | 2019-05-24 13:02 | NUR ---
WOUND CARE PROVIDED. Z-GUARD APPLIED, OPTIFOAM IN PLACE. PT HAD LARGE AMOUNT OF LOOSE STOOL. PT TOLERATED CLEANING AND TURNING WELL.
--- NOTE | 2019-05-24 14:30 | NUR ---
TUBE FEEDING STARTED AT 20 ML/HR. GOAL RATE 65 ML/HR.
--- NOTE | 2019-05-24 15:10 | NUR ---
05/24/2019 RD INITIAL ASSESSMENT COMPLETED PLEASE REFER TO NUTRITION ASSESSMENT UNDER CARE ACTIVITY FOR ESTIMATED NUTRITIONAL NEEDS. RD RECOMMENDATIONS: 1. RECOMMEND CONTINUE TF ORDER GLUCERNA 1.2@65MLS/HR; PROVIDES 1872 KCALS, 94G PROTEIN AND MEETS 90% ESTIMATED NEEDS. 2. RECOMMEND START TF @35MLS/HR AND ADVANCE, TOLERATED, BY 10MLS/HR Q8HRS TO REACH GOAL RATE OF 65MLS/HR 3. F/U 2-3 DAYS; HIGH RISK ANNIA TEJADA MBA, RD
--- NOTE | 2019-05-24 15:16 | NUR ---
DR. RODRIGUEZ IN TO SEE PT. WILL FOLLOW UP ON ORDERS.
--- NOTE | 2019-05-24 16:00 | NUR ---
VAP ORAL CARE GIVEN. TEMP 98.4, NO SIGNS OF DISTRESS. PT STILL ON LEVOPHED DRIP, TRACH TO VENT, CAN DRAINING CLEAR YELLOW URINE. TOLERATING TUBE FEEDING AT 20 ML/HR. TURNED AND REPOSITIONED. SAFETY PRECAUTIONS IN PLACE. WILL CONTINUE TO MONITOR. Addendum: 05/24/19 at 1718 by Eliel Jennings RN TF GOAL RATE 65 ML/HR
--- NOTE | 2019-05-24 16:15 | NUR ---
[facility] [place] High Risk DC Screen Yes Name: Payal Charles Relationship: sister in law Pre-Admission Living Arrangements: Other Other: [facility] (subacute) Prior ADL Total/Dependent Healthcare Decision Maker: Other Other: Payal Bonilla Advance Directive No Tentative Discharge Plan Summary: Patient is a 44 year old male admitted for sepsis, acute renal failure, and hyponatremia. Per Hazel from [facility] , patient is on a 7 day bed hold and is one of their retirement patients. Patient does not have an Advance Directive and his sister in law Payal Bonilla is his health care decision maker. I called and spoke with Payal. Per Payal, she would like me to contact other subacute facilities and inquire if they can accept patient. She is in agreement with transferring patient back to [facility] if there is no other accepting subacute facility besides [facility], Hazel from [facility] made aware of this. I faxed inquiries to [facility], [facility], [facility], and [facility]. Chemical Engineering Professor and/or Blocking Machine Operator will follow up as needed. Signature: JOSHUA Mcmillan Date: May 24, 2019 Addendum: 05/30/19 at 1431 by Twyla Morrison Per Blocking Machine Operator Kristy, patient is on isolation for MDRO and METROLOGIST (sputum). Per Roxanne from [facility] , they do not have any males beds available in their subacute unit. Per Coco from [facility] , they do not have an isolation male bed available in their subacute unit. Per Yanni from [facility] , they do not have male beds available in their subacute unit. Per Breann from [facility] , they do not have male beds available in their subacute unit. I called patient's sister in law Payal Chad , line is out of service. I called patient's brother Sea Bonilla , Sea speaks Norwegian. I explained to Sea, I had contacted other subacute facilities per Payal's request and was not able to locate an accepting subacute at this time. I told him Payal's phone number is not working. He told me he will provide Payal with an update and he is in agreement with patient's transfer to [facility] today. He thanked me for my assistance.
[2019-05-24 17:38] LABS: CHLORIDE,URINE RANDOM 21 mmol/L (110-250); CREATININE,URINE RANDOM 57 mg/dL (30-125)
--- NOTE | 2019-05-24 18:46 | NUR ---
Received pt stable on vent support at documented settings, suctioned small amount of thick white yellow secretions, no resp distress or SOB noted at this time, Shiley 7 XLT trach secure/patent/midline, alarms set and audible, ambu bag at bedside, vent wiped down and plugged into red outlet, cont pulse ox on, will cont to monitor.
--- NOTE | 2019-05-24 18:50 | NUR ---
PT HAD LARGE LOOSE BOWEL MOVEMENT. CLEANED, LINENS CHANGED, AND REPOSITIONED. PT TOLERATED WELL.
--- NOTE | 2019-05-24 19:30 | NUR ---
REPORT GIVEN TO LINE COOK RN FOR CONTINUITY OF CARE. NO SIGNS OF ACUTE DISTRESS NOTED AT THIS TIME.
--- NOTE | 2019-05-24 19:35 | NUR ---
RECEIVED REPORT FROM LEDY MCKEON AM SHIFT, PT IS OPEN EYES NON VERBAL. NODDING HIS HEAD FOR YES FOR SIMPLE QUESTIONS ONLY. PT GEORGIAN SPEAKING. PT TRACH TO VENT WITH VENT SETTING AC RATE 18 FIO2 30 %,TIDAL VOLUME 550 AND PEEP OF 5 , NO SOB NOTED, NO S/S OF ANY DISTRESS. BILATERAL LUNGS SOUND RHONCHI. SR ON WAREHOUSE MATERIAL HANDLER.DENIAL ANY PAIN AT THIS TIME. RIGHT SUBCLAVIAN TRIPLE LUMENS WITH LEVOPHED DRIP RUNNING AT 2 MCG/MIN. IV NS AT 150 CC/HR. IV LINE TO RIGHT HAND NO 20 AND LEFT THUMB NO 22. GT IN PLACE WITH GLUCERNA 1.2 AT 20 CC/HR AT THIS TIME TO REACH GOAL OF 65 CC/HR. NO RESIDUAL NOTED. ABD SOFT NON DISTENDED. SKIN NON INTACT,SACRO COCCYX PRESSURE INJURY AND ABRASION ON LIP. SKIN WARM TO TOUCH. F/C IN PLACE WITH YELLOW CLEAR URINE. GENTLE CARE GIVEN. KEPT CLEAN AND DRY.
--- NOTE | 2019-05-24 21:00 | NUR ---
NIGHT MEDS GIVEN TYRA WELL, BLOOD SUGAR WAS 114. NO COVERAGE NEEDED.
--- NOTE | 2019-05-24 22:33 | NUR ---
BP WAS LOW 78/37 AND INCREASE LEVOPHED DRIP TO 6 MCG/MIN AND BP UP TO 95/55 AFTER 5 MINUTES. CONTINUE TO MONITOR.
[2019-05-25] VITALS (83 sets, daily range): BP systolic 78–127; BP diastolic 35–78
[2019-05-25] MEDS: Z-GUARD PASTE TP SCH ×2 (01:00→12:12)
--- NOTE | 2019-05-25 01:00 | NUR ---
PT SLEEP WELL, NO S/S OF ANY DISTRESS.
--- NOTE | 2019-05-25 03:15 | NUR ---
GT FEEDING GLUCERNA 1.2 REACH THE RATE GOAL AT 65 CC/HR AND H2O 200 CC Q 4HRS TOLERATED WELL.
[2019-05-25] MEDS: NACL 0.9% 1,000 ML IV SCH ×3 (04:05→11:31)
--- NOTE | 2019-05-25 04:15 | NUR ---
IV NS BAG NOT CHANGE YET STILL 600 CC IN THE BAG.
[2019-05-25] MEDS: PIPERACILLIN/TAZOBACTAM 2.25 GM in DEXTROSE 5% 50 ML IV SCH ×3 (04:35→20:59)
[2019-05-25] MEDS: NOREPINEPHRINE 4 MG in DEXTROSE 5% 250 ML IV PRN (04:37)
--- NOTE | 2019-05-25 05:00 | NUR ---
AM CARE GIVEN,ORAL CARE AND BED BATH. ANOTHER EPISODE OF BM LOOSE STOOL. KEPT CLEAN AND DRY.
[2019-05-25] MEDS: PHENYTOIN 100 MG/4 ML UDC GT SCH ×3 (05:36→21:00)
[2019-05-25] MEDS: VANCOMYCIN 500 MG VIAL PO SCH (05:37)
[2019-05-25] MEDS: GABAPENTIN 100 MG CAP GT SCH ×3 (05:37→21:00)
[2019-05-25] MEDS: LANSOPRAZOLE 30 MG CAPDR GT SCH (06:31)
[2019-05-25] MEDS: BLOOD GLUCOSE MONITORING 1 DEV DEV FS SCH ×4 (06:32→21:12)
--- NOTE | 2019-05-25 06:49 | NUR ---
BLOOD SUGAR 143 NO COVERAGE NEED AT THIS TIME. AM MEDS GIVEN AND TYRA WELL.
--- NOTE | 2019-05-25 07:04 | NUR ---
REPORT GIVEN TO LEDY MCKEON. PT AWAKE ,NO S/S OF ANY DISTRESS.
[2019-05-25 07:20] LABS: BASOPHILS % (AUTO) 0.1 % (0.0-2.0); EOSINOPHILS # (AUTO) 0.2 K/uL (0-0.4); HEMOGLOBIN 7.5 g/dL (12.0-18.0); LYMPHOCYTES # (AUTO) 1.2 K/uL (2.0-11.5); MEAN CORPUSCULAR HEMOGLOBIN 28 pg (27-31); MEAN CORPUSCULAR HGB CONC 33 g/dL (33-37); MEAN CORPUSCULAR VOLUME 83.9 fL (80-94); NEUTROPHILS # (AUTO) 19.7 K/uL (1.8-7.7); PLATELET COUNT (AUTO) 665 K/uL (140-450); RED BLOOD CELL COUNT(AUTO) 2.74 MIL/uL (4.20-6.10); RED CELL DISTRIBUTION WIDTH 15.2 % (11.6-13.7); WHITE BLOOD COUNT (AUTO) 22.1 K/uL (4.8-10.8)
--- NOTE | 2019-05-25 07:26 | NUR ---
RECEIVED BEDSIDE REPORT FROM LABORER AMMUNITION ASSEMBLY RN. PT FOLLOWS SIMPLE COMMANDS AND MAKE SIMPLE NEEDS KNOWN BY NODDING/ SHAKING HEAD. FLACC 0. TEMP 99.5. NORMAL SINUS RHYTHM ON MONITOR. S1 S2 HEARD. PULSES PALPABLE TO ALL EXTREMITIES. CAP REFILL < 2 SEC. PT IS TRACH TO VENT W/ SETTINGS: A/C VC FIO2 30%, VT 350, RR 18, PEEP 5. RHONCHI HEARD BILATERALLY. BREATHING EVEN AND UNLABORED. ABDOMEN ROUND, SOFT W/ ACTIVE BOWEL SOUNDS. G-TUBE TO TUBE FEEDING OF GLUCERNA 1.2 AT 60 ML/HR W/ FWF 200 ML Q4H. 5 ML RESIDUALS. TOLERATING WELL. CENTRAL LINE TLC TO RIGHT SUBCLAVIAN PATENT AND INTACT. PERIPHERAL IV G20 TO RIGHT HAND AND G22 TO LEFT THUMB SALINE LOCKED. PT IS ON LEVOPHED DRIP AT 6 MCG/MIN AND IVF NS AT 150 ML/HR. CAN CATH IN PLACE DRAINING YELLOW URINE TO GRAVITY. SKIN IS DRY AND WARM TO TOUCH. PRESSURE ULCER TO SACROCOCCYX AREA DRESSING CLEAN, DRY AND INTACT. HOB AT 30 DEGREES. BED IN LOWEST POSITION LOCKED. CALL LIGHT WITHIN REACH. NO SIGNS OF ACUTE DISTRESS NOTED AT THIS TIME. WILL CONTINUE TO MONITOR.
[2019-05-25 07:35] LABS: CREATININE 2.8 mg/dL (0.7-1.3)
--- NOTE | 2019-05-25 07:38 | NUR ---
REC'D PT ON CARESCAPE VENT SETTINGS AC 18 BT 550 PEEP 5 FIO2 30% ALARMS ON AND AUDIBLE AND AMBU BAG AT HOB AND VENT IS PLUGGED INTO RED OUTLET, SXN PT SMALL AMT OF CREAM COLOR SECRETIONS, B\S ARE RHONCHI BILATERALLY, PT IS TRACH WITH SHILEY 7 XLT AND PT IS RESSTING
[2019-05-25 07:50] LABS: POTASSIUM 3.4 mmol/L (3.5-5.1)
[2019-05-25 07:52] LABS: ANION GAP 18.2 (8-16); CARBON DIOXIDE 17.2 mmol/L (21-32)
[2019-05-25] MEDS ORDERED: PROBIOTIC SCREEN 1 EA MISC MC PRN (08:00)
[2019-05-25 08:04] LABS: LYMPHOCYTES % (AUTO) 5.5 % (20.5-51.1); MONOCYTES % (AUTO) 4.6 % (1.7-9.3); NEUTROPHILS % (AUTO) 88.8 % (42.2-75.2)
[2019-05-25] MEDS: ASCORBIC ACID 500 MG/5 ML ORASYR GT SCH ×2 (08:04→21:00)
[2019-05-25] MEDS: LACTOBACILLUS RHAMNOSUS GG 1 EACH CAP GT SCH (08:07)
[2019-05-25] MEDS: PHARMACY COMMENTS MC SCH (08:07)
--- NOTE | 2019-05-25 08:30 | NUR ---
MEDICATIONS ADMINISTERED ORDERED. PT TOLERATED WELL.
--- NOTE | 2019-05-25 09:13 | NUR ---
RECEIVED CALL FROM DR. RODRIGUEZ. UPDATES GIVEN ON PT'S CONDITION. NO NEW ORDER RECEIVED AT THIS TIME. Addendum: 05/25/19 at 0915 by Eliel Jennings RN DR. RODRIGUEZ MADE AWARE OF BMP AND URINE RANDOM NA & CL RESULTS.
--- NOTE | 2019-05-25 10:25 | NUR ---
PT SEEN AND EXAMINED BY DR. STEWARD. ORDERS RECEIVED AND CARRIED OUT. Addendum: 05/25/19 at 1027 by Eliel Jennings RN DR. STEWARD AWARE OF HGB 7.5 AND HCT 23.0
[2019-05-25] MEDS: POTASSIUM CHLORIDE 20% 40 MEQ/15 ML UDC GT PRN (10:44)
--- NOTE | 2019-05-25 11:15 | NUR ---
PT HAD MODERATE AMOUNT OF LOOSE BOWEL MOVEMENT. STOOL SENT TO LAB FOR OCCULT BLOOD.
--- NOTE | 2019-05-25 12:00 | NUR ---
VAP ORAL CARE GIVEN. TURNED AND REPOSITIONED. PRESSURE AREAS OFF LOADED. PT IS OFF LEVOPHED DRIP. VSS. NO SIGNS OF ACUTE DISTRESS. SAFETY PRECAUTIONS IN PLACE.
--- NOTE | 2019-05-25 14:44 | NUR ---
PT SEEN AND EXAMINED BY DR. RODRIGUEZ. UPDATES GIVEN ON PT'S CONDITION. NO NEW ORDER RECEIVED AT THIS TIME.
--- NOTE | 2019-05-25 16:00 | NUR ---
VAP ORAL CARE GIVEN. REPOSITIONED PT. PT TOLERATING TUBE FEEDING, LEVOPHED DRIP RE-STARTED FOR LOW BLOOD PRESSURE 78/38. SAFETY PRECAUTIONS IN PLACE. WILL CONTINUE TO MONITOR.
[2019-05-25] MEDS: CHLORHEXADINE GLUC 2% CLOTH TP SCH (16:15)
[2019-05-25] MEDS: MUPIROCIN CA NASAL 2% 1GM TUBE NS SCH (16:16)
--- NOTE | 2019-05-25 18:00 | NUR ---
PT HAD LARGE AMOUNT OF LOOSE BM. CLEANED, TURNED, LINENS CHANGED. PT TOLERATED WELL. SAFETY PRECAUTIONS IN PLACE.
--- NOTE | 2019-05-25 19:03 | NUR ---
RECEIVED PATIENT FROM DAY SHIFT ON AC 18,550,+5,30%. VENT PLUGGED INTO RED OUTLET. ALARMS AUDIBLE AND WORKING. BMV AT HEAD OF BED. AIRWAY SECURED WITH A SHILEY 7 XLT. SX SMALL AMOUNTS OF THICK WHITE SECRETIONS.PT IS IN NO DISTRESS. WILL CONT TO MONITOR.
--- NOTE | 2019-05-25 19:30 | NUR ---
RECEIVED PT FROM EDUARD RN. PT RESTING IN BED WITH EYES CLOSED. RESPONDS TO PAINFUL STIMULI ONLY. PERRL. 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 FLACC 0. TRACH TO VENT WITH VENT SETTINGS FOLLOWS: 550, 18, 5, 30% FIO2. ABDOMEN SOFT, ROUND WITH ACTIVE BOWEL SOUNDS X4. GT NOTED WITH CONTINUOUS FEEDING, GLUCERNA 1.2 @ 65CC/HR, AND FWF 50ML Q6. NO RESIDUAL NOTED. + PLACEMENT VERIFIED VIA AIR BOLUS. INDWELLING URINARY CATHETER PPATENT DRAINING CLEAR, STRAW COLORED URINE TO GRAVITY. SACROCOCCYX PRESSURE ULCER NOTED WITH DRY DRESSING IN PLACE. RT SUBCLAVIAN CENTRAL LINE WITH 0.9 NS @ 75CC/HR, LEVOPHED 4 MCG/MIN. PERIPHERAL IV'S NOTED TO LT HAND 22G AND RT HAND 20G. SOFT-WRIST RESTRAINT TO LUE DUE TO ATTEMPTING TO PULL TRACH. SKIN WARM AND DRY, REMAINS AFEBRILE. BED LOW AND LOCKED. CALL LIGHT WITHIN REACH. HOB ELEVATED TO 35 DEGREES. WILL CONTINUE TO MONITOR FOR CHANGES.
--- NOTE | 2019-05-25 19:39 | NUR ---
REPORT GIVEN TO APPEALS EXAMINER RN FOR CONTINUITY OF CARE. NO S/SX OF DISTRESS NOTED AT THIS TIME.
--- NOTE | 2019-05-25 21:00 | NUR ---
DECREASED LEVOPHED TO 2 MCG/MIN. BP: 109/61, HR 83 BPM. WILL CONTINUE TO MONITOR.
--- NOTE | 2019-05-25 21:05 | NUR ---
VSS. BP 100/59, HR 83 BPM.
--- NOTE | 2019-05-25 22:00 | NUR ---
VAP ORAL CARE PROVIDED. SUCTIONED TRACH. HOB REMAINS @ 35 DEGREES. REPOSITIONED PT WITH PRESSURE AREAS OFFLOADED. PERICARE/ CATHETER CARE PROVIDED. ALL OTHER NEEDS BEING MET. WILL CONT TO MONITOR.
[2019-05-26] VITALS (49 sets, daily range): BP systolic 97–135; BP diastolic 44–101
--- NOTE | 2019-05-26 | NUR ---
VSS. FLACC 0. REPOSITIONED WITH PRESSURE AREAS OFFLOADED. BED LOW AND LOCKED. CALL LIGHT LEFT WITHIN REACH. WILL CONTINUE TO MONITOR.
[2019-05-26] MEDS: Z-GUARD PASTE TP SCH ×2 (01:24→13:00)
--- NOTE | 2019-05-26 02:00 | NUR ---
VAP ORAL CARE PROVIDED. SUCTIONED TRACH WITH CREAMY, WHITE SECRETIONS NOTED. HOB 35 DEGREES. SAFETY PRECAUTIONS REMAIN IN PLACE. CALL LIGHT WITHIN REACH. WILL CONTINUE TO MONITOR.
[2019-05-26] MEDS: PIPERACILLIN/TAZOBACTAM 2.25 GM in DEXTROSE 5% 50 ML IV SCH ×3 (04:32→20:32)
--- NOTE | 2019-05-26 05:00 | NUR ---
STOPPED LEVOPHED DRIP @ THIS TIME. BP 105/69, HR 93 BPM. WILL CONTINUE TO MONITOR.
--- NOTE | 2019-05-26 05:05 | NUR ---
VSS S/P LEVOPHED DRIP. BP 97/47, HR 94. WILL CONTINUE TO MONITOR.
[2019-05-26 06:04] LABS: ANION GAP 18.4 (8-16); CARBON DIOXIDE 18.3 mmol/L (21-32); CREATININE 2.2 mg/dL (0.7-1.3); POTASSIUM 3.7 mmol/L (3.5-5.1)
[2019-05-26] MEDS: LANSOPRAZOLE 30 MG CAPDR GT SCH (06:04)
[2019-05-26] MEDS: GABAPENTIN 100 MG CAP GT SCH ×3 (06:04→20:31)
[2019-05-26] MEDS: PHENYTOIN 100 MG/4 ML UDC GT SCH ×3 (06:05→20:32)
[2019-05-26] MEDS: BLOOD GLUCOSE MONITORING 1 DEV DEV FS SCH ×4 (06:30→20:31)
--- NOTE | 2019-05-26 06:36 | NUR ---
RECEIVED PT ON CARESCAPE ON DOCUMENTED SETTINGS, ALARMS ARE ON AND AUDIBLE, PTS TRACH SHILEY 7 XLT IS SECURE, BS COARSE SX PT IN HF QUIET, VENT PLUGGED INTO RED OUTLET, BMV HOB WILL CONTINUE TO MONITOR
--- NOTE | 2019-05-26 07:15 | NUR ---
ENDORSED PT TO DAY RN FOR CONTINUITY OF CARE. VSS AT THIS TIME.
--- NOTE | 2019-05-26 07:16 | NUR ---
RECEIVED BEDSIDE REPORT FROM FIELD SCOUT NURSE, PT IS LETHARGIC, UNABLE TO FOLLOW COMMANDS, VSS, FLACC 0, NO S/S OF DISTRESS, TRACH TO VENT WITH FIO2 30 VT 550 R 18, PEEP 5, CLEAR LUNG SOUND FANNIE. SR ON MANAGER ART, CAP REFILL <2 SEC, LARGE DISTENDED ABDOMEN WITH ACTIVE BOWEL SOUNDS, GT IN PLACE FEEDING WITH GLUCERNA 1.2 AT 65 ML/HR, 60 ML OF RESIDUALS NOTED, CAN CATHETER IN PLACE WITH SEDIMENT YELLOW URINE VIA GRAVITY, GENERALIZED WEAKNESS TO ALL EXTREMITIES, SCD IN PLACE, SKIN IS WARM AND DRY TO TOUCH, OPEN WOUND PRESENT(SEE WOUND ASSESSMENT) CENTRAL LINE TO RIGHT SUBCLAVIAN, PATENT, RUNNING NS AT 75 ML/HR. HOB ELEVATED TO 30 DEGREES, SAFETY MEASURES AND SEIZURE PRECAUTION IN PLACE, WILL CONTINUE TO MONITOR.
[2019-05-26 08:00] LABS: HEMOGLOBIN 7.2 g/dL (12.0-18.0); MEAN CORPUSCULAR HEMOGLOBIN 28 pg (27-31); MEAN CORPUSCULAR HGB CONC 33 g/dL (33-37); MEAN CORPUSCULAR VOLUME 84.8 fL (80-94); PLATELET COUNT (AUTO) 658 K/uL (140-450); RED CELL DISTRIBUTION WIDTH 15.8 % (11.6-13.7); WHITE BLOOD COUNT (AUTO) 18.8 K/uL (4.8-10.8)
--- NOTE | 2019-05-26 08:05 | NUR ---
DR. MUNGUIA CAME IN TO SEE PATIENT AT BEDSIDE, UPDATED PATIENT CONDITION, NO NEW ORDER AT THIS TIME.
[2019-05-26 08:20] LABS: EOSINOPHILS % (MANUAL) 2 % (0-4); LYMPHOCYTES % (MANUAL) 5 % (20-46); MONOCYTES % (MANUAL) 2 % (5-12)
--- NOTE | 2019-05-26 09:15 | NUR ---
SCHEDULED MEDICATION GIVEN VIA GT, PATIENT TOLERATED WELL.
[2019-05-26] MEDS: ASCORBIC ACID 500 MG/5 ML ORASYR GT SCH ×2 (09:16→20:33)
[2019-05-26] MEDS: LACTOBACILLUS RHAMNOSUS GG 1 EACH CAP GT SCH (09:16)
[2019-05-26] MEDS: NACL 0.9% 1,000 ML IV SCH (09:17)
--- NOTE | 2019-05-26 10:00 | NUR ---
NO CHANGE OF CONDITION, VSS, FLACC 0, POSITION CHANGED FOR OFF LOAD PRESSURE.
--- NOTE | 2019-05-26 10:15 | NUR ---
DR. STEWARD CAME IN TO SEE PATIENT AT BEDSIDE, UPDATED PATIENT'S CONDITION, WILL CONTINUE TO MONITOR.
--- NOTE | 2019-05-26 12:00 | NUR ---
VSS, FLACC 0, NO S/S OF DISTRESS, ORAL CARE AND SUCTION PROVIDED, POSITION CHANGED FOR OFF LOAD PRESSURE.
[2019-05-26] MEDS ORDERED: VANCOMYCIN PER PHARMACY MC PRN (12:35)
--- NOTE | 2019-05-26 14:00 | NUR ---
VSS, FLACC 0, NO S/S OF DISTRESS, POSITION CHANGED FOR OFF LOAD PRESSURE.
[2019-05-26] MEDS: VANCOMYCIN HCL 750 MG in DEXTROSE 5% 250 ML IV SCH (14:15)
[2019-05-26] MEDS: CHLORHEXADINE GLUC 2% CLOTH TP SCH (14:15)
[2019-05-26] MEDS: MUPIROCIN CA NASAL 2% 1GM TUBE NS SCH (14:17)
--- NOTE | 2019-05-26 16:00 | NUR ---
NO CHANGE OF CONDITION, PM CARE AND CAN CATHETER CARE PROVIDED, ORAL CARE DONE, POSITION CHANGED FOR OFF LOAD PRESSURE.
--- NOTE | 2019-05-26 19:25 | NUR ---
REPORT GIVEN TO CAT SCANNER OPERATOR NURSE BEDSIDE FOR CONTINUE OF CARE, PT IS IN STABLE CONDITION AT THIS TIME.
--- NOTE | 2019-05-26 19:30 | NUR ---
RECEIVED PT FROM EDUARD MCKEON. VSS. PT RESTING IN BED WITH EYES CLOSED. RESPONDS TO PAINFUL STIMULI ONLY. PERRL. 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 FLACC 0. TRACH TO VENT WITH VENT SETTINGS FOLLOWS: 550, 18, 5, 30% FIO2. ABDOMEN SOFT, ROUND WITH ACTIVE BOWEL SOUNDS X4. GT NOTED WITH CONTINUOUS FEEDING, GLUCERNA 1.2 @ 65CC/HR, AND FWF 50ML Q6. NO RESIDUAL NOTED. + PLACEMENT VERIFIED VIA AIR BOLUS. INDWELLING URINARY CATHETER PATENT DRAINING CLEAR, STRAW COLORED URINE TO GRAVITY. SACROCOCCYX PRESSURE ULCER NOTED WITH DRY DRESSING IN PLACE. RT SUBCLAVIAN CENTRAL LINE WITH 0.9 NS @ 75CC/HR. PERIPHERAL IV'S NOTED TO LT HAND 22G AND RT HAND 20G. SOFT-WRIST RESTRAINT TO LUE DUE TO ATTEMPTING TO PULL TRACH. SKIN WARM AND DRY, REMAINS AFEBRILE. BED LOW AND LOCKED. CALL LIGHT WITHIN REACH. HOB ELEVATED TO 35 DEGREES. WILL CONTINUE TO MONITOR.
--- NOTE | 2019-05-26 19:54 | NUR ---
RECEIVED PATIENT TRACH TO MECHANICAL VENTILATOR AT DOCUMENTED SETTINGS. VENT CHECK DONE. VENT ALARMS ON AND AUDIBLE. VENT PLUGGED INTO CORRECT OUTLET WITH WHEELS LOCKED. AMBU BAG AT [facility]. AIRWAY SECURE AND PATENT. PRN HHN NOT INDICATED. SUCTIONED SMALL AMOUNT OF THICK, YELLOW SECRETIONS. NO ACUTE RESPIRATORY DISTRESS NOTED AT THIS TIME. WILL CONTINUE TO MONITOR.
--- NOTE | 2019-05-26 22:00 | NUR ---
PT RESTING IN BED COMFORTABLY. BED BATH PERFORMED. VAP ORAL CARE PROVIDED WITH SUCTIONING. CLEAR SECRETIONS NOTED. REPOSITIONED WITH PRESSURE AREAS OFFLOADED. FLACC 0. VSS. BED LOW AND LOCKED. CALL LIGHT WITHIN REACH. WILL CONTINUE TO MONITOR FOR CHANGES.
[2019-05-27] VITALS (10 sets, daily range): BP systolic 119–133; BP diastolic 58–71
--- NOTE | 2019-05-27 | NUR ---
PT REPOSITIONED WITH PRESSURE AREAS OFFLOADED. VSS. FLACC 0. VAP ORAL CARE PROVIDED. BED LOW AND LOCKED. CALL LIGHT WITHIN REACH. WILL CONTINUE TO MONITOR FOR CHANGES.
[2019-05-27] MEDS: Z-GUARD PASTE TP SCH ×2 (00:24→13:21)
[2019-05-27] MEDS: VANCOMYCIN HCL 750 MG in DEXTROSE 5% 250 ML IV SCH (01:44)
--- NOTE | 2019-05-27 02:00 | NUR ---
VSS. NO ACUTE DISTRESS OBSERVED. FLACC 0. MEDICATED ORDERED WITHOUT INCIDENT. REPOSITIONED. ALL OTHER NEEDS BEING MET. BED LOW AND LOCKED. PADDED SIDE RAILS UP X2. WILL CONTINUE TO MONITOR FOR CHANGES.
[2019-05-27] MEDS: NACL 0.9% 1,000 ML IV SCH ×2 (02:45→15:46)
--- NOTE | 2019-05-27 04:00 | NUR ---
LARGE LOOSE BM AT THIS TIME. BED BATH PROVIDED. HOB @ 35 DEGREES. VSS. FLACC 0. BED LOW AND LOCKED. WILL CONTINUE TO MONITOR.
[2019-05-27] MEDS: PIPERACILLIN/TAZOBACTAM 2.25 GM in DEXTROSE 5% 50 ML IV SCH ×3 (04:27→21:29)
[2019-05-27] MEDS: PHENYTOIN 100 MG/4 ML UDC GT SCH ×3 (05:35→21:29)
[2019-05-27] MEDS: LANSOPRAZOLE 30 MG CAPDR GT SCH (05:35)
[2019-05-27] MEDS: GABAPENTIN 100 MG CAP GT SCH ×3 (05:35→21:30)
--- NOTE | 2019-05-27 06:10 | NUR ---
TRANSFERRED PT WITH RESPIRATORY @ THIS TIME. TELE MONITOR IN PLACE. VSS. RBS 118. ENDORSED PT TO NICKY MCKEON IN ROOM 108B.
--- NOTE | 2019-05-27 06:12 | NUR ---
RECEIVED BEDSIDE REPORT FROM CONSUMER MARKETING SPECIALIST LEIGH, PT STABLE, NO DISTRESS NOTED, TRACH TO VENT, R UPPER CHEST TRIPLE LUMEN CATH, PATENT INTACT, CAN CATH IN PLACE, PT APHASIC, UNABLE TO LET NEEDS KNOWN, PT RESTING, CALL LIGHT WITHIN REACH, WILL CONTINUE TO MONITOR. Addendum: 05/27/19 at 0722 by Anna Mullen RN IV TO R HAND 20G, AND L THUMB 20G, PATENT INTACT.
[2019-05-27 06:58] LABS: ANION GAP 18.4 (8-16); CARBON DIOXIDE 17.3 mmol/L (21-32); POTASSIUM 3.7 mmol/L (3.5-5.1)
[2019-05-27 06:59] LABS: CREATININE 1.7 mg/dL (0.7-1.3); TOTAL BILIRUBIN 0.2 mg/dL (0.0-1.0)
[2019-05-27 07:00] LABS: ALBUMIN 1.7 g/dL (3.4-5.0); MAGNESIUM 1.9 mg/dL (1.8-2.4)
--- NOTE | 2019-05-27 07:15 | NUR ---
rec'd pt on carescape vent settings ac 18 vt 550 peep 5 fio2 30% alarms on and audible and ambu bag at hob and vent is plugged into red outlet, no hhn needed b\s are coarse bilaterally, sxn pt yellow secretions, pt is trach with shiley xlt7 and pt is sleeping
--- NOTE | 2019-05-27 07:22 | NUR ---
ENDORSED PT TO DAY SHIFT NURSE ANGELES RN, PT STABLE, NO DISTRESS NOTED.
--- NOTE | 2019-05-27 07:24 | NUR ---
RECEIVED BEDSIDE REPORT FROM HOSPITAL LIBRARIAN NURSE FOR CONTINUITY OF CARE. PT IS RESTING ON BED AT THIS TIME. PT IS VENT-DEPENDENT AND APHASIC. RESPIRATION EVEN AND UNLABORED ON TRACH TO VENT, SETTING AT RR 18, FIO2 30%, VT 550ML, FLOW 40 L/MIN, PEEP 5, SPO2 AT 100% BY BEDSIDE SPO2 MONITOR. FLACC 0. NO SIGNS OF DISTRESS NOTED. IV ON L HAND AND R HAND 20G, CLEAN AND INTACT, SL. R UPPER CHEST CENTRAL LINE TRIPLE LUMEN, CLEAN AND INTACT, NOT INFUSING AT THIS TIME. WOUND ON SHOULDER NOTED, AND INCONTINENT DERMATITIS. PT IS INCONTINENT AND CAN IN PLACE, DRAINING YELLOW URINE WITH GRAVITY. PT IS BEDBOUND. CONTACT PRECAUTION IN PLACE AND SIGN POSTED ON DOOR. TELE MONITOR ATTACHED. SAFETY MEASURES IN PLACE. BED IN LOW POSITION AND CALL LIGHT WITHIN REACH. BED ALARM ACTIVATED.
--- NOTE | 2019-05-27 07:55 | NUR ---
STARTED PT ON IVF, NS INFUSING AT 75ML/HR. APPLIED SEIZURE PRECAUTION AND PADDED BOTH SAIL RAILS, SIGN POSTED. APPLIED SCD ON LEGS BILATERALLY. TELE MONITOR ATTACHED. SAFETY MEASURES IN PLACE. BED ALARM ACTIVATED.
[2019-05-27] MEDS: BLOOD GLUCOSE MONITORING 1 DEV DEV FS SCH ×4 (08:09→21:32)
--- NOTE | 2019-05-27 08:09 | NUR ---
CHECKED AM BLOOD GLUCOSE AND RECEIVED 100, NO INSULIN COVERAGE NEED BASED ON SLIDING SCALE.
--- NOTE | 2019-05-27 08:15 | NUR ---
CALLED [facility] AND SPOKE WITH DESIGN ENGINEERING INTERN THAT GLUCERNIA FOR G-TUBE FEEDING IS NEEDED FOR PT AND NONE IN THE CABINET. PER [facility] DESIGN ENGINEERING INTERN, SHE WILL BRING BOTTLE IN SHORTLY. AWAITING FOR [facility] DELIVERY TO START FEEDING.
[2019-05-27 08:36] LABS: BASOPHILS % (AUTO) 0.3 % (0.0-2.0); EOSINOPHILS # (AUTO) 0.2 K/uL (0-0.4); EOSINOPHILS % (AUTO) 1.3 % (0.0-4.0); HEMATOCRIT 21.3 % (36-52); LYMPHOCYTES # (AUTO) 1.2 K/uL (2.0-11.5); LYMPHOCYTES % (AUTO) 7.9 % (20.5-51.1); MEAN CORPUSCULAR HEMOGLOBIN 28 pg (27-31); MEAN CORPUSCULAR HGB CONC 33 g/dL (33-37); MEAN CORPUSCULAR VOLUME 84.9 fL (80-94); MONOCYTES # (AUTO) 0.9 K/uL (0.8-1.0); MONOCYTES % (AUTO) 5.6 % (1.7-9.3); NEUTROPHILS # (AUTO) 13.1 K/uL (1.8-7.7); NEUTROPHILS % (AUTO) 84.9 % (42.2-75.2); PLATELET COUNT (AUTO) 643 K/uL (140-450); RED BLOOD CELL COUNT(AUTO) 2.51 MIL/uL (4.20-6.10); RED CELL DISTRIBUTION WIDTH 15.8 % (11.6-13.7); WHITE BLOOD COUNT (AUTO) 15.4 K/uL (4.8-10.8)
--- NOTE | 2019-05-27 08:45 | NUR ---
STARTED G-TUBE FEEDING WITH GLUCERNA AT 65ML, WATER FLUSH 50 ML/ Q6H. NO SIGNS OF DISTRESS NOTED. TELE MONITOR ATTACHED. SAFETY MEASURES IN PLACE. BED ALARM ACTIVATED.
--- NOTE | 2019-05-27 08:52 | NUR ---
DR MUNGUIA, HEARING AID SPECIALIST IS ASSESSING PT AT BEDSIDE. PER DR MUNGUIA, REDUCE NS TO 10 ML/HR. REDUCED ACCORDINGLY PER MD ORDER. PT IS RESTING ON BED CALMLY. RESPIRATION EVEN AND UNLABORED ON TRACH TO VENT, SPO2 100%, PULSE 78, MONITOR BY BEDSIDE SPO2 MONITOR TELE MONITOR ATTACHED. SAFETY MEASURES IN PLACE.
--- NOTE | 2019-05-27 09:08 | NUR ---
RECEIVED CRITICAL LAB FOR HEMOGLOBIN 7.[address] CASTELAN. AWAITING FOR TO CALL BACK.
--- NOTE | 2019-05-27 09:18 | NUR ---
RECEIVED CALL BACK FROM DR STEWARD. INFORMED DR STEWARD THAT PT'S HEMOGLOBIN IS 7.[address] STEWARD WAS AWARE AND NO ORDER RECEIVED AT THIS TIME.
[2019-05-27] MEDS ORDERED: CRUSHER, PILL MC ONE (09:33)
[2019-05-27] MEDS: ASCORBIC ACID 500 MG/5 ML ORASYR GT SCH ×2 (09:35→21:30)
[2019-05-27] MEDS: LACTOBACILLUS RHAMNOSUS GG 1 EACH CAP GT SCH (09:35)
[2019-05-27] MEDS: FLUCONAZOLE 100 MG TAB GT SCH (09:36)
--- NOTE | 2019-05-27 09:36 | NUR ---
CHECKED G-TUBE RESIDUAL PRIOR TO MEDS ADMINISTER, AND RECEIVED < 3ML. FLUSHED BEFORE AND AFTER MEDS ADMINISTER, MEDS ED PROVIDED TO PT AND REINFORCEMENT NEEDED DUE TO MENTAL STATUS. PROVIDED MORNING ORAL HYGIENE AND WIPED PT WITH CHLORHEXIDINE GLUCONATE CLOTH, PT TOLERATED WELL. SUCTIONED PT AND RECEIVED MINIMAL WHITE MUCUS. FLACC 0. RESPIRATION EVEN AND UNLABORED ON TRACH TO VENT, SPO2 AT 100% PULSE 83 BY BEDSIDE SPO2 MONITOR. NO SIGNS OF DISTRESS NOTED. TELE MONITOR ATTACHED. SAFETY MEASURES IN PLACE. SCD IN PLACE. BED ALARM ACTIVATED.
[2019-05-27] MEDS ORDERED: HYDRAGUARD CREAM TP PRN ×2 (10:40→10:45)
--- NOTE | 2019-05-27 11:22 | NUR ---
PT HAS ONE LARGE SOFT YELLOW BM. ASSISTED MAPLE PRODUCTS MAKER TO CLEAN AND REPOSITIONED PT. CHANGED G-TUBE SITE GAUZE. ASSESSED WOUND ON SHOULDERS, HEALED. APPLIED Z-GUARD ON SACRAL AREA, AND APPLIED HYDRAGUARD ON PERINEAL AREA. PT TOLERATED WELL. TELE MONITOR ATTACHED. APPLIED SCD AND HEEL PROTECTORS BILATERALLY. ELEVATED HOB 30 DEGREE. CONTINUE ON G-TUBE FEEDING. SAFETY MEASURES IN PLACE. BED IN LOW POSITION AND CALL LIGHT WITHIN REACH. BED ALARM ACTIVATED.
--- NOTE | 2019-05-27 12:27 | NUR ---
PRE-OXYGENATED PT AND SUCTIONED PT 2X, AND RECEIVED MINIMAL WHITE MUCUS, PT TOLERATED WELL. RESPIRATION EVEN AND UNLABORED ON TRACH TO VENT, SPO2 AT 100% AT THIS TIME. FLACC 0. NO SIGNS OF DISTRESS NOTED. TELE MONITOR ATTACHED. SAFETY MEASURES IN PLACE. BED ALARM ACTIVATED.
--- NOTE | 2019-05-27 12:43 | NUR ---
DR STEWARD IS ROUNDING AND AWARE THAT HEMOGLOBIN 7.0 FROM AM LAB[address] PER DR STEWARD, ORDER 2 UNITS OF RBC FOR BLOOD TRANSFUSION. REPEATED AND CONFIRMED ORDER WITH DR STEWARD. SENIOR RESEARCH ANALYST ALSO AWARE. ORDER INPUT.
--- NOTE | 2019-05-27 12:44 | NUR ---
CALLED LAB AND SPOKE WITH [employer] SPECIALIST ABBY. INFORMED ABBY THAT ORDER BLOOD TRANSFUSION AND TYPE & SCREEN. ABBY WAS AWARE AND SAID "OK, I WILL GO TO DRAW NOW."
--- NOTE | 2019-05-27 12:49 | NUR ---
OBTAINED VERBAL CONSENT FROM PT'S SISTER IN LAW PEARL AND VERIFIED WITH SECONDARY RN RUEL. PEARL WAS AWARE AND ACKNOWLEDGE THAT PT IS GOING TO RECEIVE BLOOD TRANSFUSION. PEARL WAS AGREEABLE TO BLOOD TRANSFUSION. PROVIDED A CALL BACK # TO PEARL FOR ANY FURTHER QUESTION.
--- NOTE | 2019-05-27 13:21 | NUR ---
CHECKED G-TUBE RESIDUAL AND RECEIVED < 5ML, FLUSHED BEFORE AND AFTER MEDS ADMINISTER, PT TOLERATED WELL. MEDS EDUCATION PROVIDED AND REINFORCEMENT NEEDED. AWAITING FOR PHARMACY TO DELIVER ZOSYN. PT IS RESTING ON BED CALMLY. FLACC 0. RESPIRATION EVEN AND UNLABORED ON TRACH TO VENT. NO SIGNS OF DISTRESS NOTED. TELE MONITOR ATTACHED. SAFETY MEASURES IN PLACE. BED ALARM ACTIVATED.
[2019-05-27] MEDS ORDERED: PHENYTOIN 100 MG/4 ML UDC ONE (13:25)
--- NOTE | 2019-05-27 14:15 | NUR ---
RD SPOKE TO DR. STEWARD TO DECREASE TUBE FEEDING RATE, DR VANESSA VERBALIZED AGREEMENT TO DECREASE RATE. SPOKE TO MIKE ERYNOSO TO GIVE NEW RECOMMENDATIONS FOR GLUCERNA 1.2 @ 50 ML/HR WITH PROSOURCE BID.
--- NOTE | 2019-05-27 14:25 | NUR ---
ASSISTED AERIAL PHOTOGRAPHER TO CHANGE PT AND PT HAS 1 SMALL SOFT BM. NOTICED SOME RED DOTS IN STOOL, COLLECTED STOOL AND SEND TO LAB FOR OCCULT BLOOD.
--- NOTE | 2019-05-27 14:32 | NUR ---
RECEIVED VANCO TROUGH FROM LAB 16.7. NOTIFIED PHARMACY. PER [employer], SHE WILL NOTIFY PHARMACIST TO ADJUST THE DOSE.
--- NOTE | 2019-05-27 14:58 | NUR ---
CALLED LAB AND SPOKE WITH LENORA. INFORMED THAT PT HAS 2 UNITS OF RBC AND ASKED LENORA TO CALL THE FLOOR ONCE BLOOD IS READY. LENORA WAS AWARE AND SAID "OK, I WILL CALL ONCE IT'S READY."
[2019-05-27] MEDS ORDERED: VANCOMYCIN HCL 750 MG in DEXTROSE 5% 250 ML IV SCH (15:03)
--- NOTE | 2019-05-27 15:37 | NUR ---
ADMINISTERED VANCOMYCIN VIA [facility] MARYJANE ORDER, MED ED PROVIDED TO PT AND REINFORCEMENT NEEDED. PT IS RESTING ON BED AT THIS TIME. RESPIRATION EVEN AND UNLABORED ON TRACH TO VENT, SPO2 AT 100%. FLACC 0. NO SIGNS OF DISTRESS NOTED. TELE MONITOR ATTACHED. SAFETY MEASURES IN PLACE. BED ALARM ACTIVATED.
[2019-05-27] MEDS: CHLORHEXADINE GLUC 2% CLOTH TP SCH (15:46)
[2019-05-27] MEDS: MUPIROCIN CA NASAL 2% 1GM TUBE NS SCH (15:46)
--- NOTE | 2019-05-27 16:16 | NUR ---
05/27/19 RD FOLLOW UP COMPLETED PLEASE REFER TO NUTRITION ASSESSMENT UNDER CARE ACTIVITY FOR ESTIMATED NUTRITIONAL NEEDS. 1. RECOMMEND GLUCERNA 1.2 @50ML/HR WITH PROSOURCE BID. -THIS PROVIDES 1560 KCALS AND 102 GM PROTEIN. THIS MEETS >100% OF PT KCAL NEEDS AND 97% OF PROTEIN NEEDS. 2. FREE WATER FLUSH 119ML Q6H 3. RD TO FOLLOW-UP 2-3 DAYS, HIGH RISK NICK JOVEL RD
--- NOTE | 2019-05-27 16:25 | NUR ---
PAGED DR STEWARD ON REGARDS OCCULT BLOOD RESULT. AWAITING FOR DR STEWARD TO CALL BACK.
--- NOTE | 2019-05-27 17:00 | NUR ---
PRETRANSFUSION VITAL SIGNS TAKEN; TEMP 98.3, PULSE 78, RR 18, SPO2 AT 100% TRACH TO VENT, FLACC 0. STARTED BLOOD TRANSFUSION AT 60 ML/HR AT THIS TIME. VITAL SIGNS MONITOR. TELE MONITOR ATTACHED. SAFETY MEASURES IN PLACE.
--- NOTE | 2019-05-27 17:18 | NUR ---
PT IS RESTING ON BED, RESPIRATION EVEN AND UNLABORED ON TRACH TO VENT, SPO2 AT 100%. FLACC 0. VITAL SIGNS ARE WITHIN PT'S NORMAL PARAMETER. NO ADVERSE REACTION NOTED. TELE MONITOR ATTACHED. SAFETY MEASURES IN PLACE. BED ALARM ACTIVATED.
--- NOTE | 2019-05-27 17:28 | NUR ---
DR STEWARD HAS NOT CALL BACK. PAGED DR STEWARD AGAIN; 2ND TIME.
--- NOTE | 2019-05-27 17:40 | NUR ---
RECEIVED A CALL BACK FROM DR STEWARD AND INFORMED DR STEWARD THAT OCCULT BLOOD WAS POSITIVE. PER DR STEWARD, ORDER GI CONSULT WITH DR DALAL. REPEATED AND CONFIRMED WITH DR STEWARD. WILL ORDER ACCORDINGLY.
--- NOTE | 2019-05-27 18:06 | NUR ---
RESPIRATION EVEN AND UNLABORED ON TRACH TO VENT, SPO2 AT 100%, PULSE 85. FLACC 0. NO BLOOD TRANSFUSION ADVERSE REACTION NOTED. INCREASED RATE TO 100 ML/HR. TELE MONITOR ATTACHED. SAFETY MEASURES IN PLACE. BED ALARM ACTIVATED.
--- NOTE | 2019-05-27 19:10 | NUR ---
ENDORSED PT AT BEDSIDE TO ACCOUNTING SOFTWARE SPECIALIST NURSE FOR CONTINUITY OF CARE. PT IS RESTING ON BED COMFORTABLY. RESPIRATION EVEN AND UNLABORED ON TRACH TO VENT, SPO2 AT 100% BY BEDSIDE SPO2 MONITOR. FLACC 0. NO SIGNS OF BLOOD TRANSFUSION ADVERSE REACTION NOTED. TELE MONITOR ATTACHED. SAFETY MEASURES IN PLACE. BED ALARM ACTIVATED. ACCOUNTING SOFTWARE SPECIALIST NURSE WAS AWARE THAT 2ND UNIT BLOOD IS READY.
--- NOTE | 2019-05-27 19:11 | NUR ---
RECEIVED BEDSIDE REPORT FROM DAY SHIFT NURSE ANGELES RN, PT STABLE, NO DISTRESS NOTED, IV TO R HAND 20G, L THUMB 20G PATENT INTACT, CENTRAL LINE TO R UPPER CHEST TRIPLE LUMEN PATENT INTACT, INFUSING WELL, CURRENTLY HAVING BLOOD TRANSFUSION, PT ON TRACH TO VENT NO SOB NOTED, CAN CATH IN PLACE, DRAINING YELLOW URINE, PT RESTING, NO DISTRESS NOT, CALL LIGHT WITHIN REACH, WILL CONTINUE TO MONITOR.
--- NOTE | 2019-05-27 19:41 | NUR ---
RECEIVED PATIENT TRACH TO MECHANICAL VENTILATOR AT DOCUMENTED SETTINGS. VENT CHECK DONE. VENT PLUGGED INTO CORRECT OUTLET WITH WHEELS LOCKED. VENT ALARMS ON AND AUDIBLE. AMBU BAG AT [facility]. AIRWAY SECURE AND PATENT. SUCTIONED SMALL AMOUNT OF THICK, YELLOW SECRETIONS. NO ACUTE RESPIRATORY DISTRESS NOTED AT THIS TIME. WILL CONTINUE TO MONITOR CLOSELY.
--- NOTE | 2019-05-27 19:50 | NUR ---
1ST UNIT OF BLOOD TRANSFUSION COMPLETED, PT TOLERATED WELL, NO DISTRESS NOTED, CALL LIGHT WITHIN REACH, WILL CONTINUE TO MONITOR.
--- NOTE | 2019-05-27 19:56 | NUR ---
DR DALAL CALLED REGARDING PT, PER DR TO ORDER CONSENT FOR EGD AND NPO AFTER MIDNIGHT, WILL FOLLOW WITH ORDERS AND CONTINUE WITH ORDERS.
--- NOTE | 2019-05-27 20:03 | NUR ---
CALLED PT FAMILY HECTOR ALMANZA REGARDING PROCEDURE TOMORROW EGD, FAMILY STATED UNDERSTANDING OF THE PROCEDURE AND CONSENTING FOR PROCEDURE, VERIFIED WITH CHARGE NURSE CECELIA.
--- NOTE | 2019-05-27 22:55 | NUR ---
BLOOD TRANSFUSION STARTED, PT TOLERATED WELL, NO DISTRESS NOTED, CALL LIGHT WITHIN REACH, WILL CONTINUE TO MONITOR.
[2019-05-28] VITALS: BP 120/69
[2019-05-28] MEDS: Z-GUARD PASTE TP SCH ×2 (00:21→13:06)
--- NOTE | 2019-05-28 01:20 | NUR ---
NURIS Addendum: 05/28/19 at 0137 by Anna Mullen RN BLOOD TRANSFUSION COMPLETED, PT TOLERATED WELL, NO DISTRESS NOTED, CALL LIGHT WITHIN REACH, WILL CONTINUE TO MONITOR.
[2019-05-28] MEDS ORDERED: VANCOMYCIN 500 MG VIAL ONE (01:57)
[2019-05-28] MEDS: VANCOMYCIN HCL 750 MG in DEXTROSE 5% 250 ML IV SCH ×2 (02:15→14:06)
--- NOTE | 2019-05-28 02:15 | NUR ---
DUE MEDICATION ADMINISTERED, PT TOLERATED WELL, NO DISTRESS NOTED, CALL LIGHT WITHIN REACH, WILL CONTINUE TO MONITOR.
[2019-05-28 04:00] VITALS: BP 120/69
[2019-05-28] MEDS: PIPERACILLIN/TAZOBACTAM 2.25 GM in DEXTROSE 5% 50 ML IV SCH (05:54)
[2019-05-28] MEDS: GABAPENTIN 100 MG CAP GT SCH ×3 (05:54→21:52)
[2019-05-28] MEDS: PHENYTOIN 100 MG/4 ML UDC GT SCH ×3 (05:54→21:56)
[2019-05-28] MEDS: NACL 0.9% 1,000 ML IV SCH ×2 (05:55→21:58)
[2019-05-28] MEDS: LANSOPRAZOLE 30 MG CAPDR GT SCH (05:59)
[2019-05-28] MEDS: BLOOD GLUCOSE MONITORING 1 DEV DEV FS SCH ×4 (05:59→21:00)
--- NOTE | 2019-05-28 07:04 | NUR ---
REC'D PT ON [place] VENT SETTINGS AC 18 VT 550 PEEP 5 FIO2 40% ALARMS ON AND AUDIBLE AND AMBU BAG AT HOB AND VENT IS PLUGGED INTO RED OUTLET, SXN PT MODERATE AMT OF THICK YELLOW SECRETIONS, B\S ARE COARSE BILATERALLY, NO HHN NEEDED AT THIS TIME , PT IS TRACH WITH SHILEY 7XLT AND PT IS RESTING
[2019-05-28 07:12] LABS: HEMATOCRIT 27.4 % (36-52); HEMOGLOBIN 8.9 g/dL (12.0-18.0); MEAN CORPUSCULAR HEMOGLOBIN 28 pg (27-31); MEAN CORPUSCULAR HGB CONC 33 g/dL (33-37); MEAN CORPUSCULAR VOLUME 85.1 fL (80-94); PLATELET COUNT (AUTO) 670 K/uL (140-450); RED BLOOD CELL COUNT(AUTO) 3.22 MIL/uL (4.20-6.10); RED CELL DISTRIBUTION WIDTH 15.8 % (11.6-13.7); WHITE BLOOD COUNT (AUTO) 19.8 K/uL (4.8-10.8)
--- NOTE | 2019-05-28 07:28 | NUR ---
ENDORSED PT TO DAY SHIFT NURSE ANGELES RN, PT STABLE, NO DISTRESS NOTED, CALL LIGHT WITHIN REACH
--- NOTE | 2019-05-28 07:30 | NUR ---
RECEIVED BEDSIDE REPORT FROM RAIL CAR LOADER NURSE FOR CONTINUITY OF CARE. PT IS RESTING ON BED AT THIS TIME. PT IS VENT-DEPENDENT AND APHASIC. RESPIRATION EVEN AND UNLABORED ON TRACH TO VENT, SETTING AT RR 18, FIO2 30%, VT 550ML, FLOW 40 L/MIN, PEEP 5, SPO2 AT 100% BY BEDSIDE SPO2 MONITOR. FLACC 0. NO SIGNS OF DISTRESS NOTED. IV ON L HAND AND R HAND 20G, CLEAN AND INTACT, SL. R UPPER CHEST CENTRAL LINE TRIPLE LUMEN, CLEAN AND INTACT, NOT INFUSING AT THIS TIME. G-TUBE IN PLACE AND NOT RUNNING AT THIS TIME; NPO ENFORCED AND SIGN POSTED BY DOOR. INCONTINENT DERMATITIS NOTED. PT IS INCONTINENT AND CAN IN PLACE, DRAINING YELLOW URINE WITH GRAVITY. PT IS BEDBOUND. CONTACT PRECAUTION IN PLACE AND SIGN POSTED ON DOOR. TELE MONITOR ATTACHED. SAFETY MEASURES IN PLACE. BED IN LOW POSITION AND CALL LIGHT WITHIN REACH. BED ALARM ACTIVATED.
[2019-05-28 08:00] VITALS: BP 129/69
[2019-05-28 08:33] LABS: EOSINOPHILS % (MANUAL) 1 % (0-4); LYMPHOCYTES % (MANUAL) 7 % (20-46); MONOCYTES % (MANUAL) 6 % (5-12)
[2019-05-28] MEDS: LACTOBACILLUS RHAMNOSUS GG 1 EACH CAP GT SCH (09:39)
[2019-05-28] MEDS: ASCORBIC ACID 500 MG/5 ML ORASYR GT SCH ×2 (09:39→21:56)
[2019-05-28] MEDS: FLUCONAZOLE 100 MG TAB GT SCH (09:39)
--- NOTE | 2019-05-28 09:39 | NUR ---
CHECKED G-TUBE RESIDUAL PRIOR TO MEDS ADMINISTER, AND RECEIVED < 3ML. FLUSHED BEFORE AND AFTER MEDS ADMINISTER, MEDS ED PROVIDED TO PT AND REINFORCEMENT NEEDED DUE TO MENTAL STATUS. PROVIDED MORNING ORAL HYGIENE AND WIPED PT WITH CHLORHEXIDINE GLUCONATE CLOTH, PT TOLERATED WELL. SUCTIONED PT AND RECEIVED MINIMAL WHITE MUCUS. FLACC 0. RESPIRATION EVEN AND UNLABORED ON TRACH TO VENT, SPO2 AT 100% PULSE 83 BY BEDSIDE SPO2 MONITOR. NO SIGNS OF DISTRESS NOTED. HOLD G-TUBE FEEDING AT THIS TIME. TELE MONITOR ATTACHED. SAFETY MEASURES IN PLACE. SCD AND HEEL PROTECTORS IN PLACE. BED ALARM ACTIVATED.
--- NOTE | 2019-05-28 10:20 | NUR ---
REASON FOR EVALUATION: SACROCOCCYGEAL WOUND WOUND ASSESSMENT COMPLETED ON THIS 44 Y/O MALE ADMITTED TO [facility] UNIT FOR SEPSIS, ARF, HYPONATREMIA. PATIENT IS [facility]. PAST MEDICAL HISTORY INCLUDES CHRONIC RESPIRATORY FAILURE, VENTILATOR DEPENDENT, INTRACRANIAL HEMORRHAGE, DM, HTN, HLD, SEIZURE DISORDER, OBESITY, DYSPHAGIA, AND VEGETATIVE SATE. ALL ABOVE INFORMATION WAS OBTAINED FROM THE ADMISSION H&P. LABS ARE WBC: 19.8, H/H:8.9/27.4, GLUCOSE:98, ALBUMIN:1.8. ORAL MUCOSAL MEMBRANES MOIST. PATIENT IS APHASIC, VEGETATIVE STATE, ON TRACH TO VENTILATOR, HAS RIGHT SUBCLAVIAN CENTRAL LINE, GTUBE, AND CAN CATHETER. PATIENT ADMITTED WITH SACROCOCCYGEAL WOUND RELATED TO INCONTINENT DERMATITIS. COMORBIDITIES RELATED TO FURTHER SKIN BREAKDOWN SUCH IMPAIRED OR DECREASED MOBILITY AND DECREASED FUNCTIONAL ABILITY, LOW ALBUMIN LEVEL, AND HISTORY OF DM. INTEGUMENTARY: - SACROCOCCYGEAL INCONTINENT ASSOCIATED DERMATITIS WITH DENUDED SKIN MEASURING 3.5 X 0.2 WITH SUPERFICIAL DEPTH. WOUND BED BLANCHABLE REDNESS, NADER-WOUND SKIN DENUDED, RED. NO ODOR, MINIMAL SEROUS DRAINAGE. - RIGHT LOWER LIP SCAB, MEASUREMENT 0.5 X 0.5 CM, DEPTH UTD. NADER-WOUND SKIN PINK, INTACT. NO ODOR, NO DRAINAGE. - G-TUBE STOMA SITE CLEAN, INTACT, PINK, NO ODOR, DRAINAGE, NOR ANY S/S OF INFECTION. - TRACH STOMA SITE CLEAN, INTACT, PINK, NO ODOR, DRAINAGE, NOR ANY S/S OF INFECTION. RECOMMENDATIONS: - SACROCOCCYGEAL INCONTINENT ASSOCIATED DERMATITIS - CLEANSE WITH NS, PAT DRY, APPLY Z-GUARD CREAM TO NADER-WOUND SKIN, AND COVER WITH DRY DRESSING DAILY AND PRN IF SOILED. - OFFLOAD BILATERAL HEELS BY PLACING BILATERAL HEEL PROTECTORS. - TURN AND REPOSITION PATIENT Q2H TO OFFLOAD SACRALCOCCYX. - NADER-CARE Q2H AND PRN IF SOILED. - ASSESS AND MONITOR SKIN CONDITION DURING POSITION CHANGE. PLEASE PAY ATTENTION TO SACRALCOCCYX AND PERINEAL AREAS - KEEP SKIN DRY AND CLEAN AT ALL TIMES. - RD CONSULT RECOMMENDATIONS DISCUSSED WITH PRIMARY RN AND DR. STEWARD. WILL FOLLOW-UP PAITENT Q7-10 DAYS AND PRN. PLEASE CONTACT WOUND CARE NURSE FOR ANY CONCERNS AND CHANGES IN WOUND CONDITION.
[2019-05-28] MEDS ORDERED: fentaNYL 0.05 MG/ML VIAL ONE (10:53)
[2019-05-28 11:04] LABS: ALBUMIN 1.8 g/dL (3.4-5.0); ANION GAP 18.1 (8-16); CARBON DIOXIDE 19.6 mmol/L (21-32); CREATININE 1.3 mg/dL (0.7-1.3); MAGNESIUM 1.8 mg/dL (1.8-2.4); POTASSIUM 3.7 mmol/L (3.5-5.1); TOTAL BILIRUBIN 0.3 mg/dL (0.0-1.0)
--- NOTE | 2019-05-28 11:10 | NUR ---
RECEIVED CRITICAL LAB FOR BUN [address] STEWARD AT NURSING STATION. DR STEWARD WAS AWARE AND NO ORDER RECEIVED.
[2019-05-28] MEDS ORDERED: MIDAZOLAM 2 MG/2 ML VIAL ONE (11:11)
--- NOTE | 2019-05-28 11:53 | NUR ---
DR DALAL AND OR TEAM BY BEDSIDE AND SETTING UP FOR EGD.
[2019-05-28 12:00] VITALS: BP 125/68
[2019-05-28] MEDS: MIDAZOLAM 2 MG/2 ML VIAL IVP ONE ×2 (12:00→12:29)
--- NOTE | 2019-05-28 12:16 | NUR ---
EGD COMPLETED. PER DR DALAL, PT MAY START G-TUBE FEEDING. WILL START G-TUBE PER MD ORDER.
--- NOTE | 2019-05-28 13:07 | NUR ---
CHECKED G-TUBE RESIDUAL AND RECEIVED < 3 ML, FLUSHED BEFORE AND AFTER MEDS ADMINISTER, PT TOLERATED WELL. MEDS EDUCATION PROVIDED AND REINFORCEMENT NEEDED. APPLIED Z-GUARD ON BUTTOCK WITH ASSIST FROM HAND PASTER. PT IS RESTING ON BED CALMLY. FLACC 0. RESPIRATION EVEN AND UNLABORED ON TRACH TO VENT, SPO2 AT 100%, PULSE 77. NO SIGNS OF DISTRESS NOTED. TELE MONITOR ATTACHED. SAFETY MEASURES IN PLACE. BED ALARM ACTIVATED
--- NOTE | 2019-05-28 14:06 | NUR ---
ADMINISTERED VANCOMYCIN VIA IVPB PER MD ORDER, MED ED PROVIDED TO PT AND REINFORCEMENT NEEDED. SUCTIONED PT 2X AND RECEIVED MINIMAL WHITE MUCUS, PT TOLERATED WELL. RESPIRATION EVEN AND UNLABORED ON TRACH TO VENT, SPO2 AT 100%. FLACC 0. NO SIGNS OF DISTRESS NOTED. TELE MONITOR ATTACHED. SAFETY MEASURES IN PLACE. BED ALARM ACTIVATED.
[2019-05-28] MEDS: MUPIROCIN CA NASAL 2% 1GM TUBE NS SCH (15:37)
[2019-05-28] MEDS: CHLORHEXADINE GLUC 2% CLOTH TP SCH (15:37)
--- NOTE | 2019-05-28 15:37 | NUR ---
ADMINISTERED SCHEDULED MEDS PER MD ORDER, PT TOLERATED WELL. HUNG A NEW BOTTLE OF GLUCERNA MIXED WITH PROSOURCE RECOMMENDED BY RD, INFUSING 50 ML/HR AND FLUSH 120 ML/Q6. PT IS RESTING ON BED CALMLY. RESPIRATION EVEN AND UNLABORED ON TRACH TO VENT, SPO2 AT 100%. FLACC 0. NO SIGNS OF DISTRESS NOTED. TELE MONITOR ATTACHED. SAFETY MEASURES IN PLACE. BED ALARM ACTIVATED.
[2019-05-28 16:00] VITALS: BP 105/69
--- NOTE | 2019-05-28 17:01 | NUR ---
ASSISTED DECK ENGINEER TO CLEAN AND REPOSITIONED PT. PT HAS ONE MODERATE SOFT BM, PT TOLERATED WELL. FLACC 0. TELE MONITOR ATTACHED. SAFETY MEASURES IN PLACE. BED ALARM ACTIVATED.
--- NOTE | 2019-05-28 17:43 | NUR ---
PAGED DR STEWARD ON REGARDS OF EGD RESULT; EXECUTIVE COMPENSATION ANALYST DR IS DR LINDSEY.
--- NOTE | 2019-05-28 17:49 | NUR ---
RECEIVED A CALL BACK FROM DR KHAN AND INFORMED DR KHAN THE RESULT. DR KHAN WAS AWARE AND NO ORDER RECEIVED AT THIS TIME.
--- NOTE | 2019-05-28 19:35 | NUR ---
RECEIVED PT FROM DAY ON AC 18,550,+5,28%. VENT PLUGGED INTO RED OUTLET. BMV AT HEAD OF BED. ALARMS AUDIBLE AND WORKING. PT RESTING COMFORTABLY. WILL CONT TO MONITOR.
--- NOTE | 2019-05-28 19:50 | NUR ---
PT IS RESTING ON BED AT THIS TIME. RESPIRATION EVEN AND UNLABORED ON TRACH TO VENT, SPO2 AT 100% AT THIS TIME. FLACC 0. G-TUBE FEEDING IS INFUSING AT 50 ML/HR. CHECKED RESIDUAL AND RECEIVED < 5 ML. NO SIGNS OF DISTRESS NOTED. SCD AND HEEL PROTECTORS IN PLACE. SAFETY MEASURES IN PLACE. BED IN LOW POSITION AND CALL LIGHT WITHIN REACH. BED ALARM ACTIVATED.
[2019-05-28 20:00] VITALS: BP 124/68
--- NOTE | 2019-05-28 21:58 | NUR ---
CHECKED BLOOD GLUCOSE AND RECEIVED 126, NO COVERAGE NEEDED. CHECKED G-TUBE RESIDUAL AND RECEIVED < 5 ML, FLUSHED BEFORE AND AFTER MEDS ADMINISTER. PT IS RESTING ON BED. RESPIRATION EVEN AND UNLABORED ON TRACH TO VENT, SPO2 AT 100%. FLACC 0. NO SIGNS OF DISTRESS NOTED. TELE MONITOR ATTACHED. SAFETY MEASURES IN PLACE. BED ALARM ACTIVATED.
--- NOTE | 2019-05-28 23:25 | NUR ---
ENDORSED PT AT BEDSIDE TO NICKY MCKEON FOR CONTINUITY OF CARE. PT IS IN STABLE CONDITION. TELE MONITOR ATTACHED. SAFETY MEASURES IN PLACE. BED ALARM ACTIVATED.
--- NOTE | 2019-05-28 23:26 | NUR ---
RECEIVED BEDSIDE REPORT FROM MIKE REYNOSO FOR CONTINUOUS OF CARE, PT STABLE, NO DISTRESS NOTED, CALL LIGHT WITHIN REACH.
[2019-05-29] VITALS: BP 116/62
--- NOTE | 2019-05-29 00:08 | NUR ---
PT SLEEPING, V/S TAKEN, WNL, CALL LIGHT WITHIN REACH, WILL CONTINUE TO MONITOR.
[2019-05-29] MEDS: Z-GUARD PASTE TP SCH ×2 (01:27→12:47)
[2019-05-29] MEDS: VANCOMYCIN HCL 750 MG in DEXTROSE 5% 250 ML IV SCH (01:28)
--- NOTE | 2019-05-29 03:44 | NUR ---
CHECKED PT V/S WNL, CALL LIGHT WITHIN REACH, WILL CONTINUE TO MONITOR.
[2019-05-29 04:00] VITALS: BP 146/95
[2019-05-29] MEDS: BLOOD GLUCOSE MONITORING 1 DEV DEV FS SCH ×4 (05:39→21:43)
[2019-05-29] MEDS: LANSOPRAZOLE 30 MG CAPDR GT SCH (05:41)
[2019-05-29] MEDS: PHENYTOIN 100 MG/4 ML UDC GT SCH ×3 (05:41→21:53)
[2019-05-29] MEDS: GABAPENTIN 100 MG CAP GT SCH ×3 (05:41→21:52)
--- NOTE | 2019-05-29 05:41 | NUR ---
DUE MEDICATION ADMINISTERED, PT TOLERATED WELL, NO DISTRESS NOTED, CALL LIGHT WITHINN REACH, WILL CONTINUE TO MONITOR.
[2019-05-29 07:00] LABS: BASOPHILS % (AUTO) 0.3 % (0.0-2.0); EOSINOPHILS # (AUTO) 0.1 K/uL (0-0.4); EOSINOPHILS % (AUTO) 0.8 % (0.0-4.0); HEMATOCRIT 27.4 % (36-52); LYMPHOCYTES # (AUTO) 1.4 K/uL (2.0-11.5); MEAN CORPUSCULAR HEMOGLOBIN 28 pg (27-31); MEAN CORPUSCULAR HGB CONC 33 g/dL (33-37); MEAN CORPUSCULAR VOLUME 85.5 fL (80-94); NEUTROPHILS # (AUTO) 13.6 K/uL (1.8-7.7); NEUTROPHILS % (AUTO) 83.9 % (42.2-75.2); PLATELET COUNT (AUTO) 669 K/uL (140-450); RED CELL DISTRIBUTION WIDTH 15.7 % (11.6-13.7); WHITE BLOOD COUNT (AUTO) 16.2 K/uL (4.8-10.8)
--- NOTE | 2019-05-29 07:15 | NUR ---
BEDSIDE REPORT RECEIVED FROM SUPERVISOR TOY ASSEMBLY NURSE, PT RESTING QUIETLY WITH EYES CLOSED, OPENS EYES TO VOICE, FOLLOWS COMMANDS, RESP EVEN UNLABORED ON TRACH TO VENT FIO2 28%, RR 18, VT 550, PEEP 5, BREATH SOUNDS CLEAR BILT, ABD SOFT, NON DISTENDED, GT FEED ONGOING AT 50ML/HR, CAN IN PLACE, DRAINING CLEAR YELLOW URINE TO GRAVITY, POC REVIEWED, ALL SAFTY MEASURES IN PLACE, WILL CONTINUE TO MONITOR.
--- NOTE | 2019-05-29 07:22 | NUR ---
ENDORSED PT TO DAY SHIFT NURSE [place] RN, PT STABLE, NO DISTRESS NOTED.
[2019-05-29 07:36] LABS: ANION GAP 17.2 (8-16); CARBON DIOXIDE 19.2 mmol/L (21-32); CREATININE 1.1 mg/dL (0.7-1.3); POTASSIUM 3.4 mmol/L (3.5-5.1)
--- NOTE | 2019-05-29 07:52 | NUR ---
RECEIVED PATIENT ON CURRENT SETTINGS: AC/VC 550 RATE 18 PEEP 5 FIO2 28%. PATIENT IS TRACH'D WITH A SIZE 7 SHILEY XLT. TRACH IS SECURE WITH TRACH TIES AND PROTECTIVE GAUZE. TRACH IS CLEAN WITH NO EXCESSIVE DRAINAGE OR REDNESS. B/S: RHONCHI BILATERALLY. SUCTIONED PATIENT AND RECEIVED SMALL, WHITE, THIN SECRETIONS. NO TREATMENT GIVEN AT THIS TIME. VENT AND ALARM SETTINGS VERIFIED.
[2019-05-29 08:00] VITALS: BP 123/80
[2019-05-29] MEDS: FLUCONAZOLE 100 MG TAB GT SCH (08:46)
[2019-05-29] MEDS: LACTOBACILLUS RHAMNOSUS GG 1 EACH CAP GT SCH (08:46)
[2019-05-29] MEDS: ASCORBIC ACID 500 MG/5 ML ORASYR GT SCH ×2 (08:46→21:52)
--- NOTE | 2019-05-29 09:25 | NUR ---
LOOSE GREEN STOOL X1, PERICARE DONE, BEDBATH GIVEN, CAN CARE DONE, GOWN AND LINEN CHANGED.
[2019-05-29] MEDS: NACL 0.9% 1,000 ML IV SCH (09:33)
--- NOTE | 2019-05-29 10:58 | NUR ---
ROUTINE VENT CHECK. NO CHANGES TO SETTINGS. AIRWAY IS PATENT. SUCTIONED PATIENT AND RECEIVED SMALL, WHITE AND PALE YELLOW THIN SECRETIONS.
[2019-05-29 12:00] VITALS: BP 120/77
[2019-05-29] MEDS: POTASSIUM CHLORIDE 20% 40 MEQ/15 ML UDC GT PRN (12:46)
[2019-05-29] MEDS: NACL 0.45% 1,000 ML IV SCH (13:05)
--- NOTE | 2019-05-29 13:08 | NUR ---
DR FRANCISCO AT BEDSIDE FOR EVAL.
--- NOTE | 2019-05-29 13:28 | NUR ---
ROUTINE VENT CHECK. NO CHANGES TO SETTINGS. CHANGED HME WITH NO INCIDENT. SUCTIONED PATIENT AND RECEIVED SMALL, THIN WHITE AND PALE YELLOW SECRETIONS.
--- NOTE | 2019-05-29 13:40 | NUR ---
EXTRA LARGE LOOSE BM, PERICARE DONE, GOWN CHANGED, PADS CHANGED.
--- NOTE | 2019-05-29 14:02 | NUR ---
05/29/19 RD FOLLOW UP COMPLETED PLEASE REFER TO NUTRITION ASSESSMENT UNDER CARE ACTIVITY FOR ESTIMATED NUTRITIONAL NEEDS. 1. CONTINUE GLUCERNA 1.2 @50ML/HR WITH PROSOURCE BID -THIS PROVIDES 1440 ML OF VOLUME, 1560 KCAL AND 102 GM PROTEIN. THIS MEETS >100% OF PT KCAL NEEDS AND 97% OF PROTEIN NEEDS 2. CONTINUE FREE WATER FLUSH [address] TO FOLLOW-UP 2-3 DAYS, HIGH RISK NICK JOVEL RD
--- NOTE | 2019-05-29 14:05 | NUR ---
PT'S BROTHER AT BEDSIDE.
--- NOTE | 2019-05-29 15:39 | NUR ---
CHAMP BAKER 22.8 PER LAB, PHARMACY CALLED, HOLD CHAMP
[2019-05-29] MEDS: CHLORHEXADINE GLUC 2% CLOTH TP SCH (15:50)
[2019-05-29] MEDS: MUPIROCIN CA NASAL 2% 1GM TUBE NS SCH (15:50)
[2019-05-29 16:00] VITALS: BP 113/76
[2019-05-29] MEDS ORDERED: MUPIROCIN CA NASAL 2% 1GM TUBE NS ONE (17:25)
--- NOTE | 2019-05-29 17:25 | NUR ---
PT RESTING QUIETLY IN NO ACUTE DISTRESS, ANOTHER LARGE BM, PERICARE DONE.
--- NOTE | 2019-05-29 18:45 | NUR ---
PT REMAINS STABLE, SR ON MONITOR, IVF 1/2NS INFUSING TO R SUBCLAVIAN CENTTRAL LINE, SITE WNL, GT FEED ONGOING, CAN DRAINING WELL TO GRAVITY, VENT SETTING UNCHANGED, LITTLE TO NO SECRETIONS SUCTIONED. ALL SAFETY MEASURES IN PLACE, WILL CONTINUE TO MONTIOR UNTIL SHIFT CHANGE.
--- NOTE | 2019-05-29 19:30 | NUR ---
RECEIVED BEDSIDE REPORT FROM AM SHIFT RN FOR PT'S CONTINUITY OF CARE. PT IS BEDBOUND, LETHARGIC, AROUSABLE TO NAME, APHASIC, IS ON HOOP PUNCH AND COILER OPERATOR HELPER, ON TRACH TO VENT, HAS RIGHT SUBCLAVIAN 3 LUMEN PICC LINE WITH 1/2 NS AT 75ML/HR, RIGHT HAND 20G SALINE LOCK, LEFT THUMB 20G SALINE LOCK, HAS GTUBE WITH GLUCERNA 1.2 RUNNING AT 50ML/HR, HAS INCONTINENT DERMATITIS/SACRAL SKIN TEAR, FLACC - 0. SAFETY MEASURES IN PLACE, SEIZURE PRECAUTION IN PLACE, SCD IN PLACE. CALL LIGHT IS WITHIN REACH. WILL MONITOR PT THROUGHOUT SHIFT.
[2019-05-29 20:00] VITALS: BP 121/71
[2019-05-29] MEDS ORDERED: VANCOMYCIN PER PHARMACY MC PRN (20:25)
[2019-05-29] MEDS ORDERED: PIPERACILLIN/TAZOBACTAM 3.375 GM in DEXTROSE 5% 50 ML IV SCH (21:00)
[2019-05-29] MEDS ORDERED: PIPERACILLIN/TAZOBACTAM 3.375 GM VIAL IV ONE (21:46)
--- NOTE | 2019-05-29 21:55 | NUR ---
ADMINISTERED SCHEDULED MEDICATIONS ORDERED. GTUBE PLACEMENT VERIFIED, NO RESIDUAL. PT TOLERATED IT WELL. WILL CONTINUE TO MONITOR PT.
--- NOTE | 2019-05-29 23:40 | NUR ---
VS CHECKED AND CHARTED. PT ASLEEP WITH NO SIGNS OF DISTRESS. WILL CONTINUE TO MONITOR PT.
[2019-05-30] VITALS: BP 122/76
[2019-05-30] MEDS: Z-GUARD PASTE TP SCH ×2 (01:06→13:49)
--- NOTE | 2019-05-30 01:30 | NUR ---
HELPED COMMERCIAL TITLE EXAMINER TO CHANGE PT AND REPOSITION. PT TOLERATED IT WELL. TRACH CARE PERFORMED. FLACC - 0. EMPTIED CAN CATH. MADE PT COMFORTABLE. REATTACHED HEEL PROTECTORS AND CAN CATH SECUREMENT DEVICE. WILL CONTINUE TO MONITOR PT.
[2019-05-30] MEDS: NACL 0.45% 1,000 ML IV SCH ×2 (02:25→06:31)
--- NOTE | 2019-05-30 03:00 | NUR ---
PT ASLEEP WITH NO SIGNS OF DISTRESS.
[2019-05-30 04:00] VITALS: BP 132/85
--- NOTE | 2019-05-30 04:30 | NUR ---
VS CHECKED AND CHARTED. PT CHANGED, REPOSITIONED, PERFORMED TRACH CARE, CAN CATH CARE. PT TOLERATED ACTIVITY WELL. CALLED MEDICAL INSTRUMENT TECHNICIAN FOR REPLACEMENT SCD SLEEVES. WILL CONTINUE TO MONITOR PT.
[2019-05-30] MEDS ORDERED: PIPERACILLIN/TAZOBACTAM 3.375 GM VIAL IV ONE (06:06)
[2019-05-30] MEDS: PHENYTOIN 100 MG/4 ML UDC GT SCH ×3 (06:14→20:17)
[2019-05-30] MEDS: LANSOPRAZOLE 30 MG CAPDR GT SCH (06:14)
[2019-05-30] MEDS: GABAPENTIN 100 MG CAP GT SCH ×3 (06:14→20:17)
[2019-05-30] MEDS: PIPERACILLIN/TAZOBACTAM 3.375 GM in DEXTROSE 5% 50 ML IV SCH ×3 (06:15→17:35)
[2019-05-30] MEDS: BLOOD GLUCOSE MONITORING 1 DEV DEV FS SCH ×4 (06:15→20:32)
--- NOTE | 2019-05-30 06:15 | NUR ---
LEFT THUB IV DC'D. BLOOD GLUCOSE CHECKED AND CHARTED. NO COVERAGE NEEDED. ADMINISTERED SCHEDULED IV ABX ORDERED. REPLACED IVF. SCD SLEEVES BACK ON. WILL ENDORSE TO AM SHIFT RN FOR PT'S CONTINUITY OF CARE.
[2019-05-30 07:11] LABS: ANION GAP 18.3 (8-16); CARBON DIOXIDE 19.3 mmol/L (21-32); CREATININE 0.8 mg/dL (0.7-1.3); POTASSIUM 3.6 mmol/L (3.5-5.1)
--- NOTE | 2019-05-30 07:30 | NUR ---
RECEIVED BEDSIDE REPORT FROM pm SHIFT RN FOR PT'S CONTINUITY OF CARE. PT BEDBOUND, AROUSABLE TO NAME, NONVERBAL. ON HEAD OF QUALITY, TRACH TO VENT WITH FIO2=24%, RIGHT SUBCLAVIAN 3 LUMEN CENTRAL LINE LINE WITH 1/2 NS AT 75ML/HR, RIGHT HAND 20G SALINE LOCK, GTUBE IN PLACE WITH GLUCERNA 1.2 RUNNING AT 50ML/HR, NO RESIDUAL NOTED. SKIN SEE WOUND ASSESSMENT. FLACC - 0. SAFETY MEASURES IN PLACE, SEIZURE PRECAUTION IN PLACE, SCD IN PLACE. WILL MONITOR PT THROUGHOUT SHIFT.
[2019-05-30 08:00] VITALS: BP 138/78
[2019-05-30] MEDS ORDERED: VANCOMYCIN 750 MG in DEXTROSE 5% 250 ML IV SCH (09:00)
--- NOTE | 2019-05-30 09:00 | NUR ---
CAM IN TO CHECK PT. NOTIFIED PT HAD DIARRHEA PER PM SHIFT RN, PER DR.CHANG CORNEJO TO USE RECTAL TUBE.
[2019-05-30 09:16] LABS: BASOPHILS % (AUTO) 0.3 % (0.0-2.0); EOSINOPHILS # (AUTO) 0.1 K/uL (0-0.4); HEMATOCRIT 26.1 % (36-52); HEMOGLOBIN 8.4 g/dL (12.0-18.0); LYMPHOCYTES # (AUTO) 1.3 K/uL (2.0-11.5); LYMPHOCYTES % (AUTO) 8.6 % (20.5-51.1); MEAN CORPUSCULAR HEMOGLOBIN 28 pg (27-31); MEAN CORPUSCULAR HGB CONC 32 g/dL (33-37); MEAN CORPUSCULAR VOLUME 86.2 fL (80-94); MONOCYTES # (AUTO) 0.7 K/uL (0.8-1.0); MONOCYTES % (AUTO) 5.1 % (1.7-9.3); NEUTROPHILS # (AUTO) 12.4 K/uL (1.8-7.7); PLATELET COUNT (AUTO) 644 K/uL (140-450); RED BLOOD CELL COUNT(AUTO) 3.02 MIL/uL (4.20-6.10); RED CELL DISTRIBUTION WIDTH 15.7 % (11.6-13.7); WHITE BLOOD COUNT (AUTO) 14.6 K/uL (4.8-10.8)
[2019-05-30] MEDS: ASCORBIC ACID 500 MG/5 ML ORASYR GT SCH ×2 (09:41→20:16)
[2019-05-30] MEDS: LACTOBACILLUS RHAMNOSUS GG 1 EACH CAP GT SCH (09:41)
[2019-05-30] MEDS: FLUCONAZOLE 100 MG TAB GT SCH (09:42)
[2019-05-30] MEDS ORDERED: DEXTROSE 5% 1,000 ML IV SCH (10:00)
--- NOTE | 2019-05-30 11:26 | NUR ---
PT NOT IN ANY DISTRESS AT THIS TIME. WILL CONTINUE TO MONITOR.
--- NOTE | 2019-05-30 11:54 | NUR ---
DISCHARGE PLANNING; RECEIVED A DC BACK ORDER TO [facility] FOR IV ANTIBIOTICS. REFERRAL SENT TO [facility] AND [facility]. CONTACTED ANALY OF [facility] AT [phone] REGARDING DC PLAN. SHE PROVIDED ME WITH SNF AUTH [id number] AND TRANSPORT AUTH [id number]. CONTACTED [facility] AT [phone], ABLE TO SPEAK TO JAYME. SHE STATED JOSÉ MIGUEL IS NOT BACK YET BUT WILL RELAY THE MESSAGE. CM TO FOLLOW UP. Addendum: 05/30/19 at 1209 by Kristy Manzano CM AUTH CORRECTION: SNF [id number] AND TRANSPORT [id number] Addendum: 05/30/19 at 1431 by Kristy Manzano CM PER JOSÉ MIGUEL OF [facility] PATIENT WILL GO TO ROOM 23[address] UNDER [address] QUIROZ AND REQUESTING IF TRANSPORT CAN BE ARRANGE AFTER 1900. CONTACTED [facility] AT [phone], ABLE TO SPEAK TO VIVIENNE. SHE STATED GROCERY CADDY WILL BE AT 1930, BUT WILL CALL BACK TO CONFIRM TIME.
[2019-05-30 12:00] VITALS: BP 149/91
--- NOTE | 2019-05-30 12:48 | NUR ---
PT'S SISTER AT BEDSIDE . ORAL CARE GIVEN. NO S/S OF RESPIRATORY DISTRESS NOTED.
[2019-05-30 16:00] VITALS: BP 151/91
--- NOTE | 2019-05-30 17:33 | NUR ---
PT SUCTIONED OBTAINED SMALL AMOUNT OF THICK WHITE SECRETIONS, AIRWAY IS PATENT AND TRACH IS SECURE. PT NOT IN ANY DISTRESS AT THIS TIME. VENT ALARMS REMAIN ON AND FUNCTIONING.
--- NOTE | 2019-05-30 19:05 | NUR ---
ENDORSED PT TO PM SHIFT RN. PT VITALS STABLE.
--- NOTE | 2019-05-30 19:30 | NUR ---
AFTER SHIFT REPORT. CHARGE NURSE TOLD ME PT WILL BE PICKED UP AT 2029. PM SHIFT RN WILL CALL [facility] FOR REPORT, I WILL DO D/C PAPER.
--- NOTE | 2019-05-30 19:30 | NUR ---
RECEIVED BEDISE REPORT FROM AM SHIFT RN FOR PT'S CONTINUITY OF CARE. PT IS APHASIC, ON TRACH TO VENT, HAS RIGHT SUBCLAVIAN CENTRAL LINE 3 LUMEN, HAS RECTAL TUBE, CAN CATH IN PLAC, FLACC - 0. PT BEING DC BACK TO [facility], WILL GIVE REPORT TO RECEIVING RN.
[2019-05-30 20:00] VITALS: BP 136/97
--- NOTE | 2019-05-30 20:20 | NUR ---
ENDORSED PT TO BERNABE CLINTON, FOR PT'S CONTINUITY OF CARE. RN VERBALIZED ACCEPTANCE OF PT. ADMINISTERED SCHEDULED MEDICATIONS ORDERED, THROUGH GT. PT TOLERATED IT WELL. DC'D RIGHT HAND IV. PERFORMED ORAL/VENT CARE. PT MADE COMFORTABLE. PT IN STABLE CONDITION.
--- NOTE | 2019-05-30 22:35 | NUR ---
PT WAS PICKED UP BY VINICIO [facility], REPORT GIVEN TO THE RN WITH VINICIO, VS FF: T 98.2, BP 136/97, P 88, O2 98%, RR 18, FLACC - 0. PT IN STABLE CONDITION. BELONGINGS AND DC PAPERWORK WITH PT.
== END 2019-05-30 22:35 | DRG 720 ==
LOC: MED 15:47 → MIC 17:45 → MTU 05-27 06:10
PROVIDERS: ADMIT Internal Medicine Pulmonary Disease; ATTEND Internal Medicine Pulmonary Disease
PROC: 5A1955Z Respiratory Ventilation, Greater than 96 Consecutive Hours (ICD-10-PCS; principal; 2019-05-23)
PROC: 02HV33Z Insertion of Infusion Device into Superior Vena Cava, Percutaneous Approach (ICD-10-PCS; 2019-05-23)
PROC: 30233N1 Transfusion of Nonautologous Red Blood Cells into Peripheral Vein, Percutaneous Approach (ICD-10-PCS; 2019-05-27)
PROC: 0DJ08ZZ Inspection of Upper Intestinal Tract, Via Natural or Artificial Opening Endoscopic (ICD-10-PCS; 2019-05-28)
DX: A41.9 Sepsis, unspecified organism (principal); N17.0 Acute kidney failure with tubular necrosis; R65.21 Severe sepsis with septic shock; I62.9 Nontraumatic intracranial hemorrhage, unspecified; E43 Unspecified severe protein-calorie malnutrition; G82.50 Quadriplegia, unspecified; A04.72 Enterocolitis due to Clostridium difficile, not specified as recurrent; J96.11 Chronic respiratory failure with hypoxia; Z99.11 Dependence on respirator [ventilator] status; E87.1 Hypo-osmolality and hyponatremia; B37.49 Other urogenital candidiasis; E11.22 Type 2 diabetes mellitus with diabetic chronic kidney disease; D64.9 Anemia, unspecified; E66.9 Obesity, unspecified; E78.5 Hyperlipidemia, unspecified; G40.909 Epilepsy, unspecified, not intractable, without status epilepticus; I12.9 Hypertensive chronic kidney disease with stage 1 through stage 4 chronic kidney disease, or unspecified chronic kidney disease; J98.11 Atelectasis; K29.70 Gastritis, unspecified, without bleeding; N18.3 Chronic kidney disease, stage 3 (moderate); R13.10 Dysphagia, unspecified; E78.00 Pure hypercholesterolemia, unspecified; E87.8 Other disorders of electrolyte and fluid balance, not elsewhere classified; E11.65 Type 2 diabetes mellitus with hyperglycemia; G93.1 Anoxic brain damage, not elsewhere classified; E87.0 Hyperosmolality and hypernatremia; Z93.0 Tracheostomy status; Z86.73 Personal history of transient ischemic attack (TIA), and cerebral infarction without residual deficits; Z93.1 Gastrostomy status; Z79.4 Long term (current) use of insulin; Z79.899 Other long term (current) drug therapy; Z68.35 Body mass index [BMI] 35.0-35.9, adult
CPT/HCPCS: 36415; 36600; 71045; 80048; 80053; 80202; 81001; 82140; 82272; 82436; 82550; 82570; 82803; 82948; 83605; 83735; 83880; 84300; 84484; 85025; 85610; 85730; 86886; 86900; 86901; 86920; 87040; 87070; 87081; 87086; 87186; 87205; 87804; 93005; 94003; 96361; 96365; 99291; J1815; J2060; J2250; J2543; J3010; J3370; J3490; J7030; J7060; P9016; Q0092

== ENCOUNTER 2019-06-13 11:55 | Inpatient (IN) | payer OTHER ==
[2019-06-13] VITALS (14 sets, daily range): BP systolic 62–110; BP diastolic 23–72
[~2019-06-13] VITALS: Ht 172.7 cm; Wt 117.9 kg
[~2019-06-13 11:55] MED LIST changes: -AMIK500I IJ; -ARGI4.5P3 GT; +ASCO500T45 GT; -DEXL60EC PO; +LANTUS SUBQ; +LIP80 GT; +MULT-1328 GT; -MULT-153 GT; +OMEP20EC11 GT; -PHEN100C3 GT; +PHEN125S GT; +VANC125C11 GT; -VANC1PLA7 IV
--- NOTE | 2019-06-13 11:56 | NUR ---
Patient BIBA ALS accompanied by Fredis FARRELL from [facility], transferred to bed 10. RN evaluating patient at bedside.
--- NOTE | 2019-06-13 11:57 | NUR ---
Dr. Santa is evaluating the patient at bedside.
[2019-06-13] MEDS ORDERED: NACL 0.9% 3,500 ML IV ONE (12:04)
[2019-06-13] MEDS ORDERED: VANCOMYCIN 1,000 MG in DEXTROSE 5% 250 ML IV ONE (12:05)
[2019-06-13] MEDS ORDERED: MEROPENEM 1,000 MG in NACL 0.9% 100 ML IV ONE (12:05)
--- NOTE | 2019-06-13 12:12 | NUR ---
44 Y/O BIBA FROM [facility]. PER EMS PT ALOC / VENTED, HX OF STROKE WITH FIXED PUPILS, BASELINE PER FACILITY. PT PRESENTS ALOC, REACTIVE TO PAINFUL STIMULI. PT WITH TRACH, BAGGED TO ER BED. PT NONVERBAL. CHART ON FILE. PT NKA. NO HX PROVIDED. RX ON FILE PER HOSPITAL HISTORICAL MEDICATIONS. PT ACTIVE ON DIARRHEA/VOMITING. SUCTION PROVIDED PRN. PT ON VENTILATOR. SIDE RAIL X2. Addendum: 06/13/19 at 1346 by MEDOF PACKET PROVIDED PER AMBULANCE HX -- SEE CHART RX -- SEE CHART CHARGE NURSE AWARE
--- NOTE | 2019-06-13 12:15 | NUR ---
PT WAS BROUGHT IN BY EMT. PT WAS BEING BAGGED UPON ARRIVAL. PT IS TRACH WITH SHILEY 7 XLT AND SECURED WITH TRACH TIE AND PLACED ON VENT. TRACH CARE WAS DONE. VENT PLUGGED IN RED OUTLET, BVM AT BEDSIDE. SPUTUM CULTURE COLLECTED AND SEND TO LAB. WILL CONTINUE TO MONITOR PT.
--- NOTE | 2019-06-13 12:20 | NUR ---
ATTEMPTED TO ESTABLISH IV ACCESS, HARD STICK. NOTIFIED.
--- NOTE | 2019-06-13 12:43 | NUR ---
ATTEMPTED ABG X2 UNABLE TO OBTAIN DUE TO LOW B/P. PHYSICIAN AND NURSE MADE AWARE.
[2019-06-13] MEDS ORDERED: MEROPENEM 1,000 MG VIAL IV ONE (12:45)
--- NOTE | 2019-06-13 13:00 | NUR ---
REPORT RECIEVED FROM VIRAL MCKEON
[2019-06-13] MEDS ORDERED: NOREPINEPHRINE 4 MG/4 ML VIAL IV ONE (13:43)
[2019-06-13] MEDS ORDERED: NOREPINEPHRINE 4 MG in DEXTROSE 5% 250 ML IV ONE (13:45)
--- NOTE | 2019-06-13 13:45 | NUR ---
BLOOD GLUCOSE TAKEN AT BEDSIDE
--- NOTE | 2019-06-13 13:49 | NUR ---
XRAY AT BEDSIDE FOR PLACEMENT VERIFICATION
--- NOTE | 2019-06-13 13:49 | NUR ---
DR MACIEL IN ROOM ESTABLISHING CENTRAL LINE
[2019-06-13] MEDS ORDERED: NOREPINEPHRINE 4 MG in DEXTROSE 5% 250 ML IV SCH (13:50)
--- NOTE | 2019-06-13 13:50 | NUR ---
PHARMACY NOTIFIED OF LEVOPHED ORDER PER MD
[2019-06-13 14:00] LABS: HEMATOCRIT 29.2 % (36-52); HEMOGLOBIN 9.2 g/dL (12.0-18.0); MEAN CORPUSCULAR VOLUME 90.4 fL (80-94)
--- NOTE | 2019-06-13 14:00 | NUR ---
EMESIS DRAINING OUT OF PATIENT NOSE, SUCTIONING AT BEDSIDE NEEDED. RT AT BEDSIDE.
--- NOTE | 2019-06-13 14:00 | NUR ---
CAN CATHETER CHANGED AT BEDSIDE BY DASHAWN MCKEON
--- NOTE | 2019-06-13 14:00 | NUR ---
# 16 FR Myers catheter with 10 ml utilizing sterile technique. Immediate return of 0 ml no urine noted. Bedside drainage bag placed below level of bladder. Urine sample collected and sent to lab. Pt tolerated procedure well.
--- NOTE | 2019-06-13 14:00 | NUR ---
CHANGED PATIENTS DIAPER, CLEANED UP BM. GOWN CHANGED. VIRAL RN, DASHAWN RN, VAL RN AT BEDSIDE
[2019-06-13] MEDS ORDERED: DEXTROSE 50% 50 ML SYR IVP ONE ×2 (14:03→15:25)
--- NOTE | 2019-06-13 14:10 | NUR ---
CRASH CART AT PT BEDSIDE. DEFIB PADS PLACED ON PATIENT. DEFIBRILLATOR TURNED ON TO ,MONITOR
[2019-06-13] MEDS ORDERED: VANCOMYCIN 1,000 MG VIAL ONE (14:15)
--- NOTE | 2019-06-13 14:20 | NUR ---
PT PLACED IN [place] POSITION IN EFFORTS TO INCREASE BP
[2019-06-13 14:23] LABS: ALBUMIN 1.4 g/dL (3.4-5.0); ANION GAP 22.7 (8-16); CARBON DIOXIDE 13.4 mmol/L (21-32); TOTAL BILIRUBIN 0.3 mg/dL (0.0-1.0)
[2019-06-13 14:24] LABS: PROTHROMBIN TIME 14.9 secs (10.8-13.4)
[2019-06-13 14:35] LABS: CREATININE 4.5 mg/dL (0.6-1.3); POTASSIUM 6.1 mmol/L (3.5-5.1)
--- NOTE | 2019-06-13 14:35 | NUR ---
Dr. Zarate is evaluating the patient at bedside.
[2019-06-13 14:40] LABS: MEAN CORPUSCULAR HEMOGLOBIN 28 pg (27-31); MEAN CORPUSCULAR HGB CONC 31 g/dL (33-37); PLATELET COUNT (AUTO) 564 K/uL (140-450); RED BLOOD CELL COUNT(AUTO) 3.22 MIL/uL (4.20-6.10); RED CELL DISTRIBUTION WIDTH 17.1 % (11.6-13.7)
[2019-06-13] MEDS ORDERED: LACTATED RINGERS 1,000 ML IV SCH (15:06)
--- NOTE | 2019-06-13 15:09 | NUR ---
LEVOPHED BEING TITRATED AT BEDSIDE TO KEEP SYSTOLIC >90. RADIAL PULSES +2. CAP REFILL <3. PT IS OPENING EYES SPONTANEOUSLY
[2019-06-13] MEDS ORDERED: ONDANSETRON 4 MG/2 ML VIAL IVP PRN (15:10)
[2019-06-13] MEDS ORDERED: ALBUTEROL 0.083% 2.5 MG/3 ML NEBU INH PRN (15:10)
[2019-06-13] MEDS ORDERED: MORPHINE SULFATE 2 MG/ML SYR IVP PRN (15:10)
[2019-06-13] MEDS ORDERED: NACL 0.9% 2,000 ML IV ONE ×2 (15:10→16:55)
[2019-06-13] MEDS ORDERED: VANCOMYCIN PER PHARMACY MC PRN (15:10)
[2019-06-13] MEDS ORDERED: LORazepam 2 MG/ML VIAL IVP PRN (15:10)
--- NOTE | 2019-06-13 15:18 | NUR ---
Dr. Taylor (Senior Program Analyst) is evaluating the patient at bedside.
[2019-06-13 15:27] LABS: LYMPHOCYTES % (MANUAL) 16 % (20-46); MONOCYTES % (MANUAL) 8 % (5-12)
--- NOTE | 2019-06-13 15:33 | NUR ---
FEMORAL PULSE MONITORED WITH DOPPLER AT BEDSIDE
--- NOTE | 2019-06-13 15:36 | NUR ---
PATIENT IS RESPONSIVE TO PAINFUL STIMULATION
--- NOTE | 2019-06-13 15:37 | NUR ---
APPROX 5 ML YELLOW, CLOUDY URINE APPEARING IN CAN.
--- NOTE | 2019-06-13 15:52 | NUR ---
RT AT BEDSIDE COLLECTING ABGS
[2019-06-13] MEDS ORDERED: SODIUM POLYSTYRENE 15 GM/60 ML UDBTL PO SCH (15:58)
--- NOTE | 2019-06-13 15:59 | NUR ---
PATIENT IS TOLERATING LEVOPHED DRIP WELL, BP IS STAYING WITHIN DESIRED LIMITS. CAP REFILL <3. RADIAL PULSES +2. RESPONSIVE TO PAINFUL STIMULI.
--- NOTE | 2019-06-13 16:11 | NUR ---
DISCHARGE PLANNING: A 44 Y/O MALE PATIENT FROM [facility] [place], WHO CAME IN DUE TO ALTERED MENTAL STATUS. PAST MEDICAL HISTORY INCLUDE STROKE, DIABETES, HTN, SSEIZURES, TRACHEOSTOMY AND G TUBE. INITIAL DIAGNOSIS OF HCAP, ARF AND C DIFF. CURRENT LABS INCLUDE WBC 6.0, H/H 9.2/29.2, NA/K 137/6.1, BUN/CREA 57/4.5 AND LACTIC ACID7.7. SPUTUM AND BLOOD C/S PENDING. ON METRONIDAZOLE AND MEROPENEM. ON LEVOPHED DRIP. NEPHRO AND ID CONSULTS IN PLACE. DC PLAN BACK TO [facility] [place] ONCE STABLE.
--- NOTE | 2019-06-13 16:30 | NUR ---
REFER TO IV SPREADSHEET FOR UPDATED VITALS. ERMD NOTIFIED ABOUT CHANGES IN BLOOD PRESSURE. NEW ORDERS RECEIVED.
[2019-06-13] MEDS ORDERED: EPINEPHrine 1:1000 (1 mg/mL) 1 MG in DEXTROSE 5% 250 ML IV PRN (16:50)
[2019-06-13] MEDS ORDERED: EPINEPHrine 1:1000 (1 mg/mL) 3 MG in DEXTROSE 5% 250 ML IV PRN ×2 (16:55→18:05)
--- NOTE | 2019-06-13 16:55 | NUR ---
PREPARING PATIENT TO BE TRANSFERRED TO ICU. 2 RNS AND RT AT BEDSIDE.
[2019-06-13] MEDS ORDERED: EPINEPHrine 1:1000 - 1 MG/ML AMP ONE (16:58)
--- NOTE | 2019-06-13 17:29 | NUR ---
RECEIVED PT FROM ER NURSE, DASHAWN. PT ON AUREA, TRANSFERRED TO BED WITHOUT ISSUE, TRACH TO VENT, RT RAYRAY AND JOSE CRUZ CONNECTED PT TO VENT, SETTING FIO2 60%, RR 16, VT550, PEEP5. CONNECTED TO EKG AND MONITOR. VITALS TAKEN. TEMP 99.5F, TEMPORAL. LUNG SOUNDS COARSE. PT OPENS HIS EYES, BUT NOT FOLLOWING COMMANDS. PUPIL REACT TO LIGHT SLUGGISH, UNEQUAL, 3MM RIGHT EYE, 5MM LEFT EYE. ST ON MONITOR. HR 130S, SBP IN THE 90S. PT HAS BROWN SECRETION COMING OUT OF THE NOSE. SUCTIONED PT FROM THE NOSE AND MOUTH. CONNECTED PT'S G TUBE TO INTERMITTEN LOW SUCTION. CANISTER IS FILLING UP WITH BROWN LIQUID. ER NURSE SAID PT RECEIVED 9L NS BOLUS. OLD CENTRAL LINE ON RIGHT SUBCLAVIAN. WITH DRESSING DATE 06/09/19, [facility] PORT HAS GOOD BLOOD RETURN, THE OTHER 2 PORTS DO NOT HAVE BLOOD RETURN. NEW CVC ON THE LEFT SUBCLAVIAN, ALL THREE PORT ARE WORKING FINE, RUNNING LEVOPHED AT 27MCG/MIN. DR CASTELAN CALLED IN EARLIER, ORDERS HAS BEEN PUT IN. PT WILL BE NPO EX MED FOR NOW. PT'S SKIN INTACT. HEALED WOUNDS ON BILATERAL UPPER BACK. PT MOVES BUE BUT NOT FOLLOWING COMMANDS. FALL PRECAUTION IN PLACE, MRSA SWAB DONE. HOB 30 DEGREES, BED LOCKED AND IN LOWEST POSITION.
--- NOTE | 2019-06-13 17:35 | NUR ---
SPOKE WITH DR CASTELAN, MADE HIM AWARE THAT PT ALREADY ON MERREM, DR CASTELAN SAID NO ZOSYN JUST CONTINUE MERREM. DR CASTELAN WANTS TO DC'D VANCO, AND PLACED PT ON ZYVOX. PT IS ON ISOLATION FOR POSSIBLE C DIFF, WILL COLLECT STOOL, SIGN POST, WILL ENDORSE TO DATA CENTER TECHNICIAN.
--- NOTE | 2019-06-13 17:37 | NUR ---
Patient will be admitted to care of [facility]. Admited to ICU. Will go to room 4. Belongings list completed. Report to RUPA MCKEON.
[2019-06-13] MEDS: SODIUM BICARBONATE 8.4% 50 MEQ in NACL 0.9% 1,000 ML IV SCH (17:40)
[2019-06-13] MEDS: HYDROCORTISONE NA SUCC 100 MG/2 ML VIAL IV SCH (18:12)
[2019-06-13] MEDS: NOREPINEPHRINE 8 MG in DEXTROSE 5% 250 ML IV PRN ×2 (18:15→22:21)
[2019-06-13] MEDS: VANCOMYCIN 500 MG VIAL GT SCH (18:56)
[2019-06-13] MEDS: VASOPRESSIN 20 UNITS in NACL 0.9% 250 ML IV PRN (20:38)
[2019-06-13] MEDS: metroNIDAZOLE 500 MG/NS PREMIX 100 ML IV SCH (20:59)
[2019-06-13] MEDS ORDERED: LINEZOLID 600MG PREMIX 300 ML IV SCH (21:00)
[2019-06-14] VITALS: BP 106/60
[2019-06-14] MEDS: VANCOMYCIN 500 MG VIAL GT SCH (00:09)
[2019-06-14] MEDS ORDERED: MEROPENEM 1,000 MG in NACL 0.9% 100 ML IV SCH (01:00)
[2019-06-14 01:07] VITALS: BP_SYST 108
--- NOTE | 2019-06-14 01:15 | NUR ---
Dr. Calixto notified of patient's increased need for pressors. Vasopressin, Levo, and Epinephrine maxed out for entire shift. Received order for PRN fluid boluses in order to maintain BP. One fluid bolus given at shift change between transition from ER and ICU and one bolus given during p.m. shift.
[2019-06-14] MEDS: HYDROCORTISONE NA SUCC 100 MG/2 ML VIAL IV SCH (01:43)
[2019-06-14] MEDS ORDERED: SODIUM BICARBONATE 8.4% 50 MEQ/50 ML VIAL ONE (02:34)
[2019-06-14] MEDS ORDERED: SODIUM BICARBONATE 8.4% PFS 50 MEQ/50 ML SYR IVP ONE (02:35)
[2019-06-14 03:00] VITALS: BP_SYST 106
[2019-06-14] MEDS: VASOPRESSIN 20 UNITS in NACL 0.9% 250 ML IV PRN (03:09)
[2019-06-14] MEDS: NOREPINEPHRINE 8 MG in DEXTROSE 5% 250 ML IV PRN (03:11)
[2019-06-14] MEDS: SODIUM BICARBONATE 8.4% 50 MEQ in NACL 0.9% 1,000 ML IV SCH (03:12)
[2019-06-14] MEDS ORDERED: NACL 0.9% 1,000 ML IV PRN (03:25)
[2019-06-14 04:00] VITALS: BP 96/25
[2019-06-14] MEDS: metroNIDAZOLE 500 MG/NS PREMIX 100 ML IV SCH (04:24)
--- NOTE | 2019-06-14 05:29 | NUR ---
Pt went into asystole with no palpable pulses. Code blue initiated and chest compressions started by respiratory therapist and primary nurse. Respiratory therapist initiated manual breaths using bag/mask/valve. Four doses of epinephrine given. One dose of amiodarone given. Four rounds of chest compressions done. One shock delivered for v. tach. Code duration was at least 15 min. Family notified. Endorsed to charge nurse to call [facility]. All tubing and lines left in place for the time being. Patient was maxed out on epinephrine, levophed, and vasopressin the entire shiftt and still had persistent hypotension. Dr. Calixto was paged at 0115 and PRN order was given for NS boluses as needed. Two NS boluses given this shift. One amp of D50 given to r/o hypoglycemia and one amp of calcium gluconate given to correct hyperkalemia and cover all bases. Pt received Kayelate at shift change to treat hyperkalemia.
--- NOTE | 2019-06-14 06:33 | NUR ---
[facility] notified at 0553. Spoke with Ilene Riggs and received [id number] as the referral number. Office Director's office notified at [phone]. Received [id number] as the reference number. Brothvijay Ivory and family friend arrived to ICU and apartment house manager discussed mortuary options with them. Pt had no urine output this shift and was tachypneic. Bladder scan revealed 200-300 cc of urine in bladder. Myers flushed with 40 cc, but no urine output present. Vehicle Inspector notified of urinary retention.
--- NOTE | 2019-06-14 07:50 | NUR ---
CRIMINAL JUDGE CALLED BACK, OK TO RELEASE BODY. PT'S BROTHER HAS DECIDED TO TRANSFER PT'S BODY TO [facility] FOR NOW.
[2019-06-14] MEDS ORDERED: MEROPENEM 500 MG in NACL 0.9% 50 ML IV SCH (09:00)
[2019-06-14] MEDS ORDERED: PHARMACY COMMENTS MC SCH (09:00)
--- NOTE | 2019-06-14 10:15 | NUR ---
[facility] CALLED, WILL PORT STEWARD BODY IN 1.5 HOURS. MADE PT'S FAMILY AND PT'S BROTHER JOBYAZMIN ALMANZA AWARE.
[2019-06-21] MEDS ORDERED: NACL 0.9% 1,000 ML IV PRN (03:25)
== END 2019-06-14 05:17 | disposition expired | DRG 720 ==
LOC: MED 11:55 → MIC 15:12
PROVIDERS: ADMIT Hospitalist; ATTEND Hospitalist
PROC: 5A1935Z Respiratory Ventilation, Less than 24 Consecutive Hours (ICD-10-PCS; principal; 2019-06-13)
DX: A41.9 Sepsis, unspecified organism (principal); J96.21 Acute and chronic respiratory failure with hypoxia; N17.0 Acute kidney failure with tubular necrosis; Z99.11 Dependence on respirator [ventilator] status; R65.21 Severe sepsis with septic shock; A04.72 Enterocolitis due to Clostridium difficile, not specified as recurrent; G93.40 Encephalopathy, unspecified; J18.9 Pneumonia, unspecified organism; R13.10 Dysphagia, unspecified; E87.5 Hyperkalemia; I10 Essential (primary) hypertension; G40.909 Epilepsy, unspecified, not intractable, without status epilepticus; E78.5 Hyperlipidemia, unspecified; E11.9 Type 2 diabetes mellitus without complications; Y95 Nosocomial condition; Z86.73 Personal history of transient ischemic attack (TIA), and cerebral infarction without residual deficits; Z93.0 Tracheostomy status; Z93.1 Gastrostomy status; R74.0 Nonspecific elevation of levels of transaminase and lactic acid dehydrogenase [LDH]
CPT/HCPCS: 36415; 36556; 51702; 71045; 80053; 83605; 85025; 85610; 85730; 87040; 87070; 87081; 87186; 87205; 93005; 96361; 96365; 96366; 96368; 99291; J0171; J1644; J1720; J2020; J2060; J2185; J3370; J3490; J7030; J7060; Q0092